=== PATIENT | male | born 1965 | race Caucasian/White ===

== ENCOUNTER 2024-01-27 22:21 | Inpatient (IN) | payer MEDICARE, MEDICAID, SELFPAY ==
[2024-01-27] VITALS (7 sets, daily range): BP systolic 99–123; BP diastolic 51–56; PULSE 94–102; RESP 14–22; TEMP 35.9–36.4; O2SAT 89–100; BMI 28.7
--- NOTE | 2024-01-27 22:29 | ED.VIS.DYS ---
HPI History of Present Illness Chief Complaint: Shortness of Breath Narrative Narrative: 58-year-old male with multiple medical problems, presents from halfway facility with increasing shortness of breath. His history and physical is limited secondary to the fact that he is on CPAP currently per EMS. He has recent history of stent placement. He is also in end-stage renal disease patient and gets dialysis. Currently has a decubitus ulcer, on antibiotics. Per EMS, he had increasing difficulty breathing today. Patient denies any cough, or chest pain. He does have history of CHF and COPD. 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 Bipolar affective disorder CAD (coronary artery disease) Cervical stenosis of spine CHF (congestive heart failure) Chronic kidney disease Colostomy in place Depression Diabetes Dialysis patient GERD (gastroesophageal reflux disease) Hyperlipemia Hypertension Myocardial infarction Neuropathy Osteoarthritis Home Medications albuterol sulfate 2.5 mg/0.5 mL solution for nebulization 2.5 mg inhalation Q6H 01/27/24 [History Last Taken Unknown] albuterol sulfate 90 mcg/actuation aerosol inhaler 2 inh inhalation Q6H PRN shortness of breath or wheezing 01/27/24 [History Last Taken Unknown] aspirin 81 mg tablet,delayed release (Adult Low Dose Aspirin) 81 mg PO DAILY 01/27/24 [History Last Taken Unknown] buspirone 5 mg tablet 5 mg PO DAILY 01/27/24 [History Last Taken Unknown] cariprazine 3 mg capsule (Vraylar) 3 mg PO DAILY 01/27/24 [History Last Taken Unknown] cholecalciferol (vitamin D3) 125 mcg (5,000 unit) capsule 5,000 unit PO DAILY 01/27/24 [History Last Taken Unknown] clopidogrel 75 mg tablet (Plavix) 75 mg PO DAILY 01/27/24 [History Last Taken Unknown] cyanocobalamin (vitamin B-12) 500 mcg tablet (Vitamin B-12) 500 mcg PO DAILY 01/27/24 [History Last Taken Unknown] epoetin dee 10,000 unit/mL injection solution (Procrit) 10,000 unit IV DAILY 01/27/24 [History Last Taken Unknown] ferrous sulfate 325 mg (65 mg iron) tablet (iron) 325 mg PO BID 01/27/24 [History Last Taken Unknown] gabapentin 600 mg tablet 600 mg PO BID 01/27/24 [History Last Taken Unknown] insulin glargine 100 unit/mL (3 mL) subcutaneous pen (Basaglar KwikPen U-100 Insulin) 20 unit subcut QPM 01/27/24 [History Last Taken Unknown] insulin lispro 100 unit/mL subcutaneous pen (Humalog KwikPen (U-100) Insulin) 15 unit subcut TIDCM 01/27/24 [History Last Taken Unknown] insulin lispro protamine-lispro 100 unit/mL (75-25) subcutaneous pen 12 unit subcut DAILY 01/27/24 [History Last Taken Unknown] isosorbide mononitrate 60 mg tablet,extended release 24 hr 60 mg PO DAILY 01/27/24 [History Last Taken Unknown] meropenem 500 mg intravenous solution 500 mg IV Q24H 01/27/24 [History Last Taken Unknown] metoprolol succinate 25 mg tablet,extended release 24 hr 25 mg PO DAILY 01/27/24 [History Last Taken Unknown] nitroglycerin 0.4 mg sublingual PRN 01/27/24 [History Last Taken Unknown] omeprazole 20 mg capsule,delayed release 20 mg PO DAILY 01/27/24 [History Last Taken Unknown] ranolazine 500 mg tablet,extended release,12 hr 1,000 mg PO Q12H 01/27/24 [History Last Taken Unknown] rosuvastatin 20 mg tablet (Crestor) 20 mg PO DAILY 01/27/24 [History Last Taken Unknown] sevelamer carbonate 800 mg tablet (Renvela) 1,600 mg PO DAILY 01/27/24 [History Last Taken Unknown] vancomycin 1,000 mg intravenous injection 1 g IV DAILY 01/27/24 [History Last Taken Unknown] vilazodone 40 mg tablet 40 mg PO DAILY 01/27/24 [History Last Taken Unknown] Allergy/AdvReac Type Severity Reaction Status Date / Time atorvastatin Allergy Unknown PT UNABLE Verified 01/27/24 23:29 TO RESPOND-NEEDS F/U [id number] Reductase Allergy Unknown PT UNABLE Verified 01/27/24 23:29 Inhibitor TO RESPOND-NEEDS F/U Surgical History Hx of appendectomy Hx of CABG Social History Smoking Status: Former smoker ROS ROS ED ROS Narrative Limited secondary to patient condition Constitutional: No fever, no chills. HEENT: No sore throat. No neck pain. No loss of vision. No rhinorrhea. Cardiovascular: No chest pain. No palpitations. No pedal edema. Respiratory: No cough, positive, increasing shortness of breath. Abdominal: No abdominal pain. No nausea. No vomiting. Genitourinary: No dysuria. No hematuria. Musculoskeletal: No myalgias. No arthralgias. Neurologic: No headaches. No dizziness. No lightheadedness. Skin: No rash. No change in color. Psychiatric: No depression. No anxiety. EXAM Physical Exam Narrative Exam Narrative: Afebrile. Vital signs noted. HEENT: Normocephalic. Atraumatic. PERRL, EOMI. Neck soft and supple. No point tenderness or step off. Cardiovascular: Regular rate and rhythm. No murmurs, rubs, or gallops appreciated. Respiratory: Positive tachypnea. Bilateral rales and rhonchi. Moderate respiratory distress. Gastrointestinal: Abdomen soft, nontender, with normoactive bowel sounds. No rebound or guarding. Neurological: Awake. Alert. Nonfocal, nonlateralizing. Skin: No rash. Normal color. No pallor. Musculoskeletal: No pedal edema. Left below the knee amputation, right [id number] amputation. Const Vital Signs: 01/27/24 22:22 01/27/24 22:32 01/27/24 22:38 Temperature 97.6 F L 97.6 F L Temperature Source Temporal Temporal Pulse Rate 100 102 H Respiratory Rate 22 H 21 H Respiratory Effort Respiratory Depth Respiratory Pattern Blood Pressure 123/54 H 123/54 H Blood Pressure Mean 77 77 Pulse Ox 89 92 95 Oxygen Delivery Method Bi-pap Bi-pap Bi-pap Fraction of Inspired Oxygen (FIO2) 60 60 01/27/24 22:40 01/27/24 22:30 01/27/24 22:55 Temperature 97 F L Temperature Source Temporal Pulse Rate 101 H 98 Respiratory Rate 22 H 18 Respiratory Effort Short of Breath Respiratory Depth Shallow Respiratory Pattern Tachypnea Normal Blood Pressure 99/56 L Blood Pressure Mean 70 Pulse Ox 93 96 Oxygen Delivery Method Bi-pap Bi-pap Fraction of Inspired Oxygen (FIO2) 60 60 60 01/27/24 23:28 01/28/24 00:00 01/28/24 00:05 Temperature 96.7 F L 98.2 F Temperature Source Temporal Temporal Pulse Rate 94 91 89 Respiratory Rate 18 18 17 Respiratory Effort Respiratory Depth Respiratory Pattern Normal Blood Pressure 110/51 L 99/53 L Blood Pressure Mean 70 68 Pulse Ox 100 97 97 Oxygen Delivery Method Bi-pap Bi-pap Fraction of Inspired Oxygen (FIO2) 35 30 MDM MDM MDM Narrative Medical decision making narrative: Sepsis workup was pursued. In the differential diagnosis is CHF versus COPD versus pneumonia versus a combination of the 3. I have low suspicion for pneumothorax as he has equal breath sounds bilaterally. Upon arrival, patient was placed on BiPAP, and his mask was changed to a better fitting mask. He had a resultant pulse ox at 93. ABG will be obtained along with chest x-ray. EKG was obtained and interpreted by myself independently as sinus tachycardia at 103 bpm without ectopy or acute ST changes. No STEMI. He does have T wave inversion laterally, however. The patient is not having chest pain. I reviewed his ABG initially and he has a pH of 7.29 with a pCO2 of 58 and a pO2 of 75. This will be repeated in 1 hour. He is showing improvement with a pulse ox of 100% on BiPAP now. I reviewed his laboratory work and he has an elevated white count of 19.6. In review of his infectious disease consultation, they state that it has been as high been steadily rising for his osteomyelitis of his sacrum. Hemoglobin 7.8 and anemic, I do not feel he requires emergent transfusion however. Platelet count normal at 322. INR normal at 1.3. Review of his electrolytes show potassium slightly elevated at 5.3 with creatinine of 7.34 consistent with his end-stage renal disease. Lactic acid is normal at 0.9. High-sensitivity troponin is elevated at 80 but I think this is secondary to his end-stage renal disease as once again the patient is pain-free. I do not feel that heparinization is indicated. Chest x-ray in 1 view interpreted by myself shows atelectasis bilaterally but no discrete consolidation. I reviewed the radiology report which confirms my independent interpretation. I reviewed his urinalysis and he is positive for nitrites, but only has 0-5 WBCs. I do not feel that this is an infected urine, but he is being started on antibiotics for his osteomyelitis. I do not feel that a BNP is indicated as he has end-stage renal disease with a creatinine of 7 today. His chest x-ray does not look like failure. With this point in time, we do feel that he requires admission to the ICU. Patient will be discussed with the hospitalist. He was started on vancomycin and meropenem which she is being given at the SNF/rehab facility. In discussion with the hospitalist, concern is for pulmonary embolism given his recent hospitalization. He would like a CTA performed which I do feel is reasonable. This was ordered and I reviewed the CT report which shows pleural effusions and pneumonia but no evidence of pulmonary embolism. He was already started on meropenem and vancomycin for his sacral osteomyelitis. Disposition is admitted to the ICU in guarded condition. Critical care time 31 minutes. History & Record Review Discussion w/independent historian: Patient Additional record(s) reviewed:: Prior outpatient record (Printout from previous admission at [facility]) Lab Data Attestation: I reviewed the patient's lab results. Labs: Laboratory Results - last 24 hr 01/27/24 01/27/24 22:29 22:55 WBC 19.6 H RBC 2.39 L Hgb 7.8 L Hct 26.1 L MCV 109.2 H MCH 32.6 H MCHC 29.9 L RDW Std Deviation 65.4 H RDW Coeff of Renyold 16.3 H Plt Count 322 MPV 9.4 Immature Gran % (Auto) 0.700 Neut % (Auto) 79.2 H Lymph % (Auto) 13.3 L Burnet % (Auto) 6.4 Eos % (Auto) 0.2 Baso % (Auto) 0.2 Absolute Neuts (auto) 15.6 H Absolute Lymphs (auto) 2.62 Nucleated RBC % 0 Anisocytosis RARE PT 16.5 H INR 1.3 APTT 41.0 H Sodium 139 Potassium 5.3 H Chloride 102 Carbon Dioxide 30.0 Anion Gap 7 BUN 51 H Creatinine 7.34 H Estim Creat Clear Calc 12.29 Est GFR (MDRD) Af Amer 10 L Est GFR (MDRD) Non-Af 8 L BUN/Creatinine Ratio 6.9 L Glucose 133 H Lactic Acid 0.9 Calcium 8.6 Total Bilirubin 0.40 AST 13 L ALT 13 L Alkaline Phosphatase 89 Troponin I High Sens 80 H B-Natriuretic Peptide 240.3 H Total Protein 8.8 H Albumin 1.9 L Globulin 6.9 H Albumin/Globulin Ratio 0.3 L Urine Color Yellow Urine Clarity Clear Urine pH 6.5 Ur Specific Alvarado 1.010 Urine Protein 100 H Urine Glucose (UA) 250 H Urine Ketones 5 H Urine Occult Blood 50 H Urine Nitrite Positive H Urine Bilirubin 1 H Urine Urobilinogen 1 H Ur Leukocyte Esterase 25 H Urine RBC 0-5 SEEN Urine WBC 0-5 SEEN Ur Squamous Epith Cells 0-5 SEEN Urine Bacteria RARE Urine Mucus 0 SEEN ABG Data ABG results: ABG 01/27/24 01/28/24 22:49 00:10 Specimen Type ART ART Sample Site R Radial R Radial pH 7.30 L 7.22 L Bicarbonate Actual 28.4 H 28.0 H Total CO2 30 30 Base Excess 2 0 O2 Saturation 93 L 94 L O2 % 60.0 30.0 ABG pCO2 58.3 H 68.1 H* ABG pO2 76 86 Mik Test Positive Positive Respiration Rate 14 14 O2 Delivery Device BiPAP BiPAP Vent Mode Not entered Not entered Tidal Volume 450.0 450.0 POC PEEP 12 12 Crit Call To/Read Back Yes Radiography Diagnostic Testing: Clinical Impression(s) from Imaging Studies Chest X-Ray 01/27/24 22:45 IMPRESSION: Poor inspiration with some bibasilar atelectasis. Electronically Signed: Harjit Kimball MD at 22:58 EDT , Chest CTA 01/28/24 00:12 IMPRESSION: 1. Moderate pleural effusions with bilateral lower lobe consolidations. Findings indicate pneumonia. 2. No evidence of pulmonary embolism. Electronically Signed: Luis Escudero MD at 0:57 EDT , Management Discussion w/another healthcare provider: Hospitalist (Dr. Lion) Critical Care Time Critical Care Time: Yes Critical care time (excluding procedures): 30-74 minutes (31), Including time spent:, Discussing w/Patient &/or Family/Auditing Control Clerk, Discussing w/Consultants, Arranging Admission or Transfer and Performing Direct Patient Care at Bedside Discharge Plan Dx/Rx/DC Orders Clinical Impression: Respiratory failure with hypoxia, Osteomyelitis of sacrum, ESRD on dialysis Disposition Disposition: Acute Care [facility]
[2024-01-27 22:43] LABS: Absolute Lymphocyte Count 2.62 X10^3/uL (0.83-4.51); Absolute Neutrophil Count 15.6 X10^3/uL (2.0-7.7); Basophil# 0.04 X10^3/uL; Basophil% 0.2 % (0-1); Eosinophil# 0.03 X10^3/uL; Eosinophils% 0.2 % (0-5); Hematocrit 26.1 % (40-54); Hemoglobin 7.8 g/dL (13.0-16.5); Lymphocyte # 2.62 X10^3/ul (0.83-4.51); Lymphocyte % 13.3 % (19-41); Mean Corp Hgb Conc 29.9 g/dL (32-36); Mean Corpuscular Hgb 32.6 pg (27.0-32.0); Mean Corpuscular Volume 109.2 fL (80-94); Mean Platelet Vol. 9.4 fl (6.2-12.0); Monocyte# 1.26 X10^3/uL; Monocyte% 6.4 % (0-10); NRBC Flagged by Analyzer 0 % (0-5); Neutrophil # 15.55 X10^3/uL (2.7-7.7); Neutrophil % 79.2 % (47-70); POSITIVE MORPHOLOGY YES; Platelet Count 322 K/mm3 (150-450); RBC Distribution Width CV 16.3 % (11.6-14.6); RBC Distribution Width SD 65.4 fl (35.1-43.9); Red Blood Count 2.39 M/mm3 (4.6-6.2); White Blood Count 19.6 K/mm3 (4.4-11.0)
--- NOTE | 2024-01-27 22:45 | RAD_ITS ---
STUDY: X-RAY CHEST REASON FOR EXAM: Male, 58 years old. Shortness of Breath TECHNIQUE: Single AP portable view of the chest. COMPARISON: None. FINDINGS: Tunneled left internal jugular dialysis catheter with tip of the catheter overlying the left brachiocephalic vein. Status post median sternotomy. Poor inspiration with some bibasilar atelectasis. There is no demonstrated pleural abnormality. There is moderate cardiac enlargement. Normal mediastinum and conor. Normal visualized pulmonary arteries. Normal visualized aortic arch and descending thoracic aorta. Normal visualized thoracic spine. Normal visualized ribs, clavicles, and shoulders. There is no demonstrated abnormality of the visualized soft tissue structures of the upper abdomen. RAD/Chest 1 View (Portable) IMPRESSION: Poor inspiration with some bibasilar atelectasis. Electronically Signed: Harjit Kimball MD at 22:58 EDT ,
[2024-01-27 22:46] LABS: Differential Indicated SCAN CRITERIA MET
[2024-01-27 22:53] LABS: Allen Test Positive; Base Excess 2 mmol/L (-2 to +2); Bicarbonate 28.4 mmol/L (22-26); Blood Gas Specimen Type ART; Mode Not entered; O2 Delivery Device BiPAP; PEEP 12; PO2 76 mmHG (75-100); RR 14; SITE R Radial; SO2 93 % (95-99); Total Carbon Dioxide 30 mmol/L; pCO2 58.3 mmHg (35-45)
[2024-01-27 22:56] LABS: International Normalized Ratio 1.3; Prothrombin Time (Protime)PT. 16.5 SECONDS (11.7-14.9)
[2024-01-27 22:59] LABS: Mucous, Urine 0 SEEN /hpf (<or=2+)
[2024-01-27 23:02] LABS: Color, Urine Yellow (Yellow); Glucose, Dipstick 250 mg/dl (Normal); Ketone-Dipstick 5 mg/dl (Negative); Leukocyte Esterase-Dipstick 25 /ul (Negative); Nitrite-Dipstick Positive (Negative); Occult Blood-Urine 50 /ul (Negative); Protein-Dipstick 100 mg/dl (Negative); Urine Clarity Clear (Clear); Urine Urobilinogen 1 mg/dl (Normal); Urine pH 6.5 (5.0 - 8.0)
[2024-01-27 23:05] LABS: ALB/GLOB Ratio 0.3 RATIO (0.9-2.4); AST(SGOT) 13 U/L (15-37); Alanine Aminotransfer ALT/SGPT 13 U/L (16-61); Albumin, Serum 1.9 g/dL (3.2-5.0); Alkaline Phosphatase 89 U/L (45-117); Anion Gap 7 (5-15); BUN 51 mg/dL (7-18); BUN/Creat Ratio 6.9 RATIO (10-20); Calcium,Total 8.6 mg/dL (8.5-10.1); Chloride 102 mmol/L (98-107); Creatinine, Serum 7.34 mg/dL (0.70-1.30); EST Glomerular Filtration Rate 8 mL/min (>60); Est Glom Filt Rate - Afr Amer 10 mL/min (>60); Estimated Creatinine Clearance 12.29 ml/min; Globulin 6.9 g/dL (2.2-4.2); Glucose 133 mg/dL (74-106); Lactic Acid 0.9 mmol/L (0.4-1.9); Potassium 5.3 mmol/L (3.5-5.1); Protein, Total 8.8 g/dL (6.4-8.2); Sodium Level 139 mmol/L (136-145); Troponin-I HS 80 pg/mL (3.0-78.0)
[2024-01-27 23:12] LABS: Red Blood Cells-Urine 0-5 SEEN /hpf (0-5); Urine Bilirubin Dipstick 1 mg/dL (Negative); White Blood Cells 0-5 SEEN /hpf (0-5)
[2024-01-27 23:13] LABS: Bacteria RARE /hpf (None Seen); Squamous Epithelial Cells - UA 0-5 SEEN /hpf (0-5)
[2024-01-27] MEDS: 0.9% Normal Saline (1000mL) 1,000 ML 999 ML IV (23:30)
[2024-01-27 23:38] LABS: Anisocytosis RARE
[2024-01-27] MEDS: Meropenem 500 MG in 0.9% Normal Saline (50mL MB+) 50 ML 100 MG IV (23:50)
[2024-01-28] VITALS (41 sets, daily range): BP systolic 97–137; BP diastolic 47–92; PULSE 77–102; RESP 14–36; TEMP 35.9–37.1; O2SAT 90–100; BMI 27.8
--- NOTE | 2024-01-28 00:05 | HP.PCM.HOS_ITS ---
HPI - General General Date of Admission: 01/28/24 Date of Service: 01/28/24 Chief Complaint: Shortness of breath and AMS. HPI Narrative RAMANDEEP KEEN, is a 58 M with a past medical history of essential hypertension, hyperlipidemia, overweight; with BMI of 28.8 present as admission, diabetes mellitus type 2; of unknown control, diabetic neuropathy, coronary artery disease; status post CABG and recent stent placement 1 week ago, history of CHF, history of severe peripheral vascular disease; status post right AKA and left BKA, end-stage renal disease on hemodialysis, chronic anemia; likely due to renal disease, recent admission likely to a Hospital in [place] for osteomyelitis of the sacrum with Stage IV decubitus ulcer on IV Merrem and IV Vancomycin followed by infectious disease DrIsrael Chavez who was then sent to [facility] for less than 1 day who was then sent via EMS to [facility] ER for shortness of breath and altered mental status. Mr. Keen cannot give a complete history at this time as he is in respiratory distress on BiPAP so information was gathered from chart, medical staff and computer. In the ER his CT scan of the chest was positive for multifocal pneumonia with bilateral effusions complicated by clinical evidence of acute hypoxic respiratory failure compounded by metabolic encephalopathy and he was then admitted to the ICU for ongoing care for a stay that is expected to be greater than 48 hours. [facility] Medical History AAA (abdominal aortic aneurysm) Above knee amputation of right lower extremity Below-knee amputation of left lower extremity Bipolar affective disorder CAD (coronary artery disease) Cervical stenosis of spine CHF (congestive heart failure) Chronic kidney disease Colostomy in place Depression Diabetes Dialysis patient GERD (gastroesophageal reflux disease) Hyperlipemia Hypertension Myocardial infarction Neuropathy Osteoarthritis Home Medications albuterol sulfate 2.5 mg/0.5 mL solution for nebulization 2.5 mg inhalation Q6H 01/27/24 [History Last Taken Unknown] albuterol sulfate 90 mcg/actuation aerosol inhaler 2 inh inhalation Q6H PRN shortness of breath or wheezing 01/27/24 [History Last Taken Unknown] aspirin 81 mg tablet,delayed release (Adult Low Dose Aspirin) 81 mg PO DAILY 01/27/24 [History Last Taken Unknown] buspirone 5 mg tablet 5 mg PO DAILY 01/27/24 [History Last Taken Unknown] cariprazine 3 mg capsule (Vraylar) 3 mg PO DAILY 01/27/24 [History Last Taken Unknown] cholecalciferol (vitamin D3) 125 mcg (5,000 unit) capsule 5,000 unit PO DAILY 01/27/24 [History Last Taken Unknown] clopidogrel 75 mg tablet (Plavix) 75 mg PO DAILY 01/27/24 [History Last Taken Unknown] cyanocobalamin (vitamin B-12) 500 mcg tablet (Vitamin B-12) 500 mcg PO DAILY 01/27/24 [History Last Taken Unknown] epoetin dee 10,000 unit/mL injection solution (Procrit) 10,000 unit IV DAILY 01/27/24 [History Last Taken Unknown] ferrous sulfate 325 mg (65 mg iron) tablet (iron) 325 mg PO BID 01/27/24 [Hi story Last Taken Unknown] gabapentin 600 mg tablet 600 mg PO BID 01/27/24 [History Last Taken Unknown] insulin glargine 100 unit/mL (3 mL) subcutaneous pen (Basaglar KwikPen U-100 Insulin) 20 unit subcut QPM 01/27/24 [History Last Taken Unknown] insulin lispro 100 unit/mL subcutaneous pen (Humalog KwikPen (U-100) Insulin) 15 unit subcut TIDCM 01/27/24 [History Last Taken Unknown] insulin lispro protamine-lispro 100 unit/mL (75-25) subcutaneous pen 12 unit subcut DAILY 01/27/24 [History Last Taken Unknown] isosorbide mononitrate 60 mg tablet,extended release 24 hr 60 mg PO DAILY 01/27/24 [History Last Taken Unknown] meropenem 500 mg intravenous solution 500 mg IV Q24H 01/27/24 [History Last T aken Unknown] metoprolol succinate 25 mg tablet,extended release 24 hr 25 mg PO DAILY 01/27/24 [History Last Taken Unknown] nitroglycerin 0.4 mg sublingual PRN 01/27/24 [History Last Taken Unknown] omeprazole 20 mg capsule,delayed release 20 mg PO DAILY 01/27/24 [History Last Taken Unknown] ranolazine 500 mg tablet,extended release,12 hr 1,000 mg PO Q12H 01/27/24 [History Last Taken Unknown] rosuvastatin 20 mg tablet (Crestor) 20 mg PO DAILY 01/27/24 [History Last Taken Unknown] sevelamer carbonate 800 mg tablet (Renvela) 1,600 mg PO DAILY 01/27/24 [History Last Taken Unknown] vancomycin 1,000 mg intravenous injection 1 g IV DAILY 01/27/24 [History Last Taken Unknown] vilazodone 40 mg tablet 40 mg PO DAILY 01/27/24 [History Last Taken Unknown] Allergy/AdvReac Type Severity Reaction Status Date / Time atorvastatin Allergy Unknown PT UNABLE Verified 01/27/24 23:29 TO RESPOND-NEEDS F/U Aiirqxy-YAA-BdB Reductase Allergy Unknown PT UNABLE Verified 01/27/24 23:29 Inhibitor TO RESPOND-NEEDS F/U Surgical History Hx of appendectomy Hx of CABG Social History Smoking Status: Former smoker ROS ROS Narrative Full review of systems cannot be completed secondary to patient wearing BiPAP and altered mental status. Review of Systems ROS Unobtainable: due to encephalopathy Vital Signs Vital Signs Vital Signs: 01/27/24 22:22 01/27/24 22:32 01/27/24 22:38 Temperature 97.6 F L 97.6 F L Temperature Source Temporal Temporal Pulse Rate 100 102 H Respiratory Rate 22 H 21 H Respiratory Effort Respiratory Depth Respiratory Pattern Blood Pressure 123/54 H 123/54 H Blood Pressure Mean 77 77 Pulse Ox 89 92 95 Oxygen Delivery Method Bi-pap Bi-pap Bi-pap Fraction of Inspired Oxygen (FIO2) 60 60 01/27/24 22:40 01/27/24 22:30 01/27/24 22:55 Temperature 97 F L Temperature Source Temporal Pulse Rate 101 H 98 Respiratory Rate 22 H 18 Respiratory Effort Short of Breath Respiratory Depth Shallow Respiratory Pattern Tachypnea Normal Blood Pressure 99/56 L Blood Pressure Mean 70 Pulse Ox 93 96 Oxygen Delivery Method Bi-pap Bi-pap Fraction of Inspired Oxygen (FIO2) 60 60 60 01/27/24 23:28 Temperature 96.7 F L Temperature Source Temporal Pulse Rate 94 Respiratory Rate 18 Respiratory Effort Respiratory Depth Respiratory Pattern Blood Pressure 110/51 L Blood Pressure Mean 70 Pulse Ox 100 Oxygen Delivery Method Bi-pap Fraction of Inspired Oxygen (FIO2) Weight Weight: 200 lb 6.403 oz Body Mass Index (BMI) 28.7 Physical Exam Const alert Constitutional Narrative: Patient with labored respirations on BiPAP. Orientation / Consciousness: confused and lethargic HEENT normocephalic, head/scalp atraumatic and hearing grossly normal bilaterally HEENT Narrative: Mucous membranes dry. Eyes PERRL and EOMs intact bilaterally Neck no lymphadenopathy and supple Resp Resp Narrative: Diminished breath sounds throughout. Cardio regular rate and regular rhythm GI normal to inspection, nondistended, normoactive bowel sounds, soft to palpation, non-tender and non-distended Extremity Extremity Narrative: Patient has evidence of Right AKA and Left BKA. Neuro CN's II-XII intact bilaterally and moves all extremities Sensorium / Orientation: awake, alert and oriented to person Speech: speech normal Psych Mood & Affect: anxious Results Medical Records Data Attestation: I reviewed the patient's medical records Lab / Micro Data Attestation: I reviewed the patient's lab results. 01/27/24 22:29 01/28/24 03:20 Labs: Laboratory Results - last 24 hr 01/27/24 22:29: WBC 19.6 H, RBC 2.39 L, Hgb 7.8 L, Hct 26.1 L, MCV 109.2 H, MCH 32.6 H, MCHC 29.9 L, RDW Std Deviation 65.4 H, RDW Coeff of Reynold 16.3 H, Plt Count 322, MPV 9.4, Immature Gran % (Auto) 0.700, Neut % (Auto) 79.2 H, Lymph % (Auto) 13.3 L, [place] % (Auto) 6.4, Eos % (Auto) 0.2, Baso % (Auto) 0.2, Absolute Neuts (auto) 15.6 H, Absolute Lymphs (auto) 2.62, Nucleated RBC % 0, Anisocytosis RARE, PT 16.5 H, INR 1.3, APTT 41.0 H, Sodium 139, Potassium 5.3 H, Chloride 102, Carbon Dioxide 30.0, Anion Gap 7, BUN 51 H, Creatinine 7.34 H, Estim Creat Clear Calc 12.29, Est GFR (MDRD) Af Amer 10 L, Est GFR (MDRD) Non-Af 8 L, BUN/Creatinine Ratio 6.9 L, Glucose 133 H, Lactic Acid 0.9, Calcium 8.6, Total Bilirubin 0.40, AST 13 L, ALT 13 L, Alkaline Phosphatase 89, Troponin I High Sens 80 H, Total Protein 8.8 H, Albumin 1.9 L, Globulin 6.9 H, Albumin/G lobulin Ratio 0.3 L 01/27/24 22:55: Urine Color Yellow, Urine Clarity Clear, Urine pH 6.5, Ur Specific Nursery 1.010, Urine Protein 100 H, Urine Glucose (UA) 250 H, Urine Ketones 5 H, Urine Occult Blood 50 H, Urine Nitrite Positive H, Urine Bilirubin 1 H, Urine Urobilinogen 1 H, Ur Leukocyte Esterase 25 H, Urine RBC 0-5 SEEN, Urine WBC 0-5 SEEN, Ur Squamous Epith Cells 0-5 SEEN, Urine Bacteria RARE, Urine Mucus 0 SEEN ABG Data ABG results: ABG 01/27/24 22:49 Specimen Type ART Sample Site R Radial pH 7.30 L Bicarbonate Actual 28.4 H Total CO2 30 Base Excess 2 O2 Saturation 93 L O2 % 60.0 ABG pCO2 58.3 H ABG pO2 76 Mik Test Positive Respiration Rate 14 O2 Delivery Device BiPAP Vent Mode Not entered Tidal Volume 450.0 POC PEEP 12 Imaging Radiology Impression Chest X-Ray 01/27/24 22:45 IMPRESSION: Poor inspiration with some bibasilar atelectasis. Electronically Signed: Harjit Kimball MD at 22:58 EDT , [facility] [address] [place] [address] CTA Chest W/WO Contrast MR#: [id number] Acct: [id number] Name: RAMANDEEP KEEN Rep #: [id number] : 1965 M 58 From: Luis Escudero MD PCP: Dr. Laci Power MD Status: REG ER Study: CTA Chest W/WO Contrast Date of Exam: 01/28/24 Exam# [id number] Ordering Dr: North Jamison MD EXAM: CT ANGIOGRAPHY CHEST WITHOUT AND WITH INTRAVENOUS CONTRAST CLINICAL INDICATION: hypoxia TECHNIQUE: Helically acquired angiography images were obtained of the chest without and with intravenous contrast. This CT exam was performed using one or more of the following dose reduction techniques: automated exposure control, adjustment of the mA and/or kV according to patient size, and/or use of iterative reconstruction technique. MIP reconstructed images were created and reviewed. CONTRAST: IV 100mL Isovue-370 RADIATION DOSE: CTDIvol = 13.59 mGy, DLP = 565.33 mGy-cm COMPARISON: No relevant prior studies available. FINDINGS: PULMONARY ARTERIES: Unremarkable. Normal in caliber. No evidence of pulmonary embolism. AORTA: Unremarkable. No aortic dissection or dilation. GREAT VESSELS OF AORTIC ARCH: Unremarkable. Normal in caliber. No evidence of dissection. LUNGS AND PLEURAL SPACES: Moderate pleural effusions with bilateral lower lobe consolidations. No mass. No pneumothorax. HEART: Coronary artery calcifications. Heart size is normal. No pericardial effusion. MEDIASTINUM: Surgical changes of the mediastinum. No mediastinal or hilar adenopathy. Esophagus is unremarkable. No hiatal hernia. THYROID: Unremarkable. No thyroid lesions. BONES/JOINTS: Degenerative changes of the spine. No suspicious lytic or blastic abnormality. CT/CTA Chest W/WO Contrast IMPRESSION: 1. Moderate pleural effusions with bilateral lower lobe consolidations. Findings indicate pneumonia. 2. No evidence of pulmonary embolism. Electronically Signed: Luis Escudero MD at 0:57 EDT , CC: Dr. North Jamison MD; Dr. Laci Power MD ~ Aircraft Engine Mechanic Supervisor: Signed Assessment & Plan Assessment/Plan (1) Multifocal pneumonia: (2) Osteomyelitis of sacrum: (3) Sacral decubitus ulcer, stage IV: (4) Hyperkalemia: (5) Metabolic encephalopathy: PLAN: Plan 1. Multifocal Pneumonia with Bilateral Effusions causing Acute hypoxic respiratory failure requiring BiPAP in patient with recent protracted hospitalization [facility] - Admit to ICU and continue BiPAP. Restart IV Vancomycin and IV Merrem used to treat #2 plus add renally-dosed IV Diflucan in case of fungal infection in this chronically ill patient on prolonged broad-spectrum antibiotics with severe pneumonia. Finally, we will consult ID physician to see this patient on-rounds in the AM for further recommendations with help appreciated in advance. Patient did not have signs of sepsis present on admission. 2. Chronic Sacral Osteomyelitis with chronic stage IV sacral decubitus ulcer Leukocytosis of 19.6 present on admission followed by Dr. Laci Chavez of ID in [place], [place] complicating #1 - Continue antibiotics with IV Vancomycin and IV Merrem and await culture and sensitivity data. We will consult Wound RN to see this patient on-rounds in the AM for further recommendations with help appreciated in advance. ER was asked to obtain full records from previous hospital since this patient has no records here and cannot give a full history at this time. 3. Hyperkalemia of 5.3 mmol/L present on admission compounding #1 & #2 - Give 10 units of R-insulin with one ampoule of IV D50 plus give oral Kayexalate and then recheck BMP to ensure improvement. 4. Acute Metabolic Encephalopathy attributable to #1 - #3 - Continue supportive care and monitor for improvement. 5. CAD; s/p CABG with resent stent placement on week ago - Resume BASA and Plavix plus statin. Serialize troponin. 6. History of severe peripheral vascular disease; status post right AKA and left BKA with chronic immobility and hyper-inflammatory state outlined above - Noted. Check d-dimer. Check LE doppers with CTA chest negative for PE. 7. ESRD on HD; with chronic anemia previously on Procrit and with hemoglobin of 7.8 g/dL present on admission - We will consult nephrology to see this patient on-rounds in the AM to help set up HD with help appreciated in advance. 8. Diabetes mellitus type 2; of unknown control with diabetic neuropathy - Keep NPO for now. FSBS q. 6 hours plus lowest intensity SSI. 9. History of CHF - Stable. 10. Essential hypertension - Continue Metoprolol plus give prn Hydralazine for systolic blood pressure > 160 mm Hg. 11. Hyperlipidemia - Resume statin. 12. Overweight; with BMI of 28.8 present as admission - Weight loss will be recommended. 13. DVT prophylaxis - Patient on renal-dose Lovenox. Total time: Approximately 75 minutes. Charges/Coding Visit Charges Inpatient E&M: 11580 Init Hosp L3
--- NOTE | 2024-01-28 00:12 | CT_ITS ---
EXAM: CT ANGIOGRAPHY CHEST WITHOUT AND WITH INTRAVENOUS CONTRAST CLINICAL INDICATION: hypoxia TECHNIQUE: Helically acquired angiography images were obtained of the chest without and with intravenous contrast. This CT exam was performed using one or more of the following dose reduction techniques: automated exposure control, adjustment of the mA and/or kV according to patient size, and/or use of iterative reconstruction technique. MIP reconstructed images were created and reviewed. CONTRAST: IV 100mL Isovue-370 RADIATION DOSE: CTDIvol = 13.59 mGy, DLP = 565.33 mGy-cm COMPARISON: No relevant prior studies available. FINDINGS: PULMONARY ARTERIES: Unremarkable. Normal in caliber. No evidence of pulmonary embolism. AORTA: Unremarkable. No aortic dissection or dilation. GREAT VESSELS OF AORTIC ARCH: Unremarkable. Normal in caliber. No evidence of dissection. LUNGS AND PLEURAL SPACES: Moderate pleural effusions with bilateral lower lobe consolidations. No mass. No pneumothorax. HEART: Coronary artery calcifications. Heart size is normal. No pericardial effusion. MEDIASTINUM: Surgical changes of the mediastinum. No mediastinal or hilar adenopathy. Esophagus is unremarkable. No hiatal hernia. THYROID: Unremarkable. No thyroid lesions. BONES/JOINTS: Degenerative changes of the spine. No suspicious lytic or blastic abnormality. CT/CTA Chest W/WO Contrast IMPRESSION: 1. Moderate pleural effusions with bilateral lower lobe consolidations. Findings indicate pneumonia. 2. No evidence of pulmonary embolism. Electronically Signed: Luis Escudero MD at 0:57 EDT ,
--- NOTE | 2024-01-28 00:13 | CPS ---
Critical ABG values Dr. Yaquelin granado.
[2024-01-28 00:14] LABS: Allen Test Positive; Base Excess 0 mmol/L (-2 to +2); Blood Gas Specimen Type ART; Mode Not entered; O2 Delivery Device BiPAP; PEEP 12; PO2 86 mmHG (75-100); RR 14; SITE R Radial; SO2 94 % (95-99); Total Carbon Dioxide 30 mmol/L; pCO2 68.1 mmHg (35-45); pH 7.22 (7.35-7.45)
[2024-01-28] MEDS: Vancomycin HCl 2,000 MG in 0.9% Normal Saline (500mL Bag) 500 ML 250 MG IV (00:44)
--- NOTE | 2024-01-28 01:06 | VDLE_ITS ---
Reason For Study: SOB RIGHT LEFT CFV is compressible, spontaneous, competent CFV is compressible, spontaneous, competent, and demonstrates pulsatile venous flow. and demonstrates pulsatile venous flow. FV is compressible, spontaneous, competent FV is compressible, spontaneous, competent and demonstrates pulsatile venous flow. and demonstrates pulsatile venous flow. GSV is normal. POP V is compressible, spontaneous, competent Pt has above knee amputation. and demonstrates pulsatile venous flow. Procedure GSV is normal. This is a venous duplex using B-mode, color Pt has below knee amputation. flow and spectral Doppler. Exam performed portable in ICU/CCU. The exam was diagnostic. A preliminary report was called and/or faxed to [employer]. VL/Venous Duplex US - Randall Extrem Interpretation Summary Deep veins of the lower extremities are bilaterally patent and compressible seg mentally. There is no evidence of deep vein thrombosis on either side. Valvular competence appears in tact within the proximal deep venous systems bilaterally. The great saphenous veins appear bila terally patent and compressible segmentally. A right above-knee amputation is noted. A left below- knee amputation is noted. Pulsatile flow is noted in the deep venous system bilaterally, which may be indicative of elevated central venous pressure (i.e. congestive heart failure, pulmonary hype rtention, etc.). Clinical correlation is advised. Ordering Physician: Adalid Isidro Performed By: Enio Solis, RVT
[2024-01-28 01:13] LABS: BNP,B-Type NATRIURETIC PEPTIDE 240.3 pg/mL (0-100)
[2024-01-28 01:59] LABS: D-Dimer Quantitative (DVT/PE) 6.27 FEU/ug/m (0.27-0.49)
[2024-01-28 02:23] LABS: Allen Test Positive; Base Excess -2 mmol/L (-2 to +2); Bicarbonate 24.8 mmol/L (22-26); Blood Gas Specimen Type ART; Mode AVAPS; O2 Delivery Device AVAPS; PEEP 12; PIP 26; PO2 63 mmHG (75-100); RR 14; SITE R Radial; SO2 88 % (95-99); Total Carbon Dioxide 26 mmol/L; pCO2 52.3 mmHg (35-45); pH 7.28 (7.35-7.45)
[2024-01-28 03:43] LABS: Absolute Lymphocyte Count 3.15 X10^3/uL (0.83-4.51); Absolute Neutrophil Count 16.3 X10^3/uL (2.0-7.7); Basophil# 0.04 X10^3/uL; Basophil% 0.2 % (0-1); Eosinophil# 0.05 X10^3/uL; Eosinophils% 0.2 % (0-5); Hematocrit 22.5 % (40-54); Hemoglobin 6.6 g/dL (13.0-16.5); Lymphocyte # 3.15 X10^3/ul (0.83-4.51); Lymphocyte % 14.9 % (19-41); Mean Corp Hgb Conc 29.3 g/dL (32-36); Mean Corpuscular Hgb 32.7 pg (27.0-32.0); Mean Corpuscular Volume 111.4 fL (80-94); Mean Platelet Vol. 9.4 fl (6.2-12.0); Monocyte# 1.39 X10^3/uL; Monocyte% 6.6 % (0-10); NRBC Flagged by Analyzer 0 % (0-5); Neutrophil # 16.33 X10^3/uL (2.7-7.7); Neutrophil % 77.3 % (47-70); POSITIVE MORPHOLOGY YES; Platelet Count 295 K/mm3 (150-450); RBC Distribution Width SD 66.3 fl (35.1-43.9); Red Blood Count 2.02 M/mm3 (4.6-6.2); White Blood Count 21.1 K/mm3 (4.4-11.0)
[2024-01-28 04:04] LABS: Magnesium 1.9 mg/dL (1.6-2.6); Phosphorus 6.6 mg/dL (2.5-4.9); Thyroid Stim Hormone (TSH) 2.79 uIU/mL (0.358-3.74)
[2024-01-28 04:27] LABS: ALB/GLOB Ratio 0.3 RATIO (0.9-2.4); AST(SGOT) 12 U/L (15-37); Alanine Aminotransfer ALT/SGPT 9 U/L (16-61); Albumin, Serum 1.6 g/dL (3.2-5.0); Alkaline Phosphatase 76 U/L (45-117); Anion Gap 7 (5-15); BUN 54 mg/dL (7-18); BUN/Creat Ratio 7.5 RATIO (10-20); Calcium,Total 8.3 mg/dL (8.5-10.1); Chloride 104 mmol/L (98-107); Creatinine, Serum 7.23 mg/dL (0.70-1.30); EST Glomerular Filtration Rate 8 mL/min (>60); Est Glom Filt Rate - Afr Amer 10 mL/min (>60); Globulin 6.1 g/dL (2.2-4.2); Glucose 149 mg/dL (74-106); Potassium 5.3 mmol/L (3.5-5.1); Protein, Total 7.7 g/dL (6.4-8.2); Sodium Level 139 mmol/L (136-145)
[2024-01-28] MEDS: VIAFLEX IV (04:45)
[2024-01-28] MEDS: FLUCONAZOLE IV (04:45)
[2024-01-28 04:53] LABS: Differential Indicated SCAN CRITERIA MET
--- NOTE | 2024-01-28 04:57 | PCM.RX.CS ---
Consult Antibiotic Management Pharmacy has been consulted to manage selected antibiotic: Vancomycin Type of Intervention Type of Consult: New start Suspected Infection Suspected Infection: Osteomyelitis and Pneumonia Labs Labs: Sodium 139 mmol/L (136-145) 01/28/24 03:20 Potassium 5.3 mmol/L (3.5-5.1) H 01/28/24 03:20 Chloride 104 mmol/L (98-107) 01/28/24 03:20 Carbon Dioxide 28.0 mmol/L (21.0-32.0) 01/28/24 03:20 Anion Gap 7 (5-15) 01/28/24 03:20 BUN 54 mg/dL (7-18) H 01/28/24 03:20 Creatinine 7.23 mg/dL (0.70-1.30) H 01/28/24 03:20 Est GFR (MDRD) Af Amer 10 mL/min (>60) L 01/28/24 03:20 Est GFR (MDRD) Non-Af 8 mL/min (>60) L 01/28/24 03:20 BUN/Creatinine Ratio 7.5 RATIO (10-20) L 01/28/24 03:20 Glucose 149 mg/dL (74-106) H 01/28/24 03:20 Microbiology Microbiology: Microbiology 01/27/24 22:29 Mucosa - Nasopharyngeal SARS-CoV-2, Influenza & RSV (PCR) - Final Dosing Weight Weight used for dosin.2 kg Estimated Creatinine Clearance Estimated Creatinine Clearance: 12 Goal Trough Goal Trough: 15-20 mcg/mL Pharmacy Plan for Drug Dosing Pharmacy Plan for Drug Dosing: Initial vancomycin IV dose was given in ED 01/28/24 @0044. Further dosing will be determined when pt's dialysis schedule is elucidated. Pharmacy Service will continue to monitor and adjust dosing as required.
[2024-01-28 05:15] LABS: Anisocytosis RARE
[2024-01-28 06:06] LABS: Bedside Glucose 160 mg/dL (74-106)
[2024-01-28] MEDS: 0.9% Saline Lock 10 ML Syringe IV (06:56)
[2024-01-28] MEDS: Dextrose 50%-Water 25 GM/50 ML DISP.SYRIN IV (06:56)
[2024-01-28] MEDS: Insulin Lispro 10 UNIT in Syringe 0 ML 6 UNIT IV (06:57)
[2024-01-28] MEDS: Sodium Polystyrene Sulfonate 15 GM/60 ML UDC 30 GM PO (06:59)
--- NOTE | 2024-01-28 07:03 | PN.HOSP_ITS ---
Reason for Visit Reason for Visit: Diagnoses Hyperkalemia (01/28/24) Metabolic encephalopathy (01/28/24) Pneumonia, unspecified organism (01/28/24) Pressure ulcer of sacral region, stage 4 (01/28/24) Osteomyelitis of vertebra, sacral and sacrococcygeal region (01/28/24) Subjective Subjective Feels ok. Objective Data Objective Data Vital Signs: Vital Signs Temp Pulse Resp BP Pulse Ox O2 Del Method O2 Flow Rate 36.2 C L 94 30 H 107/92 H 100 Nasal Cannula 4 01/28/24 04:46 01/28/24 07:00 01/28/24 07:00 01/28/24 07:00 01/28/24 07:00 01/28/24 07:00 01/28/24 07:00 FiO2 30 01/28/24 06:00 Oxygen Flow Rate (L/min) 4 Oxygen Delivery Method Nasal Cannula Weight: 88.2 kg Body Mass Index (BMI) 27.8 Intake & Output: Intake and Output for Last 24 Hours 01/26/24 01/27/24 01/28/24 23:59 23:59 23:59 Intake Total 1650 / 1650 Output Total Balance 1630 / 1630 Lab / Micro Data 01/28/24 03:20 01/28/24 03:20 Labs: Laboratory Results - last 24 hr 01/27/24 22:29: WBC 19.6 H, RBC 2.39 L, Hgb 7.8 L, Hct 26.1 L, MCV 109.2 H, MCH 32.6 H, MCHC 29.9 L, RDW Std Deviation 65.4 H, RDW Coeff of Reynold 16.3 H, Plt Count 322, MPV 9.4, Immature Gran % (Auto) 0.700, Neut % (Auto) 79.2 H, Lymph % (Auto) 13.3 L, [place] % (Auto) 6.4, Eos % (Auto) 0.2, Baso % (Auto) 0.2, Absolute Neuts (auto) 15.6 H, Absolute Lymphs (auto) 2.62, Nucleated RBC % 0, Anisocy tosis RARE, PT 16.5 H, INR 1.3, APTT 41.0 H, D-Dimer Quant (PE/DVT) 6.27 H*, Sodium 139, Potassium 5.3 H, Chloride 102, Carbon Dioxide 30.0, Anion Gap 7, BUN 51 H, Creatinine 7.34 H, Estim Creat Clear Calc 12.29, Est GFR (MDRD) Af Amer 10 L, Est GFR (MDRD) Non-Af 8 L, BUN/Creatinine Ratio 6.9 L, Glucose 133 H, Lactic Acid 0.9, Calcium 8.6, Total Bilirubin 0.40, AST 13 L, ALT 13 L, Alkaline Phosphatase 89, Troponin I High Sens 80 H, B-Natriuretic Peptide 240.3 H, Total Protein 8.8 H, Albumin 1.9 L, Globulin 6.9 H, Albumin/Globulin Ratio 0.3 L 01/27/24 22:55: Urine Color Yellow, Urine Clarity Clear, Urine pH 6.5, Ur Specific [place] 1.010, Urine Protein 100 H, Urine Glucose (UA) 250 H, Urine Ketones 5 H, Urine Occult Blood 50 H, Urine Nitrite Positive H, Urine Bilirubin 1 H, Urine Urobilinogen 1 H, Ur Leukocyte Esterase 25 H, Urine RBC 0-5 SEEN, Urine WBC 0-5 SEEN, Ur Squamous Epith Cells 0-5 SEEN, Urine Bacteria RARE, Urine Mucus 0 SEEN 01/28/24 03:20: WBC 21.1 H, RBC 2.02 L, Hgb 6.6 L, Hct 22.5 L, MCV 111.4 H, MCH 32.7 H, MCHC 29.3 L, RDW Std Deviation 66.3 H, RDW Coeff of Reynold 16.0 H, Plt Count 295, MPV 9.4, Immature Gran % (Auto) 0.800, Neut % (Auto) 77.3 H, Lymph % (Auto) 14.9 L, [place] % (Auto) 6.6, Eos % (Auto) 0.2, Baso % (Auto) 0.2, Absolute Neuts (auto) 16.3 H, Absolute Lymphs (auto) 3.15, Nucleated RBC % 0, Anisocytosis RARE, Sodium 139, Potassium 5.3 H, Chloride 104, Carbon Dioxide 28.0, Anion Gap 7, BUN 54 H, Creatinine 7.23 H, Estim Creat Clear Calc 12.30, Est GFR (MDRD) Af Amer 10 L, Est GFR (MDRD) Non-Af 8 L, BUN/Creatinine Ratio 7.5 L, Glucose 149 H, Calcium 8.3 L, Phosphorus 6.6 H, Magnesium 1.9, Total Bilirubin 0.40, AST 12 L, ALT 9 L, Alkaline Phosphatase 76, Total Protein 7.7, Albumin 1.6 L, Globulin 6.1 H, Albumin/Globulin Ratio 0.3 L, TSH 2.79 01/28/24 05:45: POC Glucose 160 H 01/28/24 06:37: Crossmatch See Detail Micro: Microbiology 01/28/24 02:55 Wound - Sacral Skin and Soft Tissue MRSA/MSSA (PCR - Final Meth. resistant Staph. aureus Staphylococcus aureus 01/27/24 22:29 Mucosa - Nasopharyngeal SARS-CoV-2, Influenza & RSV (PCR) - Final ABG Data ABG results: ABG 01/27/24 01/28/24 01/28/24 22:49 00:10 02:14 Specimen Type ART ART ART Sample Site R Radial R Radial R Radial pH 7.30 L 7.22 L 7.28 L Bicarbonate Actual 28.4 H 28.0 H 24.8 Total CO2 30 30 26 Base Excess 2 0 -2 O2 Saturation 93 L 94 L 88 L O2 % 60.0 30.0 35.0 ABG pCO2 58.3 H 68.1 H* 52.3 H ABG pO2 76 86 63 L Mik Test Positive Positive Positive Respiration Rate 14 14 14 O2 Delivery Device BiPAP BiPAP AVAPS Vent Mode Not entered Not entered AVAPS Tidal Volume 450.0 450.0 550.0 POC PEEP 12 12 12 Peak Inspir Pressure 26 Crit Call To/Read Back Yes Radiography Diagnostic Testing: Radiology Impression Chest X-Ray 01/27/24 22:45 IMPRESSION: Poor inspiration with some bibasilar atelectasis. Electronically Signed: Harjit Kimball MD at 22:58 EDT , Chest CTA 01/28/24 00:12 IMPRESSION: 1. Moderate pleural effusions with bilateral lower lobe consolidations. Findings indicate pneumonia. 2. No evidence of pulmonary embolism. Electronically Signed: Luis Escudero MD at 0:57 EDT , Physical Exam Const alert and no apparent distress Constitutional Narrative: FOND DU LAC Resp normal respiratory effort and no retractions Resp Narrative: coarse BS bilaterally. Cardio regular rate, regular rhythm, S1 normal heart sound and S2 normal heart sound GI normal to inspection, nondistended, normoactive bowel sounds and soft to palpation Extremity Extremity Narrative: bilateral stump w/o ulcerations. Neuro Sensorium / Orientation: awake and alert Assessment & Plan Assessment/Plan (1) Multifocal pneumonia: (2) Osteomyelitis of sacrum: (3) Sacral decubitus ulcer, stage IV: (4) Hyperkalemia: (5) Metabolic encephalopathy: PLAN: Plan Acute hypoxic and hypercapnic respiratory failure. * doubt pneumonia * suspect due to CHF exacerbation and pleural effusions. * CTA showed moderate pleural effusion w bilateral lobe consolidations. Using [facility], pt had CTA chest on 01/20 that showed mild to moderate bilateral effusions. * on empiric antibiotics with meropenem. * BiPAP Stage IV sacral decubitus ulcer with OM * Has been on vancomycin * Through [facility] there was no imaging of pelvic region. Will request records from [facility] (no progress notes in [facility]) * wound care. ID consult. Metabolic encephalopathy * secondary to above. * appears to be resolved. Leukocytosis * elevated, however it appears to be trending down from 25.8 on 01/25. * monitor Pleural effusion * as above, present on CT a [facility] in [place] on 01/20 (unclear if changed or not based on the reports) * I suspect transudative * attempt thoracentesis. Check serum and transudate protein, LDH. Check transudate Cx and cytology. Chronic conditions: * CAD; s/p CABG with resent stent placement on week ago - Resume BASA and Plavix plus statin. Troponin 80. * History of severe peripheral vascular disease; status post right AKA and left BKA with chronic immobility and hyper-inflammatory state outlined above * ESRD on HD; with chronic anemia previously on Procrit and with hemoglobin of 7.8 g/dL present on admission - Consult nephrology * Diabetes mellitus type 2; of unknown control with diabetic neuropathy - Keep NPO for now. FSBS q. 6 hours plus lowest intensity SSI. * Essential hypertension - Continue Metoprolol plus give prn Hydralazine for systolic blood pressure > 160 mm Hg. * Hyperlipidemia - Resume statin. DVT prophylaxis - Patient on renal-dose Lovenox. Greater than 55 minutes of which greater than 50% of time was reviewing the patient's case, data, reviewing through available data [facility]. Records requested from [facility]. Charges/Coding Visit Charges Inpatient E&M: 48871 Subs Hosp L3
[2024-01-28] MEDS: Albuterol 2.5 MG/3 ML VIAL.NEB. INHALATION ×3 (07:07→19:10)
[2024-01-28] MEDS: Enoxaparin 30 MG/0.3 ML Syringe SC (08:49)
[2024-01-28] MEDS: Gabapentin 600 MG Tablet PO (08:49)
[2024-01-28] MEDS: VILAZODONE HYDROCHLORIDE 10 MG TABLET 40 MG PO (08:49)
[2024-01-28] MEDS: SEVELAMER CARBONATE 800 MG TABLET 1600 MG PO (08:50)
[2024-01-28] MEDS: Ferrous Sulfate 325 MG Tablet PO ×2 (08:50→16:53)
[2024-01-28] MEDS: Clopidogrel Bisulfate 75 MG Tablet PO (08:51)
[2024-01-28] MEDS: busPIRone 5 MG Tablet PO (08:51)
[2024-01-28] MEDS: Aspirin E.C. 81 MG Tablet PO (08:51)
[2024-01-28] MEDS: Cholecalciferol (Vit D3) 125 MCG CAPSULE (5,000 UNITS) PO (08:51)
[2024-01-28] MEDS: Cyanocobalamin 500 MCG Tablet PO (08:52)
[2024-01-28] MEDS: Isosorbide Mononitrate 60 MG Tablet PO (08:52)
[2024-01-28] MEDS: Ranolazine 500 MG Tablet 1000 MG PO (08:53)
[2024-01-28] MEDS: Pantoprazole Sodium 20 MG Tablet PO (08:54)
[2024-01-28] MEDS: CARIPRAZINE HCL 1.5 MG CAPSULE 3 MG PO (08:55)
[2024-01-28] MEDS: Meropenem 1 GM in 0.9% Normal Saline (100mL MB+) 100 ML IV (09:46)
[2024-01-28 12:05] LABS: Bedside Glucose 175 mg/dL (74-106)
[2024-01-28 18:14] LABS: Bedside Glucose 157 mg/dL (74-106)
[2024-01-28] MEDS: Insulin Glargine-YFGN 100 UNIT/ML Pen 12 UNIT SC (20:25)
--- NOTE | 2024-01-28 20:37 | NURSING ---
This RN bedside to give pt a break off bipap and give night time meds. Pt slightly drowsy, RASS-1 but able to remain alert to talk to this RN and is following commands. This RN scanned and opened meds at this time for pt. Before meds given, this RN offered pt a drink. Pt took 2 small sips of water and began coughing strongly w/ coughing sounding moist and productive. At this time, this RN decided it was unsafe to give pt medications d/t inability to swallow water w/o coughing. This RN put in dysphagia screen which resulted in a fail based on patients performance. Meds undone in JAN and charted against. Meds wasted, Gabapentin 600mg wasted w/ A. Rebecca RN as witness in [employer]. Pt placed back on bipap, saturating in high 90's.
[2024-01-28 21:32] LABS: Bedside Glucose 169 mg/dL (74-106)
[2024-01-28 23:59] LABS: Bedside Glucose 174 mg/dL (74-106)
[2024-01-29] VITALS (44 sets, daily range): BP systolic 79–234; BP diastolic 45–107; PULSE 75–108; RESP 14–34; TEMP 36.3–37.2; O2SAT 90–100; BMI 28.3; BMI 27.7
--- NOTE | 2024-01-29 | FLU_PTH ---
PATIENT: RAMANDEEP KEEN LOC: [facility] U#:[id number] AGE/SX: 58/M ROOM: [facility] RE01/28/[address]: Dr. Davey Heredia MD : 1965 BED: 1 DIS: 02/06/2024 SPEC #: [id number] RECD: 01/29/24 13:38 STATUS: EDITH MADRIGAL #: [id number] MATTEO: 01/29/24 00:[address]: Reza Fisher DEPT: CYTOLOGY RECD BY: Rick Barton ENTERED: 01/29/24 13:42 SP TYPE: Fluid OTHR DR: DO Dr. Monae Burch MD Dr. Paul Nielsen, MD Dr. Robert Leininger, MD Tissues: THORACIC FLUID Procedures: Special Stain Group II Surgery Specimen Level IV Cytospin Fluid HEADER OPERATION: Ultrasound guided Left thoracentesis PRE-OP DIAGNOSIS: Left pleural effusion TISSUE SUBMITTED: Thoracentesis fluid for cytology DIAGNOSIS CYTOLOGY Thoracentesis fluid for cytology (cytospin and cell block); Negative for malignant cells. Marked acute inflammation. See comment. AM/mr 01/30/2024 COMMENT Clinical correlation is necessary. CYTOLOGY STUDY Slides are reviewed. CYTOLOGY GROSS Received is 90 ml of dark red-cloudy fluid labeled with the patient's name and and designated per the requisition as Left thoracentesis. Submitted for cytology preparation including cell block. mr 01/29/24 TC:2 CPT: 80910,02043
[2024-01-29] MEDS: Albuterol 2.5 MG/3 ML VIAL.NEB. INHALATION ×3 (02:35→14:42)
[2024-01-29 05:39] LABS: Absolute Lymphocyte Count 2.86 X10^3/uL (0.83-4.51); Absolute Neutrophil Count 12.3 X10^3/uL (2.0-7.7); Basophil# 0.03 X10^3/uL; Basophil% 0.2 % (0-1); Eosinophil# 0.06 X10^3/uL; Eosinophils% 0.4 % (0-5); Hematocrit 23.4 % (40-54); Hemoglobin 7.2 g/dL (13.0-16.5); Lymphocyte # 2.86 X10^3/ul (0.83-4.51); Lymphocyte % 17.2 % (19-41); Mean Corp Hgb Conc 30.8 g/dL (32-36); Mean Corpuscular Hgb 32.6 pg (27.0-32.0); Mean Corpuscular Volume 105.9 fL (80-94); Mean Platelet Vol. 9.7 fl (6.2-12.0); Monocyte% 7.2 % (0-10); NRBC Flagged by Analyzer 0 % (0-5); Neutrophil # 12.33 X10^3/uL (2.7-7.7); Neutrophil % 74.3 % (47-70); POSITIVE MORPHOLOGY YES; Platelet Count 290 K/mm3 (150-450); RBC Distribution Width CV 17.4 % (11.6-14.6); RBC Distribution Width SD 67.1 fl (35.1-43.9); Red Blood Count 2.21 M/mm3 (4.6-6.2); White Blood Count 16.6 K/mm3 (4.4-11.0)
[2024-01-29 05:51] LABS: Bedside Glucose 127 mg/dL (74-106)
[2024-01-29 06:21] LABS: Differential Indicated SCAN CRITERIA MET
[2024-01-29 06:41] LABS: ALB/GLOB Ratio 0.3 RATIO (0.9-2.4); AST(SGOT) 19 U/L (15-37); Alanine Aminotransfer ALT/SGPT 11 U/L (16-61); Albumin, Serum 1.7 g/dL (3.2-5.0); Alkaline Phosphatase 74 U/L (45-117); Anion Gap 10 (5-15); BUN 70 mg/dL (7-18); BUN/Creat Ratio 8.2 RATIO (10-20); Calcium,Total 8.5 mg/dL (8.5-10.1); Chloride 101 mmol/L (98-107); Creatinine, Serum 8.57 mg/dL (0.70-1.30); EST Glomerular Filtration Rate 7 mL/min (>60); Est Glom Filt Rate - Afr Amer 8 mL/min (>60); Estimated Creatinine Clearance 10.47 ml/min; Globulin 6.6 g/dL (2.2-4.2); Glucose 128 mg/dL (74-106); LDH 157 U/L (87-241); Potassium 5.4 mmol/L (3.5-5.1); Protein, Total 8.3 g/dL (6.4-8.2); Sodium Level 139 mmol/L (136-145)
--- NOTE | 2024-01-29 06:53 | PN.HOSP_ITS ---
Reason for Visit Reason for Visit: Diagnoses Hyperkalemia (01/28/24) Metabolic encephalopathy (01/28/24) Pneumonia, unspecified organism (01/28/24) Pressure ulcer of sacral region, stage 4 (01/28/24) Osteomyelitis of vertebra, sacral and sacrococcygeal region (01/28/24) Subjective Subjective Wants to eat and drink. Objective Data Objective Data Vital Signs: Vital Signs Temp Pulse Resp BP Pulse Ox O2 Del Method O2 Flow Rate 36.3 C L 90 25 H 101/59 L 97 Bi-pap 2 01/29/24 05:00 01/29/24 06:00 01/29/24 06:00 01/29/24 06:00 01/29/24 06:00 01/29/24 06:00 01/28/24 16:00 FiO2 30 01/29/24 06:00 Oxygen Flow Rate (L/min) 2 Oxygen Delivery Method Bi-pap Weight: 89.9 kg Body Mass Index (BMI) 28.3 Intake & Output: Intake and Output for Last 24 Hours 01/27/24 01/28/24 01/29/24 23:59 23:59 23:59 Intake Total 1771 / 1771 Output Total 40 / 40 0 / 0 Balance 1731 / 1731 0 / 0 Lab / Micro Data 01/29/24 05:17 01/29/24 05:17 Labs: Laboratory Results - last 24 hr 01/28/24 06:37: Blood Type O POSITIVE, Antibody Screen NEGATIVE, Crossmatch See Detail 01/28/24 11:43: POC Glucose 175 H 01/28/24 17:56: POC Glucose 157 H 01/28/24 20:28: POC Glucose 169 H 01/28/24 23:35: POC Glucose 174 H 01/29/24 05:14: POC Glucose 127 H 01/29/24 05:17: WBC 16.6 H, RBC 2.21 L, Hgb 7.2 L, Hct 23.4 L, MCV 105.9 H, MCH 32.6 H, MCHC 30.8 L D, RDW Std Deviation 67.1 H, RDW Coeff of Reynold 17.4 H, Plt Count 290, MPV 9.7, Immature Gran % (Auto) 0.700, Neut % (Auto) 74.3 H, Lymph % (Auto) 17.2 L, [place] % (Auto) 7.2, Eos % (Auto) 0.4, Baso % (Auto) 0.2, Absolute Neuts (auto) 12.3 H, Absolute Lymphs (auto) 2.86, Nucleated RBC % 0, Sodium 139, Potassium 5.4 H, Chloride 101, Carbon Dioxide 28.0, Anion Gap 10, BUN 70 H, Creatinine 8.57 H*, Estim Creat Clear Calc 10.47, Est GFR (MDRD) Af Amer 8 L, Est GFR (MDRD) Non-Af 7 L, BUN/Creatinine Ratio 8.2 L, Glucose 128 H, Calcium 8.5, Total Bilirubin 0.40, AST 19, ALT 11 L, Alkaline Phosphatase 74, Lactate Dehydrogenase 157, Total Protein 8.3 H, Albumin 1.7 L, Globulin 6.6 H, Albumin/Globulin Ratio 0.3 L Micro: Microbiology 01/28/24 02:55 Wound - Sacral Skin and Soft Tissue MRSA/MSSA (PCR - Final Meth. resistant Staph. aureus Staphylococcus aureus 01/27/24 22:29 Mucosa - Nasopharyngeal SARS-CoV-2, Influenza & RSV (PCR) - Final Physical Exam Const alert and no apparent distress HEENT head/scalp atraumatic and moist oral mucous membranes Resp normal respiratory effort, no retractions, no use of accessory muscles and clear to auscultation bilaterally Cardio regular rate, regular rhythm, S1 normal heart sound and S2 normal heart sound GI normal to inspection, nondistended, normoactive bowel sounds, soft to palpation, non-tender and non-distended Extremity Extremity Narrative: AKA on right BKA on left. Stumps intact. Neuro Sensorium / Orientation: awake and alert Psych affect normal Assessment & Plan Assessment/Plan (1) Multifocal pneumonia: (2) Osteomyelitis of sacrum: (3) Sacral decubitus ulcer, stage IV: (4) Hyperkalemia: (5) Metabolic encephalopathy: PLAN: Plan Acute hypoxic and hypercapnic respiratory failure. * doubt pneumonia * suspect due to CHF exacerbation and pleural effusions. * CTA showed moderate pleural effusion w bilateral lobe consolidations. Using [facility], pt had CTA chest on 01/20 that showed mild to moderate bilateral effusions. * on empiric antibiotics with meropenem and vancomycin * BiPAP Stage IV sacral decubitus ulcer with OM * Has been on vancomycin * Through [facility] there was no imaging of pelvic region. Will request records from [facility] ([facility]) * wound care. ID consult. Metabolic encephalopathy * secondary to above. * appears to be resolved. Leukocytosis * elevated, however trending down. [facility], his WBCs were 25.8 on 01/25 at [facility] in [place]. * monitor Pleural effusion * as above, present on CT a [facility] in [place] on 01/20 (unclear if c hanged or not based on the reports) * I suspect transudative * attempt thoracentesis. Check serum and transudate protein, LDH. Check transudate Cx and cytology. Anemia * 7.2. Hg on 8.6 on 01/25 at OSH * Given CAD, will transfuse 1 unit to keep Hg around 8. * check iron studies, B12 * TSH WNL Chronic conditions: * CAD; s/p CABG with resent stent placement on week ago - Resume BASA and Plavix plus statin. Troponin 80. * History of severe peripheral vascular disease; status post right AKA and left BKA with chronic immobility and hyper-inflammatory state outlined above * ESRD on HD; with chronic anemia previously on Procrit and with hemoglobin of 7.8 g/dL present on admission - Consult nephrology * Diabetes mellitus type 2; of unknown control with diabetic neuropathy - Keep NPO for now. FSBS q. 6 hours plus lowest intensity SSI. * Essential hypertension - Continue Metoprolol plus give prn Hydralazine for systolic blood pressure > 160 mm Hg. * Hyperlipidemia - Resume statin. * JAMIE: BiPAP QHS. DVT prophylaxis - Patient on renal-dose Lovenox. Charges/Coding Visit Charges Inpatient E&M: 56972 Subs Hosp L2
[2024-01-29 07:28] LABS: Ferritin 691 ng/mL (26-388); Iron 42 ug/dL (65-175); Iron Binding Capacity,Total 114 ug/dL (250-450); PERCENT IRON SATURATION 36.8 % (15.0-55.0)
[2024-01-29 08:44] LABS: Vitamin B12 1708 pg/mL (211-911)
[2024-01-29 09:27] LABS: Anisocytosis 2+; Differential Comment SCANNED; Macrocytosis 1+; Microcytosis 1+
--- NOTE | 2024-01-29 10:08 | CASEMGMT ---
Addendum entered by Brielle Crawley 01/29/24 10:15: Patient can return without precert. Brielle Crawley, Discharge Planning Asst. Original Note: Discharge Planning Updates sent to [facility] via [employer]. Asked if precert will be needed. Awaiting response. Brielle Crawley DC Planning Asst.
[2024-01-29] MEDS: Lidocaine 2% (20 ml mdv) 20 ML Vial INFILT (10:55)
--- NOTE | 2024-01-29 11:07 | RAD_ITS ---
STUDY: X-RAY CHEST REASON FOR EXAM: Male, 58 years old. Post thora TECHNIQUE: AP inspiration and expiration views. COMPARISON: Comparison is made with prior study January 27, 2024. FINDINGS: The patient is status post left thoracentesis. No evidence of pneumothorax on the immediate post left thoracentesis. RAD/Chest Insp/Exp 2 View IMPRESSION: No evidence of pneumothorax on the immediate post left thoracentesis examination. Electronically Signed: Maximus Esqueda MD at 11:22 EDT ,
--- NOTE | 2024-01-29 11:09 | PRO.PCM_ITS ---
Procedure Report Date of Procedure: 01/29/24 Assessment & Plan Assessment/Plan (1) Bilateral pleural effusion: PLAN: PROCEDURE: Ultrasound Guided Thoracentesis ORDERING PROVIDER: Dr. Fisher INDICATION: Male, 58 years old. Bilateral pleural effusions. PROVIDER: ROCKY Escobar PROCEDURE: The risks, benefits, and alternatives to the procedure were explained to the patient. The specific risks of bleeding, infection, and pneumothorax requiring chest tube insertion were discussed and accepted. Written informed consent was obtained. The patient was placed in the sitting, upright position. Ultrasonographic evaluation of the bilateral lower pleural spaces was carried out. An adequate pocket was identified in the left lower pleural space.there was also effusion evident in the right lower pleural space, however this appeared somewhat loculated. The overlying skin was prepped and draped in sterile fashion. 2% lidocaine was administered subcutaneously for local anesthesia. Under ultrasound guidance, a 5-Kyrgyz thoracentesis needle/catheter system was advanced into the left posterior lower pleural fluid collection. 360 ml of cloudy red colored fluid was drained. The catheter was removed, and a sterile dressing was applied. The patient tolerated the procedure well. A chest x-ray was ordered. IMPRESSION: Successful ultrasound-guided thoracentesis of left pleural effusion. Procedures Radiology Radiology US Procedures: 36960 Thoracentesis
--- NOTE | 2024-01-29 11:22 | PHA.PHARE_ITS ---
Consult Antibiotic Management Pharmacy has been consulted to manage selected antibiotic: Vancomycin Type of Intervention Type of Consult: Follow-up Labs Labs: Sodium 139 mmol/L (136-145) 01/29/24 05:17 Potassium 5.4 mmol/L (3.5-5.1) H 01/29/24 05:17 Chloride 101 mmol/L (98-107) 01/29/24 05:17 Carbon Dioxide 28.0 mmol/L (21.0-32.0) 01/29/24 05:17 Anion Gap 10 (5-15) 01/29/24 05:17 BUN 70 mg/dL (7-18) H 01/29/24 05:17 Creatinine 8.57 mg/dL (0.70-1.30) H* 01/29/24 05:17 Est GFR (MDRD) Af Amer 8 mL/min (>60) L 01/29/24 05:17 Est GFR (MDRD) Non-Af 7 mL/min (>60) L 01/29/24 05:17 BUN/Creatinine Ratio 8.2 RATIO (10-20) L 01/29/24 05:17 Glucose 128 mg/dL (74-106) H 01/29/24 05:17 Microbiology Microbiology: Microbiology 01/27/24 22:55 Urine Catheter - Catheter Urine Culture - Preliminary Culture exhibits no growth. 01/28/24 02:55 Wound - Sacral Skin and Soft Tissue MRSA/MSSA (PCR - Final Meth. resistant Staph. aureus Staphylococcus aureus 01/27/24 22:29 Mucosa - Nasopharyngeal SARS-CoV-2, Influenza & RSV (PCR) - Final Goal Trough Goal Trough: 15-20 mcg/mL Pharmacy Plan for Drug Dosing Pharmacy Plan for Drug Dosing: DAILY ASSESSMENT Current Vancomycin Dose: Dose per HD Number of Doses Received: Initial dose of 2000mg IV x1 01/27 @0044 Current Renal Function: Patient is HD dependent- unsure of schedule at this time Renal Function Trend: Pharmacy will call daily until HD schedule is established Lab/Micro: WCx growing MRSA Any Change in Vanc Plan: Pharmacy discussed with solar sales advisor- patient is to get HD today. Will schedule a 750mg IV x1 dose today(01/28), post HD treatment. At this time, HD schedule is still undetermined. Pharmacy will call daily to assess if pt getting HD until schedule is established. No further dosing/troughs scheduled at this time. Pending Level: Not scheduled at this time - Pharmacy to call daily. NOTE: PATIENT WILL BE DUE FOR A TROUGH PRIOR TO NEXT HD SESSION. Pharmacy Service will continue to monitor and adjust dosing as required.
--- NOTE | 2024-01-29 11:42 | CON.PCM.RE_ITS ---
Assessment & Plan Assessment/Plan (1) ESRD on dialysis: (2) Hyperkalemia: (3) Metabolic encephalopathy: (4) Multifocal pneumonia: (5) Osteomyelitis of sacrum: PLAN: Plan This is a 58-year-old male with past medical history significant for ESRD on hemodialysis (unknown outpatient hemodialysis center) who was brought to the emergency room from [facility] for evaluation of altered mental status and shortness of breath. Nephrology consulted as patient has history of ESRD and is on hemodialysis support. Patient currently has a tunneled hemodialysis catheter and a functioning left arm AV fistula. We will plan for dialysis today on 2K bath and attempt fluid removal as patient/blood pressure tolerates. Patient had CT of chest which showed moderate pleural effusions, he did have thoracentesis today with around 360 mL fluid drained. Will attempt to access AV fistula. Patient has history of anemia of chronic disease, patient will receive CLAY with dialysis today. Will continue to monitor hemoglobin trends. Potassium is 5.4 today, patient will dialyze on 2K bath. Recommend renal diet. Patient is on IV antibiotics, vanco and meropenem for recent history of sacral osteomyelitis. Blood pressures acceptable on Imdur. Further orders forthcoming as hospitalization evolves, thank you for allowing us to participate in the care of Mr. Lenz. HPI Consult Data Date of Consult: 01/29/24 HPI Narrative HPI Narrative: RAMANDEEP LENZ, is a 58 M who was taken to the emergency room from [facility] yesterday for evaluation of altered mental status and shortness of breath and admitted for pneumonia, acute hypoxic respiratory f ailure which he was initially requiring BiPAP, and admitted for further evaluation and treatment. Nephrology consulted as patient has a history of end- stage renal disease and is on hemodialysis support. Patient is alert to name however having difficult time recalling recent events. It is unknown at this time where patient had been dialyzing before transferring to [facility]. Patient currently has a tunneled hemodialysis catheter but also has a functioning left arm AV fistula. Patient has history of hypertension, hyperlipidemia, diabetes mellitus type 2, coronary artery disease status post CABG and stent placement, history of severe peripheral vascular disease, he is right AKA and left BKA, history of colostomy. Patient also has recent history of sacrum osteomyelitis recently treated with meropenem and vancomycin. [facility] Medical History AAA (abdominal aortic aneurysm) Above knee amputation of right lower extremity Below-knee amputation of left lower extremity Bipolar affective disorder CAD (coronary artery disease) Cervical stenosis of spine CHF (congestive heart failure) Chronic kidney disease Colostomy in place Depression Diabetes Dialysis patient GERD (gastroesophageal reflux disease) Hyperlipemia Hypertension Myocardial infarction Neuropathy Osteoarthritis Home Medications albuterol sulfate 2.5 mg/0.5 mL solution for nebulization 2.5 mg inhalation Q6H 01/27/24 [History Last Taken Unknown] albuterol sulfate 90 mcg/actuation aerosol inhaler 2 inh inhalation Q6H PRN shortness of breath or wheezing 01/27/24 [History Last Taken Unknown] aspirin 81 mg tablet,delayed release (Adult Low Dose Aspirin) 81 mg PO DAILY 01/27/24 [History Last Taken Unknown] buspirone 5 mg tablet 5 mg PO DAILY 01/27/24 [History Last Taken Unknown] cariprazine 3 mg capsule (Vraylar) 3 mg PO DAILY 01/27/24 [History Last Taken Unknown] cholecalciferol (vitamin D3) 125 mcg (5,000 unit) capsule 5,000 unit PO DAILY 01/27/24 [History Last Taken Unknown] clopidogrel 75 mg tablet (Plavix) 75 mg PO DAILY 01/27/24 [History Last Taken Unknown] cyanocobalamin (vitamin B-12) 500 mcg tablet (Vitamin B-12) 500 mcg PO DAILY 01/27/24 [History Last Taken Unknown] epoetin dee 10,000 unit/mL injection solution (Procrit) 10,000 unit IV DAILY 01/27/24 [History Last Taken Unknown] ferrous sulfate 325 mg (65 mg iron) tablet (iron) 325 mg PO BID 01/27/24 [History Last Taken Unknown] gabapentin 600 mg tablet 600 mg PO BID 01/27/24 [History Last Taken Unknown] insulin glargine 100 unit/mL (3 mL) subcutaneous pen (Basaglar KwikPen U-100 Insulin) 20 unit subcut QPM 01/27/24 [History Last Taken Unknown] insulin lispro 100 unit/mL subcutaneous pen (Humalog KwikPen (U-100) Insulin) 15 unit subcut TIDCM 01/27/24 [History Last Taken Unknown] insulin lispro protamine-lispro 100 unit/mL (75-25) subcutaneous pen 12 unit subcut DAILY 01/27/24 [History Last Taken Unknown] isosorbide mononitrate 60 mg tablet,extended release 24 hr 60 mg PO DAILY 01/27/24 [History Last Taken Unknown] meropenem 500 mg intravenous solution 500 mg IV Q24H 01/27/24 [History Last Taken Unknown] metoprolol succinate 25 mg tablet,extended release 24 hr 25 mg PO DAILY 01/27/24 [History Last Taken Unknown] nitroglycerin 0.4 mg sublingual PRN 01/27/24 [History Last Taken Unknown] omeprazole 20 mg capsule,delayed release 20 mg PO DAILY 01/27/24 [History Last Taken Unknown] ranolazine 500 mg tablet,extended release,12 hr 1,000 mg PO Q12H 01/27/24 [History Last Taken Unknown] rosuvastatin 20 mg tablet (Crestor) 20 mg PO DAILY 01/27/24 [History Last Taken Unknown] sevelamer carbonate 800 mg tablet (Renvela) 1,600 mg PO DAILY 01/27/24 [History Last Taken Unknown] vancomycin 1,000 mg intravenous injection 1 g IV DAILY 01/27/24 [History Last Taken Unknown] vilazodone 40 mg tablet 40 mg PO DAILY 01/27/24 [History Last Taken Unknown] Allergy/AdvReac Type Severity Reaction Status Date / Time atorvastatin Allergy Unknown PT UNABLE Verified 01/27/24 23:29 TO RESPOND-NEEDS F/U [id number] Reductase Allergy Unknown PT UNABLE Verified 01/27/24 23:29 Inhibitor TO RESPOND-NEEDS F/U Surgical History Hx of appendectomy Hx of CABG Social History Smoking Status: Former smoker ROS ROS Narrative As in HPI and past medical history Physical Exam Narrative Alert to name, no apparent distress S1, S2, RRR Lung sounds clear anteriorly. No wheezes, rhonchi or rales noted. Abdomen soft, nontender. Colostomy bag intact Left BKA, right AKA. No edema noted to bilateral thighs Tunneled HD catheter dressing clean, dry and intact Left arm AV fistula positive thrill and bruit Lab / Micro Data 01/29/24 05:17 01/29/24 05:17 Labs: Laboratory Results - last 24 hr 01/28/24 06:37: Crossmatch See Detail 01/28/24 11:43: POC Glucose 175 H 01/28/24 17:56: POC Glucose 157 H 01/28/24 20:28: POC Glucose 169 H 01/28/24 23:35: POC Glucose 174 H 01/29/24 05:14: POC Glucose 127 H 01/29/24 05:17: WBC 16.6 H, RBC 2.21 L, Hgb 7.2 L, Hct 23.4 L, MCV 105.9 H, MCH 32.6 H, MCHC 30.8 L D, RDW Std Deviation 67.1 H, RDW Coeff of Reynold 17.4 H, Plt Count 290, MPV 9.7, Immature Gran % (Auto) 0.700, Neut % (Auto) 74.3 H, Lymph % (Auto) 17.2 L, [place] % (Auto) 7.2, Eos % (Auto) 0.4, Baso % (Auto) 0.2, Absolute Neuts (auto) 12.3 H, Absolute Lymphs (auto) 2.86, Nucleated RBC % 0, Differential Comment SCANNED, Anisocytosis 2+, Microcytosis 1+, Macrocytosis 1+, Sodium 139, Potassium 5.4 H, Chloride 101, Carbon Dioxide 28.0, Anion Gap 10, BUN 70 H, Creatinine 8.57 H*, Estim Creat Clear Calc 10.47, Est GFR (MDRD) Af Amer 8 L, Est GFR (MDRD) Non-Af 7 L, BUN/Creatinine Ratio 8.2 L, Glucose 128 H, Calcium 8.5, Iron 42 L, TIBC 114 L, Iron Saturation 36.8, Ferritin 691 H, Total Bilirubin 0.40, AST 19, ALT 11 L, Alkaline Phosphatase 74, Lactate Dehydrogenase 157, Total Protein 8.3 H, Albumin 1.7 L, Globulin 6.6 H, Albumin/Globulin Ratio 0.3 L 01/29/24 07:55: Vitamin B12 1708 H Micro: Microbiology 01/27/24 22:55 Urine Catheter - Catheter Urine Culture - Preliminary Culture exhibits no growth. Imaging Radiology Impression Chest X-Ray 01/29/24 11:07 IMPRESSION: No evidence of pneumothorax on the immediate post left thoracentesis examination. Electronically Signed: Maximus Esqueda MD at 11:22 EDT ,
[2024-01-29] MEDS: FLUCONAZOLE IV (11:48)
[2024-01-29] MEDS: VIAFLEX IV (11:48)
[2024-01-29 12:18] LABS: Cytology, Body Fluid / CSF SEE PATHOLOGY REPORT
[2024-01-29 12:51] LABS: Body Fluid Mononuclear WBC # 4.298 10^3/uL; Body Fluid Polynuclear WBC # 19.616 10^3/uL; Red Cell Count/Body Fluid 0.008 10^6/ul
[2024-01-29 12:53] LABS: Protein, Body Fluid 4.3 g/dL (Not Establ.)
[2024-01-29 13:07] LABS: Body Fluid Total Cells Counted 23.926 10^3/ul; White Blood Count/Body Fluid 23.914 10^3/uL
[2024-01-29] MEDS: Epoetin Alfa epbx 10,000 UNITS/ML 20000 UNIT IV (13:22)
--- NOTE | 2024-01-29 13:23 | NUR.TO.PHY ---
L Arm fistula has no bruit & faint thrill. fistula appears to be fairly deep. this RN was able to cannulate distal portion of fistula w/o difficulty. However, attempted to cannulate 2nd needle x3- all 3 needles had sluggish pull, & clotting at the needle tips when removed. unable to perform dialysis today. discussed w/ primary [employer] & discussed w/ merchandise adjustment clerk, Dr. Navarrete. Dr. Navarrete states will make some calls to consider fistulagram or potential of temporary dialysis catheter.
--- NOTE | 2024-01-29 13:42 | CON.PCM.ID_ITS ---
Assessment & Plan Assessment/Plan (1) Bilateral pleural effusion: (2) Metabolic encephalopathy: (3) ESRD on dialysis: (4) Osteomyelitis of sacrum: PLAN: Reviewed ID note from last admit to [facility] by Dr. Laci Chavez, plan was 8 weeks iv vanc/keven, stop date 03/23/24. Thoracentesis done here, fluid studies pending. Will follow, thank you HPI Consult Data Date of Consult: 01/29/24 HPI Narrative Reason for Consultation: osteo HPI Narrative: RAMANDEEP KEEN, is a 58 M with ESRD, recent admit to [facility] with sacral osteo, seen by Dr. Laci Chavez with ID. Plan was for 8 weeks iv vanc/keven, discharged to [facility] a few days ago. Sent to ED 01/27 due to acute onset altered mental status, dyspnea. Admitted to icu on vanc/keven, feeling ok. Some cough and dyspnea. Thoracentesis done. No fever or chills. Full ROS performed and neg except as noted above. [facility] Medical History AAA (abdominal aortic aneurysm) Above knee amputation of right lower extremity Below-knee amputation of left lower extremity Bipolar affective disorder CAD (coronary artery disease) Cervical stenosis of spine CHF (congestive heart failure) Chronic kidney disease Colostomy in place Depression Diabetes Dialysis patient GERD (gastroesophageal reflux disease) Hyperlipemia Hypertension Myocardial infarction Neuropathy Osteoarthritis Home Medications albuterol sulfate 2.5 mg/0.5 mL solution for nebulization 2.5 mg inhalation Q6H 01/27/24 [History Last Taken Unknown] albuterol sulfate 90 mcg/actuation aerosol inhaler 2 inh inhalation Q6H PRN shortness of breath or wheezing 01/27/24 [History Last Taken Unknown] aspirin 81 mg tablet,delayed release (Adult Low Dose Aspirin) 81 mg PO DAILY 01/27/24 [History Last Taken Unknown] buspirone 5 mg tablet 5 mg PO DAILY 01/27/24 [History Last Taken Unknown] cariprazine 3 mg capsule (Vraylar) 3 mg PO DAILY 01/27/24 [History Last Taken Unknown] cholecalciferol (vitamin D3) 125 mcg (5,000 unit) capsule 5,000 unit PO DAILY 01/27/24 [History Last Taken Unknown] clopidogrel 75 mg tablet (Plavix) 75 mg PO DAILY 01/27/24 [History Last Taken Unknown] cyanocobalamin (vitamin B-12) 500 mcg tablet (Vitamin B-12) 500 mcg PO DAILY 01/27/24 [History Last Taken Unknown] epoetin dee 10,000 unit/mL injection solution (Procrit) 10,000 unit IV DAILY 01/27/24 [History Last Taken Unknown] ferrous sulfate 325 mg (65 mg iron) tablet (iron) 325 mg PO BID 01/27/24 [History Last Taken Unknown] gabapentin 600 mg tablet 600 mg PO BID 01/27/24 [History Last Taken Unknown] insulin glargine 100 unit/mL (3 mL) subcutaneous pen (Basaglar KwikPen U-100 Insulin) 20 unit subcut QPM 01/27/24 [History Last Taken Unknown] insulin lispro 100 unit/mL subcutaneous pen (Humalog KwikPen (U-100) Insulin) 15 unit subcut TIDCM 01/27/24 [History Last Taken Unknown] insulin lispro protamine-lispro 100 unit/mL (75-25) subcutaneous pen 12 unit subcut DAILY 01/27/24 [History Last Taken Unknown] isosorbide mononitrate 60 mg tablet,extended release 24 hr 60 mg PO DAILY 01/27/24 [History Last Taken Unknown] meropenem 500 mg intravenous solution 500 mg IV Q24H 01/27/24 [History Last Taken Unknown] metoprolol succinate 25 mg tablet,extended release 24 hr 25 mg PO DAILY 01/27/24 [History Last Taken Unknown] nitroglycerin 0.4 mg sublingual PRN 01/27/24 [History Last Taken Unknown] omeprazole 20 mg capsule,delayed release 20 mg PO DAILY 01/27/24 [History Last Taken Unknown] ranolazine 500 mg tablet,extended release,12 hr 1,000 mg PO Q12H 01/27/24 [History Last Taken Unknown] rosuvastatin 20 mg tablet (Crestor) 20 mg PO DAILY 01/27/24 [History Last Taken Unknown] sevelamer carbonate 800 mg tablet (Renvela) 1,600 mg PO DAILY 01/27/24 [History Last Taken Unknown] vancomycin 1,000 mg intravenous injection 1 g IV DAILY 01/27/24 [History Last Taken Unknown] vilazodone 40 mg tablet 40 mg PO DAILY 01/27/24 [History Last Taken Unknown] Allergy/AdvReac Type Severity Reaction Status Date / Time atorvastatin Allergy Unknown PT UNABLE Verified 01/27/24 23:29 TO RESPOND-NEEDS F/U [id number] Reductase Allergy Unknown PT UNABLE Verified 01/27/24 23:29 Inhibitor TO RESPOND-NEEDS F/U Surgical History Hx of appendectomy Hx of CABG Social History Smoking Status: Former smoker Physical Exam Const alert and no apparent distress Constitutional Narrative: oriented x1 General Appearance: cooperative HEENT normocephalic and head/scalp atraumatic Eyes PERRL and EOMs intact bilaterally Neck supple and No nodes Resp Auscultation: diminished lung sounds Cardio regular rate and regular rhythm GI soft to palpation, non-tender and non-distended Extremity General Extremity: edema Skin Skin Narrative: wounds bandaged Neuro CN's II-XII intact bilaterally Lab / Micro Data Attestation: I reviewed the patient's lab results. 01/29/24 05:17 01/29/24 05:17 Labs: Laboratory Results - last 24 hr 01/28/24 06:37: Crossmatch See Detail 01/28/24 17:56: POC Glucose 157 H 01/28/24 20:28: POC Glucose 169 H 01/28/24 23:35: POC Glucose 174 H 01/29/24 05:14: POC Glucose 127 H 01/29/24 05:17: WBC 16.6 H, RBC 2.21 L, Hgb 7.2 L, Hct 23.4 L, MCV 105.9 H, MCH 32.6 H, MCHC 30.8 L D, RDW Std Deviation 67.1 H, RDW Coeff of Reynold 17.4 H, Plt Count 290, MPV 9.7, Immature Gran % (Auto) 0.700, Neut % (Auto) 74.3 H, Lymph % (Auto) 17.2 L, [place] % (Auto) 7.2, Eos % (Auto) 0.4, Baso % (Auto) 0.2, Absolute Neuts (auto) 12.3 H, Absolute Lymphs (auto) 2.86, Nucleated RBC % 0, Differential Comment SCANNED, Anisocytosis 2+, Microcytosis 1+, Macrocytosis 1+, Sodium 139, Potassium 5.4 H, Chloride 101, Carbon Dioxide 28.0, Anion Gap 10, BUN 70 H, Creatinine 8.57 H*, Estim Creat Clear Calc 10.47, Est GFR (MDRD) Af Amer 8 L, Est GFR (MDRD) Non-Af 7 L, BUN/Creatinine Ratio 8.2 L, Glucose 128 H, Calcium 8.5, Iron 42 L, TIBC 114 L, Iron Saturation 36.8, Ferritin 691 H, Total Bilirubin 0.40, AST 19, ALT 11 L, Alkaline Phosphatase 74, Lactate Dehydrogenase 157, Total Protein 8.3 H, Albumin 1.7 L, Globulin 6.6 H, Albumin/Globulin Ratio 0.3 L 01/29/24 07:55: Vitamin B12 1708 H 01/29/24 : Fluid WBC 23.914, Fluid RBC 0.008, Fluid Tot Cell Count 23.926, Fld Polynuclear WBCs # 19.616, Fld Polynuclear WBCs % 82.0, Fluid Mononuclear WBCs 4.298, Fld Mononuclear WBCs % 18.0, Fluid Total Protein 4.3 Micro: Microbiology 01/27/24 22:55 Urine Catheter - Catheter Urine Culture - Preliminary Culture exhibits no growth. Imaging Radiology Impression Chest X-Ray 01/29/24 11:07 IMPRESSION: No evidence of pneumothorax on the immediate post left thoracentesis examination. Electronically Signed: Maximus Esqueda MD at 11:22 EDT ,
--- NOTE | 2024-01-29 13:56 | CASEMGMT ---
Pt CM (Amber) through [facility] calls this RN CM at this time. Amber updated with pt status and POC. Amber # is .
--- NOTE | 2024-01-29 14:02 | CASEMGMT ---
Social Work Pt admitted from [facility]. SW spoke with Jarrod at [facility] who states pt had been at their sister facility [facility]. Pt admitted to [facility] on Thursday 01/25 from a hospital in [place] as the [facility] was unable to accommodate the new [place] [facility]. [facility] plans to accept pt back to their facility when pt is medically ready. Pt is on dialysis and has been set up for dialysis to take place at [facility]'s in house center. SW to follow up with pt regarding return to facility when more medically appropriate. JEREMY Meyer
[2024-01-29] MEDS: Meropenem 1 GM in 0.9% Normal Saline (100mL MB+) 100 ML IV (14:04)
[2024-01-29 14:30] LABS: Bedside Glucose 112 mg/dL (74-106)
[2024-01-29 14:37] LABS: Appearance/Body Fluid CLEAR; Auto B Fluid Analyzer BKGD Ct COUNTS W/IN LIMITS (W/IN LIMITS); Color/Body Fluid RED; Neutrophil (Segs) 100 %; Source- Body Fluid THORACENTESIS
[2024-01-29] MEDS: Gabapentin 600 MG Tablet PO ×2 (14:58→22:32)
[2024-01-29] MEDS: SEVELAMER CARBONATE 800 MG TABLET 1600 MG PO (14:58)
[2024-01-29] MEDS: VILAZODONE HYDROCHLORIDE 10 MG TABLET 40 MG PO (14:58)
[2024-01-29] MEDS: Isosorbide Mononitrate 60 MG Tablet PO (14:59)
[2024-01-29] MEDS: Ferrous Sulfate 325 MG Tablet PO (14:59)
[2024-01-29] MEDS: Cholecalciferol (Vit D3) 125 MCG CAPSULE (5,000 UNITS) PO (14:59)
[2024-01-29] MEDS: Clopidogrel Bisulfate 75 MG Tablet PO (14:59)
[2024-01-29] MEDS: busPIRone 5 MG Tablet PO (14:59)
[2024-01-29] MEDS: CARIPRAZINE HCL 1.5 MG CAPSULE 3 MG PO (14:59)
[2024-01-29] MEDS: Pantoprazole Sodium 20 MG Tablet PO (15:00)
[2024-01-29] MEDS: Cyanocobalamin 500 MCG Tablet PO (15:00)
[2024-01-29] MEDS: Ranolazine 500 MG Tablet 1000 MG PO ×2 (15:00→22:33)
--- NOTE | 2024-01-29 15:43 | CON.PCM.SX_ITS ---
Assessment & Plan Assessment/Plan (1) ESRD on dialysis: PLAN: The patient's fistula is clotted. The primary service reached out to Dr. Sommer but he does not know when he can declot the fistula. I was contacted for temporary dialysis catheter given dialysis until he can repair the fistula. I discussed this with the patient and we discussed that with the patient's son. I discussed the risks of bleeding, infection, pneumothorax, line infection. Patient understands the risks and is willing to have a dialysis catheter placed. I placed a dialysis catheter at the bedside and the patient tolerated it well. I am waiting for chest x-ray. Rufino Chacon MD Pager: [facility] [address] [place] [address], [address] [place] [address] Office: HPI Consult Data Date of Consult: 01/29/24 HPI Narrative HPI Narrative: RAMANDEEP KEEN, is a 58 M who presents with kidney failure. The patient has dialysis chronically and does have a fistula but it appears clotted. Patient is a poor historian and does not remember that he had a dialysis catheter on that side before. He also has a temporary tunneled PICC line on the left. [facility] Medical History AAA (abdominal aortic aneurysm) Above knee amputation of right lower extremity Below-knee amputation of left lower extremity Bipolar affective disorder CAD (coronary artery disease) Cervical stenosis of spine CHF (congestive heart failure) Chronic kidney disease Colostomy in place Depression Diabetes Dialysis patient GERD (gastroesophageal reflux disease) Hyperlipemia Hypertension Myocardial infarction Neuropathy Osteoarthritis Home Medications albuterol sulfate 2.5 mg/0.5 mL solution for nebulization 2.5 mg inhalation Q6H 01/27/24 [History Last Taken Unknown] albuterol sulfate 90 mcg/actuation aerosol inhaler 2 inh inhalation Q6H PRN shortness of breath or wheezing 01/27/24 [History Last Taken Unknown] aspirin 81 mg tablet,delayed release (Adult Low Dose Aspirin) 81 mg PO DAILY 01/27/24 [History Last Taken Unknown] buspirone 5 mg tablet 5 mg PO DAILY 01/27/24 [History Last Taken Unknown] cariprazine 3 mg capsule (Vraylar) 3 mg PO DAILY 01/27/24 [History Last Taken Unknown] cholecalciferol (vitamin D3) 125 mcg (5,000 unit) capsule 5,000 unit PO DAILY 01/27/24 [History Last Taken Unknown] clopidogrel 75 mg tablet (Plavix) 75 mg PO DAILY 01/27/24 [History Last Taken Unknown] cyanocobalamin (vitamin B-12) 500 mcg tablet (Vitamin B-12) 500 mcg PO DAILY 01/27/24 [History Last Taken Unknown] epoetin dee 10,000 unit/mL injection solution (Procrit) 10,000 unit IV DAILY 01/27/24 [History Last Taken Unknown] ferrous sulfate 325 mg (65 mg iron) tablet (iron) 325 mg PO BID 01/27/24 [Hist ory Last Taken Unknown] gabapentin 600 mg tablet 600 mg PO BID 01/27/24 [History Last Taken Unknown] insulin glargine 100 unit/mL (3 mL) subcutaneous pen (Basaglar KwikPen U-100 Insulin) 20 unit subcut QPM 01/27/24 [History Last Taken Unknown] insulin lispro 100 unit/mL subcutaneous pen (Humalog KwikPen (U-100) Insulin) 15 unit subcut TIDCM 01/27/24 [History Last Taken Unknown] insulin lispro protamine-lispro 100 unit/mL (75-25) subcutaneous pen 12 unit subcut DAILY 01/27/24 [History Last Taken Unknown] isosorbide mononitrate 60 mg tablet,extended release 24 hr 60 mg PO DAILY 01/27/24 [History Last Taken Unknown] meropenem 500 mg intravenous solution 500 mg IV Q24H 01/27/24 [History Last [place] en Unknown] metoprolol succinate 25 mg tablet,extended release 24 hr 25 mg PO DAILY 01/27/24 [History Last Taken Unknown] nitroglycerin 0.4 mg sublingual PRN 01/27/24 [History Last Taken Unknown] omeprazole 20 mg capsule,delayed release 20 mg PO DAILY 01/27/24 [History Last Taken Unknown] ranolazine 500 mg tablet,extended release,12 hr 1,000 mg PO Q12H 01/27/24 [History Last Taken Unknown] rosuvastatin 20 mg tablet (Crestor) 20 mg PO DAILY 01/27/24 [History Last Taken Unknown] sevelamer carbonate 800 mg tablet (Renvela) 1,600 mg PO DAILY 01/27/24 [History Last Taken Unknown] vancomycin 1,000 mg intravenous injection 1 g IV DAILY 01/27/24 [History Last Taken Unknown] vilazodone 40 mg tablet 40 mg PO DAILY 01/27/24 [History Last Taken Unknown] Allergy/AdvReac Type Severity Reaction Status Date / Time atorvastatin Allergy Unknown PT UNABLE Verified 01/27/24 23:29 TO RESPOND-NEEDS F/U [id number]-[id number]-[id number] Reductase Allergy Unknown PT UNABLE Verified 01/27/24 23:29 Inhibitor TO RESPOND-NEEDS F/U Surgical History Hx of appendectomy Hx of CABG Social History Smoking Status: Former smoker ROS Review of Systems ROS Unobtainable: due to mental status Physical Exam Const alert and no apparent distress HEENT normocephalic Eyes PERRL Chest inspection of chest normal Resp normal respiratory effort Cardio Rate: tachycardic Rhythm: regular rhythm GI soft to palpation and non-tender Lab / Micro Data 01/29/24 05:17 01/29/24 05:17 Labs: Laboratory Results - last 24 hr 01/28/24 06:37: Crossmatch See Detail 01/28/24 17:56: POC Glucose 157 H 01/28/24 20:28: POC Glucose 169 H 01/28/24 23:35: POC Glucose 174 H 01/29/24 05:14: POC Glucose 127 H 01/29/24 05:17: WBC 16.6 H, RBC 2.21 L, Hgb 7.2 L, Hct 23.4 L, MCV 105.9 H, MCH 32.6 H, MCHC 30.8 L D, RDW Std Deviation 67.1 H, RDW Coeff of Reynold 17.4 H, Plt Count 290, MPV 9.7, Immature Gran % (Auto) 0.700, Neut % (Auto) 74.3 H, Lymph % (Auto) 17.2 L, [place] % (Auto) 7.2, Eos % (Auto) 0.4, Baso % (Auto) 0.2, Absolute Neuts (auto) 12.3 H, Absolute Lymphs (auto) 2.86, Nucleated RBC % 0, Differential Comment SCANNED, Anisocytosis 2+, Microcytosis 1+, Macrocytosis 1+, Sodium 139, Potassium 5.4 H, Chloride 101, Carbon Dioxide 28.0, Anion Gap 10, BUN 70 H, Creatinine 8.57 H*, Estim Creat Clear Calc 10.47, Est GFR (MDRD) Af Amer 8 L, Est GFR (MDRD) Non-Af 7 L, BUN/Creatinine Ratio 8.2 L, Glucose 128 H, Calcium 8.5, Iron 42 L, TIBC 114 L, Iron Saturation 36.8, Ferritin 691 H, Total Bilirubin 0.40, AST 19, ALT 11 L, Alkaline Phosphatase 74, Lactate Dehydrogenase 157, Total Protein 8.3 H, Albumin 1.7 L, Globulin 6.6 H, Albumin/Globulin Ratio 0.3 L 01/29/24 07:55: Vitamin B12 1708 H 01/29/24 13:59: POC Glucose 112 H 01/29/24 : Fluid Source THORACENTESIS, Fluid Color RED, Fluid Appearance CLEAR, Fluid WBC 23.914, Fluid RBC 0.008, Fluid Tot Cell Count 23.926, Fld Polynuclear WBCs # 19.616, Fld Polynuclear WBCs % 82.0, Fluid Mononuclear WBCs 4.298, Fld Mononuclear WBCs % 18.0, Fluid Neutrophils 100, Fl Pathologist Comment May follow, Fluid Total Protein 4.3, Fluid Comment 2 SEE COMMENT Micro: Microbiology 01/29/24 Unknown Fluid - Thoracentesis Fluid Gram Stain - Final 01/27/24 22:55 Urine Catheter - Catheter Urine Culture - Preliminary Culture exhibits no growth. Imaging Radiology Impression Chest X-Ray 01/29/24 11:07 IMPRESSION: No evidence of pneumothorax on the immediate post left thoracentesis examination. Electronically Signed: Maximus Esqueda MD at 11:22 EDT ,
--- NOTE | 2024-01-29 15:45 | RAD_ITS ---
STUDY: X-RAY CHEST REASON FOR EXAM: Male, 58 years old. Dialysis catheter placement TECHNIQUE: Single AP portable view of the chest. COMPARISON: Earlier today FINDINGS: A right IJ catheter is been placed since the previous study, tip is in the proximal SVC, no complications. Stable appearance of the left subclavian catheter. EKG leads overlie the chest Chronic interstitial changes in both lung michel without a superimposed process or significant change since the previous study. Sternal cerclage wires and vascular clips are present from a prior sternotomy and coronary artery bypass graft procedure (CABG). Normal mediastinum and conor. Normal visualized pulmonary arteries. Normal visualized aortic arch and descending thoracic aorta. There are diffuse degenerative changes of the visualized thoracic spine. There is degenerative osteoarthritis of the bilateral shoulders. There is no demonstrated abnormality of the visualized soft tissue structures of the upper abdomen. RAD/Chest 1 View (Portable) IMPRESSION: Support lines as described, no complications Lung michel show no interval change since the previous study Electronically Signed: Felice Cornell MD at 16:50 EDT ,
--- NOTE | 2024-01-29 15:45 | PCM.OPRPT ---
Report of Operation Date of Procedure: 01/29/24 Pre-Operative Diagnosis: Need for dialysis with end-stage renal disease Post-Operative Diagnosis: Same Surgery/Procedure Performed:: Ultrasound-guided right temporary dialysis catheter placement and right IJ Type of Anesthesia: Local Estimated Blood Loss (mL): 5 Description of Procedure: The right neck and chest were prepped and draped in usual sterile fashion. Ultrasound was used to localize the right IJ. The skin overlying it was injected with local anesthetic. Next the needle was placed into the IJ under direct guidance. It was difficult to see and he had a lot of calcification of hiS soft tissues. I did access the IJ and there was nice dark blood that was slowly aspirated. The syringe was removed out the needle and the guidewire was placed without resistance and the needle was removed. Serial dilators were placed over the guidewire and then removed. The catheter was flushed and clamped and then placed over the guidewire into the chest and then the guidewire was removed over it and the catheter was clamped. Next each catheter was aspirated and flushed and they both aspirated and flushed easily. The catheter was then sutured to the skin using 3-0 nylon suture that was included. Bandage was applied. Chest x-ray is pending. Grafts/Implants Used: Palindrome curved temporary dialysis catheter
[2024-01-29] MEDS: Desmopressin Acetate 40 MCG/10 ML Vial 27 MCG IV (18:21)
[2024-01-29] MEDS: 0.9% Saline Lock 10 ML Syringe IV ×2 (18:21→21:52)
[2024-01-29] MEDS: 0.9% Normal Saline 1,000 ML IV.SOLN. 1000 ML OPERA.SITE (20:43)
[2024-01-29] MEDS: PUREFLOW B SOLUTION 2K 5,000 ML BAG 5 BAG PF (21:26)
[2024-01-29] MEDS: Heparin 10,000 UNITS/10 ML Vial IV (21:53)
[2024-01-29] MEDS: Insulin Glargine-YFGN 100 UNIT/ML Pen 12 UNIT SC (22:31)
[2024-01-29] MEDS: Rosuvastatin 20 MG Tablet PO (22:33)
[2024-01-29] MEDS: Vancomycin HCl 750 MG in 0.9% Normal Saline (250mL Bag) 250 ML 250 MG IV (22:39)
[2024-01-29 23:43] LABS: Bedside Glucose 153 mg/dL (74-106)
[2024-01-30] VITALS (42 sets, daily range): BP systolic 82–153; BP diastolic 45–92; PULSE 76–88; RESP 12–29; TEMP 36.2–37; O2SAT 88–100; BMI 27.6; BMI 26.9
[2024-01-30] MEDS: CHLORHEXIDINE GLUC 2% CLOTH 1 EACH TOWELETTE TOPICAL
[2024-01-30] MEDS: Albuterol 2.5 MG/3 ML VIAL.NEB. INHALATION ×3 (01:47→18:36)
[2024-01-30 03:29] LABS: Absolute Lymphocyte Count 2.63 X10^3/uL (0.83-4.51); Absolute Neutrophil Count 25.5 X10^3/uL (2.0-7.7); Basophil# 0.09 X10^3/uL; Basophil% 0.3 % (0-1); Eosinophil# 0.01 X10^3/uL; Hematocrit 23.3 % (40-54); Hemoglobin 7.2 g/dL (13.0-16.5); Lymphocyte # 2.63 X10^3/ul (0.83-4.51); Lymphocyte % 8.6 % (19-41); Mean Corp Hgb Conc 30.9 g/dL (32-36); Mean Corpuscular Volume 103.6 fL (80-94); Mean Platelet Vol. 9.9 fl (6.2-12.0); Monocyte# 1.79 X10^3/uL; Monocyte% 5.9 % (0-10); NRBC Flagged by Analyzer 0 % (0-5); Neutrophil % 83.6 % (47-70); POSITIVE COUNT YES; POSITIVE DIFFERENTIAL YES; POSITIVE MORPHOLOGY YES; Platelet Count 276 K/mm3 (150-450); RBC Distribution Width CV 17.8 % (11.6-14.6); RBC Distribution Width SD 66.6 fl (35.1-43.9); Red Blood Count 2.25 M/mm3 (4.6-6.2); White Blood Count 30.5 K/mm3 (4.4-11.0)
[2024-01-30] MEDS: 0.9% Saline Lock 10 ML Syringe IV ×3 (03:30→15:21)
[2024-01-30 03:33] LABS: Differential Indicated SCAN CRITERIA MET
[2024-01-30 04:07] LABS: Anion Gap 8 (5-15); BUN 52 mg/dL (7-18); BUN/Creat Ratio 7.9 RATIO (10-20); Calcium,Total 8.1 mg/dL (8.5-10.1); Chloride 98 mmol/L (98-107); Creatinine, Serum 6.56 mg/dL (0.70-1.30); EST Glomerular Filtration Rate 9 mL/min (>60); Est Glom Filt Rate - Afr Amer 11 mL/min (>60); Estimated Creatinine Clearance 12.52 ml/min; Glucose 336 mg/dL (74-106); Potassium 4.5 mmol/L (3.5-5.1); Sodium Level 133 mmol/L (136-145)
[2024-01-30 04:21] LABS: Anisocytosis 2+
--- NOTE | 2024-01-30 06:58 | EX.PCM.CONCC ---
Assessment & Plan Assessment/Plan (1) Bilateral pleural effusion: PLAN: Plan RECOMMENDATIONS: 1. Continue ongoing volume optimization through hemodialysis per nephrology. 2. Antimicrobials per ID recommendations. 3. Supplemental oxygen to maintain saturations at or above 90%. 4. PAP therapy with naps and nightly. IMPRESSIONS: 1. Bilateral pleural effusions The patient had bilateral pleural effusions noted on chest imaging at presentation and is now status post thoracentesis. I do suspect that the effusions are likely related to his volume status in the setting of end-stage renal disease and congestive heart failure. Depending on which value that is utilized from a total protein perspective, the patient's effusion could be characterized as borderline exudative, with a pleural fluid protein level of 4.3 g/dL and serum value of 8.3 g/dL. The pleural fluid itself was neutrophil predominant. Gram stain showed 3+ white blood cells with rare gram-positive cocci. While a parapneumonic etiology is a possibility as well, the patient has been on broad-spectrum antimicrobials under the discretion of infectious diseases. I would recommend continuing the aforementioned management, without change, while awaiting finalized pleural fluid culture results. In addition, I would recommend ongoing attempts at volume optimization through hemodialysis per nephrology. Per traditional Light's criteria, if at least one of the following three is fulfilled, the fluid would be considered an exudate: 1. Pleural fluid protein/serum protein ratio greater than 0.5 2. Pleural fluid LDH/serum LDH ratio greater than 0.6 3. Pleural fluid LDH greater than two thirds the upper limits of the laboratories normal serum LDH This note was generated with eMind[employer] dictation software. It may contain incorrect words, spelling, and punctuation that were not noted in checking the note before signing. HPI Consult Data Date of Consult: 01/30/24 HPI Narrative Reason for Consultation: Pleural effusion HPI Narrative: The patient is a 58-year-old male, with a history as outlined below, who presented to the emergency department on January 27 with shortness of breath and altered mentation. The patient has a complex medical history that includes hypertension, hyperlipidemia, diabetes mellitus, diabetic neuropathy, coronary artery disease status post CABG/history of CHF/history of peripheral vascular disease status post right AKA and left BKA and end-stage renal disease on hemodialysis. More recently, the patient was hospitalized for osteomyelitis of the sacrum. On presentation to the emergency department, the patient was documented to be afebrile and hemodynamically stable. Initial laboratory evaluation revealed a white blood cell count of 20,000. Hemoglobin was noted to be 7.8 g/dL. Platelet count was stable. Chemistry profile was notable for potassium 5.3 and creatinine of 7.34. CTA chest showed no evidence for pulmonary embolism. Moderate pleural effusions along with bilateral lower lobe consolidations were noted. Lower extremity Doppler study was negative for DVT. To date, the patient has been evaluated by both infectious diseases and nephrology. The patient underwent dialysis yesterday with 2.8 L of fluid removed. Yesterday, the patient's fistula was noted to be nonfunctional. Therefore, a temporary hemodialysis catheter was placed. A thoracentesis was also completed with 360 mL of fluid removed from the left hemithorax. 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 Bipolar affective disorder CAD (coronary artery disease) Cervical stenosis of spine CHF (congestive heart failure) Chronic kidney disease Colostomy in place Depression Diabetes Dialysis patient GERD (gastroesophageal reflux disease) Hyperlipemia Hypertension Myocardial infarction Neuropathy Osteoarthritis Home Medications albuterol sulfate 2.5 mg/0.5 mL solution for nebulization 2.5 mg inhalation Q6H 01/27/24 [History Last Taken Unknown] albuterol sulfate 90 mcg/actuation aerosol inhaler 2 inh inhalation Q6H PRN shortness of breath or wheezing 01/27/24 [History Last Taken Unknown] aspirin 81 mg tablet,delayed release (Adult Low Dose Aspirin) 81 mg PO DAILY 01/27/24 [History Last Taken Unknown] buspirone 5 mg tablet 5 mg PO DAILY 01/27/24 [History Last Taken Unknown] cariprazine 3 mg capsule (Vraylar) 3 mg PO DAILY 01/27/24 [History Last Taken Unknown] cholecalciferol (vitamin D3) 125 mcg (5,000 unit) capsule 5,000 unit PO DAILY 01/27/24 [History Last Taken Unknown] clopidogrel 75 mg tablet (Plavix) 75 mg PO DAILY 01/27/24 [History Last Taken Unknown] cyanocobalamin (vitamin B-12) 500 mcg tablet (Vitamin B-12) 500 mcg PO DAILY 01/27/24 [History Last Taken Unknown] epoetin dee 10,000 unit/mL injection solution (Procrit) 10,000 unit IV DAILY 01/27/24 [History Last Taken Unknown] ferrous sulfate 325 mg (65 mg iron) tablet (iron) 325 mg PO BID 01/27/24 [History Last Taken Unknown] gabapentin 600 mg tablet 600 mg PO BID 01/27/24 [History Last Taken Unknown] insulin glargine 100 unit/mL (3 mL) subcutaneous pen (Basaglar KwikPen U-100 Insulin) 20 unit subcut QPM 01/27/24 [History Last Taken Unknown] insulin lispro 100 unit/mL subcutaneous pen (Humalog KwikPen (U-100) Insulin) 15 unit subcut TIDCM 01/27/24 [History Last Taken Unknown] insulin lispro protamine-lispro 100 unit/mL (75-25) subcutaneous pen 12 unit subcut DAILY 01/27/24 [History Last Taken Unknown] isosorbide mononitrate 60 mg tablet,extended release 24 hr 60 mg PO DAILY 01/27/24 [History Last Taken Unknown] meropenem 500 mg intravenous solution 500 mg IV Q24H 01/27/24 [History Last Taken Unknown] metoprolol succinate 25 mg tablet,extended release 24 hr 25 mg PO DAILY 01/27/24 [History Last Taken Unknown] nitroglycerin 0.4 mg sublingual PRN 01/27/24 [History Last Taken Unknown] omeprazole 20 mg capsule,delayed release 20 mg PO DAILY 01/27/24 [History Last Taken Unknown] ranolazine 500 mg tablet,extended release,12 hr 1,000 mg PO Q12H 01/27/24 [History Last Taken Unknown] rosuvastatin 20 mg tablet (Crestor) 20 mg PO DAILY 01/27/24 [History Last Taken Unknown] sevelamer carbonate 800 mg tablet (Renvela) 1,600 mg PO DAILY 01/27/24 [History Last Taken Unknown] vancomycin 1,000 mg intravenous injection 1 g IV DAILY 01/27/24 [History Last Taken Unknown] vilazodone 40 mg tablet 40 mg PO DAILY 01/27/24 [History Last Taken Unknown] Allergy/AdvReac Type Severity Reaction Status Date / Time atorvastatin Allergy Unknown PT UNABLE Verified 01/27/24 23:29 TO RESPOND-NEEDS F/U [id number] Reductase Allergy Unknown PT UNABLE Verified 01/27/24 23:29 Inhibitor TO RESPOND-NEEDS F/U Surgical History Hx of appendectomy Hx of CABG Social History Smoking Status: Former smoker ROS ROS Narrative 10 systems reviewed with pertinent positives as noted in the HPI above. Physical Exam Const Constitutional Narrative: Somnolent, but arousable and conversant. Falls easily back to sleep when left unstimulated. HEENT normocephalic and head/scalp atraumatic Eyes PERRL, EOMs intact bilaterally and conjunctivae normal Neck supple General: trachea midline Chest inspection of chest normal Resp normal respiratory effort Auscultation: Negative for rales, rhonchi or wheezes Cardio regular rate and regular rhythm GI soft to palpation and non-tender Extremity General Extremity: amputation; Negative for clubbing or edema Neuro CN's II-XII intact bilaterally and no focal motor deficits Psych Mood & Affect: flat affect Lab / Micro Data 01/30/24 03:18 01/30/24 03:18 Labs: Laboratory Results - last 24 hr 01/28/24 06:37: Crossmatch See Detail 01/29/24 05:17: Differential Comment SCANNED, Anisocytosis 2+, Microcytosis 1+, Macrocytosis 1+, Iron 42 L, TIBC 114 L, Iron Saturation 36.8, Ferritin 691 H 01/29/24 07:55: Vitamin B12 1708 H 01/29/24 13:59: POC Glucose 112 H 01/29/24 22:29: POC Glucose 153 H 01/29/24 : Fluid Source THORACENTESIS, Fluid Color RED, Fluid Appearance CLEAR, Fluid WBC 23.914, Fluid RBC 0.008, Fluid Tot Cell Count 23.926, Fld Polynuclear WBCs # 19.616, Fld Polynuclear WBCs % 82.0, Fluid Mononuclear WBCs 4.298, Fld Mononuclear WBCs % 18.0, Fluid Neutrophils 100, Fl Pathologist Comment May follow, Fluid Total Protein 4.3, Fluid Comment 2 SEE COMMENT 01/30/24 03:18: WBC 30.5 H*, RBC 2.25 L, Hgb 7.2 L, Hct 23.3 L, MCV 103.6 H, MCH 32.0, MCHC 30.9 L, RDW Std Deviation 66.6 H, RDW Coeff of Reynold 17.8 H, Plt Count 276, MPV 9.9, Immature Gran % (Auto) 1.600 H, Neut % (Auto) 83.6 H, Lymph % (Auto) 8.6 L, [place] % (Auto) 5.9, Eos % (Auto) 0.0, Baso % (Auto) 0.3, Absolute Neuts (auto) 25.5 H, Absolute Lymphs (auto) 2.63, Nucleated RBC % 0, Diff Path Review May foll, Anisocytosis 2+, Sodium 133 L, Potassium 4.5, Chloride 98, Carbon Dioxide 27.0, Anion Gap 8, BUN 52 H, Creatinine 6.56 H, Estim Creat Clear Calc 12.52, Est GFR (MDRD) Af Amer 11 L, Est GFR (MDRD) Non-Af 9 L, BUN/Creatinine Ratio 7.9 L, Glucose 336 H, Calcium 8.1 L Micro: Microbiology 01/29/24 Unknown Fluid - Thoracentesis Fluid Gram Stain - Final 01/27/24 22:55 Urine Catheter - Catheter Urine Culture - Preliminary Culture exhibits no growth. Imaging Radiology Impression Venous Doppler Study 01/28/24 01:06 Interpretation Summary Deep veins of the lower extremities are bilaterally patent and compressible segmentally. There is no evidence of deep vein thrombosis on either side. Valvular competence appears intact within the proximal deep venous systems bilaterally. The great saphenous veins appear bilaterally patent and compressible segmentally. A right above-knee amputation is noted. A left below-knee amputation is noted. Pulsatile flow is noted in the deep venous system bilaterally, which may be indicative of elevated central venous pressure (i.e. congestive heart failure, pulmonary hypertention, etc.). Clinical correlation is advised. Ordering Physician: Adalid Isidro Performed By: Enio Solis RVT Chest X-Ray 01/29/24 11:07 IMPRESSION: No evidence of pneumothorax on the immediate post left thoracentesis examination. Electronically Signed: Maximus Esqueda MD at 11:22 EDT , Chest X-Ray 01/29/24 15:45 IMPRESSION: Support lines as described, no complications Lung michel show no interval change since the previous study Electronically Signed: Felice Cornell MD at 16:50 EDT , Charges/Coding Visit Charges Inpatient E&M: 80390 Init Hosp L3
--- NOTE | 2024-01-30 07:09 | PCM.PN.HOSP ---
Reason for Visit Reason for Visit: Diagnoses Hyperkalemia (01/28/24) Metabolic encephalopathy (01/28/24) Pneumonia, unspecified organism (01/28/24) Pleural effusion, not elsewhere classified (01/28/24) Pressure ulcer of sacral region, stage 4 (01/28/24) Osteomyelitis of vertebra, sacral and sacrococcygeal region (01/28/24) End stage renal disease (01/28/24) Dependence on renal dialysis (01/28/24) Subjective Subjective Feels well. Objective Data Objective Data Vital Signs: Vital Signs Temp Pulse Resp BP Pulse Ox O2 Del Method O2 Flow Rate 36.2 C L 86 16 96/50 L 100 Nasal Cannula 2 01/30/24 03:00 01/30/24 07:00 01/30/24 07:00 01/30/24 07:00 01/30/24 07:00 01/30/24 07:00 01/30/24 07:00 FiO2 30 01/30/24 03:00 Oxygen Flow Rate (L/min) 2 Oxygen Delivery Method Nasal Cannula Weight: 87.5 kg Body Mass Index (BMI) 27.6 Intake & Output: Intake and Output for Last 24 Hours 01/28/24 01/29/24 01/30/24 23:59 23:59 23:59 Intake Total 1771 / 1771 171 / 171 265 / 265 Output Total 40 / 40 3240 / 3240 0 / 0 Balance 1731 / 1731 -3069 / -3069 265 / 265 Lab / Micro Data 01/30/24 03:18 01/30/24 03:18 Labs: Laboratory Results - last 24 hr 01/28/24 06:37: Crossmatch See Detail 01/29/24 05:17: Differential Comment SCANNED, Anisocytosis 2+, Microcytosis 1+, Macrocytosis 1+, Iron 42 L, TIBC 114 L, Iron Saturation 36.8, Ferritin 691 H 01/29/24 07:55: Vitamin B12 1708 H 01/29/24 13:59: POC Glucose 112 H 01/29/24 22:29: POC Glucose 153 H 01/29/24 : Fluid Source THORACENTESIS, Fluid Color RED, Fluid Appearance CLEAR, Fluid WBC 23.914, Fluid RBC 0.008, Fluid Tot Cell Count 23.926, Fld Polynuclear WBCs # 19.616, Fld Polynuclear WBCs % 82.0, Fluid Mononuclear WBCs 4.298, Fld Mononuclear WBCs % 18.0, Fluid Neutrophils 100, Fl Pathologist Comment May follow, Fluid Total Protein 4.3, Fluid Comment 2 SEE COMMENT 01/30/24 03:18: WBC 30.5 H*, RBC 2.25 L, Hgb 7.2 L, Hct 23.3 L, MCV 103.6 H, MCH 32.0, MCHC 30.9 L, RDW Std Deviation 66.6 H, RDW Coeff of Reynold 17.8 H, Plt Count 276, MPV 9.9, Immature Gran % (Auto) 1.600 H, Neut % (Auto) 83.6 H, Lymph % (Auto) 8.6 L, [place] % (Auto) 5.9, Eos % (Auto) 0.0, Baso % (Auto) 0.3, Absolute Neuts (auto) 25.5 H, Absolute Lymphs (auto) 2.63, Nucleated RBC % 0, Diff Path Review March, Anisocytosis 2+, Sodium 133 L, Potassium 4.5, Chloride 98, Carbon Dioxide 27.0, Anion Gap 8, BUN 52 H, Creatinine 6.56 H, Estim Creat Clear Calc 12.52, Est GFR (MDRD) Af Amer 11 L, Est GFR (MDRD) Non-Af 9 L, BUN/Creatinine Ratio 7.9 L, Glucose 336 H, Calcium 8.1 L Micro: Microbiology 01/29/24 Unknown Fluid - Thoracentesis Fluid Gram Stain - Final 01/27/24 22:55 Urine Catheter - Catheter Urine Culture - Preliminary Culture exhibits no growth. 01/28/24 02:55 Wound - Sacral Skin and Soft Tissue MRSA/MSSA (PCR - Final Meth. resistant Staph. aureus Staphylococcus aureus 01/27/24 22:29 Mucosa - Nasopharyngeal SARS-CoV-2, Influenza & RSV (PCR) - Final Radiography Diagnostic Testing: Radiology Impression Venous Doppler Study 01/28/24 01:06 Interpretation Summary Deep veins of the lower extremities are bilaterally patent and compressible segmentally. There is no evidence of deep vein thrombosis on either side. Valvular competence appears intact within the proximal deep venous systems bilaterally. The great saphenous veins appear bilaterally patent and compressible segmentally. A right above-knee amputation is noted. A left below-knee amputation is noted. Pulsatile flow is noted in the deep venous system bilaterally, which may be indicative of elevated central venous pressure (i.e. congestive heart failure, pulmonary hypertention, etc.). Clinical correlation is advised. Ordering Physician: Adalid Isidro Performed By: Enio Solis, RVT Chest X-Ray 01/29/24 11:07 IMPRESSION: No evidence of pneumothorax on the immediate post left thoracentesis examination. Electronically Signed: Maximus Esqueda MD at 11:22 EDT , Chest X-Ray 01/29/24 15:45 IMPRESSION: Support lines as described, no complications Lung michel show no interval change since the previous study Electronically Signed: Felice Cornell MD at 16:50 EDT , Physical Exam Const alert and no apparent distress HEENT head/scalp atraumatic and moist oral mucous membranes Resp normal respiratory effort and no retractions Cardio regular rate, regular rhythm, S1 normal heart sound and S2 normal heart sound GI normal to inspection, nondistended, normoactive bowel sounds and soft to palpation Extremity Extremity Narrative: stump clean intact. Assessment & Plan Assessment/Plan (1) Multifocal pneumonia: (2) Osteomyelitis of sacrum: (3) Sacral decubitus ulcer, stage IV: (4) Hyperkalemia: (5) Metabolic encephalopathy: PLAN: Plan Acute hypoxic and hypercapnic respiratory failure. doubt pneumonia suspect due to CHF exacerbation and pleural effusions. CTA showed moderate pleural effusion w bilateral lobe consolidations. Using [employer] 2000, pt had CTA chest on 01/20 that showed mild to moderate bilateral effusions. on empiric antibiotics with meropenem and vancomycin BiPAP Stage IV sacral decubitus ulcer with OM Has been on vancomycin Through [facility] there was no imaging of pelvic region. Will request records from [facility] (no progress notes in [facility]) wound care. ID consult. Culture +MRSA Metabolic encephalopathy secondary to above. appears to be resolved. Leukocytosis elevated, however trending down. Through [facility], his WBCs were 25.8 on 01/25 at [facility] in [place]. monitor Pleural effusion as above, present on CT a [facility] in [place] on 01/20 (unclear if changed or not based on the reports) Fluid studies show 23.9 WBCs. LDH fluid pending Pulm consult recommended continue current mgmt. Anemia 7.2. Hg on 8.6 on 01/25 at OSH Given CAD, will transfused 1 unit on 01/28. Will transfuse 1 unit 01/29 as Hg 7.2 despite 1 unit. check iron studies, B12 TSH WNL ESRD on HD fistula occluded. Vascular surgery consulted. Temporary dialysis catheter placed 01/28. Chronic conditions: CAD; s/p CABG with resent stent placement on week ago - Resume BASA and Plavix plus statin. Troponin 80. History of severe peripheral vascular disease; status post right AKA and left BKA with chronic immobility and hyper-inflammatory state outlined above Diabetes mellitus type 2; of unknown control with diabetic neuropathy - Keep NPO for now. FSBS q. 6 hours plus lowest intensity SSI. Essential hypertension - Continue Metoprolol plus give prn Hydralazine for systolic blood pressure > 160 mm Hg. Hyperlipidemia - Resume statin. JAMIE: BiPAP QHS. DVT prophylaxis - Patient on renal-dose Lovenox. Charges/Coding Visit Charges Inpatient E&M: 16934 Subs Hosp L2
[2024-01-30 07:50] LABS: Hemoglobin A1c 6.1 % (3.8-5.6)
[2024-01-30] MEDS: SEVELAMER CARBONATE 800 MG TABLET 1600 MG PO (08:16)
[2024-01-30] MEDS: Ferrous Sulfate 325 MG Tablet PO ×2 (08:16→17:08)
[2024-01-30] MEDS: Gabapentin 600 MG Tablet PO ×2 (08:17→20:58)
[2024-01-30] MEDS: Pantoprazole Sodium 20 MG Tablet PO (08:17)
[2024-01-30] MEDS: Clopidogrel Bisulfate 75 MG Tablet PO (08:17)
[2024-01-30] MEDS: VILAZODONE HYDROCHLORIDE 10 MG TABLET 40 MG PO (08:17)
[2024-01-30] MEDS: busPIRone 5 MG Tablet PO (08:18)
[2024-01-30] MEDS: Cholecalciferol (Vit D3) 125 MCG CAPSULE (5,000 UNITS) PO (08:18)
[2024-01-30] MEDS: CARIPRAZINE HCL 1.5 MG CAPSULE 3 MG PO (08:18)
[2024-01-30] MEDS: Cyanocobalamin 500 MCG Tablet PO (08:18)
[2024-01-30] MEDS: 0.9% Normal Saline (250mL Bag) 250 ML 15 ML IV (08:23)
[2024-01-30] MEDS: Insulin Lispro 100 UNIT/ML INSULN.PEN SC ×4 (08:26→20:59)
[2024-01-30 08:50] LABS: Bedside Glucose 269 mg/dL (74-106)
[2024-01-30 08:50] LABS: Bedside Glucose 249 mg/dL (74-106)
--- NOTE | 2024-01-30 09:35 | PCM.PN.REN ---
Subjective Subjective No new complaints. Breathing looks comfortable. Objective Data Objective Data Vital Signs: Vital Signs Temp Pulse Resp BP Pulse Ox O2 Del Method O2 Flow Rate 97.4 F L 85 19 H 93/48 L 92 Room Air 2 01/30/24 08:00 01/30/24 08:00 01/30/24 08:00 01/30/24 08:00 01/30/24 08:00 01/30/24 08:00 01/30/24 07:00 FiO2 30 01/30/24 03:00 Oxygen Flow Rate (L/min) 2 Oxygen Delivery Method Room Air Weight: 87.5 kg Body Mass Index (BMI) 27.6 Intake & Output: Intake and Output for Last 24 Hours 01/28/24 01/29/24 01/30/24 23:59 23:59 23:59 Intake Total 1771 / 1771 171 / 171 265 / 265 Output Total 40 / 40 3240 / 3240 0 / 0 Balance 1731 / 1731 -3069 / -3069 265 / 265 Lab / Micro Data 01/30/24 03:18 01/30/24 03:18 Labs: Laboratory Results - last 24 hr 01/28/24 06:37: Crossmatch See Detail 01/29/24 13:59: POC Glucose 112 H 01/29/24 22:29: POC Glucose 153 H 01/29/24 : Fluid Source THORACENTESIS, Fluid Color RED, Fluid Appearance CLEAR, Fluid WBC 23.914, Fluid RBC 0.008, Fluid Tot Cell Count 23.926, Fld Polynuclear WBCs # 19.616, Fld Polynuclear WBCs % 82.0, Fluid Mononuclear WBCs 4.298, Fld Mononuclear WBCs % 18.0, Fluid Neutrophils 100, Fl Pathologist Comment May follow, Fluid Total Protein 4.3, Fluid Comment 2 SEE COMMENT 01/30/24 03:18: WBC 30.5 H*, RBC 2.25 L, Hgb 7.2 L, Hct 23.3 L, MCV 103.6 H, MCH 32.0, MCHC 30.9 L, RDW Std Deviation 66.6 H, RDW Coeff of Reynold 17.8 H, Plt Count 276, MPV 9.9, Immature Gran % (Auto) 1.600 H, Neut % (Auto) 83.6 H, Lymph % (Auto) 8.6 L, Jack % (Auto) 5.9, Eos % (Auto) 0.0, Baso % (Auto) 0.3, Absolute Neuts (auto) 25.5 H, Absolute Lymphs (auto) 2.63, Nucleated RBC % 0, Diff Path Review May foll, Anisocytosis 2+, Sodium 133 L, Potassium 4.5, Chloride 98, Carbon Dioxide 27.0, Anion Gap 8, BUN 52 H, Creatinine 6.56 H, Estim Creat Clear Calc 12.52, Est GFR (MDRD) Af Amer 11 L, Est GFR (MDRD) Non-Af 9 L, BUN/Creatinine Ratio 7.9 L, Glucose 336 H, Hemoglobin A1c 6.1 H, Calcium 8.1 L 01/30/24 06:32: POC Glucose 269 H 01/30/24 08:12: POC Glucose 249 H Micro: Microbiology 01/27/24 22:55 Urine Catheter - Catheter Urine Culture - Final Culture exhibits no growth. 01/29/24 Unknown Fluid - Thoracentesis Fluid Gram Stain - Final 01/28/24 02:55 Wound - Sacral Skin and Soft Tissue MRSA/MSSA (PCR - Final Meth. resistant Staph. aureus Staphylococcus aureus 01/27/24 22:29 Mucosa - Nasopharyngeal SARS-CoV-2, Influenza & RSV (PCR) - Final Radiography Diagnostic Testing: Radiology Impression Venous Doppler Study 01/28/24 01:06 Interpretation Summary Deep veins of the lower extremities are bilaterally patent and compressible segmentally. There is no evidence of deep vein thrombosis on either side. Valvular competence appears intact within the proximal deep venous systems bilaterally. The great saphenous veins appear bilaterally patent and compressible segmentally. A right above-knee amputation is noted. A left below-knee amputation is noted. Pulsatile flow is noted in the deep venous system bilaterally, which may be indicative of elevated central venous pressure (i.e. congestive heart failure, pulmonary hypertention, etc.). Clinical correlation is advised. Ordering Physician: Adalid Isidro Performed By: Enio Solis RVShane Chest X-Ray 01/29/24 11:07 IMPRESSION: No evidence of pneumothorax on the immediate post left thoracentesis examination. Electronically Signed: Maximus Esqueda MD at 11:22 EDT , Chest X-Ray 01/29/24 15:45 IMPRESSION: Support lines as described, no complications Lung michel show no interval change since the previous study Electronically Signed: Felice Cornell MD at 16:50 EDT , Physical Exam Narrative Alert to name, no apparent distress S1, S2, RRR Lung sounds clear anteriorly. No wheezes, rhonchi or rales noted. Abdomen soft, nontender. Colostomy bag intact Left BKA, right AKA. No edema noted to bilateral thighs Assessment & Plan Assessment/Plan (1) ESRD on dialysis: PLAN: On hemodialysis. He is originally from [place] area was recently discharged to a prison in this area. We will continue hemodialysis on Monday, Monday, Monday reviewed old records from previous hospitalization. Dialysis yesterday, we will plan for ultrafiltration today. Access. He has a left arm brachiocephalic AV fistula. According to the discharge paperwork from hospital, he had a tunneled dialysis catheter which was removed first week of January when his fistula was deemed to be functional. He has been getting dialysis through the fistula. On examination today, there is some pulsatility. Had multiple clots when we tried to access yesterday. I will place a consult for vascular surgery to see if we can get it declotted. For now he has a right IJ temporary dialysis catheter placed by Dr Chacon which we will use for dialysis. If fistula cannot be salvaged, he will need this converted to tunneled dialysis cath. He has a left IJ tunneled PICC. As per ID notes from previous hospital visits, they have recommended vancomycin and meropenem for sacral osteomyelitis for total of 6 to 8 weeks. He is currently on same antibiotics. Anemia. Iron saturations are adequate. Getting erythropoietin with dialysis. Discussed with ICU attending (2) Hyperkalemia: (3) Metabolic encephalopathy: (4) Multifocal pneumonia: (5) Osteomyelitis of sacrum: PLAN: Plan This is a 58-year-old male with past medical history significant for ESRD on hemodialysis (unknown outpatient hemodialysis center) who was brought to the emergency room from prison for evaluation of altered mental status and shortness of breath. Nephrology consulted as patient has history of ESRD and is on hemodialysis support. Patient currently has a tunneled hemodialysis catheter and a functioning left arm AV fistula. We will plan for dialysis today on 2K bath and attempt fluid removal as patient/blood pressure tolerates. Patient had CT of chest which showed moderate pleural effusions, he did have thoracentesis today with around 360 mL fluid drained. Will attempt to access AV fistula. Patient has history of anemia of chronic disease, patient will receive CLAY with dialysis today. Will continue to monitor hemoglobin trends. Potassium is 5.4 today, patient will dialyze on 2K bath. Recommend renal diet. Patient is on IV antibiotics, vanco and meropenem for recent history of sacral osteomyelitis. Blood pressures acceptable on Imdur. Further orders forthcoming as hospitalization evolves, thank you for allowing us to participate in the care of Mr. Lenz.
[2024-01-30] MEDS: Meropenem 1 GM in 0.9% Normal Saline (100mL MB+) 100 ML IV (09:39)
[2024-01-30] MEDS: Ranolazine 500 MG Tablet 1000 MG PO ×2 (09:39→20:58)
--- NOTE | 2024-01-30 10:18 | PN.ID_ITS ---
Physical Exam Narrative In icu, no fever Const Orientation / Consciousness: lethargic Resp normal air movement and clear to auscultation bilaterally Cardio regular rate and regular rhythm GI soft to palpation, non-tender and non-distended Skin Skin Narrative: no new rash ID ID: Route of nutrition/ use of supplements: [] Nutritional Intake: [] IV Site: [] Franco Catheter: [] Assessment & Plan Assessment/Plan (1) Bilateral pleural effusion: (2) Metabolic encephalopathy: (3) ESRD on dialysis: (4) Osteomyelitis of sacrum: PLAN: Reviewed ID note from last admit to [facility] by Dr. Laci Chavez, plan was 8 weeks iv vanc/keven, stop date 03/23/24. Thoracentesis done here, high wbc seen in fluid, cx pending. Wound cx here with MRSA. Will follow
--- NOTE | 2024-01-30 11:09 | HP.SPFEES ---
FEES Patient Information Date of Evaluation: 01/30/24 Time of Evaluation: 10:30 DIAGNOSIS:: Multifocal PNA J18.9 Referring Physician: Reza Fisher Staff Providing this Care/Treatment:: DAGOBERTO Direct Billable Minutes: 56 Subjective: Subjective:: The patient was pleasant and cooperative for evaluation. Verbal consent obtained from the patient for participation in FEES assessment. Of note, verbal consent was also taken from his stepson on 01/29/24. Current Diet: Drinks/Liquids:: Thin Foods:: Easy to chew Medication Administration:: orally Respiratory Status: Observation:: Diminished, clear on room air per most recent RN Shift Clinical Findings. Dentation/Oral Hygiene: Observations:: [place], moist oral mucosa. Edentulous. Vocal Quality: Observations:: Hoarse Cognition: Observations:: Impaired (Required min repetition to follow commands. Intermittent confusion during hospitalization.) and Did not impact exam Dysphagia: TX/DX History:: Yes Fiberoptic Endoscope: Size: 3.4 mm Nare:: Right (septum appeared to deviate on L side) Position During FEES: Position During FEES:: Slightly reclined (Patient was painful from sacral wound and was reclined ~60 degrees for evaluation as he was unable to tolerate sitting upright 90 degrees. ) Anatomy: + Velopharyngeal Port Observations Movement: Yes +Nasopharynx Observations Tissue Description: [place] and Moist +Oropharynx Observations: Tissue Description: [place] and Moist +Hypopharynx Observation: Tissue Description: [place] and Moist Comments:: Cobblestoning on posterior pharyngeal wall. Secretions: Description:: Clear and White Location:: Nasopharynx and Oropharynx Comment:: Mild white mucous in nasopharynx. Trace white mucous in oropharynx. Phonation: Arytenoid Adduction & Abduction: Difficult to view phonation beyond the epiglottis; however, arytenoids appear to approximate symmetrically. CLIENT SERVICES ASSOCIATE suspects mildly decreased adduction due to patient's hoarse vocal quality. During inhalation, vocal folds appear WNL. Penetration-Aspiration Scale Penetration-Aspiration Scale Penetration-Aspiration Scale Score Thin Liquid via single sip: straw: Liquid/Food tested:: Blue powerade for all liquid trials. Result: 1= does not enter airway (Unfortunately due to CLIENT SERVICES ASSOCIATE error, the first two trials were not recorded; however, international accounting manager, Bell and Claudia (providing trials) observed no laryngeal penetration or aspiration.) Thin Liquid via single sip: straw Trial 2: Result: 1= does not enter airway Thin Liquid via small single sip: cup: Result: 1= does not enter airway (No apparent oropharyngeal residue.) Yogurt via teaspoon: Result: 1= does not enter airway (premature spillage to the R aryepiglottic fold and minimal spillage to posterior surface of the epiglottis prior to swallow onset. 5% residue in the vallecula bilaterally.) 1/4 Cookie: Result: 1= does not enter airway (Prolonged, but complete mastication. Premature spillage to the R pyriforms prior to swallow onset. 15% residue in R vallecula, 5% residue in L vallecula, <5% residue in R pyriforms.) Thin Liquid via single sip: straw Trial 3: Result: 1= does not enter airway (Liquid wash effectively cleared cookie residue. <5% residue in L vallecula. Minimal mucous in oropharynx after the swallow.) Thin Liquid via sequential sips:straw: Result: 1= does not enter airway (No apparent oropharyngeal residue. Mild mucous in oropharynx after the swallow.) Swallowing: :: Other comments: Brown out observed across trials indicating weakened pharyngeal contraction and motility. Swallowing Trials: Swallowing Trials Results Below: Recommendations: Recommended Diet Grade & Liquid Drinks/Liquids:: Thin Foods:: Easy to chew Supervision/Cues: 1 on 1 (Feeding assistance required d/t impulsivity and bilateral UE weakness) Recommend Repeat Fiberoptic Endoscopic Evaluation of Swallowing: No Need for Skilled Speech Therapy Services:: Yes Prognosis: Prognosis: Good Frequency: Additional (Frequency): 3-5X/week during acute stay Education: Education Completed: 1. Described result of evaluation., 2. Pt understands evaluation & agrees with goals and treatment plan. and 4. Family/caregivers understand evaluation & agree w/ goals & tx plan.
--- NOTE | 2024-01-30 11:40 | WOUNDNOTE ---
Colostomy appliance intact. no sign of leak noted. applied dated for 01/29/[address] in [address]. stoma appears pink and moist.
--- NOTE | 2024-01-30 11:58 | CASEMGMT ---
Social Work SW met with pt to discuss discharge plan and if pt would like to return to [facility]. Pt unable to stay awake during attempts at conversation. SW will follow up with pt at a later time. JEREMY Meyer
[2024-01-30 12:02] LABS: Bedside Glucose 217 mg/dL (74-106)
--- NOTE | 2024-01-30 12:05 | WOUNDNOTE ---
wound photo: sacrum
--- NOTE | 2024-01-30 12:05 | WOUNDNOTE ---
wound photo: right ischium/perineum
--- NOTE | 2024-01-30 12:06 | WOUNDNOTE ---
wound photo: left stump
--- NOTE | 2024-01-30 12:56 | EX.PCM.CON.S ---
Assessment & Plan Assessment/Plan (1) ESRD on dialysis: PLAN: Plan Will plan for fistulagram in the cleaner laboratory equipment tomorrow, time pending cleaner laboratory equipment availability. NPO after midnight. HPI Consult Data Date of Consult: 01/30/24 HPI Narrative HPI Narrative: RAMANDEEP KEEN, is a 58 M who has ESRD with a LUE AVF which he reports had been functioning over the last few weeks. Yesterday, they tried to use the fistula for dialysis. They were able to get access but there was sluggish pull and the needles were clotting so dialysis was not able to be completed. Dr. Chacon placed a R IJ temporary catheter yesterday. He is not the best historian at this time. He states he does not know when this fistula was created. He does not think he has had any interventions on it since it was created. He does not recall any issues at dialysis prior to his presentation to the hospital. He denies any pain/numbness/coolness into the L hand. He presented to [facility] ER on 01/28/24 with respiratory distress secondary to CHF exacerbation and pleural effusions. He also was recently admitted to [facility] for Stage IV sacral ulcer with osteomyelitis for which he has been on IV abx. He has CAD with CABG and is s/p recent PCI one week ago. He is s/p R AKA and L BKA, he reports he had prior lower extremity revascularization attempts prior to these amputations. He is a type 2 diabetic. He has a colostomy. [facility] Medical History AAA (abdominal aortic aneurysm) Above knee amputation of right lower extremity Below-knee amputation of left lower extremity Bipolar affective disorder CAD (coronary artery disease) Cervical stenosis of spine CHF (congestive heart failure) Chronic kidney disease Colostomy in place Depression Diabetes Dialysis patient GERD (gastroesophageal reflux disease) Hyperlipemia Hypertension Myocardial infarction Neuropathy Osteoarthritis Home Medications albuterol sulfate 2.5 mg/0.5 mL solution for nebulization 2.5 mg inhalation Q6H 01/27/24 [History Last Taken Unknown] albuterol sulfate 90 mcg/actuation aerosol inhaler 2 inh inhalation Q6H PRN shortness of breath or wheezing 01/27/24 [History Last Taken Unknown] aspirin 81 mg tablet,delayed release (Adult Low Dose Aspirin) 81 mg PO DAILY 01/27/24 [History Last Taken Unknown] buspirone 5 mg tablet 5 mg PO DAILY 01/27/24 [History Last Taken Unknown] cariprazine 3 mg capsule (Vraylar) 3 mg PO DAILY 01/27/24 [History Last Taken Unknown] cholecalciferol (vitamin D3) 125 mcg (5,000 unit) capsule 5,000 unit PO DAILY 01/27/24 [History Last Taken Unknown] clopidogrel 75 mg tablet (Plavix) 75 mg PO DAILY 01/27/24 [History Last Taken Unknown] cyanocobalamin (vitamin B-12) 500 mcg tablet (Vitamin B-12) 500 mcg PO DAILY 01/27/24 [History Last Taken Unknown] epoetin dee 10,000 unit/mL injection solution (Procrit) 10,000 unit IV DAILY 01/27/24 [History Last Taken Unknown] ferrous sulfate 325 mg (65 mg iron) tablet (iron) 325 mg PO BID 01/27/24 [History Last Taken Unknown] gabapentin 600 mg tablet 600 mg PO BID 01/27/24 [History Last Taken Unknown] insulin glargine 100 unit/mL (3 mL) subcutaneous pen (Basaglar KwikPen U-100 Insulin) 20 unit subcut QPM 01/27/24 [History Last Taken Unknown] insulin lispro 100 unit/mL subcutaneous pen (Humalog KwikPen (U-100) Insulin) 15 unit subcut TIDCM 01/27/24 [History Last Taken Unknown] insulin lispro protamine-lispro 100 unit/mL (75-25) subcutaneous pen 12 unit subcut DAILY 01/27/24 [History Last Taken Unknown] isosorbide mononitrate 60 mg tablet,extended release 24 hr 60 mg PO DAILY 01/27/24 [History Last Taken Unknown] meropenem 500 mg intravenous solution 500 mg IV Q24H 01/27/24 [History Last Taken Unknown] metoprolol succinate 25 mg tablet,extended release 24 hr 25 mg PO DAILY 01/27/24 [History Last Taken Unknown] nitroglycerin 0.4 mg sublingual PRN 01/27/24 [History Last Taken Unknown] omeprazole 20 mg capsule,delayed release 20 mg PO DAILY 01/27/24 [History Last Taken Unknown] ranolazine 500 mg tablet,extended release,12 hr 1,000 mg PO Q12H 01/27/24 [History Last Taken Unknown] rosuvastatin 20 mg tablet (Crestor) 20 mg PO DAILY 01/27/24 [History Last Taken Unknown] sevelamer carbonate 800 mg tablet (Renvela) 1,600 mg PO DAILY 01/27/24 [History Last Taken Unknown] vancomycin 1,000 mg intravenous injection 1 g IV DAILY 01/27/24 [History Last Taken Unknown] vilazodone 40 mg tablet 40 mg PO DAILY 01/27/24 [History Last Taken Unknown] Allergy/AdvReac Type Severity Reaction Status Date / Time atorvastatin Allergy Unknown PT UNABLE Verified 01/27/24 23:29 TO RESPOND-NEEDS F/U [id number] Reductase Allergy Unknown PT UNABLE Verified 01/27/24 23:29 Inhibitor TO RESPOND-NEEDS F/U Surgical History Hx of appendectomy Hx of CABG Social History Smoking Status: Former smoker Physical Exam Const alert and no apparent distress General Appearance: cooperative HEENT normocephalic, head/scalp atraumatic, hearing grossly normal bilaterally, external ears normal and external nose normal Eyes EOMs intact bilaterally General Eye: normal appearance of both eyes Neck Neck Narrative: R IJ temporary dialysis catheter General: normal visual inspection Resp normal respiratory effort, no retractions and no use of accessory muscles Effort and Inspection: able to speak in complete sentences, respiratory distress and audible wheezes Cardio regular rate and regular rhythm Extremity Extremity Narrative: LUE AVF with palpable thrill and positive bruit. Palpable L radial pulse. L hand is slightly cool compared to R. R AKA L BKA Neuro CN's II-XII intact bilaterally, moves all extremities and no focal motor deficits Sensorium / Orientation: awake, alert, oriented to person and oriented to place Speech: speech normal Psych Appearance: grossly normal Attitude: calm Activity / Motor Behavior: appropriate eye contact Speech: normal speech Mood & Affect: euthymic mood Lab / Micro Data 01/30/24 03:18 01/30/24 03:18 Labs: Laboratory Results - last 24 hr 01/28/24 06:37: Crossmatch See Detail 01/28/24 06:37: Crossmatch See Detail 01/29/24 13:59: POC Glucose 112 H 01/29/24 22:29: POC Glucose 153 H 01/29/24 : Fluid Source THORACENTESIS, Fluid Color RED, Fluid Appearance CLEAR, Fluid WBC 23.914, Fluid RBC 0.008, Fluid Tot Cell Count 23.926, Fld Polynuclear WBCs # 19.616, Fld Polynuclear WBCs % 82.0, Fluid Mononuclear WBCs 4.298, Fld Mononuclear WBCs % 18.0, Fluid Neutrophils 100, Fl Pathologist Comment May follow, Fluid Comment 2 SEE COMMENT 01/30/24 03:18: WBC 30.5 H*, RBC 2.25 L, Hgb 7.2 L, Hct 23.3 L, MCV 103.6 H, MCH 32.0, MCHC 30.9 L, RDW Std Deviation 66.6 H, RDW Coeff of Reynold 17.8 H, Plt Count 276, MPV 9.9, Immature Gran % (Auto) 1.600 H, Neut % (Auto) 83.6 H, Lymph % (Auto) 8.6 L, [place] % (Auto) 5.9, Eos % (Auto) 0.0, Baso % (Auto) 0.3, Absolute Neuts (auto) 25.5 H, Absolute Lymphs (auto) 2.63, Nucleated RBC % 0, Diff Path Review March, Anisocytosis 2+, Sodium 133 L, Potassium 4.5, Chloride 98, Carbon Dioxide 27.0, Anion Gap 8, BUN 52 H, Creatinine 6.56 H, Estim Creat Clear Calc 12.52, Est GFR (MDRD) Af Amer 11 L, Est GFR (MDRD) Non-Af 9 L, BUN/Creatinine Ratio 7.9 L, Glucose 336 H, Hemoglobin A1c 6.1 H, Calcium 8.1 L 01/30/24 06:32: POC Glucose 269 H 01/30/24 08:12: POC Glucose 249 H 01/30/24 11:42: POC Glucose 217 H Micro: Microbiology 01/29/24 Unknown Fluid - Thoracentesis Fluid Gram Stain - Final 01/29/24 Unknown Fluid - Thoracentesis Fluid Body Fluid Culture - Preliminary No growth-Final to follow 01/27/24 22:29 Blood Culture (Wb) - Right Forearm Blood Culture - Preliminary No growth in 48 hours. 01/27/24 22:29 Blood Culture (Wb) - Anticubital Right Blood Culture - Preliminary No growth in 48 hours. 01/27/24 22:55 Urine Catheter - Catheter Urine Culture - Final Culture exhibits no growth. Imaging Radiology Impression Venous Doppler Study 01/28/24 01:06 Interpretation Summary Deep veins of the lower extremities are bilaterally patent and compressible segmentally. There is no evidence of deep vein thrombosis on either side. Valvular competence appears intact within the proximal deep venous systems bilaterally. The great saphenous veins appear bilaterally patent and compressible segmentally. A right above-knee amputation is noted. A left below-knee amputation is noted. Pulsatile flow is noted in the deep venous system bilaterally, which may be indicative of elevated central venous pressure (i.e. congestive heart failure, pulmonary hypertention, etc.). Clinical correlation is advised. Ordering Physician: Adalid Isidro Performed By: Enio Solis, RVT Chest X-Ray 01/29/24 15:45 IMPRESSION: Support lines as described, no complications Lung michel show no interval change since the previous study Electronically Signed: Felice Cornell MD at 16:50 EDT ,
[2024-01-30] MEDS: 0.9% Normal Saline 1,000 ML IV.SOLN. 1000 ML OPERA.SITE (13:52)
[2024-01-30 14:20] LABS: Pathologist Comment/Body Fluid Reviewed
[2024-01-30] MEDS: Heparin 10,000 UNITS/10 ML Vial IV (15:22)
[2024-01-30 17:02] LABS: Bedside Glucose 204 mg/dL (74-106)
[2024-01-30] MEDS: Rosuvastatin 20 MG Tablet PO (20:58)
[2024-01-30] MEDS: Insulin Glargine-YFGN 100 UNIT/ML Pen 12 UNIT SC (20:59)
[2024-01-30 21:20] LABS: Bedside Glucose 191 mg/dL (74-106)
[2024-01-31] VITALS (40 sets, daily range): BP systolic 92–184; BP diastolic 45–73; PULSE 68–102; RESP 14–28; TEMP 36.2–37.2; O2SAT 91–100; BMI 27.8; BMI 27.1
[2024-01-31] MEDS: CHLORHEXIDINE GLUC 2% CLOTH 1 EACH TOWELETTE TOPICAL (04:43)
[2024-01-31 06:06] LABS: Absolute Lymphocyte Count 2.47 X10^3/uL (0.83-4.51); Absolute Neutrophil Count 13.3 X10^3/uL (2.0-7.7); Basophil# 0.06 X10^3/uL; Basophil% 0.3 % (0-1); Eosinophil# 0.12 X10^3/uL; Eosinophils% 0.7 % (0-5); Hematocrit 23.4 % (40-54); Hemoglobin 7.4 g/dL (13.0-16.5); Lymphocyte # 2.47 X10^3/ul (0.83-4.51); Lymphocyte % 14.1 % (19-41); Mean Corp Hgb Conc 31.6 g/dL (32-36); Mean Corpuscular Hgb 31.4 pg (27.0-32.0); Mean Corpuscular Volume 99.2 fL (80-94); Mean Platelet Vol. 9.9 fl (6.2-12.0); Monocyte# 1.37 X10^3/uL; Monocyte% 7.8 % (0-10); NRBC Flagged by Analyzer 0.1 % (0-5); Neutrophil # 13.25 X10^3/uL (2.7-7.7); Neutrophil % 75.3 % (47-70); POSITIVE MORPHOLOGY YES; Platelet Count 263 K/mm3 (150-450); RBC Distribution Width CV 19.4 % (11.6-14.6); RBC Distribution Width SD 69.6 fl (35.1-43.9); Red Blood Count 2.36 M/mm3 (4.6-6.2); White Blood Count 17.6 K/mm3 (4.4-11.0)
[2024-01-31 06:12] LABS: Differential Indicated SCAN CRITERIA MET
[2024-01-31 06:23] LABS: Anion Gap 10 (5-15); BUN 70 mg/dL (7-18); BUN/Creat Ratio 8.9 RATIO (10-20); Calcium,Total 7.8 mg/dL (8.5-10.1); Chloride 98 mmol/L (98-107); Creatinine, Serum 7.84 mg/dL (0.70-1.30); EST Glomerular Filtration Rate 8 mL/min (>60); Est Glom Filt Rate - Afr Amer 9 mL/min (>60); Estimated Creatinine Clearance 11.34 ml/min; Glucose 166 mg/dL (74-106); Potassium 4.7 mmol/L (3.5-5.1); Sodium Level 133 mmol/L (136-145)
[2024-01-31 06:40] LABS: Vancomycin, Random Level 42.2 ug/mL (0.0-15.0)
[2024-01-31 06:59] LABS: Anisocytosis 2+; Howell-Jolly Body 1+; Ovalocyte 1+
--- NOTE | 2024-01-31 07:04 | PCM.PN.HOSP ---
Reason for Visit Reason for Visit: Diagnoses Hyperkalemia (01/28/24) Metabolic encephalopathy (01/28/24) Pneumonia, unspecified organism (01/28/24) Pleural effusion, not elsewhere classified (01/28/24) Pressure ulcer of sacral region, stage 4 (01/28/24) Osteomyelitis of vertebra, sacral and sacrococcygeal region (01/28/24) End stage renal disease (01/28/24) Dependence on renal dialysis (01/28/24) Subjective Subjective No new complaints. Objective Data Objective Data Vital Signs: Vital Signs Temp Pulse Resp BP Pulse Ox O2 Del Method O2 Flow Rate 36.2 C L 80 22 H 92/50 L 95 Room Air 1 01/31/24 04:00 01/31/24 06:00 01/31/24 06:00 01/31/24 06:00 01/31/24 06:00 01/31/24 06:00 01/30/24 22:00 FiO2 24 01/31/24 04:00 Oxygen Flow Rate (L/min) 1 Oxygen Delivery Method Room Air Weight: 88.1 kg Body Mass Index (BMI) 27.8 Intake & Output: Intake and Output for Last 24 Hours 01/29/24 01/30/24 01/31/24 23:59 23:59 23:59 Intake Total 171 / 171 956.75 / 956.75 Output Total 3240 / 3240 2305 / 2305 Balance -3069 / -3069 -1348.25 / -1348.25 -20 / -20 Lab / Micro Data 01/31/24 05:58 01/31/24 05:58 Labs: Laboratory Results - last 24 hr 01/28/24 06:37: Crossmatch See Detail 01/28/24 06:37: Crossmatch See Detail 01/29/24 : Fl Pathologist Comment Reviewed, Miscellaneous Cytology SEE PATHOLOGY REPORT 01/30/24 03:18: Hemoglobin A1c 6.1 H 01/30/24 06:32: POC Glucose 269 H 01/30/24 08:12: POC Glucose 249 H 01/30/24 11:42: POC Glucose 217 H 01/30/24 16:44: POC Glucose 204 H 01/30/24 20:57: POC Glucose 191 H 01/31/24 05:58: WBC 17.6 H, RBC 2.36 L, Hgb 7.4 L, Hct 23.4 L, MCV 99.2 H, MCH 31.4, MCHC 31.6 L, RDW Std Deviation 69.6 H, RDW Coeff of Reynold 19.4 H, Plt Count 263, MPV 9.9, Immature Gran % (Auto) 1.800 H, Neut % (Auto) 75.3 H, Lymph % (Auto) 14.1 L, [place] % (Auto) 7.8, Eos % (Auto) 0.7, Baso % (Auto) 0.3, Absolute Neuts (auto) 13.3 H, Absolute Lymphs (auto) 2.47, Nucleated RBC % 0.1, Anisocytosis 2+, Ovalocytes 1+, Jon-[place] Bodies 1+, Sodium 133 L, Potassium 4.7, Chloride 98, Carbon Dioxide 25.0, Anion Gap 10, BUN 70 H, Creatinine 7.84 H*, Estim Creat Clear Calc 11.34, Est GFR (MDRD) Af Amer 9 L, Est GFR (MDRD) Non-Af 8 L, BUN/Creatinine Ratio 8.9 L, Glucose 166 H, Calcium 7.8 L, Random Vancomycin 42.2 H Micro: Microbiology 01/29/24 Unknown Fluid - Thoracentesis Fluid Gram Stain - Final 01/29/24 Unknown Fluid - Thoracentesis Fluid Body Fluid Culture - Preliminary No growth-Final to follow 01/27/24 22:29 Blood Culture (Wb) - Right Forearm Blood Culture - Preliminary No growth in 48 hours. 01/27/24 22:29 Blood Culture (Wb) - Anticubital Right Blood Culture - Preliminary No growth in 48 hours. 01/27/24 22:55 Urine Catheter - Catheter Urine Culture - Final Culture exhibits no growth. 01/28/24 02:55 Wound - Sacral Skin and Soft Tissue MRSA/MSSA (PCR - Final Meth. resistant Staph. aureus Staphylococcus aureus 01/27/24 22:29 Mucosa - Nasopharyngeal SARS-CoV-2, Influenza & RSV (PCR) - Final Physical Exam Const alert and no apparent distress Constitutional Narrative: listless HEENT head/scalp atraumatic Cardio regular rate, regular rhythm and S1 normal heart sound Extremity normal to inspection Extremity Narrative: stumps intact Assessment & Plan Assessment/Plan (1) Multifocal pneumonia: (2) Osteomyelitis of sacrum: (3) Sacral decubitus ulcer, stage IV: (4) Hyperkalemia: (5) Metabolic encephalopathy: PLAN: Plan Acute hypoxic and hypercapnic respiratory failure. doubt pneumonia suspect due to CHF exacerbation and pleural effusions. CTA showed moderate pleural effusion w bilateral lobe consolidations. Using [facility], pt had CTA chest on 01/20 that showed mild to moderate bilateral effusions. on empiric antibiotics with meropenem and vancomycin BiPAP Stage IV sacral decubitus ulcer with OM Has been on vancomycin Through [facility] there was no imaging of pelvic region. Will request records from [facility] (no progress notes in [facility]) wound care. ID consult. Culture +MRSA Metabolic encephalopathy secondary to above. appears to be resolved. Leukocytosis elevated, however trending down. Through [facility], his WBCs were 25.8 on 01/25 at [facility] in [place]. monitor Pleural effusion as above, present on CT a [facility] in [place] on 01/20 (unclear if changed or not based on the reports) Fluid studies show 23.9 WBCs. LDH fluid pending Pulm consult recommended continue current mgmt. Follow up cultures. Cannot rule out parapneumonic effusion, but may very well be due to volume. Anemia Transfused 3 units. iron low. on ferrous sulfate TSH WNL on epoetin check hemoccult ESRD on HD fistula occluded. Vascular surgery consulted. Plan for fistulagram 01/30. Temporary dialysis catheter placed 01/28. Chronic conditions: CAD; s/p CABG with resent stent placement on week ago - Resume BASA and Plavix plus statin. Troponin 80. History of severe peripheral vascular disease; status post right AKA and left BKA with chronic immobility and hyper-inflammatory state outlined above Diabetes mellitus type 2; of unknown control with diabetic neuropathy - Keep NPO for now. FSBS q. 6 hours plus lowest intensity SSI. Essential hypertension - Continue Metoprolol plus give prn Hydralazine for systolic blood pressure > 160 mm Hg. Hyperlipidemia - Resume statin. JAMIE: BiPAP QHS. DVT prophylaxis - Patient on renal-dose Lovenox. Charges/Coding Visit Charges Inpatient E&M: 89728 Subs Hosp L2
--- NOTE | 2024-01-31 07:27 | PCM.PN.INT ---
Assessment & Plan Assessment/Plan (1) Bilateral pleural effusion: PLAN: Plan RECOMMENDATIONS: 1. Continue ongoing volume optimization through hemodialysis per nephrology. 2. Antimicrobials per ID recommendations. 3. Supplemental oxygen, if needed, to maintain saturations at or above 90%. 4. PAP therapy with naps and nightly. 5. Will sign off at this time from a pulmonary/critical care perspective. IMPRESSIONS: 1. Bilateral pleural effusions The patient had bilateral pleural effusions noted on chest imaging at presentation and is now status post thoracentesis. I do suspect that the effusions are likely related to his volume status in the setting of end-stage renal disease and congestive heart failure. Depending on which value that is utilized from a total protein perspective, the patient's effusion could be characterized as borderline exudative, with a pleural fluid protein level of 4.3 g/dL and serum value of 8.3 g/dL. The pleural fluid itself was neutrophil predominant. Gram stain showed 3+ white blood cells with rare gram-positive cocci. However, pleural fluid has not demonstrated any growth to date. While a parapneumonic etiology is a possibility as well, the patient has been on broad-spectrum antimicrobials under the discretion of infectious diseases. I would recommend ongoing attempts at volume optimization through hemodialysis per nephrology. Per traditional Light's criteria, if at least one of the following three is fulfilled, the fluid would be considered an exudate: 1. Pleural fluid protein/serum protein ratio greater than 0.5 2. Pleural fluid LDH/serum LDH ratio greater than 0.6 3. Pleural fluid LDH greater than two thirds the upper limits of the laboratories normal serum LDH This note was generated with Realm dictation software. It may contain incorrect words, spelling, and punctuation that were not noted in checking the note before signing. Subjective Subjective The patient was seen and examined at the bedside this morning. Events from the last 24 hours have been reviewed. The patient is currently afebrile, hemodynamically stable and maintaining appropriate oxygen saturations on room air. The patient was apparently tolerant of BiPAP overnight. The patient was tolerant of dialysis yesterday with 2.3 L of fluid removed. White count has improved this morning to 17,000. Hemoglobin is stable at 7.4 g/dL. Objective Data Objective Data The patient's most recent lab work, culture data and imaging studies have all been personally reviewed. Pleural fluid has not demonstrated any growth to date. Vital Signs: Vital Signs Temp Pulse Resp BP Pulse Ox O2 Del Method O2 Flow Rate 97.2 F L 82 21 H 99/51 L 93 Room Air 1 01/31/24 04:00 01/31/24 07:00 01/31/24 07:00 01/31/24 07:00 01/31/24 07:00 01/31/24 07:00 01/30/24 22:00 FiO2 24 01/31/24 04:00 Oxygen Flow Rate (L/min) 1 Oxygen Delivery Method Room Air Weight: 194 lb 3.636 oz Body Mass Index (BMI) 27.8 Intake & Output: Intake and Output for Last 24 Hours 01/29/24 01/30/24 01/31/24 23:59 23:59 23:59 Intake Total 171 / 171 956.75 / 956.75 Output Total 3240 / 3240 2305 / 2305 Balance -3069 / -3069 -1348.25 / -1348.25 - -20 Lab / Micro Data Attestation: I reviewed the patient's lab results. 01/31/24 05:58 01/31/24 05:58 Labs: Laboratory Results - last 24 hr 01/28/24 06:37: Crossmatch See Detail 01/28/24 06:37: Crossmatch See Detail 01/29/24 : Fl Pathologist Comment Reviewed, Miscellaneous Cytology SEE PATHOLOGY REPORT 01/30/24 03:18: Hemoglobin A1c 6.1 H 01/30/24 06:32: POC Glucose 269 H 01/30/24 08:12: POC Glucose 249 H 01/30/24 11:42: POC Glucose 217 H 01/30/24 16:44: POC Glucose 204 H 01/30/24 20:57: POC Glucose 191 H 01/31/24 05:58: WBC 17.6 H, RBC 2.36 L, Hgb 7.4 L, Hct 23.4 L, MCV 99.2 H, MCH 31.4, MCHC 31.6 L, RDW Std Deviation 69.6 H, RDW Coeff of Reynold 19.4 H, Plt Count 263, MPV 9.9, Immature Gran % (Auto) 1.800 H, Neut % (Auto) 75.3 H, Lymph % (Auto) 14.1 L, [place] % (Auto) 7.8, Eos % (Auto) 0.7, Baso % (Auto) 0.3, Absolute Neuts (auto) 13.3 H, Absolute Lymphs (auto) 2.47, Nucleated RBC % 0.1, Anisocytosis 2+, Ovalocytes 1+, Jon-[place] Bodies 1+, Sodium 133 L, Potassium 4.7, Chloride 98, Carbon Dioxide 25.0, Anion Gap 10, BUN 70 H, Creatinine 7.84 H*, Estim Creat Clear Calc 11.34, Est GFR (MDRD) Af Amer 9 L, Est GFR (MDRD) Non-Af 8 L, BUN/Creatinine Ratio 8.9 L, Glucose 166 H, Calcium 7.8 L, Random Vancomycin 42.2 H Micro: Microbiology 01/29/24 Unknown Fluid - Thoracentesis Fluid Gram Stain - Final 01/29/24 Unknown Fluid - Thoracentesis Fluid Body Fluid Culture - Preliminary No growth-Final to follow 01/29/24 Unknown Fluid - Thoracentesis Fluid Anaerobic Culture - Preliminary No growth in 48 hours. 01/27/24 22:29 Blood Culture (Wb) - Right Forearm Blood Culture - Preliminary No growth in 48 hours. 01/27/24 22:29 Blood Culture (Wb) - Anticubital Right Blood Culture - Preliminary No growth in 48 hours. 01/27/24 22:55 Urine Catheter - Catheter Urine Culture - Final Culture exhibits no growth. 01/28/24 02:55 Wound - Sacral Skin and Soft Tissue MRSA/MSSA (PCR - Final Meth. resistant Staph. aureus Staphylococcus aureus 01/27/24 22:29 Mucosa - Nasopharyngeal SARS-CoV-2, Influenza & RSV (PCR) - Final Physical Exam Const alert and no apparent distress General Appearance: cooperative HEENT normocephalic and head/scalp atraumatic Eyes PERRL, EOMs intact bilaterally and conjunctivae normal Neck supple General: trachea midline Chest inspection of chest normal Resp normal respiratory effort Auscultation: Negative for rales, rhonchi or wheezes Cardio regular rate and regular rhythm GI soft to palpation and non-tender Extremity General Extremity: amputation; Negative for clubbing or edema Neuro CN's II-XII intact bilaterally and no focal motor deficits Psych Mood & Affect: flat affect Charges/Coding Visit Charges Inpatient E&M: 20595 Subs Hosp L2
[2024-01-31] MEDS: Albuterol 2.5 MG/3 ML VIAL.NEB. INHALATION ×2 (07:32→18:54)
--- NOTE | 2024-01-31 07:50 | CPS ---
RT found pt with NC off and not turned on. Pt is 95%. This RT left NC off
[2024-01-31] MEDS: 0.9% Normal Saline 1,000 ML IV.SOLN. 1000 ML OPERA.SITE (08:20)
[2024-01-31] MEDS: PureFlow B 2K Dialysis Soln 1 BAG 6 BAG PF (08:20)
[2024-01-31] MEDS: 0.9% Saline Lock 10 ML Syringe IV ×2 (08:21→11:16)
[2024-01-31 09:05] LABS: Bedside Glucose 127 mg/dL (74-106)
--- NOTE | 2024-01-31 09:42 | PCM.RX.CS ---
Consult Antibiotic Management Pharmacy has been consulted to manage selected antibiotic: Vancomycin Type of Intervention Type of Consult: Follow-up Suspected Infection Suspected Infection: Osteomyelitis and Pneumonia Prior Doses of Antibiotics Prior Doses of Antibiotics Received/Current Regimen: Last dose received 750mg iv x 1 on 01.29.24. Labs Labs: Sodium 133 mmol/L (136-145) L 01/31/24 05:58 Potassium 4.7 mmol/L (3.5-5.1) 01/31/24 05:58 Chloride 98 mmol/L (98-107) 01/31/24 05:58 Carbon Dioxide 25.0 mmol/L (21.0-32.0) 01/31/24 05:58 Anion Gap 10 (5-15) 01/31/24 05:58 BUN 70 mg/dL (7-18) H 01/31/24 05:58 Creatinine 7.84 mg/dL (0.70-1.30) H* 01/31/24 05:58 Est GFR (MDRD) Af Amer 9 mL/min (>60) L 01/31/24 05:58 Est GFR (MDRD) Non-Af 8 mL/min (>60) L 01/31/24 05:58 BUN/Creatinine Ratio 8.9 RATIO (10-20) L 01/31/24 05:58 Glucose 166 mg/dL (74-106) H 01/31/24 05:58 Random Vancomycin 42.2 ug/mL (0.0-15.0) H 01/31/24 05:58 Microbiology Microbiology: Microbiology 01/29/24 Unknown Fluid - Thoracentesis Fluid Gram Stain - Final 01/29/24 Unknown Fluid - Thoracentesis Fluid Body Fluid Culture - Preliminary No growth-Final to follow 01/29/24 Unknown Fluid - Thoracentesis Fluid Anaerobic Culture - Preliminary No growth in 48 hours. 01/27/24 22:29 Blood Culture (Wb) - Right Forearm Blood Culture - Preliminary No growth in 48 hours. 01/27/24 22:29 Blood Culture (Wb) - Anticubital Right Blood Culture - Preliminary No growth in 48 hours. 01/27/24 22:55 Urine Catheter - Catheter Urine Culture - Final Culture exhibits no growth. 01/28/24 02:55 Wound - Sacral Skin and Soft Tissue MRSA/MSSA (PCR - Final Meth. resistant Staph. aureus Staphylococcus aureus 01/27/24 22:29 Mucosa - Nasopharyngeal SARS-CoV-2, Influenza & RSV (PCR) - Final Dosing Weight Weight used for dosin.2 kg Estimated Creatinine Clearance Estimated Creatinine Clearance: HD Goal Trough Goal Trough: 15-20 mcg/mL Pharmacy Plan for Drug Dosing Pharmacy Plan for Drug Dosing: Random level today 42.2. No dosing to be given. Repeat random level ordered for 02.02.24. Pharmacy Service will continue to monitor and adjust dosing as required. Follow-Up Labs Follow-Up Labs: Trough: Other (random level 02.02.24 0600)
--- NOTE | 2024-01-31 10:15 | PCM.PN.REN ---
Subjective Subjective Patient is resting in bed. Seen on hemodialysis. No overnight events. Objective Data Objective Data Vital Signs: Vital Signs Temp Pulse Resp BP Pulse Ox O2 Del Method O2 Flow Rate 97.2 F L 70 15 102/47 L 100 Room Air 1 01/31/24 04:00 01/31/24 10:00 01/31/24 10:00 01/31/24 10:00 01/31/24 10:00 01/31/24 10:00 01/30/24 22:00 FiO2 24 01/31/24 04:00 Oxygen Flow Rate (L/min) 1 Oxygen Delivery Method Room Air Weight: 88.1 kg Body Mass Index (BMI) 27.8 Intake & Output: Intake and Output for Last 24 Hours 01/29/24 01/30/24 01/31/24 23:59 23:59 23:59 Intake Total 171 / 171 956.75 / 956.75 Output Total 3240 / 3240 2305 / 2305 Balance -3069 / -3069 -1348.25 / -1348.25 - -20 Lab / Micro Data 01/31/24 05:58 01/31/24 05:58 Labs: Laboratory Results - last 24 hr 01/28/24 06:37: Crossmatch See Detail 01/29/24 : Fl Pathologist Comment Reviewed, Miscellaneous Cytology SEE PATHOLOGY REPORT 01/30/24 11:42: POC Glucose 217 H 01/30/24 16:44: POC Glucose 204 H 01/30/24 20:57: POC Glucose 191 H 01/31/24 05:58: WBC 17.6 H, RBC 2.36 L, Hgb 7.4 L, Hct 23.4 L, MCV 99.2 H, MCH 31.4, MCHC 31.6 L, RDW Std Deviation 69.6 H, RDW Coeff of Reynold 19.4 H, Plt Count 263, MPV 9.9, Immature Gran % (Auto) 1.800 H, Neut % (Auto) 75.3 H, Lymph % (Auto) 14.1 L, [place] % (Auto) 7.8, Eos % (Auto) 0.7, Baso % (Auto) 0.3, Absolute Neuts (auto) 13.3 H, Absolute Lymphs (auto) 2.47, Nucleated RBC % 0.1, Anisocytosis 2+, Ovalocytes 1+, Jon-[place] Bodies 1+, Sodium 133 L, Potassium 4.7, Chloride 98, Carbon Dioxide 25.0, Anion Gap 10, BUN 70 H, Creatinine 7.84 H*, Estim Creat Clear Calc 11.34, Est GFR (MDRD) Af Amer 9 L, Est GFR (MDRD) Non-Af 8 L, BUN/Creatinine Ratio 8.9 L, Glucose 166 H, Calcium 7.8 L, Random Vancomycin 42.2 H 01/31/24 08:45: POC Glucose 127 H Micro: Microbiology 01/29/24 Unknown Fluid - Thoracentesis Fluid Gram Stain - Final 01/29/24 Unknown Fluid - Thoracentesis Fluid Body Fluid Culture - Preliminary No growth-Final to follow 01/29/24 Unknown Fluid - Thoracentesis Fluid Anaerobic Culture - Preliminary No growth in 48 hours. 01/27/24 22:29 Blood Culture (Wb) - Right Forearm Blood Culture - Preliminary No growth in 48 hours. 01/27/24 22:29 Blood Culture (Wb) - Anticubital Right Blood Culture - Preliminary No growth in 48 hours. 01/27/24 22:55 Urine Catheter - Catheter Urine Culture - Final Culture exhibits no growth. 01/28/24 02:55 Wound - Sacral Skin and Soft Tissue MRSA/MSSA (PCR - Final Meth. resistant Staph. aureus Staphylococcus aureus 01/27/24 22:29 Mucosa - Nasopharyngeal SARS-CoV-2, Influenza & RSV (PCR) - Final Physical Exam Narrative Alert to name, no apparent distress S1, S2, RRR Lung sounds clear anteriorly. No wheezes, rhonchi or rales noted. Abdomen soft, nontender. Colostomy bag intact Left BKA, right AKA. No edema noted to bilateral thighs Nontunneled temporary HD catheter right IJ accessed for hemodialysis Left arm AV fistula with no thrill or bruit Assessment & Plan Assessment/Plan (1) ESRD on dialysis: PLAN: On hemodialysis. He is originally from [facility] in [place], was recently [facility] to a [facility] in this area. We will continue hemodialysis on Monday, Monday, Monday. Patient underwent hemodialysis Monday, he also underwent sequential treatment yesterday and tolerated 2.3 L fluid removal. To undergo hemodialysis today and attempting around 1.5L UF. Access. He has a left arm brachiocephalic AV fistula. According to the discharge paperwork from hospital, he had a tunneled dialysis catheter which was removed first week of January when his fistula was deemed to be functional. He had been getting dialysis through the fistula. There were multiple clots when we tried to access AVF Monday, therefore non-tunneled temporary HD catheter was placed. Vascular surgery planning fistulagram today. If fistula cannot be salvaged, he will need tunneled dialysis cath before discharge from hospital. He has a left IJ tunneled PICC. As per ID notes from previous hospital visits, they have recommended vancomycin and meropenem for sacral osteomyelitis for total of 6 to 8 weeks. He is currently on same antibiotics. Anemia. Iron saturations are adequate. Getting erythropoietin with dialysis today. (2) Hyperkalemia: (3) Metabolic encephalopathy: (4) Multifocal pneumonia: (5) Osteomyelitis of sacrum: PLAN: Plan This is a 58-year-old male with past medical history significant for ESRD on hemodialysis (unknown outpatient hemodialysis center) who was [facility] from [facility] for evaluation of altered mental status and shortness of breath. Nephrology consulted as patient has history of ESRD and is on hemodialysis support. Patient currently has a tunneled hemodialysis catheter and a functioning left arm AV fistula. We will plan for dialysis today on 2K bath and attempt fluid removal as patient/blood pressure tolerates. Patient had CT of chest which showed moderate pleural effusions, he did have thoracentesis today with around 360 mL fluid drained. Will attempt to access AV fistula. Patient has history of anemia of chronic disease, patient will receive CLAY with dialysis today. Will continue to monitor hemoglobin trends. Potassium is 5.4 today, patient will dialyze on 2K bath. Recommend renal diet. Patient is on IV antibiotics, vanco and meropenem for recent history of sacral osteomyelitis. Blood pressures acceptable on Imdur. Further orders forthcoming as hospitalization evolves, thank you for allowing us to participate in the care of Mr. Lenz.
[2024-01-31] MEDS: Epoetin Alfa epbx 10,000 UNITS/ML 20000 UNIT IV (11:14)
[2024-01-31] MEDS: Heparin 10,000 UNITS/10 ML Vial IV (11:16)
[2024-01-31] MEDS: Meropenem 1 GM in 0.9% Normal Saline (100mL MB+) 100 ML IV (12:01)
--- NOTE | 2024-01-31 12:21 | CASEMGMT ---
Discharge Planning Updates sent to [facility] via [facility]. Brielle Crawley, Discharge Planning Asst.
--- NOTE | 2024-01-31 13:41 | PCM.OPRPT ---
Report of Operation Date of Procedure: 01/31/24 Pre-Operative Diagnosis: fistula malfunction Post-Operative Diagnosis: same; no stenosis or thrombus Surgery/Procedure Performed:: fistulagram Surgeon: Reza Sommer Type of Anesthesia: Local and Sedation,Conscious Estimated Blood Loss (mL): 1 Description of Procedure: HPI: Patient is a 58-year-old male with end-stage renal disease currently on dialysis who has a previously created left upper arm AV fistula via wave link technique. They had difficulty accessing and there was suspicion that there was thrombus within the fistula as there was clot returned in the dialysis conduit. He is taken now for fistulogram to assess for thrombus and possible stenosis. Description of procedure: Upon obtaining form consent and verification correct patient procedure and site patient was taken to the Sample Taker Operator where he was positioned prepped and draped in you sterile fashion. Time was performed and sedation ministered with Versed and fentanyl. Skin overlying the fistula was anesthetized 1% lidocaine and the vessel accessed under ultrasound guidance with a micropuncture needle and wire. This then exchanged for micropuncture sheath through which hand-injection fistulogram was performed which revealed brisk contrast transit to the venous outflow tract and patent central venous system with no significant stenosis. There also was no thrombus visualized within the fistula. The mid fistula was then compressed and hand-injection fistulogram was performed to reflux into the arterial limb which revealed satisfactory caliber arterial tract with no apparent stenosis. Nylon suture then placed in the micropuncture sheath withdrawn followed by manual pressure after which time patient was taken to the intensive care unit for ongoing care.
--- NOTE | 2024-01-31 14:07 | AVDS_ITS ---
Reason For Study: ESRD LEFT Brachial artery, mid, 188.2/102.7 cm/sec. Brachial artery, mid, 887 ml/min. Medial Brachial vein, 39.6/22.9 cm/sec. Medial Brachial vein, 159.4 ml/min. Lateral Brachial vein, 29.3/17.5 cm/sec. Lateral Brachial vein, 25 ml/min. Cephalic vein, mid bicep, 45.3/31.8cm/sec. Cephalic vein, mid bicep, 470.7 cm/sec. Cephalic vein, distal bicep, 42.5/26.8 cm/sec. Cephalic vein, distal bicep, 461.1 ml/min. Basilic vein, mid, 5.9cm/sec. Basilic vein, mid, 24.5 ml/min. Basilic vein, distal, 4.9/1.8 cm/sec. Basilic vein, distal, 28.6 ml/min. Printing Engineer vein, 260.7/124.9 cm/sec. Printing Engineer vein, 936.7 ml/min. VL/AV Fistula/Dialysis Graft Scan Interpretation Summary Patent left upper arm cephalic fistula with adequate flow volumes. Ordering Physician: Reza Sommer Referring Physician: Laci Power Performed By: Gifty Lee RVT
[2024-01-31 14:37] LABS: Bedside Glucose 113 mg/dL (74-106)
[2024-01-31] MEDS: Ranolazine 500 MG Tablet 1000 MG PO ×2 (14:55→21:02)
[2024-01-31] MEDS: Ferrous Sulfate 325 MG Tablet PO (14:55)
[2024-01-31] MEDS: busPIRone 5 MG Tablet PO (14:56)
[2024-01-31] MEDS: CARIPRAZINE HCL 1.5 MG CAPSULE 3 MG PO (14:56)
[2024-01-31] MEDS: Cholecalciferol (Vit D3) 125 MCG CAPSULE (5,000 UNITS) PO (14:56)
[2024-01-31] MEDS: Clopidogrel Bisulfate 75 MG Tablet PO (14:56)
[2024-01-31] MEDS: Cyanocobalamin 500 MCG Tablet PO (14:56)
[2024-01-31] MEDS: Pantoprazole Sodium 20 MG Tablet PO (14:56)
[2024-01-31] MEDS: Isosorbide Mononitrate 60 MG Tablet PO (14:56)
[2024-01-31] MEDS: Gabapentin 600 MG Tablet PO ×2 (14:56→21:03)
[2024-01-31] MEDS: SEVELAMER CARBONATE 800 MG TABLET 1600 MG PO (14:57)
[2024-01-31] MEDS: VILAZODONE HYDROCHLORIDE 10 MG TABLET 40 MG PO (14:57)
--- NOTE | 2024-01-31 16:45 | CASEMGMT ---
Social Work SW met with pt who is awake, alert and oriented. Pt confirms that he has been living at [facility] for the last 8 months. Pt was moved to [facility] on Monday for in house dialysis. Pt states he plans to return to [facility] upon discharge. Pt gave permission to notify pt's son at time of discharge. Plan: Return to [facility], when medically ready JEREMY Meyer
[2024-01-31] MEDS: Insulin Lispro 100 UNIT/ML INSULN.PEN SC ×2 (17:55→21:03)
[2024-01-31 18:15] LABS: Bedside Glucose 182 mg/dL (74-106)
[2024-01-31] MEDS: Rosuvastatin 20 MG Tablet PO (21:03)
[2024-01-31] MEDS: Insulin Glargine-YFGN 100 UNIT/ML Pen 12 UNIT SC (21:03)
[2024-01-31] MEDS: Menthol/Lanolin/Calamine/Znox 113 GM Tube 1 APPLIC TOPICAL (21:04)
[2024-01-31 21:28] LABS: Bedside Glucose 214 mg/dL (74-106)
[2024-02-01] VITALS (26 sets, daily range): BP systolic 84–153; BP diastolic 42–109; PULSE 89–105; RESP 12–30; TEMP 36.3–37.2; O2SAT 90–99
[2024-02-01] MEDS: Albuterol 2.5 MG/3 ML VIAL.NEB. INHALATION ×4 (01:57→19:25)
[2024-02-01 04:18] LABS: Absolute Lymphocyte Count 2.72 X10^3/uL (0.83-4.51); Absolute Neutrophil Count 9.4 X10^3/uL (2.0-7.7); Basophil# 0.06 X10^3/uL; Basophil% 0.4 % (0-1); Eosinophil# 0.08 X10^3/uL; Eosinophils% 0.6 % (0-5); Hematocrit 23.5 % (40-54); Hemoglobin 7.3 g/dL (13.0-16.5); Lymphocyte # 2.72 X10^3/ul (0.83-4.51); Lymphocyte % 19.9 % (19-41); Mean Corp Hgb Conc 31.1 g/dL (32-36); Mean Corpuscular Hgb 31.1 pg (27.0-32.0); Mean Platelet Vol. 10.1 fl (6.2-12.0); Monocyte# 1.08 X10^3/uL; Monocyte% 7.9 % (0-10); NRBC Flagged by Analyzer 0.6 % (0-5); Neutrophil # 9.39 X10^3/uL (2.7-7.7); Neutrophil % 68.9 % (47-70); POSITIVE MORPHOLOGY YES; Platelet Count 262 K/mm3 (150-450); Red Blood Count 2.35 M/mm3 (4.6-6.2); White Blood Count 13.7 K/mm3 (4.4-11.0)
[2024-02-01 04:24] LABS: Differential Indicated SCAN CRITERIA MET
[2024-02-01 04:32] LABS: Anion Gap 7 (5-15); BUN 63 mg/dL (7-18); BUN/Creat Ratio 10.4 RATIO (10-20); Calcium,Total 7.6 mg/dL (8.5-10.1); Chloride 100 mmol/L (98-107); Creatinine, Serum 6.07 mg/dL (0.70-1.30); EST Glomerular Filtration Rate 10 mL/min (>60); Est Glom Filt Rate - Afr Amer 12 mL/min (>60); Estimated Creatinine Clearance 13.53 ml/min; Glucose 219 mg/dL (74-106); Sodium Level 132 mmol/L (136-145)
[2024-02-01 05:26] LABS: Anisocytosis RARE
[2024-02-01 05:27] LABS: Polychromasia RARE
--- NOTE | 2024-02-01 07:23 | PCM.PN.HOSP ---
Reason for Visit Reason for Visit: Diagnoses Hyperkalemia (01/28/24) Metabolic encephalopathy (01/28/24) Pneumonia, unspecified organism (01/28/24) Pleural effusion, not elsewhere classified (01/28/24) Pressure ulcer of sacral region, stage 4 (01/28/24) Osteomyelitis of vertebra, sacral and sacrococcygeal region (01/28/24) End stage renal disease (01/28/24) Dependence on renal dialysis (01/28/24) Subjective Subjective Denies complaints. Objective Data Objective Data Vital Signs: Vital Signs Temp Pulse Resp BP Pulse Ox O2 Del Method O2 Flow Rate 37.2 C 89 21 H 106/45 L 98 CPAP 1 02/01/24 04:00 02/01/24 07:00 02/01/24 07:00 02/01/24 07:00 02/01/24 07:00 02/01/24 07:00 01/30/24 22:00 FiO2 24 02/01/24 07:00 Oxygen Flow Rate (L/min) 1 Oxygen Delivery Method CPAP Weight: 86.1 kg Body Mass Index (BMI) 27.1 Intake & Output: Intake and Output for Last 24 Hours 01/30/24 01/31/24 02/01/24 23:59 23:59 23:59 Intake Total 956.75 / 956.75 120 / 520 400 / 400 Output Total 2305 / 2305 2035 / 2035 Balance -1348.25 / -1348.25 -1915 / -1515 390 / 390 Lab / Micro Data 02/01/24 03:59 02/01/24 03:59 Labs: Laboratory Results - last 24 hr 01/31/24 08:45: POC Glucose 127 H 01/31/24 12:00: POC Glucose 113 H 01/31/24 17:54: POC Glucose 182 H 01/31/24 21:00: POC Glucose 214 H 02/01/24 03:59: WBC 13.7 H, RBC 2.35 L, Hgb 7.3 L, Hct 23.5 L, MCV 100.0 H, MCH 31.1, MCHC 31.1 L, RDW Std Deviation 68.0 H, RDW Coeff of Reynold 19.0 H, Plt Count 262, MPV 10.1, Immature Gran % (Auto) 2.300 H, Neut % (Auto) 68.9, Lymph % (Auto) 19.9, Wilkinson % (Auto) 7.9, Eos % (Auto) 0.6, Baso % (Auto) 0.4, Absolute Neuts (auto) 9.4 H, Absolute Lymphs (auto) 2.72, Nucleated RBC % 0.6, Polychromasia RARE, Hypochromasia BOOKBINDING MACHINE OPERATOR, Anisocytosis RARE, Sodium 132 L, Potassium 4.0, Chloride 100, Carbon Dioxide 25.0, Anion Gap 7, BUN 63 H, Creatinine 6.07 H, Estim Creat Clear Calc 13.53, Est GFR (MDRD) Af Amer 12 L, Est GFR (MDRD) Non-Af 10 L, BUN/Creatinine Ratio 10.4, Glucose 219 H, Calcium 7.6 L Micro: Microbiology 01/31/24 11:30 Stool Stool Occult Blood (NANCY) - Final 01/29/24 Unknown Fluid - Thoracentesis Fluid Gram Stain - Final 01/29/24 Unknown Fluid - Thoracentesis Fluid Body Fluid Culture - Preliminary No growth-Final to follow 01/29/24 Unknown Fluid - Thoracentesis Fluid Anaerobic Culture - Preliminary No growth in 48 hours. 01/27/24 22:29 Blood Culture (Wb) - Right Forearm Blood Culture - Preliminary No growth in 48 hours. 01/27/24 22:29 Blood Culture (Wb) - Anticubital Right Blood Culture - Preliminary No growth in 48 hours. 01/27/24 22:55 Urine Catheter - Catheter Urine Culture - Final Culture exhibits no growth. 01/28/24 02:55 Wound - Sacral Skin and Soft Tissue MRSA/MSSA (PCR - Final Meth. resistant Staph. aureus Staphylococcus aureus 01/27/24 22:29 Mucosa - Nasopharyngeal SARS-CoV-2, Influenza & RSV (PCR) - Final Physical Exam Const alert Constitutional Narrative: flat affect. minimal eye contact. Resp normal respiratory effort, no retractions, no use of accessory muscles and clear to auscultation bilaterally Cardio regular rate, regular rhythm, S1 normal heart sound and S2 normal heart sound GI normal to inspection, nondistended, normoactive bowel sounds, soft to palpation, non-tender and non-distended GI Narrative: colostomy LLQ. Extremity Extremity Narrative: AKA on right BKA on left. Stumps w/o lesions. Neuro Sensorium / Orientation: awake and alert Assessment & Plan Assessment/Plan (1) Multifocal pneumonia: (2) Osteomyelitis of sacrum: (3) Sacral decubitus ulcer, stage IV: (4) Hyperkalemia: (5) Metabolic encephalopathy: PLAN: Plan Acute hypoxic and hypercapnic respiratory failure. resolved. Since able to be weaned down to room air. suspect due to CHF exacerbation and pleural effusions. CTA showed moderate pleural effusion w bilateral lobe consolidations. Using [facility], pt had CTA chest on 01/20 that showed mild to moderate bilateral effusions. on empiric antibiotics with meropenem and vancomycin Stage IV sacral decubitus ulcer with OM Has [facility] there was no imaging of pelvic region. Will request records from [facility] (no progress notes in [facility]) wound care. ID consult. Culture +MRSA From outside facility patient was to be on Vanco meropenem with stop date of March 23. Metabolic encephalopathy secondary to underlying illness appears to be resolved, I suspect pt at baseline, which is very flat and withdrawn. Leukocytosis elevated, however trending down. Through [facility], his WBCs were 25.8 on 01/25 at [facility] in [place]. monitor Pleural effusion as above, present on CT a [facility] in [place] on 01/20 (unclear if changed or not based on the reports) Fluid studies show 23.9 WBCs. LDH fluid not performed despite being ordered with the original testing. Pulm consult recommended continue current mgmt. Follow up cultures. Technically exudative, but barely. Cannot rule out parapneumonic effusion, but may very well be due to volume. No need for CTS evaluation. Anemia Transfused 4 units. Goal hemoglobin of 8 given CAD. iron low. on ferrous sulfate. Hemoccult negative. TSH WNL on epoetin Once medically stabilized can see GI for endoscopic evaluation. At this time, would defer to an outpatient basis given poor performance status. ESRD on HD There was concern that the fistula was occluded and patient underwent a fistulogram that showed that it was patent. Subsequently it was found out that the patient actually had a a graft called [employer]. The international representative of that company came in 01/31 and marked on the left upper extremity at the access points for that graft. Temporary dialysis catheter placed 01/28 as it was thought the patient had an occluded graft. If we are able to successfully use the graft, the temporary dialysis catheter can be removed. Chronic conditions: CAD; s/p CABG with resent stent placement on week ago - Resume BASA and Plavix plus statin. Troponin 80. History of severe peripheral vascular disease; status post right AKA and left BKA with chronic immobility and hyper-inflammatory state outlined above Diabetes mellitus type 2; of unknown control with diabetic neuropathy - Keep NPO for now. FSBS q. 6 hours plus lowest intensity SSI. Essential hypertension - Continue Metoprolol plus give prn Hydralazine for systolic blood pressure > 160 mm Hg. Hyperlipidemia - Resume statin. JAMIE: BiPAP QHS. DVT prophylaxis - Patient on renal-dose Lovenox. Disposition: TBD. If Hg remains stable and no additional issues, pt should be ready for discharge in 1-2 days. Charges/Coding Visit Charges Inpatient E&M: 98414 Subs Hosp L2
[2024-02-01] MEDS: Insulin Lispro 100 UNIT/ML INSULN.PEN SC ×4 (08:31→20:37)
[2024-02-01] MEDS: 0.9% Saline Lock 10 ML Syringe IV (08:31)
[2024-02-01] MEDS: busPIRone 5 MG Tablet PO (09:18)
[2024-02-01] MEDS: VILAZODONE HYDROCHLORIDE 10 MG TABLET 40 MG PO (09:18)
[2024-02-01] MEDS: Isosorbide Mononitrate 60 MG Tablet PO (09:19)
[2024-02-01] MEDS: CARIPRAZINE HCL 1.5 MG CAPSULE 3 MG PO (09:19)
[2024-02-01] MEDS: Clopidogrel Bisulfate 75 MG Tablet PO (09:19)
[2024-02-01] MEDS: Cyanocobalamin 500 MCG Tablet PO (09:19)
[2024-02-01] MEDS: Ferrous Sulfate 325 MG Tablet PO ×2 (09:19→16:52)
[2024-02-01] MEDS: Pantoprazole Sodium 20 MG Tablet PO (09:19)
[2024-02-01] MEDS: SEVELAMER CARBONATE 800 MG TABLET 1600 MG PO (09:19)
[2024-02-01] MEDS: Gabapentin 600 MG Tablet PO ×2 (09:19→20:35)
[2024-02-01] MEDS: Cholecalciferol (Vit D3) 125 MCG CAPSULE (5,000 UNITS) PO (09:19)
[2024-02-01] MEDS: Ranolazine 500 MG Tablet 1000 MG PO ×2 (09:20→20:35)
[2024-02-01] MEDS: CHLORHEXIDINE GLUC 2% CLOTH 1 EACH TOWELETTE TOPICAL (09:20)
[2024-02-01 09:21] LABS: Pathologist Review Reviewed
[2024-02-01] MEDS: Meropenem 1 GM in 0.9% Normal Saline (100mL MB+) 100 ML IV (09:26)
[2024-02-01] MEDS: Menthol/Lanolin/Calamine/Znox 113 GM Tube 1 APPLIC TOPICAL ×2 (09:28→20:38)
--- NOTE | 2024-02-01 10:43 | PN.RENAL_ITS ---
Subjective Subjective Resting in bed. No overnight events. Objective Data Objective Data Vital Signs: Vital Signs Temp Pulse Resp BP Pulse Ox O2 Del Method O2 Flow Rate 98.9 F 89 24 H 113/43 L 90 Room Air 1 02/01/24 10:33 02/01/24 10:33 02/01/24 10:33 02/01/24 10:33 02/01/24 10:33 02/01/24 10:01/30/24 22:00 FiO2 24 02/01/24 08:00 Oxygen Flow Rate (L/min) 1 Oxygen Delivery Method Room Air Weight: 86.1 kg Body Mass Index (BMI) 27.1 Intake & Output: Intake and Output for Last 24 Hours 01/30/24 01/31/24 02/01/24 23:59 23:59 23:59 Intake Total 956.75 / 956.75 120 / 520 520 / 520 Output Total 2305 / 2305 2035 / 2035 10 / 10 Balance -1348.25 / -1348.25 -1915 / -1515 510 / 510 Lab / Micro Data 02/01/24 03:59 02/01/24 03:59 Labs: Laboratory Results - last 24 hr 01/30/24 03:18: Diff Path Review Reviewed 01/31/24 12:00: POC Glucose 113 H 01/31/24 17:54: POC Glucose 182 H 01/31/24 21:00: POC Glucose 214 H 02/01/24 03:59: WBC 13.7 H, RBC 2.35 L, Hgb 7.3 L, Hct 23.5 L, MCV 100.0 H, MCH 31.1, MCHC 31.1 L, RDW Std Deviation 68.0 H, RDW Coeff of Reynold 19.0 H, Plt Count 262, MPV 10.1, Immature Gran % (Auto) 2.300 H, Neut % (Auto) 68.9, Lymph % (Auto) 19.9, Blair % (Auto) 7.9, Eos % (Auto) 0.6, Baso % (Auto) 0.4, Absolute Neuts (auto) 9.4 H, Absolute Lymphs (auto) 2.72, Nucleated RBC % 0.6, Polychromasia RARE, Hypochromasia COMMISSIONING ENGINEER, Anisocytosis RARE, Sodium 132 L, Potassium 4.0, Chloride 100, Carbon Dioxide 25.0, Anion Gap 7, BUN 63 H, Creatinine 6.07 H , Estim Creat Clear Calc 13.53, Est GFR (MDRD) Af Amer 12 L, Est GFR (MDRD) Non- Af 10 L, BUN/Creatinine Ratio 10.4, Glucose 219 H, Calcium 7.6 L 02/01/24 08:20: Blood Type O POSITIVE, Antibody Screen NEGATIVE, Crossmatch See Detail Micro: Microbiology 01/29/24 Unknown Fluid - Thoracentesis Fluid Gram Stain - Final 01/29/24 Unknown Fluid - Thoracentesis Fluid Body Fluid Culture - Final Culture exhibits no growth. 01/29/24 Unknown Fluid - Thoracentesis Fluid Anaerobic Culture - Preliminary No growth in 48 hours. 01/31/24 11:30 Stool Stool Occult Blood (NANCY) - Final 01/27/24 22:29 Blood Culture (Wb) - Right Forearm Blood Culture - Preliminary No growth in 48 hours. 01/27/24 22:29 Blood Culture (Wb) - Anticubital Right Blood Culture - Preliminary No growth in 48 hours. 01/27/24 22:55 Urine Catheter - Catheter Urine Culture - Final Culture exhibits no growth. 01/28/24 02:55 Wound - Sacral Skin and Soft Tissue MRSA/MSSA (PCR - Final Meth. resistant Staph. aureus Staphylococcus aureus 01/27/24 22:29 Mucosa - Nasopharyngeal SARS-CoV-2, Influenza & RSV (PCR) - Final Physical Exam Narrative Alert to name, no apparent distress S1, S2, RRR Lung sounds clear anteriorly. No wheezes, rhonchi or rales noted. Abdomen soft, nontender. Colostomy bag intact Left BKA, right AKA. No edema noted to bilateral thighs Non-tunneled temporary HD catheter right IJ Left arm AV fistula Assessment & Plan Assessment/Plan (1) ESRD on dialysis: PLAN: On hemodialysis. He is originally from [facility] in [place], was recently discharged to a intermediate in this area. We will continue hemodialysis on Monday, Monday, Monday. Patient underwent hemodialysis Monday, he also underwent sequential treatment yesterday and tolerated 2.3 L fluid removal. To undergo hemodialysis today and attempting around 1.5L UF. Access. He has a left arm brachiocephalic AV fistula. According to the discharge paperwork from hospital, he had a tunneled dialysis catheter which was removed first week of January when his fistula was deemed to be functional. He had been getting dialysis through the fistula. There were multiple clots when we tried to access AVF Monday, therefore non-tunneled temporary HD catheter was placed. Vascular surgery performed fistulogram yesterday which did not show any stenosis or thrombus. If fistula cannot be salvaged, he will need tunneled dialysis cath before discharge from hospital. We will attempt cannulating fistula tomorrow with dialysis, areas for cannulation marked on patient's arm He has a left IJ tunneled PICC. As per ID notes from previous hospital visits, they have recommended vancomycin and meropenem for sacral osteomyelitis for total of 6 to 8 weeks. He is currently on same antibiotics. Anemia. Hemoglobin 7.3. Iron saturations are adequate. Received erythropoietin with last 2 dialysis sessions. Getting PRBC today, slow infusion. Will give Lasix post blood. (2) Hyperkalemia: (3) Metabolic encephalopathy: (4) Multifocal pneumonia: (5) Osteomyelitis of sacrum: PLAN: Plan This is a 58-year-old male with past medical history significant for ESRD on hemodialysis (unknown outpatient hemodialysis center) who was brought to the emergency room from intermediate for evaluation of altered mental status and shortness of breath. Nephrology consulted as patient has history of ESRD and is on hemodialysis support. Patient currently has a tunneled hemodialysis catheter and a functioning left arm AV fistula. We will plan for dialysis today on 2K bath and attempt fluid removal as patient/blood pressure tolerates. Patient had CT of chest which showed moderate pleural effusions, he did have thoracentesis today with around 360 mL fluid drained. Will attempt to access AV fistula. Patient has history of anemia of chronic disease, patient will receive CLAY with dialysis today. Will continue to monitor hemoglobin trends. Potassium is 5.4 today, patient will dialyze on 2K bath. Recommend renal diet. Patient is on IV antibiotics, vanco and meropenem for recent history of sacral osteomyelitis. Blood pressures acceptable on Imdur. Further orders forthcoming as hospitalization evolves, thank you for allowing us to participate in the care of Mr. Lenz.
[2024-02-01 12:01] LABS: Bedside Glucose 167 mg/dL (74-106)
[2024-02-01 13:52] LABS: Bedside Glucose 303 mg/dL (74-106)
--- NOTE | 2024-02-01 14:03 | PCM.PN.ID ---
Physical Exam Narrative Feeling ok, no fever, no diarrhea Const alert and no apparent distress Resp normal air movement and clear to auscultation bilaterally Cardio regular rate and regular rhythm GI soft to palpation, non-tender and non-distended Skin Skin Narrative: no new rash ID ID: Route of nutrition/ use of supplements: [] Nutritional Intake: [] IV Site: [] Franco Catheter: [] Assessment & Plan Assessment/Plan (1) Bilateral pleural effusion: (2) Metabolic encephalopathy: (3) ESRD on dialysis: (4) Osteomyelitis of sacrum: PLAN: Reviewed ID note from last admit to [facility] by Dr. Laci Chavez, plan was 8 weeks iv vanc/keven, stop date 03/23/24. Thoracentesis done here, high wbc seen in fluid, cx ngtd. Wound cx here with MRSA. Spoke with [facility], sacral cx there with MRSA and providencia. He lost his picc. Plan for discharge would be iv vanc and cefepime dosed with dialysis along with po flagyl. No need for new picc. Will follow, d/w Dr. Fisher
[2024-02-01] MEDS: Furosemide 40 MG/4 ML Vial IV (14:34)
--- NOTE | 2024-02-01 16:48 | SP.FEES_ITS ---
FEES Patient Information Date of Evaluation: 01/30/24 Time of Evaluation: 10:30 DIAGNOSIS:: Multifocal PNA J18.9 Referring Physician: Reza Fisher Staff Providing this Care/Treatment:: DAGOBERTO Direct Billable Minutes: 0 Subjective: Subjective:: The patient was pleasant and cooperative for FEES. Verbal consent obtained from the patient for participation in FEES assessment. Of note, verbal consent was also taken from his stepson on 01/29/24. PMH: PMH: HTN, HLD, diabetes mellitus type 2 , diabetic neuropathy, coronary artery disease; status post CABG and recent stent placement 1 week ago, CHF, history of severe peripheral vascular disease; status post right AKA and left BKA, end-stage renal disease on hemodialysis, chronic anemia. The patient presen randy to [facility] ED 01/28/24 with shortness of breath and altered mental status. Pt was in respiratory distress and required BiPAP in the ED. CT scan of the chest was positive for multifocal pneumonia with bilateral effusions complicated by clinical evidence of acute hypoxic respiratory failure compounded by metabolic encephalopathy. He was admitted to ICU for subsequent management. Pt was referred for ST for coughing with oral intake. He was recommended for Easy to Chew textures / Thin liquids during BSE completed on 01/31/24 and recommended for FEES to further assess concern for aspiration. Current Diet: Drinks/Liquids:: Thin Foods:: Easy to chew Medication Administration:: orally Respiratory Status: Observation:: Diminished, clear on room air per most recent RN Shift Clinical Findings. Dentation/Oral Hygiene: Observations:: Hatley, moist oral mucosa. Edentulous. Vocal Quality: Observations:: Hoarse Cognition: Observations:: Impaired and Did not impact exam Dysphagia: TX/DX History:: Yes Fiberoptic Endoscope: Size: 3.4 mm Nare:: Right Comments: Septum appeared to deviate on L side Position During FEES: Position During FEES:: Slightly reclined Location: In Bed Anatomy: + Velopharyngeal Port Observations Movement: Yes +Nasopharynx Observations Tissue Description: Hatley and Moist +Oropharynx Observations: Tissue Description: Hatley and Moist +Hypopharynx Observation: Tissue Description: Hatley and Moist Comments:: Cobblestoning on posterior pharyngeal wall. Secretions: Description:: Clear and White Location:: Nasopharynx and Oropharynx Comment:: Mild white mucous in nasopharynx. Trace white mucous in oropharynx. Phonation: Arytenoid Adduction & Abduction: Difficult to view phonation beyond the epiglottis; however, arytenoids appear to approximate symmetrically. AUTO TRANSMISSION TECHNICIAN suspects mildly decreased adduction due to patient's hoarse vocal quality. During inhalation, vocal folds appear WNL. Comment:: Difficult to view phonation beyond the epiglottis; however, arytenoids appear to approximate symmetrically. AUTO TRANSMISSION TECHNICIAN suspects mildly decreased adduction due to patient's hoarse vocal quality. During inhalation, vocal folds appear WNL. Penetration-Aspiration Scale Penetration-Aspiration Scale Swallowing: :: Penetration-Aspiration Scale PENETRATION / ASPIRATION SCALE (HILLMAN): 1 = does not enter airway 2 = enters airway/above vocal folds/ejected 3 = enters airway/above vocal folds/not ejected 4 = enters airway/contacts vocal folds/ejected 5 = enters airway/contacts vocal folds/not ejected 6 = enters airway/below vocal folds/ejected 7 = enters airway/below vocal folds/not ejected despite effort 8 = enters airway/below vocal folds/no effort Penetration-Aspiration Scale Score Thin Liquid via single sip: straw: Liquid/Food tested:: Blue powerade for all liquid trials. Result: 1= does not enter airway (Unfortunately due to AUTO TRANSMISSION TECHNICIAN error, the first two trials were not recorded; however, television schedule coordinator, Bell and Claudia (providing trials) observed no laryngeal penetration or aspiration.) Thin Liquid via single sip: straw Trial 2: Result: 1= does not enter airway Thin Liquid via small single sip: cup: Result: 1= does not enter airway (No apparent oropharyngeal residue.) Yogurt via teaspoon: Result: 1= does not enter airway (premature spillage to the R aryepiglottic fold and minimal spillage to posterior surface of the epiglottis prior to swallow onset. 5% residue in the vallecula bilaterally.) 1/4 Cookie: Result: 1= does not enter airway (Prolonged, but complete mastication. Premature spillage to the R pyriforms prior to swallow onset. 15% residue in R vallecula, 5% residue in L vallecula, <5% residue in R pyriforms.) Thin Liquid via single sip: straw Trial 3: Result: 1= does not enter airway (Liquid wash effectively cleared cookie residue. <5% residue in L vallecula. Minimal mucous in oropharynx after the swallow.) Thin Liquid via sequential sips:straw: Result: 1= does not enter airway (No apparent oropharyngeal residue. Mild mucous in oropharynx after the swallow.) :: Other comments: Brown out observed across trials indicating weakened pharyngeal contraction and motility. Swallowing Trials: Swallowing Trials Results Below: Recommendations: Recommended Diet Grade & Liquid Drinks/Liquids:: Thin Foods:: Easy to chew Supervision/Cues: 1 on 1 (Feeding assistance required d/t impulsivity and bilateral UE weakness) Recommended Compensatory Strategies: Direct Supervision: Feeding assistance required d/t impulsivity and bilateral UE weakness Recommend Repeat Fiberoptic Endoscopic Evaluation of Swallowing: No Prognosis: Prognosis: Good Frequency: Additional (Frequency): 3-5X/week during acute stay. Recommend ongoing assessment of diet tolerance, as well as implementation of oropharyngeal exercises to promote improved pharyngeal contraction and tongue base retraction (Effortful swallow, Mary, CTAR). Education: Education Completed: 1. Described result of evaluation., 2. Pt understands evaluation & agrees with goals and treatment plan. and 4. Family/caregivers understand evaluation & agree w/ goals & tx plan.
--- NOTE | 2024-02-01 17:09 | PN.SURG_ITS ---
Subjective Subjective Patient was seen resting in bed today. He had no complaints. The course of his Wavel[place]q fistula had been marked. Objective Data Objective Data Vital Signs: Vital Signs Temp Pulse Resp BP Pulse Ox O2 Del Method O2 Flow Rate 98.9 F 93 21 H 121/57 H 96 Room Air 3 02/01/24 15:00 02/01/24 15:00 02/01/24 15:00 02/01/24 15:00 02/01/24 15:00 02/01/24 15:00 02/01/24 13:23 FiO2 24 02/01/24 08:00 Oxygen Flow Rate (L/min) 3 Oxygen Delivery Method Room Air Weight: 189 lb 13.088 oz Body Mass Index (BMI) 27.1 Intake & Output: Intake and Output for Last 24 Hours 01/30/24 01/31/24 02/01/24 23:59 23:59 23:59 Intake Total 956.75 / 956.75 120 / 520 534.5 / 534.5 Output Total 2305 / 2305 2035 / 2035 10 / 10 Balance -1348.25 / -1348.25 -1915 / -1515 524.5 / 524.5 Lab / Micro Data 02/01/24 03:59 02/01/24 03:59 Labs: Laboratory Results - last 24 hr 01/30/24 03:18: Diff Path Review Reviewed 01/31/24 17:54: POC Glucose 182 H 01/31/24 21:00: POC Glucose 214 H 02/01/24 03:59: WBC 13.7 H, RBC 2.35 L, Hgb 7.3 L, Hct 23.5 L, MCV 100.0 H, MCH 31.1, MCHC 31.1 L, RDW Std Deviation 68.0 H, RDW Coeff of Reynold 19.0 H, Plt Count 262, MPV 10.1, Immature Gran % (Auto) 2.300 H, Neut % (Auto) 68.9, Lymph % (Auto) 19.9, [place] % (Auto) 7.9, Eos % (Auto) 0.6, Baso % (Auto) 0.4, Absolute Neuts (auto) 9.4 H, Absolute Lymphs (auto) 2.72, Nucleated RBC % 0.6, Polychromasia RARE, Hypochromasia SAFETY AND SECURITY MANAGER, Anisocytosis RARE, Sodium 132 L, Potassium 4.0, Chloride 100, Carbon Dioxide 25.0, Anion Gap 7, BUN 63 H, Creatinine 6.07 H , Estim Creat Clear Calc 13.53, Est GFR (MDRD) Af Amer 12 L, Est GFR (MDRD) Non- Af 10 L, BUN/Creatinine Ratio 10.4, Glucose 219 H, Calcium 7.6 L 02/01/24 08:15: POC Glucose 167 H 02/01/24 08:20: Blood Type O POSITIVE, Antibody Screen NEGATIVE, Crossmatch See Detail 02/01/24 11:49: POC Glucose 303 H Micro: Microbiology 01/29/24 Unknown Fluid - Thoracentesis Fluid Gram Stain - Final 01/29/24 Unknown Fluid - Thoracentesis Fluid Body Fluid Culture - Final Culture exhibits no growth. 01/29/24 Unknown Fluid - Thoracentesis Fluid Anaerobic Culture - Preliminary No growth in 48 hours. 01/31/24 11:30 Stool Stool Occult Blood (NANCY) - Final 01/27/24 22:29 Blood Culture (Wb) - Right Forearm Blood Culture - Preliminary No growth in 48 hours. 01/27/24 22:29 Blood Culture (Wb) - Anticubital Right Blood Culture - Preliminary No growth in 48 hours. 01/27/24 22:55 Urine Catheter - Catheter Urine Culture - Final Culture exhibits no growth. 01/28/24 02:55 Wound - Sacral Skin and Soft Tissue MRSA/MSSA (PCR - Final Meth. resistant Staph. aureus Staphylococcus aureus 01/27/24 22:29 Mucosa - Nasopharyngeal SARS-CoV-2, Influenza & RSV (PCR) - Final Radiography Diagnostic Testing: Radiology Impression A/V Fistula Ultrasound 01/31/24 14:07 Interpretation Summary Patent left upper arm cephalic fistula with adequate flow volumes. Ordering Physician: Reza Sommer Referring Physician: Laci Power Performed By: Gifty Lee RVT Physical Exam Const alert and no apparent distress General Appearance: cooperative HEENT normocephalic, head/scalp atraumatic, hearing grossly normal bilaterally, external ears normal and external nose normal Eyes EOMs intact bilaterally General Eye: normal appearance of both eyes Neck Neck Narrative: R IJ temporary dialysis catheter General: normal visual inspection Resp normal respiratory effort, no retractions and no use of accessory muscles Effort and Inspection: able to speak in complete sentences, respiratory distress and audible wheezes Cardio regular rate and regular rhythm Extremity Extremity Narrative: LUE AVF with palpable thrill and positive bruit, the course of the fistula has been marked. Palpable L radial pulse. L hand is slightly cool compared to R. Single suture intact at the access site over the fistula, no focal swelling/erythema/drainage. R AKA L BKA Neuro CN's II-XII intact bilaterally, moves all extremities and no focal motor deficits Sensorium / Orientation: awake, alert, oriented to person and oriented to place Speech: speech normal Psych Appearance: grossly normal Attitude: calm Activity / Motor Behavior: appropriate eye contact Speech: normal speech Mood & Affect: euthymic mood Assessment & Plan Assessment/Plan (1) ESRD on dialysis: PLAN: Plan No issues at the access site, suture is intact. This can be removed in 1-2 weeks as an outpatient, either at the dialysis center or in our office. Fistulogram revealed functioning fistula. Rep from [facility] did come out today and karsten the course of the fistula. Hopefully will be able to access for HD tomorrow.
[2024-02-01 17:49] LABS: Bedside Glucose 281 mg/dL (74-106)
[2024-02-01] MEDS: Rosuvastatin 20 MG Tablet PO (20:35)
[2024-02-01] MEDS: Insulin Glargine-YFGN 100 UNIT/ML Pen 12 UNIT SC (20:36)
[2024-02-01 22:45] LABS: Bedside Glucose 219 mg/dL (74-106)
--- NOTE | 2024-02-01 22:50 | CPS ---
Changed from AVAPS to BiPAP mode for pt comfort.
[2024-02-02] VITALS (15 sets, daily range): BP systolic 81–270; BP diastolic 58–71; PULSE 78–103; RESP 12–27; TEMP 36.4–37.2; O2SAT 87–100; BMI 27.1; BMI 26.4
[2024-02-02] MEDS: Albuterol 2.5 MG/3 ML VIAL.NEB. INHALATION ×3 (00:35→19:51)
[2024-02-02] MEDS: Insulin Lispro 100 UNIT/ML INSULN.PEN SC ×4 (06:14→22:44)
[2024-02-02 07:04] LABS: Bedside Glucose 181 mg/dL (74-106)
[2024-02-02] MEDS: 0.9% Normal Saline 1,000 ML IV.SOLN. 1000 ML OPERA.SITE (07:25)
[2024-02-02] MEDS: PureFlow B 2K Dialysis Soln 1 BAG 6 BAG PF (07:25)
[2024-02-02 07:28] LABS: Absolute Lymphocyte Count 2.97 X10^3/uL (0.83-4.51); Absolute Neutrophil Count 10.1 X10^3/uL (2.0-7.7); Basophil# 0.07 X10^3/uL; Basophil% 0.5 % (0-1); Eosinophil# 0.11 X10^3/uL; Eosinophils% 0.7 % (0-5); Hematocrit 25.9 % (40-54); Hemoglobin 8.1 g/dL (13.0-16.5); Lymphocyte # 2.97 X10^3/ul (0.83-4.51); Mean Corp Hgb Conc 31.3 g/dL (32-36); Mean Corpuscular Hgb 31.3 pg (27.0-32.0); Monocyte% 8.1 % (0-10); NRBC Flagged by Analyzer 0.4 % (0-5); Neutrophil # 10.13 X10^3/uL (2.7-7.7); Neutrophil % 68.1 % (47-70); Platelet Count 285 K/mm3 (150-450); RBC Distribution Width CV 18.6 % (11.6-14.6); RBC Distribution Width SD 64.9 fl (35.1-43.9); Red Blood Count 2.59 M/mm3 (4.6-6.2); White Blood Count 14.9 K/mm3 (4.4-11.0)
[2024-02-02 07:52] LABS: ALB/GLOB Ratio 0.3 RATIO (0.9-2.4); AST(SGOT) 44 U/L (15-37); Alanine Aminotransfer ALT/SGPT 17 U/L (16-61); Albumin, Serum 1.6 g/dL (3.2-5.0); Alkaline Phosphatase 123 U/L (45-117); Anion Gap 9 (5-15); BUN 87 mg/dL (7-18); BUN/Creat Ratio 12.4 RATIO (10-20); Calcium,Total 8.1 mg/dL (8.5-10.1); Chloride 103 mmol/L (98-107); Creatinine, Serum 7.01 mg/dL (0.70-1.30); EST Glomerular Filtration Rate 9 mL/min (>60); Est Glom Filt Rate - Afr Amer 10 mL/min (>60); Estimated Creatinine Clearance 11.72 ml/min; Globulin 5.9 g/dL (2.2-4.2); Glucose 164 mg/dL (74-106); Potassium 4.3 mmol/L (3.5-5.1); Protein, Total 7.5 g/dL (6.4-8.2); Sodium Level 135 mmol/L (136-145)
[2024-02-02] MEDS: Ferrous Sulfate 325 MG Tablet PO (08:18)
[2024-02-02] MEDS: busPIRone 5 MG Tablet PO (08:18)
[2024-02-02] MEDS: Cyanocobalamin 500 MCG Tablet PO (08:18)
[2024-02-02] MEDS: Clopidogrel Bisulfate 75 MG Tablet PO (08:18)
[2024-02-02] MEDS: Cholecalciferol (Vit D3) 125 MCG CAPSULE (5,000 UNITS) PO (08:18)
[2024-02-02] MEDS: Pantoprazole Sodium 20 MG Tablet PO (08:18)
[2024-02-02] MEDS: VILAZODONE HYDROCHLORIDE 10 MG TABLET 40 MG PO (08:19)
[2024-02-02] MEDS: CARIPRAZINE HCL 3 MG CAPSULE PO (08:22)
[2024-02-02] MEDS: Epoetin Alfa epbx 10,000 UNITS/ML 20000 UNIT IV (08:30)
[2024-02-02 08:49] LABS: Vancomycin, Random Level 25.8 ug/mL (0.0-15.0)
--- NOTE | 2024-02-02 09:08 | PCM.RX.CS ---
Consult Antibiotic Management Pharmacy has been consulted to manage selected antibiotic: Vancomycin Type of Intervention Type of Consult: Follow-up Suspected Infection Suspected Infection: Osteomyelitis Labs Labs: Sodium 135 mmol/L (136-145) L 02/02/24 07:15 Potassium 4.3 mmol/L (3.5-5.1) 02/02/24 07:15 Chloride 103 mmol/L (98-107) 02/02/24 07:15 Carbon Dioxide 23.0 mmol/L (21.0-32.0) 02/02/24 07:15 Anion Gap 9 (5-15) 02/02/24 07:15 BUN 87 mg/dL (7-18) H 02/02/24 07:15 Creatinine 7.01 mg/dL (0.70-1.30) H 02/02/24 07:15 Est GFR (MDRD) Af Amer 10 mL/min (>60) L 02/02/24 07:15 Est GFR (MDRD) Non-Af 9 mL/min (>60) L 02/02/24 07:15 BUN/Creatinine Ratio 12.4 RATIO (10-20) 02/02/24 07:15 Glucose 164 mg/dL (74-106) H 02/02/24 07:15 Random Vancomycin 25.8 ug/mL (0.0-15.0) H 02/02/24 08:27 Microbiology Microbiology: Microbiology 01/27/24 22:29 Blood Culture (Wb) - Anticubital Right Blood Culture - Final No growth in 5 days. 01/27/24 22:29 Blood Culture (Wb) - Right Forearm Blood Culture - Final No growth in 5 days. 01/29/24 Unknown Fluid - Thoracentesis Fluid Gram Stain - Final 01/29/24 Unknown Fluid - Thoracentesis Fluid Body Fluid Culture - Final Culture exhibits no growth. 01/29/24 Unknown Fluid - Thoracentesis Fluid Anaerobic Culture - Preliminary No growth in 48 hours. 01/31/24 11:30 Stool Stool Occult Blood (NANCY) - Final 01/27/24 22:55 Urine Catheter - Catheter Urine Culture - Final Culture exhibits no growth. 01/28/24 02:55 Wound - Sacral Skin and Soft Tissue MRSA/MSSA (PCR - Final Meth. resistant Staph. aureus Staphylococcus aureus 01/27/24 22:29 Mucosa - Nasopharyngeal SARS-CoV-2, Influenza & RSV (PCR) - Final Pharmacy Plan for Drug Dosing Pharmacy Plan for Drug Dosing: VANCOMYCIN LEVEL RECEIVED Current Vancomycin Dose: HOLD Number of Doses Received: 2 Vancomycin Level: 25.8 MG/DL Hours Since Last Dose: 82 Renal Function: HD Renal Function Trend: HD Vancomycin Plan/Comments: 82 hour random level is supratherapeutic at 25.8 mg/dL. Level was scheduled for 0600 but was not drawn until 0827 shortly after HD had started. Will continue to hold doses at this time. Spoke to dialysis nurse, plan is to continue MWF HD. Next level will be prior to next HD session. Pending Level: 02/05/24 @ 0600 - [facility] Pharmacy Service will continue to monitor and adjust dosing as required.
--- NOTE | 2024-02-02 10:57 | PN.HOSP_ITS ---
Subjective Subjective Feels better, no issues overnight. There was some difficulty managing his dialysis through his Wave[employer] in his left upper extremity Objective Data Objective Data Vital Signs: Vital Signs Temp Pulse Resp BP Pulse Ox O2 Del Method O2 Flow Rate 97.5 F L 79 14 118/58 L 100 Room Air 2 02/02/24 02:48 02/02/24 09:57 02/02/24 09:57 02/02/24 09:57 02/02/24 09:57 02/02/24 09:58 02/02/24 09:57 FiO2 30 02/02/24 07:00 Oxygen Flow Rate (L/min) 2 Oxygen Delivery Method Room Air Weight: 189 lb 13.088 oz Body Mass Index (BMI) 27.1 Intake & Output: Intake and Output for Last 24 Hours 02/01/24 02/02/24 02/03/24 03:59 03:59 03:59 Intake Total 520 / 520 194.5 / 194.5 Output Total 2035 / 2035 85 / 85 Balance -1515 / -1515 109.5 / 109.5 Lab / Micro Data 02/02/24 07:15 02/02/24 07:15 Labs: Laboratory Results - last 24 hr 02/01/24 08:15: POC Glucose 167 H 02/01/24 08:20: Crossmatch See Detail 02/01/24 11:49: POC Glucose 303 H 02/01/24 16:50: POC Glucose 281 H 02/01/24 20:33: POC Glucose 219 H 02/02/24 06:10: POC Glucose 181 H 02/02/24 07:15: WBC 14.9 H, RBC 2.59 L, Hgb 8.1 L, Hct 25.9 L, MCV 100.0 H, MCH 31.3, MCHC 31.3 L, RDW Std Deviation 64.9 H, RDW Coeff of Reynold 18.6 H, Plt Count 285, MPV 10.0, Immature Gran % (Auto) 2.600 H, Neut % (Auto) 68.1, Lymph % (Auto) 20.0, [place] % (Auto) 8.1, Eos % (Auto) 0.7, Baso % (Auto) 0.5, Absolute Neuts (auto) 10.1 H, Absolute Lymphs (auto) 2.97, Nucleated RBC % 0.4, Sodium 135 L, Potassium 4.3, Chloride 103, Carbon Dioxide 23.0, Anion Gap 9, BUN 87 H, Creatinine 7.01 H, Estim Creat Clear Calc 11.72, Est GFR (MDRD) Af Amer 10 L, Est GFR (MDRD) Non-Af 9 L, BUN/Creatinine Ratio 12.4, Glucose 164 H, Calcium 8.1 L, Total Bilirubin 0.50, AST 44 H, ALT 17, Alkaline Phosphatase 123 H, Total Protein 7.5, Albumin 1.6 L, Globulin 5.9 H, Albumin/Globulin Ratio 0.3 L 02/02/24 08:27: Random Vancomycin 25.8 H Micro: Microbiology 01/27/24 22:29 Blood Culture (Wb) - Anticubital Right Blood Culture - Final No growth in 5 days. 01/27/24 22:29 Blood Culture (Wb) - Right Forearm Blood Culture - Final No growth in 5 days. 01/29/24 Unknown Fluid - Thoracentesis Fluid Gram Stain - Final 01/29/24 Unknown Fluid - Thoracentesis Fluid Body Fluid Culture - Final Culture exhibits no growth. 01/29/24 Unknown Fluid - Thoracentesis Fluid Anaerobic Culture - Preliminary No growth in 48 hours. 01/31/24 11:30 Stool Stool Occult Blood (NANCY) - Final 01/27/24 22:55 Urine Catheter - Catheter Urine Culture - Final Culture exhibits no growth. 01/28/24 02:55 Wound - Sacral Skin and Soft Tissue MRSA/MSSA (PCR - Final Meth. resistant Staph. aureus Staphylococcus aureus 01/27/24 22:29 Mucosa - Nasopharyngeal SARS-CoV-2, Influenza & RSV (PCR) - Final Radiography Diagnostic Testing: Radiology Impression A/V Fistula Ultrasound 01/31/24 14:07 Interpretation Summary Patent left upper arm cephalic fistula with adequate flow volumes. Ordering Physician: Reza Sommer Referring Physician: Laci Power Performed By: Gifty Lee RVT Physical Exam Narrative General: Alert, cooperative, No apparent distress HEENT: Atraumatic, PERRLA, EOMI, Normocephalic Oral: Moist Mucosa Neck: Supple, No JVD Lungs: Diminished, Normal air movement, No rhonchi, No wheeze, No rales Cardiovascular: Regular rate, Regular Rhythm, Normal S1, Normal S2, No murmurs, temporary dialysis catheter in right neck Abdomen: Soft, Non Tender, Non-Distended, No Hepato-splenomegaly, ostomy Extremities: No edema, Capillary Refill Less than 3 Seconds, AKA on his right lower extremity and a BKA on his left lower extremity Skin: No rashes, No breakdown Musculoskeletal: No Tenderness to Palpation of Joints or Extremities Neurological: No focal neurological deficits, Motor Exam 5/5 strength throughout, Sensory exam intact to light touch and pain Psych/Mental Status: Flat Assessment & Plan Assessment/Plan (1) Multifocal pneumonia: (2) Osteomyelitis of sacrum: (3) Sacral decubitus ulcer, stage IV: (4) Hyperkalemia: (5) Metabolic encephalopathy: PLAN: Plan Acute hypoxic and hypercapnic respiratory failure. * resolved. Since able to be weaned down to room air. * suspect due to CHF exacerbation and pleural effusions. * CTA showed moderate pleural effusion w bilateral lobe consolidations. [facility] pt had CTA chest on 01/20 that showed mild to moderate bilateral effusions. * on empiric antibiotics with meropenem and vancomycin Stage IV sacral decubitus ulcer with OM * Has been on vancomycin * Through [facility] there was no imaging of pelvic region. Will request records from [facility] * wound care. ID consult. * Culture +MRSA * From outside facility patient was to be on Vanco meropenem with stop date of March 23. Metabolic encephalopathy * secondary to underlying illness * appears to be resolved, I suspect pt at baseline, which is very flat and withdrawn. Leukocytosis * elevated, however trending down. Through [facility], his WBCs were 25.8 on 01/25 at [facility] in [place]. * monitor Pleural effusion * as above, present on CT a [facility] in [place] on 01/20 (unclear if changed or not based on the reports) * Fluid studies show 23.9 WBCs. LDH fluid not performed despite being ordered with the original testing. * Pulm consult recommended continue current mgmt. Follow up cultures. Technically exudative, but barely. Cannot rule out parapneumonic effusion, but may very well be due to volume. No need for CTS evaluation. Anemia * Transfused 4 units. Goal hemoglobin of 8 given CAD. * iron low. on ferrous sulfate. Hemoccult negative. * TSH WNL * on epoetin * Once medically stabilized can see GI for endoscopic evaluation. At this time, would defer to an outpatient basis given poor performance status. 02/02/2024: Hemoglobin stable at 8.1 ESRD on HD * There was concern that the fistula was occluded and patient underwent a fistulogram that showed that it was patent. Subsequently it was found out that the patient actually had a a graft called [employer]. The community representative of that company came in 01/31 and marked on the left upper extremity at the access points for that graft. * Temporary dialysis catheter placed 01/28 as it was thought the patient had an occluded graft. If we are able to successfully use the graft, the temporary dialysis catheter can be removed. 02/02/2024: It has been determined by nephrology that they need a tunneled dialysis catheter unfortunately has been on Plavix so this will have to be held in the tunneled dialysis catheter to be done next week Chronic conditions: * CAD; s/p CABG with resent stent placement on week ago - Resume BASA and Plavix plus statin. Troponin 80. * History of severe peripheral vascular disease; status post right AKA and left BKA with chronic immobility and hyper-inflammatory state outlined above * Diabetes mellitus type 2; of unknown control with diabetic neuropathy - Keep NPO for now. FSBS q. 6 hours plus lowest intensity SSI. * Essential hypertension - Continue Metoprolol plus give prn Hydralazine for systolic blood pressure > 160 mm Hg. * Hyperlipidemia - Resume statin. * JAMIE: BiPAP QHS. DVT: Renally dosed Lovenox Charges/Coding Visit Charges Inpatient E&M: 42793 Subs Hosp L2
--- NOTE | 2024-02-02 11:05 | PN.RENAL_ITS ---
Subjective Subjective Seen at end of dialysis treatment. Patient tolerated dialysis well. Objective Data Objective Data Vital Signs: Vital Signs Temp Pulse Resp BP Pulse Ox O2 Del Method O2 Flow Rate 97.5 F L 79 14 118/58 L 100 Room Air 2 02/02/24 02:48 02/02/24 09:57 02/02/24 09:57 02/02/24 09:57 02/02/24 09:57 02/02/24 09:58 02/02/24 09:57 FiO2 30 02/02/24 07:00 Oxygen Flow Rate (L/min) 2 Oxygen Delivery Method Room Air Weight: 86.1 kg Body Mass Index (BMI) 27.1 Intake & Output: Intake and Output for Last 24 Hours 01/31/24 02/01/24 02/02/24 23:59 23:59 23:59 Intake Total 120 / 520 594.5 / 594.5 Output Total 2034 / 2034 85 / 85 Balance -1915 / -1515 509.5 / 509.5 Lab / Micro Data 02/02/24 07:15 02/02/24 07:15 Labs: Laboratory Results - last 24 hr 02/01/24 08:15: POC Glucose 167 H 02/01/24 08:20: Crossmatch See Detail 02/01/24 11:49: POC Glucose 303 H 02/01/24 16:50: POC Glucose 281 H 02/01/24 20:33: POC Glucose 219 H 02/02/24 06:10: POC Glucose 181 H 02/02/24 07:15: WBC 14.9 H, RBC 2.59 L, Hgb 8.1 L, Hct 25.9 L, MCV 100.0 H, MCH 31.3, MCHC 31.3 L, RDW Std Deviation 64.9 H, RDW Coeff of Reynold 18.6 H, Plt Count 285, MPV 10.0, Immature Gran % (Auto) 2.600 H, Neut % (Auto) 68.1, Lymph % (Auto) 20.0, [place] % (Auto) 8.1, Eos % (Auto) 0.7, Baso % (Auto) 0.5, Absolute Neuts (auto) 10.1 H, Absolute Lymphs (auto) 2.97, Nucleated RBC % 0.4, Sodium 135 L, Potassium 4.3, Chloride 103, Carbon Dioxide 23.0, Anion Gap 9, BUN 87 H, Creatinine 7.01 H, Estim Creat Clear Calc 11.72, Est GFR (MDRD) Af Amer 10 L, Est GFR (MDRD) Non-Af 9 L, BUN/Creatinine Ratio 12.4, Glucose 164 H, Calcium 8.1 L, Total Bilirubin 0.50, AST 44 H, ALT 17, Alkaline Phosphatase 123 H, Total Protein 7.5, Albumin 1.6 L, Globulin 5.9 H, Albumin/Globulin Ratio 0.3 L 02/02/24 08:27: Random Vancomycin 25.8 H Micro: Microbiology 01/27/24 22:29 Blood Culture (Wb) - Anticubital Right Blood Culture - Final No growth in 5 days. 01/27/24 22:29 Blood Culture (Wb) - Right Forearm Blood Culture - Final No growth in 5 days. 01/29/24 Unknown Fluid - Thoracentesis Fluid Gram Stain - Final 01/29/24 Unknown Fluid - Thoracentesis Fluid Body Fluid Culture - Final Culture exhibits no growth. 01/29/24 Unknown Fluid - Thoracentesis Fluid Anaerobic Culture - Preliminary No growth in 48 hours. 01/31/24 11:30 Stool Stool Occult Blood (NANCY) - Final 01/27/24 22:55 Urine Catheter - Catheter Urine Culture - Final Culture exhibits no growth. 01/28/24 02:55 Wound - Sacral Skin and Soft Tissue MRSA/MSSA (PCR - Final Meth. resistant Staph. aureus Staphylococcus aureus 01/27/24 22:29 Mucosa - Nasopharyngeal SARS-CoV-2, Influenza & RSV (PCR) - Final Radiography Diagnostic Testing: Radiology Impression A/V Fistula Ultrasound 01/31/24 14:07 Interpretation Summary Patent left upper arm cephalic fistula with adequate flow volumes. Ordering Physician: Reza Sommer Referring Physician: Laci Power Performed By: Gifty Lee RVT Physical Exam Narrative Alert to name, no apparent distress S1, S2, RRR Lung sounds clear anteriorly. No wheezes, rhonchi or rales noted. Abdomen soft, nontender. Colostomy bag intact Left BKA, right AKA. No edema noted to bilateral thighs Non-tunneled temporary HD catheter right IJ Left arm AV fistula +thrill/bruit Assessment & Plan Assessment/Plan (1) ESRD on dialysis: (2) Hyperkalemia: (3) Metabolic encephalopathy: (4) Multifocal pneumonia: (5) Osteomyelitis of sacrum: PLAN: Plan ESRD on hemodialysis. He is [facility] in [place], [place] [facility] [place]. We will continue hemodialysis on Monday, Monday, Monday. Patient did have sequential treatment Monday with ~2.5L UF. Overall breathing improved with HD and ultrafiltration. Weight down ~7kg from admission. Access. He has a left arm brachiocephalic AV fistula. According to the discharge paperwork from hospital, he had a tunneled dialysis catheter which was removed first week of January when his fistula was deemed to be functional. He had been getting dialysis through the fistula. There were multiple clots when we tried to access AVF Monday, therefore non-tunneled temporary HD catheter was placed. Vascular surgery performed fistulogram 01/30 which did not show any stenosis or thrombus. This morning attempted cannulation of AV fistula where markings were placed yesterday by [facility]; had difficult time with cannulation but finally able to have 2 needles placed. Patient had been dialyzing about an hour, moved his arm with dislodgment of the arterial needle. Patient able to finish dialysis with 1 needle in fistula and one line to temporary HD catheter. Discussed with surgery team given fragility of AV access, difficulty with cannulating recommend for tunneled catheter placement. He has a left IJ tunneled PICC. As per ID notes from previous hospital visits, they have recommended vancomycin and meropenem for sacral osteomyelitis for total of 6 to 8 weeks. ID following here, he is currently on same antibiotics, stop date 03/23. Anemia. Hemoglobin 8.1. Iron saturations are adequate. Received erythropoietin with each hemodialysis tx this week. Had 1unit PRBC yesterday
[2024-02-02] MEDS: Gabapentin 600 MG Tablet PO ×2 (11:14→22:40)
[2024-02-02] MEDS: Meropenem 1 GM in 0.9% Normal Saline (100mL MB+) 100 ML IV (11:14)
--- NOTE | 2024-02-02 11:31 | WOUNDNOTE ---
Pt currently getting dialysis. will changed dressing to sacrum after treatment is finished.
[2024-02-02 11:45] LABS: Bedside Glucose 164 mg/dL (74-106)
[2024-02-02] MEDS: Cefepime HCl 1 GM in 0.9% Normal Saline (50mL MB+) 50 ML IV (14:18)
--- NOTE | 2024-02-02 14:53 | PCM.PN.ID ---
Physical Exam Narrative Feeling ok, no fever Const alert and no apparent distress General Appearance: cooperative Resp normal air movement and clear to auscultation bilaterally Cardio regular rate and regular rhythm GI soft to palpation, non-tender and non-distended Skin Skin Narrative: no new rash ID ID: Route of nutrition/ use of supplements: [] Nutritional Intake: [] IV Site: [] Franco Catheter: [] Assessment & Plan Assessment/Plan (1) Bilateral pleural effusion: (2) Metabolic encephalopathy: (3) ESRD on dialysis: (4) Osteomyelitis of sacrum: PLAN: Reviewed ID note from last admit to [facility] by Dr. Laci Chavez, plan was 8 weeks iv vanc/keven, stop date 03/23/24. Thoracentesis done here, high wbc seen in fluid, cx ngtd. Wound cx here with MRSA. Spoke with [facility], sacral cx there with MRSA and providencia. He lost his picc. Wrote for iv vanc and cefepime dosed with dialysis along with po flagyl. No need for new picc. Will follow, d/w bilingual case manager
--- NOTE | 2024-02-02 15:22 | CASEMGMT ---
SW notified [facility] patient may return over the weekend. Ilda TELLEZ
[2024-02-02] MEDS: metroNIDAZOLE 500 MG Tablet PO ×2 (16:09→22:40)
[2024-02-02 16:29] LABS: Bedside Glucose 284 mg/dL (74-106)
[2024-02-02] MEDS: Ranolazine 500 MG Tablet 1000 MG PO (22:40)
[2024-02-02] MEDS: Rosuvastatin 20 MG Tablet PO (22:40)
[2024-02-02] MEDS: Insulin Glargine-YFGN 100 UNIT/ML Pen 12 UNIT SC (22:44)
[2024-02-02] MEDS: Menthol/Lanolin/Calamine/Znox 113 GM Tube 1 APPLIC TOPICAL (22:45)
[2024-02-02 23:10] LABS: Bedside Glucose 210 mg/dL (74-106)
[2024-02-03] VITALS (9 sets, daily range): BP systolic 94–140; BP diastolic 57–65; PULSE 89–104; RESP 12–28; TEMP 36.4–36.8; O2SAT 96–100; BMI 32.6
[2024-02-03] MEDS: metroNIDAZOLE 500 MG Tablet PO ×3 (05:10→22:23)
[2024-02-03 05:24] LABS: Absolute Lymphocyte Count 2.62 X10^3/uL (0.83-4.51); Absolute Neutrophil Count 9.9 X10^3/uL (2.0-7.7); Basophil# 0.06 X10^3/uL; Basophil% 0.4 % (0-1); Eosinophil# 0.12 X10^3/uL; Eosinophils% 0.8 % (0-5); Hematocrit 29.4 % (40-54); Hemoglobin 9.3 g/dL (13.0-16.5); Lymphocyte # 2.62 X10^3/ul (0.83-4.51); Lymphocyte % 18.2 % (19-41); Mean Corp Hgb Conc 31.6 g/dL (32-36); Mean Corpuscular Hgb 32.1 pg (27.0-32.0); Mean Corpuscular Volume 101.4 fL (80-94); Monocyte# 1.25 X10^3/uL; Monocyte% 8.7 % (0-10); NRBC Flagged by Analyzer 0.6 % (0-5); Neutrophil # 9.86 X10^3/uL (2.7-7.7); Neutrophil % 68.7 % (47-70); Platelet Count 313 K/mm3 (150-450); RBC Distribution Width CV 17.9 % (11.6-14.6); RBC Distribution Width SD 64.5 fl (35.1-43.9); White Blood Count 14.4 K/mm3 (4.4-11.0)
[2024-02-03 05:44] LABS: Anion Gap 8 (5-15); BUN 83 mg/dL (7-18); Calcium,Total 8.4 mg/dL (8.5-10.1); Chloride 102 mmol/L (98-107); Creatinine, Serum 6.39 mg/dL (0.70-1.30); EST Glomerular Filtration Rate 10 mL/min (>60); Est Glom Filt Rate - Afr Amer 12 mL/min (>60); Estimated Creatinine Clearance 12.85 ml/min; Glucose 187 mg/dL (74-106); Potassium 4.4 mmol/L (3.5-5.1); Sodium Level 135 mmol/L (136-145)
[2024-02-03] MEDS: Insulin Lispro 100 UNIT/ML INSULN.PEN SC ×4 (06:32→22:23)
[2024-02-03 06:51] LABS: Bedside Glucose 162 mg/dL (74-106)
[2024-02-03] MEDS: Albuterol 2.5 MG/3 ML VIAL.NEB. INHALATION ×3 (07:47→20:04)
[2024-02-03] MEDS: Cyanocobalamin 500 MCG Tablet PO (10:12)
[2024-02-03] MEDS: Cholecalciferol (Vit D3) 125 MCG CAPSULE (5,000 UNITS) PO (10:12)
[2024-02-03] MEDS: VILAZODONE HYDROCHLORIDE 10 MG TABLET 40 MG PO (10:12)
[2024-02-03] MEDS: Menthol/Lanolin/Calamine/Znox 113 GM Tube 1 APPLIC TOPICAL ×2 (10:13→22:25)
[2024-02-03] MEDS: CARIPRAZINE HCL 3 MG CAPSULE PO (10:13)
[2024-02-03] MEDS: Pantoprazole Sodium 20 MG Tablet PO (10:13)
[2024-02-03] MEDS: Gabapentin 600 MG Tablet PO ×2 (10:13→22:23)
[2024-02-03] MEDS: Ferrous Sulfate 325 MG Tablet PO ×2 (10:14→16:29)
[2024-02-03] MEDS: SEVELAMER CARBONATE 800 MG TABLET 1600 MG PO (10:14)
[2024-02-03] MEDS: busPIRone 5 MG Tablet PO (10:14)
[2024-02-03 13:02] LABS: Bedside Glucose 217 mg/dL (74-106)
--- NOTE | 2024-02-03 13:02 | PN.HOSP_ITS ---
Subjective Subjective Doing well, no issues overnight Objective Data Objective Data Vital Signs: Vital Signs Temp Pulse Resp BP Pulse Ox O2 Del Method O2 Flow Rate 98.3 F 96 16 94/57 L 98 Nasal Cannula 2 02/03/24 10:08 02/03/24 10:08 02/03/24 10:08 02/03/24 10:08 02/03/24 10:08 02/03/24 10:08 02/03/24 10:08 FiO2 30 02/03/24 07:47 Oxygen Flow Rate (L/min) 2 Oxygen Delivery Method Nasal Cannula Weight: 227 lb 15.327 oz Body Mass Index (BMI) 32.6 Intake & Output: Intake and Output for Last 24 Hours 02/02/24 02/03/24 02/04/24 03:59 03:59 03:59 Intake Total 194.5 / 194.5 650 / 650 120 / 120 Output Total 85 / 85 2375 / 2375 Balance 109.5 / 109.5 -1725 / -1725 120 / 120 Lab / Micro Data 02/03/24 04:43 02/03/24 04:43 Labs: Laboratory Results - last 24 hr 02/02/24 16:08: POC Glucose 284 H 02/02/24 22:44: POC Glucose 210 H 02/03/24 04:43: WBC 14.4 H, RBC 2.90 L, Hgb 9.3 L, Hct 29.4 L, MCV 101.4 H, MCH 32.1 H, MCHC 31.6 L, RDW Std Deviation 64.5 H, RDW Coeff of Reynold 17.9 H, Plt Count 313, MPV 10.0, Immature Gran % (Auto) 3.200 H, Neut % (Auto) 68.7, Lymph % (Auto) 18.2 L, [place] % (Auto) 8.7, Eos % (Auto) 0.8, Baso % (Auto) 0.4, Absolute Neuts (auto) 9.9 H, Absolute Lymphs (auto) 2.62, Nucleated RBC % 0.6, Sodium 135 L, Potassium 4.4, Chloride 102, Carbon Dioxide 25.0, Anion Gap 8, BUN 83 H, Creatinine 6.39 H, Estim Creat Clear Calc 12.85, Est GFR (MDRD) Af Amer 12 L, Est GFR (MDRD) Non-Af 10 L, BUN/Creatinine Ratio 13.0, Glucose 187 H, Calcium 8.4 L 02/03/24 06:31: POC Glucose 162 H Micro: Microbiology 01/27/24 22:29 Blood Culture (Wb) - Anticubital Right Blood Culture - Final No growth in 5 days. 01/27/24 22:29 Blood Culture (Wb) - Right Forearm Blood Culture - Final No growth in 5 days. 01/29/24 Unknown Fluid - Thoracentesis Fluid Gram Stain - Final 01/29/24 Unknown Fluid - Thoracentesis Fluid Body Fluid Culture - Final Culture exhibits no growth. 01/29/24 Unknown Fluid - Thoracentesis Fluid Anaerobic Culture - Preliminary No growth in 48 hours. 01/31/24 11:30 Stool Stool Occult Blood (NANCY) - Final 01/27/24 22:55 Urine Catheter - Catheter Urine Culture - Final Culture exhibits no growth. 01/28/24 02:55 Wound - Sacral Skin and Soft Tissue MRSA/MSSA (PCR - Final Meth. resistant Staph. aureus Staphylococcus aureus 01/27/24 22:29 Mucosa - Nasopharyngeal SARS-CoV-2, Influenza & RSV (PCR) - Final Physical Exam Narrative General: Alert, cooperative, No apparent distress HEENT: Atraumatic, PERRLA, EOMI, Normocephalic Oral: Moist Mucosa Neck: Supple, No JVD Lungs: Diminished, Normal air movement, No rhonchi, No wheeze, No rales Cardiovascular: Regular rate, Regular Rhythm, Normal S1, Normal S2, No murmurs, temporary dialysis catheter in right neck Abdomen: Soft, Non Tender, Non-Distended, No Hepato-splenomegaly, ostomy Extremities: No edema, Capillary Refill Less than 3 Seconds, AKA on his right lower extremity and a BKA on his left lower extremity Skin: No rashes, No breakdown Musculoskeletal: No Tenderness to Palpation of Joints or Extremities Neurological: No focal neurological deficits, Motor Exam 5/5 strength through out, Sensory exam intact to light touch and pain Psych/Mental Status: Flat Assessment & Plan Assessment/Plan (1) Multifocal pneumonia: (2) Osteomyelitis of sacrum: (3) Sacral decubitus ulcer, stage IV: (4) Hyperkalemia: (5) Metabolic encephalopathy: PLAN: Plan Acute hypoxic and hypercapnic respiratory failure. * resolved. Since able to be weaned down to room air. * suspect due to CHF exacerbation and pleural effusions. * CTA showed moderate pleural effusion w bilateral lobe consolidations. Using [facility], pt had CTA chest on 01/20 that showed mild to moderate bilateral effusions. * on empiric antibiotics with meropenem and vancomycin 02/03/2024: Continue with Flagyl, cefepime, vancomycin no longer on meropenem Stage IV sacral decubitus ulcer with OM * Has been on vancomycin * Through [facility] there was no imaging of pelvic region. Will request records from [facility] (no progress notes in [facility]) * wound care. ID consult. * Culture +MRSA * From outside facility patient was to be on Vanco meropenem with stop date of March 23. 02/03/2024: On vancomycin, cefepime, Flagyl plan for the same stop date as March 23 Metabolic encephalopathy * secondary to underlying illness * appears to be resolved, I suspect pt at baseline, which is very flat and withdrawn. Leukocytosis * elevated, however trending down. Through [facility], his WBCs were 25.8 on 01/25 at [facility] in [place]. * monitor Pleural effusion * as above, present on CT a [facility] in [place] on 01/20 (unclear if changed or not based on the reports) * Fluid studies show 23.9 WBCs. LDH fluid not performed despite being ordered with the original testing. * Pulm consult recommended continue current mgmt. Follow up cultures. Technically exudative, but barely. Cannot rule out parapneumonic effusion, but may very well be due to volume. No need for CTS evaluation. Anemia * Transfused 4 units. Goal hemoglobin of 8 given CAD. * iron low. on ferrous sulfate. Hemoccult negative. * TSH WNL * on epoetin * Once medically stabilized can see GI for endoscopic evaluation. At this time, would defer to an outpatient basis given poor performance status. 02/02/2024: Hemoglobin stable at 8.1 ESRD on HD * There was concern that the fistula was occluded and patient underwent a fistulogram that showed that it was patent. Subsequently it was found out that the patient actually had a a graft called [employer]. The metals sales representative of that company came in 01/31 and marked on the left upper extremity at the access points for that graft. * Temporary dialysis catheter placed 01/28 as it was thought the patient had an occluded graft. If we are able to successfully use the graft, the temporary dialysis catheter can be removed. 02/02/2024: It has been determined by nephrology that they need a tunneled dialysis catheter unfortunately has been on Plavix so this will have to be held in the tunneled dialysis catheter to be done next week Chronic conditions: * CAD; s/p CABG with resent stent placement on week ago - Resume BASA and Plavix plus statin. Troponin 80. * History of severe peripheral vascular disease; status post right AKA and left BKA with chronic immobility and hyper-inflammatory state outlined above * Diabetes mellitus type 2; of unknown control with diabetic neuropathy - Keep NPO for now. FSBS q. 6 hours plus lowest intensity SSI. * Essential hypertension - Continue Metoprolol plus give prn Hydralazine for systolic blood pressure > 160 mm Hg. * Hyperlipidemia - Resume statin. * JAMIE: BiPAP QHS. DVT: Renally dosed Lovenox Charges/Coding Visit Charges Inpatient E&M: 08998 Subs Hosp L2
[2024-02-03] MEDS: Cefepime HCl 1 GM in 0.9% Normal Saline (50mL MB+) 50 ML IV (16:29)
[2024-02-03 16:55] LABS: Bedside Glucose 176 mg/dL (74-106)
[2024-02-03 20:41] LABS: Bedside Glucose 185 mg/dL (74-106)
[2024-02-03] MEDS: Ranolazine 500 MG Tablet 1000 MG PO (22:23)
[2024-02-03] MEDS: Insulin Glargine-YFGN 100 UNIT/ML Pen 12 UNIT SC (22:23)
[2024-02-03] MEDS: Rosuvastatin 20 MG Tablet PO (22:23)
[2024-02-04 06:00] VITALS: BMI 32.4
[2024-02-04 06:10] LABS: Bedside Glucose 145 mg/dL (74-106)
[2024-02-04] MEDS: metroNIDAZOLE 500 MG Tablet PO ×3 (06:55→21:22)
[2024-02-04 06:58] LABS: Absolute Lymphocyte Count 3.14 X10^3/uL (0.83-4.51); Absolute Neutrophil Count 10.5 X10^3/uL (2.0-7.7); Basophil# 0.09 X10^3/uL; Basophil% 0.6 % (0-1); Eosinophil# 0.15 X10^3/uL; Hematocrit 28.9 % (40-54); Hemoglobin 8.7 g/dL (13.0-16.5); Lymphocyte # 3.14 X10^3/ul (0.83-4.51); Lymphocyte % 19.9 % (19-41); Mean Corp Hgb Conc 30.1 g/dL (32-36); Mean Corpuscular Hgb 31.2 pg (27.0-32.0); Mean Corpuscular Volume 103.6 fL (80-94); Mean Platelet Vol. 10.1 fl (6.2-12.0); Monocyte# 1.43 X10^3/uL; Monocyte% 9.1 % (0-10); NRBC Flagged by Analyzer 0.4 % (0-5); Neutrophil # 10.51 X10^3/uL (2.7-7.7); Neutrophil % 66.7 % (47-70); Platelet Count 314 K/mm3 (150-450); RBC Distribution Width CV 18.1 % (11.6-14.6); RBC Distribution Width SD 64.6 fl (35.1-43.9); Red Blood Count 2.79 M/mm3 (4.6-6.2); White Blood Count 15.8 K/mm3 (4.4-11.0)
[2024-02-04 07:38] LABS: Anion Gap 8 (5-15); BUN 99 mg/dL (7-18); BUN/Creat Ratio 12.6 RATIO (10-20); Calcium,Total 8.5 mg/dL (8.5-10.1); Chloride 105 mmol/L (98-107); Creatinine, Serum 7.83 mg/dL (0.70-1.30); EST Glomerular Filtration Rate 8 mL/min (>60); Est Glom Filt Rate - Afr Amer 9 mL/min (>60); Glucose 149 mg/dL (74-106); Potassium 4.4 mmol/L (3.5-5.1); Sodium Level 134 mmol/L (136-145)
[2024-02-04 10:20] VITALS: BP 113/64; PULSE 94; RESP 16; TEMP 36.4; O2SAT 92
[2024-02-04] MEDS: Cyanocobalamin 500 MCG Tablet PO (10:22)
[2024-02-04] MEDS: Ferrous Sulfate 325 MG Tablet PO ×2 (10:22→16:01)
[2024-02-04] MEDS: VILAZODONE HYDROCHLORIDE 10 MG TABLET 40 MG PO (10:22)
[2024-02-04] MEDS: Cholecalciferol (Vit D3) 125 MCG CAPSULE (5,000 UNITS) PO (10:22)
[2024-02-04] MEDS: Gabapentin 600 MG Tablet PO ×2 (10:23→21:21)
[2024-02-04] MEDS: Pantoprazole Sodium 20 MG Tablet PO (10:23)
[2024-02-04] MEDS: Menthol/Lanolin/Calamine/Znox 113 GM Tube 1 APPLIC TOPICAL ×2 (10:24→21:22)
[2024-02-04] MEDS: CARIPRAZINE HCL 3 MG CAPSULE PO (10:24)
[2024-02-04] MEDS: SEVELAMER CARBONATE 800 MG TABLET 1600 MG PO (10:28)
[2024-02-04] MEDS: busPIRone 5 MG Tablet PO (10:28)
[2024-02-04] MEDS: Insulin Lispro 100 UNIT/ML INSULN.PEN SC ×3 (12:37→21:20)
[2024-02-04 13:31] VITALS: PULSE 88; RESP 20
[2024-02-04] MEDS: Albuterol 2.5 MG/3 ML VIAL.NEB. INHALATION ×2 (13:31→20:44)
--- NOTE | 2024-02-04 14:10 | PN.RENAL_ITS ---
Subjective Subjective No new complaints Objective Data Objective Data Vital Signs: Vital Signs Temp Pulse Resp BP Pulse Ox O2 Del Method O2 Flow Rate 97.5 F L 88 20 H 113/64 92 Room Air 2 02/04/24 10:20 02/04/24 13:31 02/04/24 13:31 02/04/24 10:20 02/04/24 10:20 02/04/24 10:20 02/04/24 08:26 FiO2 30 02/03/24 07:47 Oxygen Flow Rate (L/min) 2 Oxygen Delivery Method Room Air Weight: 102.8 kg Body Mass Index (BMI) 32.4 Intake & Output: Intake and Output for Last 24 Hours 02/02/24 02/03/24 02/04/24 23:59 23:59 23:59 Intake Total 650 / 650 170 / 170 240 / 240 Output Total 2375 / 2375 50 / 150 150 / 150 Balance -1725 / -1725 120 / 20 90 / 90 Lab / Micro Data 02/04/24 06:38 02/04/24 06:38 Labs: Laboratory Results - last 24 hr 02/03/24 16:27: POC Glucose 176 H 02/03/24 20:21: POC Glucose 185 H 02/04/24 05:51: POC Glucose 145 H 02/04/24 06:38: WBC 15.8 H, RBC 2.79 L, Hgb 8.7 L, Hct 28.9 L, MCV 103.6 H, MCH 31.2, MCHC 30.1 L, RDW Std Deviation 64.6 H, RDW Coeff of Reynold 18.1 H, Plt Count 314, MPV 10.1, Immature Gran % (Auto) 2.700 H, Neut % (Auto) 66.7, Lymph % (Auto) 19.9, [place] % (Auto) 9.1, Eos % (Auto) 1.0, Baso % (Auto) 0.6, Absolute Neuts (auto) 10.5 H, Absolute Lymphs (auto) 3.14, Nucleated RBC % 0.4, Sodium 134 L, Potassium 4.4, Chloride 105, Carbon Dioxide 21.0, Anion Gap 8, BUN 99 H, Creatinine 7.83 H*, Estim Creat Clear Calc 12.20, Est GFR (MDRD) Af Amer 9 L, Est GFR (MDRD) Non-Af 8 L, BUN/Creatinine Ratio 12.6, Glucose 149 H, Calcium 8.5 Micro: Microbiology 01/27/24 22:29 Blood Culture (Wb) - Anticubital Right Blood Culture - Final No growth in 5 days. 01/27/24 22:29 Blood Culture (Wb) - Right Forearm Blood Culture - Final No growth in 5 days. 01/29/24 Unknown Fluid - Thoracentesis Fluid Gram Stain - Final 01/29/24 Unknown Fluid - Thoracentesis Fluid Body Fluid Culture - Final Culture exhibits no growth. 01/29/24 Unknown Fluid - Thoracentesis Fluid Anaerobic Culture - Preliminary No growth in 48 hours. 01/31/24 11:30 Stool Stool Occult Blood (NANCY) - Final 01/27/24 22:55 Urine Catheter - Catheter Urine Culture - Final Culture exhibits no growth. 01/28/24 02:55 Wound - Sacral Skin and Soft Tissue MRSA/MSSA (PCR - Final Meth. resistant Staph. aureus Staphylococcus aureus 01/27/24 22:29 Mucosa - Nasopharyngeal SARS-CoV-2, Influenza & RSV (PCR) - Final Physical Exam Narrative Alert to name, no apparent distress S1, S2, RRR Lung sounds clear anteriorly. No wheezes, rhonchi or rales noted. Abdomen soft, nontender. Colostomy bag intact Left BKA, right AKA. No edema noted to bilateral thighs Non-tunneled temporary HD catheter right IJ Left arm AV fistula +thrill/bruit Assessment & Plan Assessment/Plan (1) ESRD on dialysis: (2) Hyperkalemia: (3) Metabolic encephalopathy: (4) Multifocal pneumonia: (5) Osteomyelitis of sacrum: PLAN: Plan ESRD on hemodialysis. He is originally from [facility] in [place], was recently discharged to a prison in this area. We will continue hemodialysis on Monday, Monday, Monday. Overall breathing improved with HD and ultraf iltration. Weight down ~7kg from admission. Access. He has a left arm brachiocephalic AV fistula. According to the discharge paperwork from hospital, he had a tunneled dialysis catheter which was removed first week of January when his fistula was deemed to be functional. He had been getting dialysis through the fistula. There were multiple clots when we tried to access AVF Monday, therefore non-tunneled temporary HD catheter was placed. Vascular surgery performed fistulogram 01/30 which did not show any stenosis or thrombus. This morning attempted cannulation of AV fistula where markings were placed yesterday by Keenan jones; had difficult time with cannulation but finally able to have 2 needles placed. Patient had been dialyzing about an hour, moved his arm with dislodgment of the arterial needle. Patient able to finish dialysis with 1 needle in fistula and one line to temporary HD catheter. Discussed with surgery team given fragility of AV access, difficulty with cannulating recommend for tunneled catheter placement. Likely tomorrow He has a left IJ tunneled PICC. As per ID notes from previous hospital visits, they have recommended vancomycin and meropenem for sacral osteomyelitis for total of 6 to 8 weeks. ID following here, he is currently on same antibiotics, stop date 03/23. Anemia. Hemoglobin 8.1. Iron saturations are adequate. Received erythropoietin with each hemodialysis tx this week.
--- NOTE | 2024-02-04 14:20 | PCM.PN.HOSP ---
Subjective Subjective Doing well, no issues overnight Objective Data Objective Data Vital Signs: Vital Signs Temp Pulse Resp BP Pulse Ox O2 Del Method O2 Flow Rate 97.5 F L 88 20 H 113/64 92 Room Air 2 02/04/24 10:20 02/04/24 13:31 02/04/24 13:31 02/04/24 10:20 02/04/24 10:20 02/04/24 10:20 02/04/24 08:26 FiO2 30 02/03/24 07:47 Oxygen Flow Rate (L/min) 2 Oxygen Delivery Method Room Air Weight: 226 lb 10.163 oz Body Mass Index (BMI) 32.4 Intake & Output: Intake and Output for Last 24 Hours 02/03/24 02/04/24 02/05/24 03:59 03:59 03:59 Intake Total 650 / 650 170 / 170 240 / 240 Output Total 2375 / 2375 150 / 150 50 / 50 Balance -1725 / -1725 190 / 190 Lab / Micro Data 02/04/24 06:38 02/04/24 06:38 Labs: Laboratory Results - last 24 hr 02/03/24 16:27: POC Glucose 176 H 02/03/24 20:21: POC Glucose 185 H 02/04/24 05:51: POC Glucose 145 H 02/04/24 06:38: WBC 15.8 H, RBC 2.79 L, Hgb 8.7 L, Hct 28.9 L, MCV 103.6 H, MCH 31.2, MCHC 30.1 L, RDW Std Deviation 64.6 H, RDW Coeff of Reynold 18.1 H, Plt Count 314, MPV 10.1, Immature Gran % (Auto) 2.700 H, Neut % (Auto) 66.7, Lymph % (Auto) 19.9, [place] % (Auto) 9.1, Eos % (Auto) 1.0, Baso % (Auto) 0.6, Absolute Neuts (auto) 10.5 H, Absolute Lymphs (auto) 3.14, Nucleated RBC % 0.4, Sodium 134 L, Potassium 4.4, Chloride 105, Carbon Dioxide 21.0, Anion Gap 8, BUN 99 H, Creatinine 7.83 H*, Estim Creat Clear Calc 12.20, Est GFR (MDRD) Af Amer 9 L, Est GFR (MDRD) Non-Af 8 L, BUN/Creatinine Ratio 12.6, Glucose 149 H, Calcium 8.5 Micro: Microbiology 01/27/24 22:29 Blood Culture (Wb) - Anticubital Right Blood Culture - Final No growth in 5 days. 01/27/24 22:29 Blood Culture (Wb) - Right Forearm Blood Culture - Final No growth in 5 days. 01/29/24 Unknown Fluid - Thoracentesis Fluid Gram Stain - Final 01/29/24 Unknown Fluid - Thoracentesis Fluid Body Fluid Culture - Final Culture exhibits no growth. 01/29/24 Unknown Fluid - Thoracentesis Fluid Anaerobic Culture - Preliminary No growth in 48 hours. 01/31/24 11:30 Stool Stool Occult Blood (NANCY) - Final 01/27/24 22:55 Urine Catheter - Catheter Urine Culture - Final Culture exhibits no growth. 01/28/24 02:55 Wound - Sacral Skin and Soft Tissue MRSA/MSSA (PCR - Final Meth. resistant Staph. aureus Staphylococcus aureus 01/27/24 22:29 Mucosa - Nasopharyngeal SARS-CoV-2, Influenza & RSV (PCR) - Final Physical Exam Narrative General: Alert, cooperative, No apparent distress HEENT: Atraumatic, PERRLA, EOMI, Normocephalic Oral: Moist Mucosa Neck: Supple, No JVD Lungs: Diminished, Normal air movement, No rhonchi, No wheeze, No rales Cardiovascular: Regular rate, Regular Rhythm, Normal S1, Normal S2, No murmurs, temporary dialysis catheter in right neck Abdomen: Soft, Non Tender, Non-Distended, No Hepato-splenomegaly, ostomy Extremities: No edema, Capillary Refill Less than 3 Seconds, AKA on his right lower extremity and a BKA on his left lower extremity Skin: No rashes, No breakdown Musculoskeletal: No Tenderness to Palpation of Joints or Extremities Neurological: No focal neurological deficits, Motor Exam 5/5 strength throughout, Sensory exam intact to light touch and pain Psych/Mental Status: Flat Assessment & Plan Assessment/Plan (1) Multifocal pneumonia: (2) Osteomyelitis of sacrum: (3) Sacral decubitus ulcer, stage IV: (4) Hyperkalemia: (5) Metabolic encephalopathy: PLAN: Plan Acute hypoxic and hypercapnic respiratory failure. resolved. Since able to be weaned down to room air. suspect due to CHF exacerbation and pleural effusions. CTA showed moderate pleural effusion w bilateral lobe consolidations. Using [facility] [place], pt had CTA chest on 01/20 that showed mild to moderate bilateral effusions. on empiric antibiotics with meropenem and vancomycin 02/03/2024: Continue with Flagyl, cefepime, vancomycin no longer on meropenem Stage IV sacral decubitus ulcer with OM Has been on vancomycin Through [facility] [place] there was no imaging of pelvic region. Will request records from [facility] (no progress notes in [facility] [place]) wound care. ID consult. Culture +MRSA From outside facility patient was to be on Vanco meropenem with stop date of March 23. 02/03/2024: On vancomycin, cefepime, Flagyl plan for the same stop date as March 23 Metabolic encephalopathy secondary to underlying illness appears to be resolved, I suspect pt at baseline, which is very flat and withdrawn. Leukocytosis elevated, however trending down. Through [facility] [place], his WBCs were 25.8 on 01/25 at [facility] in [place]. monitor Pleural effusion as above, present on CT a [facility] in [place] on 01/20 (unclear if changed or not based on the reports) Fluid studies show 23.9 WBCs. LDH fluid not performed despite being ordered with the original testing. Pulm consult recommended continue current mgmt. Follow up cultures. Technically exudative, but barely. Cannot rule out parapneumonic effusion, but may very well be due to volume. No need for CTS evaluation. Anemia Transfused 4 units. Goal hemoglobin of 8 given CAD. iron low. on ferrous sulfate. Hemoccult negative. TSH WNL on epoetin Once medically stabilized can see GI for endoscopic evaluation. At this time, would defer to an outpatient basis given poor performance status. 02/02/2024: Hemoglobin stable at 8.1 02/04/2024: Anemia stable ESRD on HD There was concern that the fistula was occluded and patient underwent a fistulogram that showed that it was patent. Subsequently it was found out that the patient actually had a a graft called [employer]. The small business sales representative of that company came in 01/31 and marked on the left upper extremity at the access points for that graft. Temporary dialysis catheter placed 01/28 as it was thought the patient had an occluded graft. If we are able to successfully use the graft, the temporary dialysis catheter can be removed. 02/02/2024: It has been determined by nephrology that they need a tunneled dialysis catheter unfortunately has been on Plavix so this will have to be held in the tunneled dialysis catheter to be done next week 02/04/2024: Plan for tunneled dialysis catheter this week and then can plan for disposition Chronic conditions: CAD; s/p CABG with resent stent placement on week ago - Resume BASA and Plavix plus statin. Troponin 80. History of severe peripheral vascular disease; status post right AKA and left BKA with chronic immobility and hyper-inflammatory state outlined above Diabetes mellitus type 2; of unknown control with diabetic neuropathy - Keep NPO for now. FSBS q. 6 hours plus lowest intensity SSI. Essential hypertension - Continue Metoprolol plus give prn Hydralazine for systolic blood pressure > 160 mm Hg. Hyperlipidemia - Resume statin. JAMIE: BiPAP QHS. DVT: Renally dosed Lovenox Charges/Coding Visit Charges Inpatient E&M: 18222 Subs Hosp L2
[2024-02-04] MEDS: Cefepime HCl 1 GM in 0.9% Normal Saline (50mL MB+) 50 ML IV (15:58)
[2024-02-04 16:10] VITALS: BP 133/62; PULSE 97; RESP 16; TEMP 35.9; O2SAT 93
[2024-02-04 16:52] LABS: Bedside Glucose 228 mg/dL (74-106)
[2024-02-04 16:52] LABS: Bedside Glucose 295 mg/dL (74-106)
[2024-02-04 20:44] VITALS: PULSE 102; RESP 20
[2024-02-04 21:06] VITALS: BP 118/99; PULSE 104; RESP 16; TEMP 36.9; O2SAT 97
[2024-02-04] MEDS: Insulin Glargine-YFGN 100 UNIT/ML Pen 12 UNIT SC (21:20)
[2024-02-04] MEDS: Ranolazine 500 MG Tablet 1000 MG PO (21:21)
[2024-02-04] MEDS: Rosuvastatin 20 MG Tablet PO (21:22)
[2024-02-04 21:46] LABS: Bedside Glucose 260 mg/dL (74-106)
[2024-02-05] VITALS (15 sets, daily range): BP systolic 48–245; BP diastolic 50–69; PULSE 84–97; RESP 14–18; TEMP 36.4–36.8; O2SAT 91–100; BMI 33.6; BMI 32.8
--- NOTE | 2024-02-05 03:43 | NURSING ---
Pt refused BIPAP last night with respiratory therapy.
--- NOTE | 2024-02-05 04:46 | CPS ---
Pt refused bipap
--- NOTE | 2024-02-05 05:55 | EKG12_ITS ---
Test Reason : AM EKG Blood Pressure : / mmHG Vent. Rate : 097 BPM Atrial Rate : 097 BPM P-R Int : 168 ms QRS Dur : 130 ms QT Int : 362 ms P-R-T Axes : 050 016 146 degrees QTc Int : 459 ms Normal sinus rhythm Non-specific intra-ventricular conduction block Minimal voltage criteria for LVH, may be normal variant ( [place] product ) T wave abnormality, consider lateral ischemia Abnormal ECG When compared with ECG of 27-JAN-2024 22:39, ST elevation now present in Anterior leads Confirmed by TRUDI YIN, BLANCA ([id number]), science editor LIAM MORGAN ([id number]) on 02/07/2024 1:26:32 PM Referred By: Confirmed By:BLANCA BRUSH MD
[2024-02-05 06:20] LABS: Absolute Lymphocyte Count 2.99 X10^3/uL (0.83-4.51); Absolute Neutrophil Count 10.1 X10^3/uL (2.0-7.7); Basophil# 0.05 X10^3/uL; Basophil% 0.3 % (0-1); Eosinophil# 0.19 X10^3/uL; Eosinophils% 1.2 % (0-5); Hematocrit 27.7 % (40-54); Hemoglobin 8.7 g/dL (13.0-16.5); Lymphocyte # 2.99 X10^3/ul (0.83-4.51); Lymphocyte % 19.4 % (19-41); Mean Corp Hgb Conc 31.4 g/dL (32-36); Mean Corpuscular Hgb 32.2 pg (27.0-32.0); Mean Corpuscular Volume 102.6 fL (80-94); Mean Platelet Vol. 9.9 fl (6.2-12.0); Monocyte# 1.59 X10^3/uL; Monocyte% 10.3 % (0-10); NRBC Flagged by Analyzer 0.3 % (0-5); Neutrophil # 10.09 X10^3/uL (2.7-7.7); Neutrophil % 65.6 % (47-70); POSITIVE DIFFERENTIAL YES; Platelet Count 316 K/mm3 (150-450); RBC Distribution Width CV 18.6 % (11.6-14.6); RBC Distribution Width SD 63.9 fl (35.1-43.9); White Blood Count 15.4 K/mm3 (4.4-11.0)
[2024-02-05 06:29] LABS: International Normalized Ratio 1.7; Prothrombin Time (Protime)PT. 20.1 SECONDS (11.7-14.9)
[2024-02-05 06:31] LABS: Partial Thromboplast Time 47.9 Seconds (24.1-36.2)
[2024-02-05 06:39] LABS: Bedside Glucose 184 mg/dL (74-106)
[2024-02-05 06:41] LABS: Differential Indicated SCAN CRITERIA MET
[2024-02-05 06:56] LABS: Anion Gap 8 (5-15); BUN 125 mg/dL (7-18); BUN/Creat Ratio 14.1 RATIO (10-20); Calcium,Total 8.2 mg/dL (8.5-10.1); Chloride 105 mmol/L (98-107); Creatinine, Serum 8.87 mg/dL (0.70-1.30); EST Glomerular Filtration Rate 7 mL/min (>60); Est Glom Filt Rate - Afr Amer 8 mL/min (>60); Estimated Creatinine Clearance 10.97 ml/min; Glucose 177 mg/dL (74-106); Potassium 4.7 mmol/L (3.5-5.1); Sodium Level 135 mmol/L (136-145)
[2024-02-05 07:03] LABS: Vancomycin, Random Level 25.6 ug/mL (0.0-15.0)
[2024-02-05 07:11] LABS: Differential Comment SCANNED
[2024-02-05] MEDS: Albuterol 2.5 MG/3 ML VIAL.NEB. INHALATION ×3 (07:21→19:35)
[2024-02-05] MEDS: PureFlow B 2K Dialysis Soln 1 BAG 6 BAG PF (07:33)
[2024-02-05] MEDS: 0.9% Normal Saline 1,000 ML IV.SOLN. 1000 ML OPERA.SITE (07:33)
[2024-02-05] MEDS: 0.9% Saline Lock 10 ML Syringe IV ×2 (07:34→15:47)
--- NOTE | 2024-02-05 08:33 | PCM.PN.SRG ---
Subjective Subjective Patient is currently getting dialysis through his right IJ temporary line. Objective Data Objective Data Vital Signs: Vital Signs Temp Pulse Resp BP Pulse Ox O2 Del Method O2 Flow Rate 97.6 F L 89 14 111/58 L 98 Nasal Cannula 2 02/05/24 05:52 02/05/24 08:27 02/05/24 08:27 02/05/24 08:27 02/05/24 08:27 02/05/24 08:27 02/05/24 08:27 FiO2 30 02/03/24 07:47 Oxygen Flow Rate (L/min) 2 Oxygen Delivery Method Nasal Cannula Weight: 235 lb 3.732 oz Body Mass Index (BMI) 33.6 Intake & Output: Intake and Output for Last 24 Hours 02/03/24 02/04/24 02/05/24 23:59 23:59 23:59 Intake Total 170 / 170 1290 / 1290 75 / 75 Output Total 50 / 150 150 / 150 0 / 0 Balance 120 / 20 1140 / 1140 75 / 75 Lab / Micro Data 02/05/24 06:07 02/05/24 06:07 Labs: Laboratory Results - last 24 hr 02/04/24 12:36: POC Glucose 228 H 02/04/24 16:03: POC Glucose 295 H 02/04/24 21:14: POC Glucose 260 H 02/05/24 05:49: POC Glucose 184 H 02/05/24 06:00: Random Vancomycin 25.6 H 02/05/24 06:07: WBC 15.4 H, RBC 2.70 L, Hgb 8.7 L, Hct 27.7 L, MCV 102.6 H, MCH 32.2 H, MCHC 31.4 L, RDW Std Deviation 63.9 H, RDW Coeff of Reynold 18.6 H, Plt Count 316, MPV 9.9, Immature Gran % (Auto) 3.200 H, Neut % (Auto) 65.6, Lymph % (Auto) 19.4, [place] % (Auto) 10.3 H, Eos % (Auto) 1.2, Baso % (Auto) 0.3, Absolute Neuts (auto) 10.1 H, Absolute Lymphs (auto) 2.99, Nucleated RBC % 0.3, Differential Comment SCANNED, Diff Path Review March, PT 20.1 H, INR 1.7, APTT 47.9 H, Sodium 135 L, Potassium 4.7, Chloride 105, Carbon Dioxide 22.0, Anion Gap 8, BUN 125 H*, Creatinine 8.87 H*, Estim Creat Clear Calc 10.97, Est GFR (MDRD) Af Amer 8 L, Est GFR (MDRD) Non-Af 7 L, BUN/Creatinine Ratio 14.1, Glucose 177 H, Calcium 8.2 L Micro: Microbiology 01/29/24 Unknown Fluid - Thoracentesis Fluid Gram Stain - Final 01/29/24 Unknown Fluid - Thoracentesis Fluid Body Fluid Culture - Final Culture exhibits no growth. 01/29/24 Unknown Fluid - Thoracentesis Fluid Anaerobic Culture - Final No anaerobic bacteria isolated. 01/27/24 22:29 Blood Culture (Wb) - Anticubital Right Blood Culture - Final No growth in 5 days. 01/27/24 22:29 Blood Culture (Wb) - Right Forearm Blood Culture - Final No growth in 5 days. 01/31/24 11:30 Stool Stool Occult Blood (NANCY) - Final 01/27/24 22:55 Urine Catheter - Catheter Urine Culture - Final Culture exhibits no growth. 01/28/24 02:55 Wound - Sacral Skin and Soft Tissue MRSA/MSSA (PCR - Final Meth. resistant Staph. aureus Staphylococcus aureus 01/27/24 22:29 Mucosa - Nasopharyngeal SARS-CoV-2, Influenza & RSV (PCR) - Final Physical Exam Narrative Right IJ temporary dialysis line in place currently getting dialysis Const oriented x3 and no apparent distress Resp normal respiratory effort Cardio regular rate Extremity Extremity Narrative: Left upper extremity wave Linq fistula difficult to feel thrill on exam Assessment & Plan Assessment/Plan (1) ESRD on dialysis: PLAN: Due to issues accessing the patient's left upper arm wave linq fistula?requesting tunneled dialysis catheter. Patient currently has a temporary dialysis catheter in the right IJ. That will be pulled today we will plan for placement of tunneled dialysis catheter at 730 tomorrow morning. Patient's Plavix has been held since Monday. Discussed the procedure of placement of tunneled dialysis catheter and risk with the patient and he had no further question this time. Mai Mendez M.D. Pager: [phone] [facility] [address] [place] [address], [facility], [address] [place] [address] Office: [phone] Charges/Coding Visit Charges Inpatient E&M: 85454 Subs Hosp L2
--- NOTE | 2024-02-05 08:57 | NUR.TO.PHY ---
This RN received order from Dr. Mendez to remove temp dialysis cath today in prep for tdc placement on 02/06/24
--- NOTE | 2024-02-05 10:37 | PN.HOSP_ITS ---
Subjective Subjective Doing well, no issues overnight. Objective Data Objective Data Vital Signs: Vital Signs Temp Pulse Resp BP Pulse Ox O2 Del Method O2 Flow Rate 97.6 F L 91 14 99/51 L 99 Nasal Cannula 2 02/05/24 05:52 02/05/24 09:49 02/05/24 09:49 02/05/24 09:49 02/05/24 09:49 02/05/24 09:49 02/05/24 09:49 FiO2 30 02/03/24 07:47 Oxygen Flow Rate (L/min) 2 Oxygen Delivery Method Nasal Cannula Weight: 235 lb 3.732 oz Body Mass Index (BMI) 33.6 Intake & Output: Intake and Output for Last 24 Hours 02/04/24 02/05/24 02/06/24 03:59 03:59 03:59 Intake Total 170 / 170 1365 / 1365 0 / 0 Output Total 150 / 150 50 / 50 Balance 1315 / 1315 0 / 0 Lab / Micro Data 02/05/24 06:07 02/05/24 06:07 Labs: Laboratory Results - last 24 hr 02/04/24 12:36: POC Glucose 228 H 02/04/24 16:03: POC Glucose 295 H 02/04/24 21:14: POC Glucose 260 H 02/05/24 05:49: POC Glucose 184 H 02/05/24 06:00: Random Vancomycin 25.6 H 02/05/24 06:07: WBC 15.4 H, RBC 2.70 L, Hgb 8.7 L, Hct 27.7 L, MCV 102.6 H, MCH 32.2 H, MCHC 31.4 L, RDW Std Deviation 63.9 H, RDW Coeff of Reynold 18.6 H, Plt Count 316, MPV 9.9, Immature Gran % (Auto) 3.200 H, Neut % (Auto) 65.6, Lymph % (Auto) 19.4, Coleman % (Auto) 10.3 H, Eos % (Auto) 1.2, Baso % (Auto) 0.3, Absolute Neuts (auto) 10.1 H, Absolute Lymphs (auto) 2.99, Nucleated RBC % 0.3, Diffe rential Comment SCANNED, Diff Path Review March, PT 20.1 H, INR 1.7, APTT 47.9 H, Sodium 135 L, Potassium 4.7, Chloride 105, Carbon Dioxide 22.0, Anion Gap 8, BUN 125 H*, Creatinine 8.87 H*, Estim Creat Clear Calc 10.97, Est GFR (MDRD) Af Amer 8 L, Est GFR (MDRD) Non-Af 7 L, BUN/Creatinine Ratio 14.1, Glucose 177 H, Hemoglobin A1c 6.0 H, Calcium 8.2 L Micro: Microbiology 01/29/24 Unknown Fluid - Thoracentesis Fluid Gram Stain - Final 01/29/24 Unknown Fluid - Thoracentesis Fluid Body Fluid Culture - Final Culture exhibits no growth. 01/29/24 Unknown Fluid - Thoracentesis Fluid Anaerobic Culture - Final No anaerobic bacteria isolated. 01/27/24 22:29 Blood Culture (Wb) - Anticubital Right Blood Culture - Final No growth in 5 days. 01/27/24 22:29 Blood Culture (Wb) - Right Forearm Blood Culture - Final No growth in 5 days. 01/31/24 11:30 Stool Stool Occult Blood (NANCY) - Final 01/27/24 22:55 Urine Catheter - Catheter Urine Culture - Final Culture exhibits no growth. 01/28/24 02:55 Wound - Sacral Skin and Soft Tissue MRSA/MSSA (PCR - Final Meth. resistant Staph. aureus Staphylococcus aureus 01/27/24 22:29 Mucosa - Nasopharyngeal SARS-CoV-2, Influenza & RSV (PCR) - Final Physical Exam Narrative General: Alert, cooperative, No apparent distress HEENT: Atraumatic, PERRLA, EOMI, Normocephalic Oral: Moist Mucosa Neck: Supple, No JVD Lungs: Diminished, Normal air movement, No rhonchi, No wheeze, No rales Cardiovascular: Regular rate, Regular Rhythm, Normal S1, Normal S2, No murmurs, temporary dialysis catheter in right neck Abdomen: Soft, Non Tender, Non-Distended, No Hepato-splenomegaly, ostomy Extremities: No edema, Capillary Refill Less than 3 Seconds, AKA on his right lower extremity and a BKA on his left lower extremity Skin: No rashes, No breakdown Musculoskeletal: No Tenderness to Palpation of Joints or Extremities Neurological: No focal neurological deficits, Motor Exam 5/5 strength throughout, Sensory exam intact to light touch and pain Psych/Mental Status: Flat Assessment & Plan Assessment/Plan (1) Multifocal pneumonia: (2) Osteomyelitis of sacrum: (3) Sacral decubitus ulcer, stage IV: (4) Hyperkalemia: (5) Metabolic encephalopathy: PLAN: Plan Acute hypoxic and hypercapnic respiratory failure. * resolved. Since able to be weaned down to room air. * suspect due to CHF exacerbation and pleural effusions. * CTA showed moderate pleural effusion w bilateral lobe consolidations. Using [facility], pt had CTA chest on 01/20 that showed mild to moderate bilateral effusions. * on empiric antibiotics with meropenem and vancomycin 02/03/2024: Continue with Flagyl, cefepime, vancomycin no longer on meropenem Stage IV sacral decubitus ulcer with OM * Has been on vancomycin * Through [facility] there was no imaging of pelvic region. Will request records from [facility] (no progress notes in [facility]) * wound care. ID consult. * Culture +MRSA * From outside facility patient was to be on Vanco meropenem with stop date of March 23. 02/03/2024: On vancomycin, cefepime, Flagyl plan for the same stop date as March 23 Metabolic encephalopathy * secondary to underlying illness * appears to be resolved, I suspect pt at baseline, which is very flat and withdrawn. Leukocytosis * elevated, however trending down. Through [facility], his WBCs were 25.8 on 01/25 at [facility] in [place]. * monitor Pleural effusion * as above, present on CT a [facility] in [place] on 01/20 (unclear if changed or not based on the reports) * Fluid studies show 23.9 WBCs. LDH fluid not performed despite being ordered with the original testing. * Pulm consult recommended continue current mgmt. Follow up cultures. Technically exudative, but barely. Cannot rule out parapneumonic effusion, but may very well be due to volume. No need for CTS evaluation. Anemia * Transfused 4 units. Goal hemoglobin of 8 given CAD. * iron low. on ferrous sulfate. Hemoccult negative. * TSH WNL * on epoetin * Once medically stabilized can see GI for endoscopic evaluation. At this time, would defer to an outpatient basis given poor performance status. 02/02/2024: Hemoglobin stable at 8.1 02/04/2024: Anemia stable ESRD on HD * There was concern that the fistula was occluded and patient underwent a fistulogram that showed that it was patent. Subsequently it was found out that the patient actually had a a graft called [employer]. The outside dealer sales representative of that company came in 01/31 and marked on the left upper extremity at the access points for that graft. * Temporary dialysis catheter placed 01/28 as it was thought the patient had an occluded graft. If we are able to successfully use the graft, the temporary dialysis catheter can be removed. 02/02/2024: It has been determined by nephrology that they need a tunneled dialysis catheter unfortunately has been on Plavix so this will have to be held in the tunneled dialysis catheter to be done next week 02/04/2024: Plan for tunneled dialysis catheter this week and then can plan for disposition 02/05/2024: Plan for tunneled dialysis catheter tomorrow Chronic conditions: * CAD; s/p CABG with resent stent placement on week ago - Resume BASA and Plavix plus statin. Troponin 80. * History of severe peripheral vascular disease; status post right AKA and left BKA with chronic immobility and hyper-inflammatory state outlined above * Diabetes mellitus type 2; of unknown control with diabetic neuropathy - Keep NPO for now. FSBS q. 6 hours plus lowest intensity SSI. * Essential hypertension - Continue Metoprolol plus give prn Hydralazine for systolic blood pressure > 160 mm Hg. * Hyperlipidemia - Resume statin. * JAMIE: BiPAP QHS. DVT: Renally dosed Lovenox Charges/Coding Visit Charges Inpatient E&M: 29963 Subs Hosp L2
[2024-02-05] MEDS: CARIPRAZINE HCL 3 MG CAPSULE PO (11:10)
[2024-02-05] MEDS: Cyanocobalamin 500 MCG Tablet PO (11:11)
[2024-02-05] MEDS: Cholecalciferol (Vit D3) 125 MCG CAPSULE (5,000 UNITS) PO (11:11)
[2024-02-05] MEDS: Ranolazine 500 MG Tablet 1000 MG PO ×2 (11:11→22:23)
[2024-02-05] MEDS: Isosorbide Mononitrate 60 MG Tablet PO (11:11)
[2024-02-05] MEDS: Gabapentin 600 MG Tablet PO ×2 (11:11→22:22)
[2024-02-05] MEDS: Pantoprazole Sodium 20 MG Tablet PO (11:11)
[2024-02-05] MEDS: Insulin Lispro 100 UNIT/ML INSULN.PEN SC ×3 (11:12→22:22)
[2024-02-05] MEDS: Menthol/Lanolin/Calamine/Znox 113 GM Tube 1 APPLIC TOPICAL ×2 (11:12→22:21)
[2024-02-05] MEDS: busPIRone 5 MG Tablet PO (11:12)
[2024-02-05 11:25] LABS: Bedside Glucose 180 mg/dL (74-106)
--- NOTE | 2024-02-05 11:38 | PN.RENAL_ITS ---
Subjective Subjective No new complaints Objective Data Objective Data Vital Signs: Vital Signs Temp Pulse Resp BP Pulse Ox O2 Del Method O2 Flow Rate 97.6 F L 91 14 108/51 L 98 Nasal Cannula 2 02/05/24 05:52 02/05/24 09:49 02/05/24 10:52 02/05/24 10:52 02/05/24 10:52 02/05/24 10:52 02/05/24 10:52 FiO2 30 02/03/24 07:47 Oxygen Flow Rate (L/min) 2 Oxygen Delivery Method Nasal Cannula Weight: 104.2 kg Body Mass Index (BMI) 32.8 Intake & Output: Intake and Output for Last 24 Hours 02/03/24 02/04/24 02/05/24 23:59 23:59 23:59 Intake Total 170 / 170 1290 / 1290 75 / 75 Output Total 50 / 150 150 / 150 2500 / 2500 Balance 120 / 20 1140 / 1140 -2425 / -2425 Lab / Micro Data 02/05/24 06:07 02/05/24 06:07 Labs: Laboratory Results - last 24 hr 02/04/24 12:36: POC Glucose 228 H 02/04/24 16:03: POC Glucose 295 H 02/04/24 21:14: POC Glucose 260 H 02/05/24 05:49: POC Glucose 184 H 02/05/24 06:00: Random Vancomycin 25.6 H 02/05/24 06:07: WBC 15.4 H, RBC 2.70 L, Hgb 8.7 L, Hct 27.7 L, MCV 102.6 H, MCH 32.2 H, MCHC 31.4 L, RDW Std Deviation 63.9 H, RDW Coeff of Reynold 18.6 H, Plt Count 316, MPV 9.9, Immature Gran % (Auto) 3.200 H, Neut % (Auto) 65.6, Lymph % (Auto) 19.4, Davie % (Auto) 10.3 H, Eos % (Auto) 1.2, Baso % (Auto) 0.3, Absolute Neuts (auto) 10.1 H, Absolute Lymphs (auto) 2.99, Nucleated RBC % 0.3, Differential Comment SCANNED, Diff Path Review March, PT 20.1 H, INR 1.7, APTT 47.9 H, Sodium 135 L, Potassium 4.7, Chloride 105, Carbon Dioxide 22.0, Anion Gap 8, BUN 125 H*, Creatinine 8.87 H*, Estim Creat Clear Calc 10.97, Est GFR (MDRD) Af Amer 8 L, Est GFR (MDRD) Non-Af 7 L, BUN/Creatinine Ratio 14.1, Glucose 177 H, Hemoglobin A1c 6.0 H, Calcium 8.2 L 02/05/24 11:04: POC Glucose 180 H Micro: Microbiology 01/29/24 Unknown Fluid - Thoracentesis Fluid Gram Stain - Final 01/29/24 Unknown Fluid - Thoracentesis Fluid Body Fluid Culture - Final Culture exhibits no growth. 01/29/24 Unknown Fluid - Thoracentesis Fluid Anaerobic Culture - Final No anaerobic bacteria isolated. 01/27/24 22:29 Blood Culture (Wb) - Anticubital Right Blood Culture - Final No growth in 5 days. 01/27/24 22:29 Blood Culture (Wb) - Right Forearm Blood Culture - Final No growth in 5 days. 01/31/24 11:30 Stool Stool Occult Blood (NANCY) - Final 01/27/24 22:55 Urine Catheter - Catheter Urine Culture - Final Culture exhibits no growth. 01/28/24 02:55 Wound - Sacral Skin and Soft Tissue MRSA/MSSA (PCR - Final Meth. resistant Staph. aureus Staphylococcus aureus 01/27/24 22:29 Mucosa - Nasopharyngeal SARS-CoV-2, Influenza & RSV (PCR) - Final Physical Exam Narrative Alert to name, no apparent distress S1, S2, RRR Lung sounds clear anteriorly. No wheezes, rhonchi or rales noted. Abdomen soft, nontender. Colostomy bag intact Left BKA, right AKA. No edema noted to bilateral thighs Non-tunneled temporary HD catheter right IJ Left arm AV fistula +thrill/bruit Assessment & Plan Assessment/Plan (1) ESRD on dialysis: (2) Hyperkalemia: (3) Metabolic encephalopathy: (4) Multifocal pneumonia: (5) Osteomyelitis of sacrum: PLAN: Plan ESRD on hemodialysis. He is originally from [facility] in [place], was recently discharged to a long-term in this area. We will continue hemodialysis on Monday, Monday, Monday. Overall breathing improved with HD and ultrafiltration. Access. He has a left arm brachiocephalic AV fistula. According to the discharge paperwork from hospital, he had a tunneled dialysis catheter which was removed first week of January when his fistula was deemed to be functional. He had been getting dialysis through the fistula. There were multiple clots when we tried to access AVF Monday, therefore non-tunneled temporary HD catheter was placed. Vascular surgery performed fistulogram 01/30 which did not show any stenosis or thrombus. This morning attempted cannulation of AV fistula where markings were placed yesterday by Keenan jones; had difficult time with cannulation but finally able to have 2 needles placed. Patient had been dialyzing about an hour, moved his arm with dislodgment of the arterial needle. Patient able to finish dialysis with 1 needle in fistula and one line to temporary HD catheter. Discussed with surgery team given fragility of AV access, difficulty with cannulating recommend for tunneled catheter placement. Discussed with hospitalist. Tunneled dialysis catheter placement tomorrow. Okay to discharge to long-term after that. He has a left IJ tunneled PICC. As per ID notes from previous hospital visits, they have recommended vancomycin and meropenem for sacral osteomyelitis for total of 6 to 8 weeks. ID following here, he is currently on same antibiotics, stop date 03/23. Anemia. Hemoglobin 8.1. Iron saturations are adequate. Received erythropoietin with each hemodialysis tx Possible discharge to long-term tomorrow after tunneled dialysis catheter placement
--- NOTE | 2024-02-05 12:09 | PCM.RX.CS ---
Consult Antibiotic Management Pharmacy has been consulted to manage selected antibiotic: Vancomycin Type of Intervention Type of Consult: Follow-up Suspected Infection Suspected Infection: Osteomyelitis and Pneumonia Labs Labs: Sodium 135 mmol/L (136-145) L 02/05/24 06:07 Potassium 4.7 mmol/L (3.5-5.1) 02/05/24 06:07 Chloride 105 mmol/L (98-107) 02/05/24 06:07 Carbon Dioxide 22.0 mmol/L (21.0-32.0) 02/05/24 06:07 Anion Gap 8 (5-15) 02/05/24 06:07 BUN 125 mg/dL (7-18) H* 02/05/24 06:07 Creatinine 8.87 mg/dL (0.70-1.30) H* 02/05/24 06:07 Est GFR (MDRD) Af Amer 8 mL/min (>60) L 02/05/24 06:07 Est GFR (MDRD) Non-Af 7 mL/min (>60) L 02/05/24 06:07 BUN/Creatinine Ratio 14.1 RATIO (10-20) 02/05/24 06:07 Glucose 177 mg/dL (74-106) H 02/05/24 06:07 Random Vancomycin 25.6 ug/mL (0.0-15.0) H 02/05/24 06:00 Microbiology Microbiology: Microbiology 01/29/24 Unknown Fluid - Thoracentesis Fluid Gram Stain - Final 01/29/24 Unknown Fluid - Thoracentesis Fluid Body Fluid Culture - Final Culture exhibits no growth. 01/29/24 Unknown Fluid - Thoracentesis Fluid Anaerobic Culture - Final No anaerobic bacteria isolated. 01/27/24 22:29 Blood Culture (Wb) - Anticubital Right Blood Culture - Final No growth in 5 days. 01/27/24 22:29 Blood Culture (Wb) - Right Forearm Blood Culture - Final No growth in 5 days. 01/31/24 11:30 Stool Stool Occult Blood (NANCY) - Final 01/27/24 22:55 Urine Catheter - Catheter Urine Culture - Final Culture exhibits no growth. 01/28/24 02:55 Wound - Sacral Skin and Soft Tissue MRSA/MSSA (PCR - Final Meth. resistant Staph. aureus Staphylococcus aureus 01/27/24 22:29 Mucosa - Nasopharyngeal SARS-CoV-2, Influenza & RSV (PCR) - Final Goal Trough Goal Trough: 15-20 mcg/mL Pharmacy Plan for Drug Dosing Pharmacy Plan for Drug Dosing: Patient's pre dialysis random level resulted at 25.6. Recommend holding todays post dialysis dose due to level > 20. Will check another random level prior to next dialysis session. Pharmacy Service will continue to monitor and adjust dosing as required. Follow-Up Labs Follow-Up Labs: Trough: Vancomycin (02/07/24 at 0600 (random level))
[2024-02-05 13:28] LABS: Bedside Glucose 163 mg/dL (74-106)
[2024-02-05] MEDS: metroNIDAZOLE 500 MG Tablet PO ×2 (14:07→22:23)
--- NOTE | 2024-02-05 15:28 | WOUNDNOTE ---
wound photo: sacrum/left ischium
--- NOTE | 2024-02-05 15:29 | WOUNDNOTE ---
wound photo: right ischium/scrotum
[2024-02-05] MEDS: Cefepime HCl 1 GM in 0.9% Normal Saline (50mL MB+) 50 ML IV (15:47)
[2024-02-05 16:11] LABS: Bedside Glucose 214 mg/dL (74-106)
[2024-02-05] MEDS: Ferrous Sulfate 325 MG Tablet PO (16:24)
[2024-02-05] MEDS: Insulin Glargine-YFGN 100 UNIT/ML Pen 12 UNIT SC (22:22)
[2024-02-05] MEDS: Rosuvastatin 20 MG Tablet PO (22:23)
[2024-02-05 22:48] LABS: Bedside Glucose 213 mg/dL (74-106)
--- NOTE | 2024-02-05 23:10 | CPS ---
Pt refused BiPAP tonight
[2024-02-06] VITALS (12 sets, daily range): BP systolic 96–149; BP diastolic 44–99; PULSE 88–100; RESP 16–18; TEMP 36.1–37.1; O2SAT 94–99; BMI 32.9
[2024-02-06] MEDS: Albuterol 2.5 MG/3 ML VIAL.NEB. INHALATION (00:58)
[2024-02-06 06:33] LABS: Anion Gap 8 (5-15); BUN 101 mg/dL (7-18); BUN/Creat Ratio 13.8 RATIO (10-20); Calcium,Total 8.5 mg/dL (8.5-10.1); Chloride 104 mmol/L (98-107); Creatinine, Serum 7.32 mg/dL (0.70-1.30); EST Glomerular Filtration Rate 8 mL/min (>60); Est Glom Filt Rate - Afr Amer 10 mL/min (>60); Estimated Creatinine Clearance 13.14 ml/min; Glucose 187 mg/dL (74-106); Potassium 4.5 mmol/L (3.5-5.1); Sodium Level 135 mmol/L (136-145)
[2024-02-06 06:34] LABS: Bedside Glucose 169 mg/dL (74-106)
[2024-02-06] MEDS: 0.9% Normal Saline (500mL Bag) 500 ML 15 ML IV (06:39)
[2024-02-06] MEDS: Cefazolin 2 GM in 0.9% Normal Saline (100mL Bag) 100 ML IV (07:25)
[2024-02-06] MEDS: Bupiv/Epi 0.25% 30 ML Vial (07:37)
[2024-02-06] MEDS: Lidocaine 1% (20 ml mdv) 20 ML Vial (07:37)
[2024-02-06] MEDS: Heparin 10,000 UNITS/10 ML Vial 10000 UNITS (07:40)
--- NOTE | 2024-02-06 07:59 | OP.PCM_ITS ---
Report of Operation Date of Procedure: 02/06/24 Pre-Operative Diagnosis: End-stage renal disease Post-Operative Diagnosis: Same Surgery/Procedure Performed:: Placement of tunneled right IJ dialysis catheter Use of ultrasound view Use of fluoroscopy Surgeon: Mai Mendez Type of Anesthesia: Local MAC Anesthesiologist: Reza Flores Special Medications: Ancef 2 g IV x 1 Specimen's removed: none Estimated Blood Loss (mL): 15 cc Description of Procedure: After informed consent was given, the patient was brought to the operating room and placed in the supine position. Appropriate time out protocol was followed. He was then given IV conscious sedation for anesthesia. The patient's right upper chest and neck were then prepped with a surgical skin preparation and sterile surgical drapes were placed. After proper landmarks were ascertained, the skin at the upper right chest area was then infiltrated with 1:1 mixture of 1% lidocaine with epinephrine and 0.5% maricaine. A needle trocar was then inserted into the right internal jugular vein with ultrasound guidance-multiple vessels were viewed with u/s and the right IJ was chosen-- and there was good aspiration of venous blood. A wire was then threaded into the needle trocar and this was visualized under fluoroscopy to en sure that the wire was in the superior vena cava. Once this was done, then the needle trocar was removed. A small incision was made with an 11 blade knife at the wire entrance site. The dilator x2 with the introducer sheath attached was then placed over the wire into the right internal jugular vein via the Seldinger technique and this was visualized under fluoroscopy. Next the introducer and sheath were in proper position as visualized by fluoroscopy. The location of the cuffed was estimated on the skin, an incision was made with a 15 blade scalpel. The 14.5 Fr x 19 cm Palindrome dual lumen (Lot [id number] reference [id number]) was tunneled from the chest incision to the right neck incision. The sheath was removed. The catheter was placed through the introducer and was positioned with its tip at the junction of the superior vena cava and the right atrium as visualized under fluoroscopy. The cuff of the catheter was in the subcutaneous tissue. The catheter flushed and yuliana well with saline. Catheter was also flushed with 1.6 cc of 1-10,000 of heparin. Hemostasis was assured. Silver dressing was placed at the catheter exit site. Catheter was sutured with 3-0 nylon sutures. The neck incision was sutured with interrupted 3-0 Vicryl interrupted sutures x2 and Steri-Strips were placed. A large OpSite was placed over the catheter site and a small OpSite over the neck incision. The patient tolerated the procedure well. Grafts/Implants Used: 14.5 Fr x 19 cm Palindrome dual lumen (Lot [id number] reference [id number] Complications none
--- NOTE | 2024-02-06 08:11 | RAD_ITS ---
STUDY: X-RAY CHEST REASON FOR EXAM: Male, 58 years old. DIALYSIS CATHETER -- PORTABLE PACU TECHNIQUE: Single AP portable view of the chest. COMPARISON: Comparison is made with prior study January 29, 2024. FINDINGS: A right-sided double-lumen catheter has been placed with tip at the junction of the superior vena cava and right atrium. EKG electrodes are seen. Mild degree of bibasilar atelectasis. There is no demonstrated pleural abnormality. Sternal cerclage wires and vascular clips are present from a prior sternotomy and coronary artery bypass graft procedure (CABG). Cardiomegaly. Normal mediastinum and conor. Normal visualized pulmonary arteries. Normal visualized aortic arch and descending thoracic aorta. There are diffuse degenerative changes of the visualized thoracic spine. Normal visualized ribs, clavicles, and shoulders. There is no demonstrated abnormality of the visualized soft tissue structures of the upper abdomen. RAD/Chest 1 View (Portable) IMPRESSION: The tip of the right-sided double catheter is at the junction of the superior vena cava and right atrium. Mild bibasilar atelectasis. Electronically Signed: Maximus Esqueda MD at 8:39 EDT ,
[2024-02-06 08:53] LABS: Pathologist Review Reviewed
[2024-02-06] MEDS: Isosorbide Mononitrate 60 MG Tablet PO (09:22)
[2024-02-06] MEDS: Ranolazine 500 MG Tablet 1000 MG PO (09:22)
[2024-02-06] MEDS: VILAZODONE HYDROCHLORIDE 10 MG TABLET 40 MG PO (09:23)
[2024-02-06] MEDS: SEVELAMER CARBONATE 800 MG TABLET 1600 MG PO (09:23)
[2024-02-06] MEDS: metroNIDAZOLE 500 MG Tablet PO (09:23)
[2024-02-06] MEDS: Ferrous Sulfate 325 MG Tablet PO (09:23)
[2024-02-06] MEDS: Metoprolol(XL)Succ 25 MG Tablet PO (09:24)
[2024-02-06] MEDS: busPIRone 5 MG Tablet PO (09:24)
[2024-02-06] MEDS: Pantoprazole Sodium 20 MG Tablet PO (09:24)
[2024-02-06] MEDS: Cyanocobalamin 500 MCG Tablet PO (09:24)
[2024-02-06] MEDS: CARIPRAZINE HCL 3 MG CAPSULE PO (09:25)
[2024-02-06] MEDS: Cholecalciferol (Vit D3) 125 MCG CAPSULE (5,000 UNITS) PO (09:25)
[2024-02-06] MEDS: Gabapentin 600 MG Tablet PO (09:26)
[2024-02-06] MEDS: Menthol/Lanolin/Calamine/Znox 113 GM Tube 1 APPLIC TOPICAL (09:42)
--- NOTE | 2024-02-06 11:01 | WOUNDNOTE ---
removed the ostomy appliance. there was a small amount of formed soft brown stool noted in the appliance. stoma remains pink and moist. stoma is well budded. peristomal skin is intact. cleansed skin with soap and water. pat dry. applied a new 2 piece flat Holmen appliance with a small amount of stoma paste. pt tolerated well. pt may possibly be discharged back to the [place] today. pt had tunneled dialysis catheter placed today.
--- NOTE | 2024-02-06 11:15 | TREXTCAR_ITS ---
Diet Diet Order/Speech Therapy: 02/06/24 08:59 Diet: Renal - ConsCHO - Kenny Cont Is pt able to select menu?: No How many daily calories?: 1999 calorie Routine Orders/Code Status Routine Lab Work: CBC and BMP Code Status: Full Code Wound(s) SACRUM: Wound Type: Pressure Injury Dressing Change: AntiMicrobial (Aquacel AG, etc) SCROTUM: Wound Type: moisture related open areas Right Neck: Wound Type: Puncture right ischium: Wound Type: pressure/moisture Dressing Change: AntiMicrobial (Aquacel AG, etc) left stump: Wound Type: Pressure Injury Dressing Change: foam dressing remains in place Left cheek: Wound Type: Abrasion left ischium: Wound Type: Pressure Injury Dressing Change: well padded dry dressing right chest: Wound Type: Surgical Incision Therapies Physical Therapy: Eval and Treat Occupational Therapy: Eval and Treat Problem/Diagnosis (1) ESRD on dialysis: Status: Acute Code(s): N18.6 - End stage renal disease; Z99.2 - Dependence on renal dialysis Plan Acute hypoxic and hypercapnic respiratory failure. * resolved. Since able to be weaned down to room air. * suspect due to CHF exacerbation and pleural effusions. * CTA showed moderate pleural effusion w bilateral lobe consolidations. Using [employer], pt had CTA chest on 01/20 that showed mild to moderate bilateral effusions. * on empiric antibiotics with meropenem and vancomycin 02/03/2024: Continue with Flagyl, cefepime, vancomycin no longer on meropenem Stage IV sacral decubitus ulcer with OM * Has been on vancomycin * [facility] was no imaging of pelvic region. Will request records from [facility] (no progress notes in [facility]) * wound care. ID consult. * Culture +MRSA * From outside facility patient was to be on Vanco meropenem with stop date of March 23. 02/03/2024: On vancomycin, cefepime, Flagyl plan for the same stop date as March 23 Metabolic encephalopathy * secondary to underlying illness * appears to be resolved, I suspect pt at baseline, which is very flat and withdrawn. Leukocytosis * elevated, however trending down. Through [facility], his WBCs were 25.8 on 01/25 at [facility] in [place]. * monitor Pleural effusion * as above, present on CT a [facility] in [place] on 01/20 (unclear if changed or not based on the reports) * Fluid studies show 23.9 WBCs. LDH fluid not performed despite being ordered with the original testing. * Pulm consult recommended continue current mgmt. Follow up cultures. Technically exudative, but barely. Cannot rule out parapneumonic effusion, but may very well be due to volume. No need for CTS evaluation. Anemia * Transfused 4 units. Goal hemoglobin of 8 given CAD. * iron low. on ferrous sulfate. Hemoccult negative. * TSH WNL * on epoetin * Once medically stabilized can see GI for endoscopic evaluation. At this time, would defer to an outpatient basis given poor performance status. 02/02/2024: Hemoglobin stable at 8.1 02/04/2024: Anemia stable ESRD on HD * There was concern that the fistula was occluded and patient underwent a fistulogram that showed that it was patent. Subsequently it was found out that the patient actually had a a graft called Gors[employer]. The outreach representative of that company came in 01/31 and marked on the left upper extremity at the access points for that graft. * Temporary dialysis catheter placed 01/28 as it was thought the patient had an occluded graft. If we are able to successfully use the graft, the temporary dialysis catheter can be removed. 02/02/2024: It has been determined by nephrology that they need a tunneled dialysis catheter unfortunately has been on Plavix so this will have to be held in the tunneled dialysis catheter to be done next week 02/04/2024: Plan for tunneled dialysis catheter this week and then can plan for disposition 02/05/2024: Plan for tunneled dialysis catheter tomorrow Chronic conditions: * CAD; s/p CABG with resent stent placement on week ago - Resume BASA and Plavix plus statin. Troponin 80. * History of severe peripheral vascular disease; status post right AKA and left BKA with chronic immobility and hyper-inflammatory state outlined above * Diabetes mellitus type 2; of unknown control with diabetic neuropathy - Keep NPO for now. FSBS q. 6 hours plus lowest intensity SSI. * Essential hypertension - Continue Metoprolol plus give prn Hydralazine for systolic blood pressure > 160 mm Hg. * Hyperlipidemia - Resume statin. * JAMIE: BiPAP QHS. DVT: Renally dosed Lovenox Allergies/Procedures Done in Hospital Allergies atorvastatin Allergy (Unknown, Verified 03/16/24 23:29) PT UNABLE TO RESPOND-NEEDS F/U [id number] Reductase Inhibitor Allergy (Unknown, Verified 01/27/24 23:29) PT UNABLE TO RESPOND-NEEDS F/U Procedures: Dialysis Type of Care/Length of Stay Estimated LOS: Convalescent Care Less Than 30 days Type of Care Needed: Skilled Rehab Potential: Fair Prognosis: Fair Additional Orders/Day of Discharge Day of Discharge: 02/06/24 Dietary and Speech Recommendations Dietitian Recommendations/Changes: continue CHO controlled, renal, 2000 calorie controlled diet w/ Christiano BID d/t wound Discharge Plan Admission Admit Date/Time: 01/28/24 00:57 Attending Provider: Davey Heredia Primary Care Provider: Laci Power Consulting Providers: Adalid Isidro; Rufino Chacon; Tawanda Rich; Monae Navarrete; Reza Sommer; Reza Fisher Discharge Orders/Prescriptions Prescriptions: New metronidazole 500 mg tablet 500 mg PO TID Qty: 150 0RF cefepime 100 gram recon soln 1 g IV .see below 50 Days Rx Instructions: dx: sacral osteo. Stop date 03/23/24. IV cefepime dosed with dialysis sessions, 1gm on Mon, 2gm on , 1gm on , 2gm on Mon. weekly bmp, cbc, esr, and vanc trough, fax to [phone]. vancomycin in 0.9 % sodium chl 1 gram/200 mL piggyback 1 g IV .see below 50 Days Rx Instructions: dx: sacral osteo. Stop date 03/23/24. IV vancomycin 500mg dosed with dialysis sessions, [id number]. weekly bmp, cbc, esr, and vanc trough, fax to [phone]. Continued albuterol sulfate 90 mcg/actuation HFA aerosol inhaler 2 inh inhalation Q6H PRN (Reason: shortness of breath or wheezing) albuterol sulfate 2.5 mg/0.5 mL solution for nebulization 2.5 mg inhalation Q6H aspirin [Adult Low Dose Aspirin] 81 mg tablet,delayed release (DR/EC) 81 mg PO DAILY insulin glargine [Basaglar KwikPen U-100 Insulin] 100 unit/mL (3 mL) insulin pen 20 unit subcut QPM buspirone 5 mg tablet 5 mg PO DAILY rosuvastatin [Crestor] 20 mg tablet 20 mg PO DAILY gabapentin 600 mg tablet 600 mg PO BID insulin lispro [Humalog KwikPen Insulin] 100 unit/mL insulin pen 15 unit subcut TIDCM insulin lispro protamin-lispro 100 unit/mL (75-25) insulin pen 12 unit subcut DAILY Rx Instructions: IN AFTERNOON ferrous sulfate [iron] 325 mg (65 mg iron) tablet 325 mg PO BID isosorbide mononitrate 60 mg tablet extended release 24 hr 60 mg PO DAILY metoprolol succinate 25 mg tablet extended release 24 hr 25 mg PO DAILY nitroglycerin [Nitrolingual] 0.4 mg sublingual PRN omeprazole 20 mg capsule,delayed release(DR/EC) 20 mg PO DAILY clopidogrel [Plavix] 75 mg tablet 75 mg PO DAILY Procrit 10,000 unit/mL solution 10,000 unit IV DAILY ranolazine 500 mg tablet extended release 12 hr 1,000 mg PO Q12H sevelamer carbonate [Renvela] 800 mg tablet 1,600 mg PO DAILY Rx Instructions: must administer with a meal/food vilazodone 40 mg tablet 40 mg PO DAILY Rx Instructions: must administer with a meal/food cyanocobalamin (vitamin B-12) [Vitamin B-12] 500 mcg tablet 500 mcg PO DAILY cholecalciferol (vitamin D3) 125 mcg (5,000 unit) capsule 5,000 unit PO DAILY Vraylar 3 mg capsule 3 mg PO DAILY Discontinued meropenem 500 mg recon soln 500 mg IV Q24H vancomycin 1,000 mg recon soln 1 g IV DAILY Referrals / Follow Up: Laci Power MD [Primary Care Provider] - Disposition Disposition (needs filled in before D/C Order can be placed): [facility]
[2024-02-06] MEDS: Insulin Lispro 100 UNIT/ML INSULN.PEN SC (11:23)
--- NOTE | 2024-02-06 11:25 | PHA.DC.MR.R ---
Pharmacy [facility] Med Reconciliation Pharmacy Service has performed discharge medication reconciliation for this patient. The patient's discharge medication list was reviewed for discrepancies and discrepancies were resolved. Medications at Discharge Home Medications albuterol sulfate 2.5 mg/0.5 mL solution for nebulization 2.5 mg inhalation Q6H 01/27/24 albuterol sulfate 90 mcg/actuation aerosol inhaler 2 inh inhalation Q6H PRN shortness of breath or wheezing 01/27/24 aspirin 81 mg tablet,delayed release (Adult Low Dose Aspirin) 81 mg PO DAILY 01/27/24 buspirone 5 mg tablet 5 mg PO DAILY 01/27/24 cariprazine 3 mg capsule (Vraylar) 3 mg PO DAILY 01/27/24 cholecalciferol (vitamin D3) 125 mcg (5,000 unit) capsule 5,000 unit PO DAILY 01/27/24 clopidogrel 75 mg tablet (Plavix) 75 mg PO DAILY 01/27/24 cyanocobalamin (vitamin B-12) 500 mcg tablet (Vitamin B-12) 500 mcg PO DAILY 01/27/24 epoetin dee 10,000 unit/mL injection solution (Procrit) 10,000 unit IV DAILY 01/27/24 ferrous sulfate 325 mg (65 mg iron) tablet (iron) 325 mg PO BID 01/27/24 gabapentin 600 mg tablet 600 mg PO BID 01/27/24 insulin glargine 100 unit/mL (3 mL) subcutaneous pen (Basaglar KwikPen U-100 Insulin) 20 unit subcut QPM 01/27/24 insulin lispro 100 unit/mL subcutaneous pen (Humalog KwikPen (U-100) Insulin) 15 unit subcut TIDCM 01/27/24 insulin lispro protamine-lispro 100 unit/mL (75-25) subcutaneous pen 12 unit subcut DAILY 01/27/24 isosorbide mononitrate 60 mg tablet,extended release 24 hr 60 mg PO DAILY 01/27/24 metoprolol succinate 25 mg tablet,extended release 24 hr 25 mg PO DAILY 01/27/24 nitroglycerin 0.4 mg sublingual PRN 01/27/24 omeprazole 20 mg capsule,delayed release 20 mg PO DAILY 01/27/24 ranolazine 500 mg tablet,extended release,12 hr 1,000 mg PO Q12H 03/16/24 rosuvastatin 20 mg tablet (Crestor) 20 mg PO DAILY 01/27/24 sevelamer carbonate 800 mg tablet (Renvela) 1,600 mg PO DAILY 01/27/24 vilazodone 40 mg tablet 40 mg PO DAILY 01/27/24 cefepime 100 gram intravenous solution 1 g IV .see below 50 days 02/02/24 metronidazole 500 mg tablet 500 mg PO TID #150 tabs 02/02/24 vancomycin 1 gram/200 mL in 0.9 % sod. chloride intravenous piggyback 1 g (200 mL) IV .see below 50 days 02/02/24
[2024-02-06 11:54] LABS: Bedside Glucose 220 mg/dL (74-106)
--- NOTE | 2024-02-06 11:58 | CASEMGMT ---
Discharge Planning Discharge orders, signed med list, and transport time sent to [facility] via [facility]. Physicians will transport patient by cot at 1p. Nursing, SW, patient, and his stepson updated. Brielle Crawley, Discharge Planning Asst.
--- NOTE | 2024-02-06 12:23 | NURSING ---
attempted to call report to [facility] and was on hold for 15 min. no one picked up the phone for report.
--- NOTE | 2024-02-06 16:02 | PCM.DC.SUM ---
Providers Date of Admission: 01/28/24 Primary Care Physician: Dr. Laci Power MD Consultations 01/28/24 01:17 Consult: Infectious Disease Routine Consulting Provider: Tawanda Rich Reason for Consult: Bilateral PNA. EMERGENT Consult: No MD Notified: Yes Date Notified: 01/29/24 Time Notified: 07:44 Method of Notification: Answering Service 01/28/24 01:33 Consult: Nephrology Routine Consulting Provider: Monae Navarrete Reason for Consult: ESRD on HD EMERGENT Consult: No MD Notified: Yes Date Notified: 01/28/24 Time Notified: 01:34 Method of Notification: Answering Service 01/28/24 02:50 Consult: Onc/Wound/sack lifter Routine Comment: Reason for Consult:: Sacral decubitus ulcer with osteomyelitis 01/29/24 13:43 Consult: General Surgery Routine Consulting Provider: Rufino Chacon Reason for Consult: dialysis catheter placement EMERGENT Consult: No MD Notified: Yes Date Notified: 01/29/24 Time Notified: 13:43 Method of Notification: Verbal 01/29/24 15:37 Consult: Visual Supervisor / Pulmonary Medicine Routine Consulting Provider: Intensivists/Pulmonary Med Reason for Consult: pleural effusion EMERGENT Consult: No MD Notified: Yes Date Notified: 01/29/24 Time Notified: 15:37 Method of Notification: Verbal 01/30/24 09:17 Consult: Vascular Surgery Routine Consulting Provider: Reza Sommer Reason for Consult: clotted AVF EMERGENT Consult: No MD Notified: Yes Date Notified: 01/30/24 Time Notified: 09:18 Method of Notification: MD notified Reason For Visit: ACUTE HYPOXIC RESPIRATORY FAILURE ON BIPAP DUE TO Diagnosis Discharge Diagnosis (1) ESRD on dialysis: Status: Acute Code(s): N18.6 - End stage renal disease; Z99.2 - Dependence on renal dialysis Medications at Discharge Home Medications albuterol sulfate 2.5 mg/0.5 mL solution for nebulization 2.5 mg inhalation Q6H 01/27/24 albuterol sulfate 90 mcg/actuation aerosol inhaler 2 inh inhalation Q6H PRN shortness of breath or wheezing 01/27/24 aspirin 81 mg tablet,delayed release (Adult Low Dose Aspirin) 81 mg PO DAILY 01/27/24 buspirone 5 mg tablet 5 mg PO DAILY 01/27/24 cariprazine 3 mg capsule (Vraylar) 3 mg PO DAILY 01/27/24 cholecalciferol (vitamin D3) 125 mcg (5,000 unit) capsule 5,000 unit PO DAILY 01/27/24 clopidogrel 75 mg tablet (Plavix) 75 mg PO DAILY 01/27/24 cyanocobalamin (vitamin B-12) 500 mcg tablet (Vitamin B-12) 500 mcg PO DAILY 01/27/24 epoetin dee 10,000 unit/mL injection solution (Procrit) 10,000 unit IV DAILY 01/27/24 ferrous sulfate 325 mg (65 mg iron) tablet (iron) 325 mg PO BID 01/27/24 gabapentin 600 mg tablet 600 mg PO BID 01/27/24 insulin glargine 100 unit/mL (3 mL) subcutaneous pen (Basaglar KwikPen U-100 Insulin) 20 unit subcut QPM 01/27/24 insulin lispro 100 unit/mL subcutaneous pen (Humalog KwikPen (U-100) Insulin) 15 unit subcut TIDCM 01/27/24 insulin lispro protamine-lispro 100 unit/mL (75-25) subcutaneous pen 12 unit subcut DAILY 01/27/24 isosorbide mononitrate 60 mg tablet,extended release 24 hr 60 mg PO DAILY 01/27/24 metoprolol succinate 25 mg tablet,extended release 24 hr 25 mg PO DAILY 01/27/24 nitroglycerin 0.4 mg sublingual PRN 01/27/24 omeprazole 20 mg capsule,delayed release 20 mg PO DAILY 01/27/24 ranolazine 500 mg tablet,extended release,12 hr 1,000 mg PO Q12H 01/27/24 rosuvastatin 20 mg tablet (Crestor) 20 mg PO DAILY 01/27/24 sevelamer carbonate 800 mg tablet (Renvela) 1,600 mg PO DAILY 01/27/24 vilazodone 40 mg tablet 40 mg PO DAILY 01/27/24 cefepime 100 gram intravenous solution 1 g IV .see below 50 days 02/02/24 metronidazole 500 mg tablet 500 mg PO TID #150 tabs 02/02/24 vancomycin 1 gram/200 mL in 0.9 % sod. chloride intravenous piggyback 1 g (200 mL) IV .see below 50 days 02/02/24 Hospital Course Operations None and - ( fistulagram) Procedures Dialysis, Thoracentesis and - (Placement of tunneled right IJ dialysis catheter ) Summary of Care Provided Minutes Spent on Discharge: 38 Hospital Course: Per HPI: RAMANDEEP KEEN, is a 58 M with a past medical history of essential hypertension, hyperlipidemia, overweight; with BMI of 28.8 present as admission, diabetes mellitus type 2; of unknown control, diabetic neuropathy, coronary artery disease; status post CABG and recent stent placement 1 week ago, history of CHF, history of severe peripheral vascular disease; status post right AKA and left BKA, end-stage renal disease on hemodialysis, chronic anemia; likely due to renal disease, recent admission likely to a Hospital in [place] for osteomyelitis of the sacrum with Stage IV decubitus ulcer on IV Merrem and IV Vancomycin followed by infectious disease Dr. Laci Chavez who was then sent to [facility] for less than 1 day who was then sent via EMS to [facility] ER for shortness of breath and altered mental status. Mr. Keen cannot give a complete history at this time as he is in respiratory distress on BiPAP so information was gathered from chart, medical staff and computer. In the ER his CT scan of the chest was positive for multifocal pneumonia with bilateral effusions complicated by clinical evidence of acute hypoxic respiratory failure compounded by metabolic encephalopathy and he was then admitted to the ICU for ongoing care for a stay that is expected to be greater than 48 hours. Hospital Course: Acute hypoxic and hypercapnic respiratory failure. resolved. Since able to be weaned down to room air. suspect due to CHF exacerbation and pleural effusions. CTA showed moderate pleural effusion w bilateral lobe consolidations. Using [facility], pt had CTA chest on 01/20 that showed mild to moderate bilateral effusions. on empiric antibiotics with meropenem and vancomycin 02/03/2024: Continue with Flagyl, cefepime, vancomycin no longer on meropenem 02/06/2024: He obtained a tunneled dialysis catheter today as the wavelength was not functioning appropriately infectious disease wrote prescriptions for his cefepime as well as vancomycin and Flagyl and as he appears to be back to baseline I discussed the case with nephrology who felt that he would be okay for discharge today. He did receive dialysis yesterday and will receive dialysis again on 02/08/2024. I did discuss with the patient the plan for discharge and he felt that he was okay to go to the retirement today. Stage IV sacral decubitus ulcer with OM Has been on vancomycin Through [facility] there was no imaging of pelvic region. Will request records from [facility] (no progress notes in [facility]) wound care. ID consult. Culture +MRSA From outside facility patient was to be on Vanco meropenem with stop date of March 23. 02/03/2024: On vancomycin, cefepime, Flagyl plan for the same stop date as March 23 Metabolic encephalopathy secondary to underlying illness appears to be resolved, I suspect pt at baseline, which is very flat and withdrawn. Leukocytosis elevated, however trending down. Through [facility], his WBCs were 25.8 on 01/25 at [facility] in [place]. monitor Pleural effusion as above, present on CT a [facility] in [place] on 01/20 (unclear if changed or not based on the reports) Fluid studies show 23.9 WBCs. LDH fluid not performed despite being ordered with the original testing. Pulm consult recommended continue current mgmt. Follow up cultures. Technically exudative, but barely. Cannot rule out parapneumonic effusion, but may very well be due to volume. No need for CTS evaluation. Anemia Transfused 4 units. Goal hemoglobin of 8 given CAD. iron low. on ferrous sulfate. Hemoccult negative. TSH WNL on epoetin Once medically stabilized can see GI for endoscopic evaluation. At this time, would defer to an outpatient basis given poor performance status. 02/02/2024: Hemoglobin stable at 8.1 02/04/2024: Anemia stable ESRD on HD There was concern that the fistula was occluded and patient underwent a fistulogram that showed that it was patent. Subsequently it was found out that the patient actually had a a graft called [employer]. The software support representative of that company came in 01/31 and marked on the left upper extremity at the access points for that graft. Temporary dialysis catheter placed 01/28 as it was thought the patient had an occluded graft. If we are able to successfully use the graft, the temporary dialysis catheter can be removed.02/02/2024: It has been determined by nephrology that they need a tunneled dialysis catheter unfortunately has been on Plavix so this will have to be held in the tunneled dialysis catheter to be done next week 02/04/2024: Plan for tunneled dialysis catheter this week and then can plan for disposition 02/05/2024: Plan for tunneled dialysis catheter tomorrow 02/06/2024: Tunneled dialysis catheter was placed this morning successfully Chronic conditions: CAD; s/p CABG with resent stent placement on week ago - Resume BASA and Plavix plus statin. Troponin 80. History of severe peripheral vascular disease; status post right AKA and left BKA with chronic immobility and hyper-inflammatory state outlined above Diabetes mellitus type 2; of unknown control with diabetic neuropathy - Keep NPO for now. FSBS q. 6 hours plus lowest intensity SSI. Essential hypertension - Continue Metoprolol plus give prn Hydralazine for systolic blood pressure > 160 mm Hg. Hyperlipidemia - Resume statin. JAMIE: BiPAP QHS. 02/06/2024: His home medications were continued where appropriate Physical Exam Narrative General: Alert, cooperative, No apparent distress HEENT: Atraumatic, PERRLA, EOMI, Normocephalic Oral: Moist Mucosa Neck: Supple, No JVD, right IJ tunneled catheter Lungs: Diminished, Normal air movement, No rhonchi, No wheeze, No rales Cardiovascular: Regular rate, Regular Rhythm, Normal S1, Normal S2, No murmurs, temporary dialysis catheter in right neck Abdomen: Soft, Non Tender, Non-Distended, No Hepato-splenomegaly, ostomy Extremities: No edema, Capillary Refill Less than 3 Seconds, AKA on his right lower extremity and a BKA on his left lower extremity Skin: No rashes, No breakdown Musculoskeletal: No Tenderness to Palpation of Joints or Extremities Neurological: No focal neurological deficits, Motor Exam 5/5 strength throughout, Sensory exam intact to light touch and pain Psych/Mental Status: Flat Weight / BMI Weight Weight: 229 lb 11.54 oz Body Mass Index (BMI) 32.9 ABG / Lab / Microbiology Data 02/05/24 06:07 02/06/24 05:35 Laboratory: Laboratory Results - last 24 hr 02/05/24 06:07: Diff Path Review Reviewed 02/05/24 15:53: POC Glucose 214 H 02/05/24 22:19: POC Glucose 213 H 02/06/24 05:35: Sodium 135 L, Potassium 4.5, Chloride 104, Carbon Dioxide 23.0, Anion Gap 8, BUN 101 H*, Creatinine 7.32 H, Estim Creat Clear Calc 13.14, Est GFR (MDRD) Af Amer 10 L, Est GFR (MDRD) Non-Af 8 L, BUN/Creatinine Ratio 13.8, Glucose 187 H, Calcium 8.5 02/06/24 05:46: POC Glucose 169 H 02/06/24 11:22: POC Glucose 220 H Microbiology: Microbiology 01/29/24 Unknown Fluid - Thoracentesis Fluid Gram Stain - Final 01/29/24 Unknown Fluid - Thoracentesis Fluid Body Fluid Culture - Final Culture exhibits no growth. 01/29/24 Unknown Fluid - Thoracentesis Fluid Anaerobic Culture - Final No anaerobic bacteria isolated. 01/27/24 22:29 Blood Culture (Wb) - Anticubital Right Blood Culture - Final No growth in 5 days. 01/27/24 22:29 Blood Culture (Wb) - Right Forearm Blood Culture - Final No growth in 5 days. 01/31/24 11:30 Stool Stool Occult Blood (NANCY) - Final 01/27/24 22:55 Urine Catheter - Catheter Urine Culture - Final Culture exhibits no growth. 01/28/24 02:55 Wound - Sacral Skin and Soft Tissue MRSA/MSSA (PCR - Final Meth. resistant Staph. aureus Staphylococcus aureus 01/27/24 22:29 Mucosa - Nasopharyngeal SARS-CoV-2, Influenza & RSV (PCR) - Final Radiography Diagnostic Testing: Radiology Impression Chest X-Ray 02/06/24 08:11 IMPRESSION: The tip of the right-sided double catheter is at the junction of the superior vena cava and right atrium. Mild bibasilar atelectasis. Electronically Signed: Maximus Esqueda MD at 8:39 EDT , Meaningful Use Info Meaningful Use Diagnoses (Choose all that apply): None applicable Discharge Plan Admission Admit Date/Time: 01/28/24 00:57 Attending Provider: Davey Heredia Primary Care Provider: Laci Power Consulting Providers: Adalid Isidro; Rufino Chacon; Tawanda Rich; Monae Navarrete; Reza Sommer; Reza Fisher Discharge Orders/Prescriptions Prescriptions: New metronidazole 500 mg tablet 500 mg PO TID Qty: 150 0RF cefepime 100 gram recon soln 1 g IV .see below 50 Days Rx Instructions: dx: sacral osteo. Stop date 03/23/24. IV cefepime dosed with dialysis sessions, 1gm on Mon, 2gm on , 1gm on , 2gm on Mon. weekly bmp, cbc, esr, and vanc trough, fax to [phone]. vancomycin in 0.9 % sodium chl 1 gram/200 mL piggyback 1 g IV .see below 50 Days Rx Instructions: dx: sacral osteo. Stop date 03/23/24. IV vancomycin 500mg dosed with dialysis sessions, [id number]. weekly bmp, cbc, esr, and vanc trough, fax to [phone]. Continued albuterol sulfate 90 mcg/actuation HFA aerosol inhaler 2 inh inhalation Q6H PRN (Reason: shortness of breath or wheezing) albuterol sulfate 2.5 mg/0.5 mL solution for nebulization 2.5 mg inhalation Q6H aspirin [Adult Low Dose Aspirin] 81 mg tablet,delayed release (DR/EC) 81 mg PO DAILY insulin glargine [Basaglar KwikPen U-100 Insulin] 100 unit/mL (3 mL) insulin pen 20 unit subcut QPM buspirone 5 mg tablet 5 mg PO DAILY rosuvastatin [Crestor] 20 mg tablet 20 mg PO DAILY gabapentin 600 mg tablet 600 mg PO BID insulin lispro [Humalog KwikPen Insulin] 100 unit/mL insulin pen 15 unit subcut TIDCM insulin lispro protamin-lispro 100 unit/mL (75-25) insulin pen 12 unit subcut DAILY Rx Instructions: IN AFTERNOON ferrous sulfate [iron] 325 mg (65 mg iron) tablet 325 mg PO BID isosorbide mononitrate 60 mg tablet extended release 24 hr 60 mg PO DAILY metoprolol succinate 25 mg tablet extended release 24 hr 25 mg PO DAILY nitroglycerin [Nitrolingual] 0.4 mg sublingual PRN omeprazole 20 mg capsule,delayed release(DR/EC) 20 mg PO DAILY clopidogrel [Plavix] 75 mg tablet 75 mg PO DAILY Procrit 10,000 unit/mL solution 10,000 unit IV DAILY ranolazine 500 mg tablet extended release 12 hr 1,000 mg PO Q12H sevelamer carbonate [Renvela] 800 mg tablet 1,600 mg PO DAILY Rx Instructions: must administer with a meal/food vilazodone 40 mg tablet 40 mg PO DAILY Rx Instructions: must administer with a meal/food cyanocobalamin (vitamin B-12) [Vitamin B-12] 500 mcg tablet 500 mcg PO DAILY cholecalciferol (vitamin D3) 125 mcg (5,000 unit) capsule 5,000 unit PO DAILY Vraylar 3 mg capsule 3 mg PO DAILY Discontinued meropenem 500 mg recon soln 500 mg IV Q24H vancomycin 1,000 mg recon soln 1 g IV DAILY Referrals / Follow Up: Laci Power MD [Primary Care Provider] - Disposition Disposition (needs filled in before D/C Order can be placed): Shelter Facility Charges/Coding Visit Charges Inpatient E&M: 69361 Disch Hosp >30min
--- NOTE | 2024-02-06 18:14 | PN.RENAL_ITS ---
Subjective Subjective No new events Objective Data Objective Data Vital Signs: Vital Signs Temp Pulse Resp BP Pulse Ox O2 Del Method O2 Flow Rate 98.6 F 91 16 99/48 L 96 Nasal Cannula 2 02/06/24 11:34 02/06/24 11:34 02/06/24 11:34 02/06/24 11:34 02/06/24 11:34 02/06/24 11:34 02/06/24 11:34 FiO2 30 02/03/24 07:47 Oxygen Flow Rate (L/min) 2 Oxygen Delivery Method Nasal Cannula Weight: 104.2 kg Body Mass Index (BMI) 32.9 Intake & Output: Intake and Output for Last 24 Hours 02/04/24 02/05/24 02/06/24 23:59 23:59 23:59 Intake Total 1290 / 1290 125 / 125 451.75 / 451.75 Output Total 150 / 150 2550 / 2570 70 / 70 Balance 1140 / 1140 -2425 / -2445 381.75 / 381.75 Lab / Micro Data 02/05/24 06:07 02/06/24 05:35 Labs: Laboratory Results - last 24 hr 02/05/24 06:07: Diff Path Review Reviewed 02/05/24 22:19: POC Glucose 213 H 02/06/24 05:35: Sodium 135 L, Potassium 4.5, Chloride 104, Carbon Dioxide 23.0, Anion Gap 8, BUN 101 H*, Creatinine 7.32 H, Estim Creat Clear Calc 13.14, Est GFR (MDRD) Af Amer 10 L, Est GFR (MDRD) Non-Af 8 L, BUN/Creatinine Ratio 13.8, Glucose 187 H, Calcium 8.5 02/06/24 05:46: POC Glucose 169 H 02/06/24 11:22: POC Glucose 220 H Micro: Microbiology 01/29/24 Unknown Fluid - Thoracentesis Fluid Gram Stain - Final 01/29/24 Unknown Fluid - Thoracentesis Fluid Body Fluid Culture - Final Culture exhibits no growth. 01/29/24 Unknown Fluid - Thoracentesis Fluid Anaerobic Culture - Final No anaerobic bacteria isolated. 01/27/24 22:29 Blood Culture (Wb) - Anticubital Right Blood Culture - Final No growth in 5 days. 01/27/24 22:29 Blood Culture (Wb) - Right Forearm Blood Culture - Final No growth in 5 days. 01/31/24 11:30 Stool Stool Occult Blood (NANCY) - Final 01/27/24 22:55 Urine Catheter - Catheter Urine Culture - Final Culture exhibits no growth. 01/28/24 02:55 Wound - Sacral Skin and Soft Tissue MRSA/MSSA (PCR - Final Meth. resistant Staph. aureus Staphylococcus aureus 01/27/24 22:29 Mucosa - Nasopharyngeal SARS-CoV-2, Influenza & RSV (PCR) - Final Radiography Diagnostic Testing: Radiology Impression Chest X-Ray 02/06/24 08:11 IMPRESSION: The tip of the right-sided double catheter is at the junction of the superior vena cava and right atrium. Mild bibasilar atelectasis. Electronically Signed: Maximus Esqueda MD at 8:39 EDT , Physical Exam Narrative Alert to name, no apparent distress S1, S2, RRR Lung sounds clear anteriorly. No wheezes, rhonchi or rales noted. Abdomen soft, nontender. Colostomy bag intact Left BKA, right AKA. No edema noted to bilateral thighs Non-tunneled temporary HD catheter right IJ Left arm AV fistula +thrill/bruit Assessment & Plan Assessment/Plan (1) ESRD on dialysis: (2) Hyperkalemia: (3) Metabolic encephalopathy: (4) Multifocal pneumonia: (5) Osteomyelitis of sacrum: PLAN: Plan ESRD on hemodialysis. He is originally from [facility] in [place], was recently discharged to a care home in this area. We will continue hemodialysis on Monday, Monday, Monday. Access. He has a left arm brachiocephalic AV fistula. According to the discharge paperwork from hospital, he had a tunneled dialysis catheter which was removed first week of January when his fistula was deemed to be functional. He had been getting dialysis through the fistula. There were multiple clots when we tried to access AVF Monday, therefore non-tunneled temporary HD catheter was placed. Vascular surgery performed fistulogram 01/30 which did not show any stenosis or thrombus. This morning attempted cannulation of AV fistula where markings were placed yesterday by [employer] rep; had difficult time with cannulation but finally able to have 2 needles placed. Patient had been dialyzing about an hour, moved his arm with dislodgment of the arterial needle. Patient able to finish dialysis with 1 needle in fistula and one line to temporary HD catheter. Discussed with surgery team given fragility of AV access, difficulty with cannulating recommend for tunneled catheter placement. Discussed with hospitalist. Tunneled dialysis catheter placement today. Okay to discharge to care home. Had poor blood flows with a temporary dialysis catheter. BUN should improve with improved blood flows with tunneled dialysis catheter. Anemia. Hemoglobin 8.1. Iron saturations are adequate. Received erythropoietin with each hemodialysis tx Possible discharge to care home
== END 2024-02-06 13:23 | disposition skilled nursing facility (03) | DRG 291 ==
LOC: ED 01-28 00:17 → ICU 01-28 01:09 → PCU 02-01 22:15
PROVIDERS: Anesthesiology; Internal Medicine Infectious Disease; Surgery; Admitting Provider Internal Medicine; Emergency Provider Emergency Medicine; PCP Family Medicine; Visit Provider Family Medicine
DX: I13.2 Hypertensive heart and chronic kidney disease with heart failure and with stage 5 chronic kidney disease, or end stage renal disease (principal); G93.41 Metabolic encephalopathy; J96.01 Acute respiratory failure with hypoxia; L89.154 Pressure ulcer of sacral region, stage 4; N18.6 End stage renal disease; J96.02 Acute respiratory failure with hypercapnia; J90 Pleural effusion, not elsewhere classified; M46.28 Osteomyelitis of vertebra, sacral and sacrococcygeal region; D63.8 Anemia in other chronic diseases classified elsewhere; E11.22 Type 2 diabetes mellitus with diabetic chronic kidney disease; F31.9 Bipolar disorder, unspecified; I50.9 Heart failure, unspecified; E11.40 Type 2 diabetes mellitus with diabetic neuropathy, unspecified; Z79.4 Long term (current) use of insulin; E11.51 Type 2 diabetes mellitus with diabetic peripheral angiopathy without gangrene; Z93.3 Colostomy status; Z99.2 Dependence on renal dialysis; E78.5 Hyperlipidemia, unspecified; I25.10 Atherosclerotic heart disease of native coronary artery without angina pectoris; E87.5 Hyperkalemia; G47.33 Obstructive sleep apnea (adult) (pediatric); Z87.891 Personal history of nicotine dependence; Z79.02 Long term (current) use of antithrombotics/antiplatelets; E66.3 Overweight; B95.62 Methicillin resistant Staphylococcus aureus infection as the cause of diseases classified elsewhere; Z68.27 Body mass index [BMI] 27.0-27.9, adult; Z95.1 Presence of aortocoronary bypass graft
CPT/HCPCS: 32555; 36415; 36600; 36901; 51702; 71045; 71046; 71275; 76000; 76937; 80048; 80053; 80202; 81001; 82274; 82607; 82728; 82803; 82962; 83036; 83540; 83550; 83605; 83615; 83735; 83880; 84100; 84156; 84157; 84443; 84484; 85025; 85379; 85610; 85730; 86644; 86850; 86900; 86901; 86920; 86922; 87040; 87070; 87075; 87086; 87205; 87631; 87640; 88108; 88305; 88313; 89050; 90937; 92526; 92610; 92612; 93005; 93970; 93990; 94002; 94003; 94640; 94762; 97802; 97803; 99152; 99153; 99285; C1894; J2185; J7030; J7040; J7050; P9016; P9040; Q9967; A4216; C1750; C1752; G0257; J1940; J2405; J2597; Q5106

== ENCOUNTER → 2024-02-07 | Outpatient (REF) | payer MEDICARE, MEDICAID, SELFPAY ==
[2024-02-07 06:43] LABS: Hematocrit 27.3 % (40-54); Hemoglobin 8.3 g/dL (13.0-16.5); Mean Corp Hgb Conc 30.4 g/dL (32-36); Mean Corpuscular Hgb 32.2 pg (27.0-32.0); Mean Corpuscular Volume 105.8 fL (80-94); Mean Platelet Vol. 9.8 fl (6.2-12.0); POSITIVE MORPHOLOGY YES; Platelet Count 290 K/mm3 (150-450); RBC Distribution Width CV 18.8 % (11.6-14.6); RBC Distribution Width SD 68.4 fl (35.1-43.9); Red Blood Count 2.58 M/mm3 (4.6-6.2); White Blood Count 12.1 K/mm3 (4.4-11.0)
[2024-02-07 07:02] LABS: Scan Indicated on CBC? Y/N YES- FLAGS NOTED
[2024-02-07 07:19] LABS: ALB/GLOB Ratio 0.2 RATIO (0.9-2.4); AST(SGOT) 14 U/L (15-37); Alanine Aminotransfer ALT/SGPT 7 U/L (16-61); Albumin, Serum 1.6 g/dL (3.2-5.0); Alkaline Phosphatase 87 U/L (45-117); Anion Gap 9 (5-15); BUN 110 mg/dL (7-18); Chloride 106 mmol/L (98-107); Creatinine, Serum 8.43 mg/dL (0.70-1.30); EST Glomerular Filtration Rate 7 mL/min (>60); Est Glom Filt Rate - Afr Amer 8 mL/min (>60); Globulin 6.5 g/dL (2.2-4.2); Glucose 86 mg/dL (74-106); Potassium 4.9 mmol/L (3.5-5.1); Protein, Total 8.1 g/dL (6.4-8.2); Sodium Level 137 mmol/L (136-145)
== END ==
LOC: OLS.SW 04:00
PROVIDERS: PCP Family Medicine; Referring Provider Family Medicine; Visit Provider Family Medicine
DX: J96.11 Chronic respiratory failure with hypoxia (principal); N18.6 End stage renal disease
CPT/HCPCS: 36415; 80053; 85027

== ENCOUNTER 2024-02-08 02:15 | Inpatient (IN) | payer MEDICARE, MEDICAID, SELFPAY ==
[2024-02-08] VITALS (31 sets, daily range): BP systolic 83–200; BP diastolic 36–63; PULSE 87–101; RESP 18–28; TEMP 36.3–37.1; O2SAT 91–98; BMI 29.0; BMI 28.0
--- NOTE | 2024-02-08 02:21 | EKG12_ITS ---
Test Reason : DYSRHYTHMIA Blood Pressure : / mmHG Vent. Rate : 098 BPM Atrial Rate : 098 BPM P-R Int : 136 ms QRS Dur : 138 ms QT Int : 366 ms P-R-T Axes : 014 -08 130 degrees QTc Int : 467 ms Normal sinus rhythm Non-specific intra-ventricular conduction block T wave abnormality, consider lateral ischemia Abnormal ECG Confirmed by TRUDI YIN, BLANCA ([id number]), commissioning editor LAURA PERES ([id number]) on 02/08/2024 9:20:55 AM Referred By: Confirmed By:BLANCA BRUSH MD
--- NOTE | 2024-02-08 02:21 | RAD_ITS ---
INDICATION: Respiratory Failure EXAMINATION/TECHNIQUE: X-RAY - XR Chest 1 View AP portable. 2:37 AM COMPARISON: 02/06/2024 FINDINGS: LINES/DEVICES: Central venous catheter unchanged position. LUNGS: Increased opacity throughout the left hemithorax with near-complete opacification, increased compared to prior. Hazy opacity in the right mid lung base and small right pleural effusion not significantly changed. No pneumothorax. MEDIASTINUM: Unremarkable. CARDIAC SILHOUETTE: Not enlarged. Sternal wires. BONES AND SOFT TISSUES: No acute abnormalities. RAD/Chest 1 View (Portable) IMPRESSION: Significantly increased opacity on the left likely combination of pleural effusion, atelectasis and or consolidation. Little change in the right pleural effusion and basilar airspace disease. Electronically Signed: Bambi Andrade MD at 3:20 EDT ,
--- NOTE | 2024-02-08 02:23 | ED.VIS.DYS ---
HPI History of Present Illness Chief Complaint: Shortness of Breath Narrative Narrative: History and physical is limited secondary to patient condition, currently on a nonrebreather mask. This is a 58-year-old male who presents from the long-term facility with hypoxia and respiratory distress. They also state that he is a little more lethargic. He has past medical history of sacral decubitus ulcer, end-stage renal disease on dialysis, osteomyelitis of the sacrum, and bilateral pleural effusions. Of note, he was seen in the emergency department by myself approximately 10 days ago and admitted as he was in respiratory failure at that time as well. He was on BiPAP but more alert. He recently had an approximately 10-day stay in hospital and was released on the . Within the last 48 hours, this being the morning of the . 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 Bipolar affective disorder CAD (coronary artery disease) Cervical stenosis of spine CHF (congestive heart failure) Chronic kidney disease Colostomy in place Depression Diabetes Dialysis patient GERD (gastroesophageal reflux disease) Hyperlipemia Hypertension Myocardial infarction Neuropathy Osteoarthritis Home Medications albuterol sulfate 2.5 mg/0.5 mL solution for nebulization 2.5 mg inhalation Q6H 01/27/24 [History Last Taken Unknown] albuterol sulfate 90 mcg/actuation aerosol inhaler 2 inh inhalation Q6H PRN shortness of breath or wheezing 01/27/24 [History Last Taken Unknown] aspirin 81 mg tablet,delayed release (Adult Low Dose Aspirin) 81 mg PO DAILY 01/27/24 [History Last Taken Unknown] buspirone 5 mg tablet 5 mg PO DAILY 01/27/24 [History Last Taken Unknown] cariprazine 3 mg capsule (Vraylar) 3 mg PO DAILY 01/27/24 [History Last Taken Unknown] cholecalciferol (vitamin D3) 125 mcg (5,000 unit) capsule 5,000 unit PO DAILY 01/27/24 [History Last Taken Unknown] clopidogrel 75 mg tablet (Plavix) 75 mg PO DAILY 01/27/24 [History Last Taken Unknown] cyanocobalamin (vitamin B-12) 500 mcg tablet (Vitamin B-12) 500 mcg PO DAILY 01/27/24 [History Last Taken Unknown] epoetin dee 10,000 unit/mL injection solution (Procrit) 10,000 unit IV DAILY 01/27/24 [History Last Taken Unknown] ferrous sulfate 325 mg (65 mg iron) tablet (iron) 325 mg PO BID 01/27/24 [History Last Taken Unknown] gabapentin 600 mg tablet 600 mg PO BID 01/27/24 [History Last Taken Unknown] insulin glargine 100 unit/mL (3 mL) subcutaneous pen (Basaglar KwikPen U-100 Insulin) 20 unit subcut QPM 01/27/24 [History Last Taken Unknown] insulin lispro 100 unit/mL subcutaneous pen (Humalog KwikPen (U-100) Insulin) 10 unit subcut .COMPLEX 01/27/24 [History Last Taken Unknown] insulin lispro protamine-lispro 100 unit/mL (75-25) subcutaneous pen 12 unit subcut .daily hs 01/27/24 [History Last Taken Unknown] isosorbide mononitrate 60 mg tablet,extended release 24 hr 60 mg PO DAILY 01/27/24 [History Last Taken Unknown] metoprolol succinate 25 mg tablet,extended release 24 hr 25 mg PO DAILY 01/27/24 [History Last Taken Unknown] nitroglycerin 0.4 mg sublingual PRN 01/27/24 [History Last Taken Unknown] omeprazole 20 mg capsule,delayed release 20 mg PO DAILY 01/27/24 [History Last Taken Unknown] ranolazine 500 mg tablet,extended release,12 hr 1,000 mg PO Q12H 01/27/24 [History Last Taken Unknown] rosuvastatin 20 mg tablet (Crestor) 20 mg PO DAILY 01/27/24 [History Last Taken Unknown] sevelamer carbonate 800 mg tablet (Renvela) 1,600 mg PO DAILY 01/27/24 [History Last Taken Unknown] vilazodone 40 mg tablet 40 mg PO DAILY 01/27/24 [History Last Taken Unknown] cefepime 100 gram intravenous solution 1 g IV .see below 50 days 02/02/24 [Rx Last Taken Unknown] metronidazole 500 mg tablet 500 mg PO TID #150 tabs 02/02/24 [Rx Last Taken Unknown] vancomycin 1 gram/200 mL in 0.9 % sod. chloride intravenous piggyback 1 g (200 mL) IV .see below 50 days 02/02/24 [Rx Last Taken Unknown] acetaminophen 325 mg capsule 650 mg PO Q4H pain or fever 02/08/24 [History Last Taken Unknown] acetaminophen 650 mg rectal suppository 650 mg WA Q4H fever 02/08/24 [History Last Taken Unknown] bisacodyl 10 mg rectal suppository 10 mg [place] DAILY PRN constipation 02/08/24 [History Last Taken Unknown] cariprazine 3 mg capsule (Vraylar) 3 mg PO DAILY 02/08/24 [History Last Taken Unknown] magnesium hydroxide 400 mg/5 mL oral suspension (Milk of Magnesia) 30 ml PO DAILY PRN constipation 02/08/24 [History Last Taken Unknown] Allergy/AdvReac Type Severity Reaction Status Date / Time atorvastatin Allergy Unknown PT UNABLE Verified 02/08/24 02:21 TO RESPOND-NEEDS F/U [id number] Reductase Allergy Unknown PT UNABLE Verified 02/08/24 02:21 Inhibitor TO RESPOND-NEEDS F/U Surgical History Hx of appendectomy Hx of CABG Social History Smoking Status: Former smoker ROS ROS ED Review of Systems ROS Unobtainable: due to encephalopathy EXAM Physical Exam Narrative Exam Narrative: Afebrile. Vital signs noted. HEENT: Normocephalic. Atraumatic. PERRL, EOMI. Neck soft and supple. No point tenderness or step off. Cardiovascular: Regular rate and rhythm with intermittent tachycardia. No murmurs, rubs, or gallops appreciated. Respiratory: Positive tachypnea. Decreased breath sounds bilateral bases. Gastrointestinal: Abdomen soft, nontender, with normoactive bowel sounds. No rebound or guarding. Neurological: Awake. Alert. Nonfocal, nonlateralizing. Skin: No rash. Normal color. No pallor. Musculoskeletal: No pedal edema. Bilateral lower extremity amputations. Psychiatric: Flat affect. Withdrawn. Const Vital Signs: 02/08/24 02:16 02/08/24 02:22 02/08/24 02:23 Temperature 98.5 F Temperature Source Temporal Pulse Rate 100 Respiratory Rate 28 H Respiratory Effort Short of Breath Respiratory Depth Respiratory Pattern Tachypnea Blood Pressure Blood Pressure Mean Pulse Ox 91 94 Oxygen Delivery Method Non-Rebreather Non-Rebreather Oxygen Flow Rate (L/min) 12 02/08/24 02:25 02/08/24 02:15 02/08/24 02:21 Temperature 98.5 F Temperature Source Temporal Pulse Rate 101 H 101 H Respiratory Rate 20 H 24 H Respiratory Effort Short of Breath Respiratory Depth Shallow Respiratory Pattern Tachypnea Blood Pressure 120/62 120/62 Blood Pressure Mean 81 81 Pulse Ox 95 94 Oxygen Delivery Method Non-Rebreather Non-Rebreather Non-Rebreather Oxygen Flow Rate (L/min) 12 12 12 02/08/24 04:02 02/08/24 04:04 Temperature 98.0 F 98.6 F Temperature Source Temporal Pulse Rate 97 97 Respiratory Rate 22 H 23 H Respiratory Effort Respiratory Depth Respiratory Pattern Blood Pressure 136/63 H 136/63 H Blood Pressure Mean 87 87 Pulse Ox 94 94 Oxygen Delivery Method Nasal Cannula Oxygen Flow Rate (L/min) 12 MDM MDM MDM Narrative Medical decision making narrative: I reviewed the patient's prior ED visit and inpatient hospital visit. His antibiotics were changed. His respiratory failure with hypoxia and hypercapnia had resolved on BiPAP. Currently he is on a nonrebreather. He had already received albuterol aerosols from the long-term facility. My concern is for hypercapnia again given his mild lethargy and being withdrawn. He is afebrile here. I have low concern for sepsis. He may have a metabolic encephalopathy as he has had this in the past as well. It is unknown when he had his last dialysis. ABG was obtained to see if he is hypercapnic or hypoxic. On his nonrebreather mask, he has a pH of 7.273, but pCO2 is normal at 44.3 and pO2 of 86. He may have more of a metabolic encephalopathy. Chest x-ray 1 view was obtained and interpreted by myself and he has worsening left pleural effusion. I reviewed the radiology report which confirms my independent interpretation and comments on worsening pleural effusion, atelectasis, or consolidation, or combination of all 3. I reviewed his BMP which shows potassium elevated at 5.5, but on his EKG interpreted by myself, demonstrates normal sinus rhythm at 98 bpm without ectopy or acute ST changes. No peaked T waves. I do not feel calcium chloride is indicated. Glucose is elevated at 158 with a normal anion gap of 10 so I have no concern for diabetic ketoacidosis. His BUN is elevated at 118 with a creatinine of 9.44 consistent with his end-stage renal disease. High-sensitivity troponin is 32. There was a delay in his CBC, but it does show leukocytosis of 16.2 with hemoglobin stable at 8.9, improved over previous in comparison. Platelet count normal at 301. At this point in time, given his larger pleural effusion and his acute on chronic respiratory failure, I do feel that he requires admission. He has been weaned down to nasal cannula oxygen. Patient was discussed with Dr. Isidro for admission. Patient is in stable condition. History & Record Review Additional record(s) reviewed:: Prior inpatient record, Prior ED visit and Prior labs Lab Data Attestation: I reviewed the patient's lab results. Labs: Laboratory Results - last 24 hr 02/08/24 02:25 WBC 16.2 H RBC 2.82 L Hgb 8.9 L Hct 29.7 L MCV 105.3 H MCH 31.6 MCHC 30.0 L RDW Std Deviation 69.2 H RDW Coeff of Reynold 19.1 H Plt Count 301 MPV 9.8 Immature Gran % (Auto) 1.800 H Neut % (Auto) 78.7 H Lymph % (Auto) 12.2 L [place] % (Auto) 6.5 Eos % (Auto) 0.4 Baso % (Auto) 0.4 Absolute Neuts (auto) 12.7 H Absolute Lymphs (auto) 1.97 Nucleated RBC % 0 Sodium 137 Potassium 5.5 H Chloride 106 Carbon Dioxide 21.0 Anion Gap 10 BUN 118 H* Creatinine 9.44 H* Estim Creat Clear Calc 9.60 Est GFR (MDRD) Af Amer 7 L Est GFR (MDRD) Non-Af 6 L BUN/Creatinine Ratio 12.5 Glucose 158 H Calcium 8.5 Troponin I High Sens 32 ABG Data ABG results: ABG 02/08/24 02:38 Specimen Type ART Sample Site R Radial pH 7.27 L Bicarbonate Actual 20.5 L Total CO2 22 Base Excess -6 L O2 Saturation 95 O2 % 12.0 ABG pCO2 44.3 ABG pO2 86 Mik Test Positive O2 Delivery Device NRB Vent Mode Not entered Radiography Diagnostic Testing: Clinical Impression(s) from Imaging Studies Chest X-Ray 02/08/24 02:21 IMPRESSION: Significantly increased opacity on the left likely combination of pleural effusion, atelectasis and or consolidation. Little change in the right pleural effusion and basilar airspace disease. Electronically Signed: Bambi Andrade MD at 3:20 EDT , Discharge Plan Dx/Rx/DC Orders Clinical Impression: Large pleural effusion, Acute on chronic respiratory failure, ESRD on dialysis Disposition Disposition: Acute [facility]
[2024-02-08 02:34] LABS: Absolute Lymphocyte Count 1.97 X10^3/uL (0.83-4.51); Absolute Neutrophil Count 12.7 X10^3/uL (2.0-7.7); Basophil# 0.07 X10^3/uL; Basophil% 0.4 % (0-1); Eosinophil# 0.06 X10^3/uL; Eosinophils% 0.4 % (0-5); Hematocrit 29.7 % (40-54); Hemoglobin 8.9 g/dL (13.0-16.5); Lymphocyte # 1.97 X10^3/ul (0.83-4.51); Lymphocyte % 12.2 % (19-41); Mean Corpuscular Hgb 31.6 pg (27.0-32.0); Mean Corpuscular Volume 105.3 fL (80-94); Mean Platelet Vol. 9.8 fl (6.2-12.0); Monocyte# 1.05 X10^3/uL; Monocyte% 6.5 % (0-10); NRBC Flagged by Analyzer 0 % (0-5); Neutrophil # 12.73 X10^3/uL (2.7-7.7); Neutrophil % 78.7 % (47-70); POSITIVE MORPHOLOGY YES; Platelet Count 301 K/mm3 (150-450); RBC Distribution Width CV 19.1 % (11.6-14.6); RBC Distribution Width SD 69.2 fl (35.1-43.9); Red Blood Count 2.82 M/mm3 (4.6-6.2); White Blood Count 16.2 K/mm3 (4.4-11.0)
[2024-02-08 02:43] LABS: Allen Test Positive; Base Excess -6 mmol/L (-2 to +2); Bicarbonate 20.5 mmol/L (22-26); Blood Gas Specimen Type ART; Mode Not entered; O2 Delivery Device NRB; PO2 86 mmHG (75-100); SITE R Radial; SO2 95 % (95-99); Total Carbon Dioxide 22 mmol/L; pCO2 44.3 mmHg (35-45); pH 7.27 (7.35-7.45)
[2024-02-08 02:56] LABS: Anion Gap 10 (5-15); BUN 118 mg/dL (7-18); BUN/Creat Ratio 12.5 RATIO (10-20); Calcium,Total 8.5 mg/dL (8.5-10.1); Chloride 106 mmol/L (98-107); Creatinine, Serum 9.44 mg/dL (0.70-1.30); EST Glomerular Filtration Rate 6 mL/min (>60); Est Glom Filt Rate - Afr Amer 7 mL/min (>60); Glucose 158 mg/dL (74-106); Potassium 5.5 mmol/L (3.5-5.1); Sodium Level 137 mmol/L (136-145); Troponin-I HS 32 pg/mL (3.0-78.0)
[2024-02-08 03:59] LABS: Differential Indicated SCAN CRITERIA MET
--- NOTE | 2024-02-08 04:06 | PCM.HP.STD ---
[facility] - General General Date of Admission: 02/08/24 Date of Service: 02/08/24 Chief Complaint: SOB and AMS. HPI Narrative RAMANDEEP KEEN, is a 58 M with a past medical history of essential hypertension, hyperlipidemia; with intolerance to statins, overweight; with BMI of 29 present on admission, diabetes mellitus type 2; of unknown control, diabetic neuropathy, coronary artery disease; status post CABG and recent stent placement ~2 weeks ago, history of CHF, history of severe peripheral vascular disease; status post right AKA and left BKA, end-stage renal disease on hemodialysis (M-W-F), chronic anemia; likely due to renal disease, recent admission likely to a Hospital in [place] for osteomyelitis of the sacrum with Stage IV decubitus ulcer on IV Merrem and IV Vancomycin followed by infectious disease DrIsrael Chavez, recent admission here from January 28, 2024 to February 06, 2024 SOB with AMS due to Multifocal Pneumonia with bilateral effusions complicated by Acute Hypoxic Respiratory Failure and Metabolic Encephalopathy who re-presents to [facility] ER with the staff at his ECF noting he was complaining of SOB and AMS. Mr. Keen is not a fully-reliable historian so information was gathered from chart medical staff and computer. According to the records staff at his ECF noted patient to be hypoxic with respiratory distress and they also indicated that he was a little more lethargic than normal. His antibiotics were de-escalated from IV Merrem and IV vancomycin to IV cefepime, PO Flagyl and IV vancomycin prior to his previous discharge. This patient has a history of refusing HD and we cannot confirm that he underwent HD yesterday. In the ER he was noted to have an enlarging Left Pleural Effusion consistent with suspected with AE CHF plus continued Right-sided infiltrate unchanged from previous consistent with Nosocomial Pneumonia compounded by laboratory evidence of Hyperkalemia of 5.5 mmol/L present on admission with clinical evidence of Acute Respiratory Insufficiency and Metabolic Encephalopathy likely due to missed HD and he was then admitted to the PCU for ongoing care for a stay that is expected to be greater than 48 hours. [facility] Medical History AAA (abdominal aortic aneurysm) Above knee amputation of right lower extremity Below-knee amputation of left lower extremity Bipolar affective disorder CAD (coronary artery disease) Cervical stenosis of spine CHF (congestive heart failure) Chronic kidney disease Colostomy in place Depression Diabetes Dialysis patient GERD (gastroesophageal reflux disease) Hyperlipemia Hypertension Myocardial infarction Neuropathy Osteoarthritis Home Medications albuterol sulfate 2.5 mg/0.5 mL solution for nebulization 2.5 mg inhalation Q6H 01/27/24 [History Last Taken Unknown] albuterol sulfate 90 mcg/actuation aerosol inhaler 2 inh inhalation Q6H PRN shortness of breath or wheezing 01/27/24 [History Last Taken Unknown] aspirin 81 mg tablet,delayed release (Adult Low Dose Aspirin) 81 mg PO DAILY 01/27/24 [History Last Taken Unknown] buspirone 5 mg tablet 5 mg PO DAILY 01/27/24 [History Last Taken Unknown] cariprazine 3 mg capsule (Vraylar) 3 mg PO DAILY 01/27/24 [History Last Taken Unknown] cholecalciferol (vitamin D3) 125 mcg (5,000 unit) capsule 5,000 unit PO DAILY 01/27/24 [History Last Taken Unknown] clopidogrel 75 mg tablet (Plavix) 75 mg PO DAILY 01/27/24 [History Last Taken Unknown] cyanocobalamin (vitamin B-12) 500 mcg tablet (Vitamin B-12) 500 mcg PO DAILY 01/27/24 [History Last Taken Unknown] epoetin dee 10,000 unit/mL injection solution (Procrit) 10,000 unit IV DAILY 01/27/24 [History Last Taken Unknown] ferrous sulfate 325 mg (65 mg iron) tablet (iron) 325 mg PO BID 01/27/24 [History Last Taken Unknown] gabapentin 600 mg tablet 600 mg PO BID 01/27/24 [History Last Taken Unknown] insulin glargine 100 unit/mL (3 mL) subcutaneous pen (Basaglar KwikPen U-100 Insulin) 20 unit subcut QPM 01/27/24 [History Last Taken Unknown] insulin lispro 100 unit/mL subcutaneous pen (Humalog KwikPen (U-100) Insulin) 10 unit subcut .COMPLEX 01/27/24 [History Last Taken Unknown] insulin lispro protamine-lispro 100 unit/mL (75-25) subcutaneous pen 12 unit subcut .daily hs 01/27/24 [History Last Taken Unknown] isosorbide mononitrate 60 mg tablet,extended release 24 hr 60 mg PO DAILY 01/27/24 [History Last Taken Unknown] metoprolol succinate 25 mg tablet,extended release 24 hr 25 mg PO DAILY 01/27/24 [History Last Taken Unknown] nitroglycerin 0.4 mg sublingual PRN 01/27/24 [History Last Taken Unknown] omeprazole 20 mg capsule,delayed release 20 mg PO DAILY 01/27/24 [History Last Taken Unknown] ranolazine 500 mg tablet,extended release,12 hr 1,000 mg PO Q12H 01/27/24 [History Last Taken Unknown] rosuvastatin 20 mg tablet (Crestor) 20 mg PO DAILY 01/27/24 [History Last Taken Unknown] sevelamer carbonate 800 mg tablet (Renvela) 1,600 mg PO DAILY 01/27/24 [History Last Taken Unknown] vilazodone 40 mg tablet 40 mg PO DAILY 01/27/24 [History Last Taken Unknown] cefepime 100 gram intravenous solution 1 g IV .see below 50 days 02/02/24 [Rx Last Taken Unknown] metronidazole 500 mg tablet 500 mg PO TID #150 tabs 02/02/24 [Rx Last Taken Unknown] vancomycin 1 gram/200 mL in 0.9 % sod. chloride intravenous piggyback 1 g (200 mL) IV .see below 50 days 02/02/24 [Rx Last Taken Unknown] acetaminophen 325 mg capsule 650 mg PO Q4H pain or fever 02/08/24 [History Last Taken Unknown] acetaminophen 650 mg rectal suppository 650 mg [place] Q4H fever 02/08/24 [History Last Taken Unknown] bisacodyl 10 mg rectal suppository 10 mg [place] DAILY PRN constipation 02/08/24 [History Last Taken Unknown] cariprazine 3 mg capsule (Vraylar) 3 mg PO DAILY 02/08/24 [History Last Taken Unknown] magnesium hydroxide 400 mg/5 mL oral suspension (Milk of Magnesia) 30 ml PO DAILY PRN constipation 02/08/24 [History Last Taken Unknown] Allergy/AdvReac Type Severity Reaction Status Date / Time atorvastatin Allergy Unknown PT UNABLE Verified 02/08/24 02:21 TO RESPOND-NEEDS F/U [id number] Reductase Allergy Unknown PT UNABLE Verified 02/08/24 02:21 Inhibitor TO RESPOND-NEEDS F/U Surgical History Hx of appendectomy Hx of CABG Social History Smoking Status: Former smoker ROS ROS Narrative Patient is acutely ill with hypoxia and metabolic encephalopathy in the setting of severe chronic illness with multiple comorbidities and he therefore cannot complete a review of systems at this time. Review of Systems ROS Unobtainable: due to encephalopathy Vital Signs Vital Signs Vital Signs: 02/08/24 02:16 02/08/24 02:22 02/08/24 02:23 Temperature 98.5 F Temperature Source Temporal Pulse Rate 100 Respiratory Rate 28 H Respiratory Effort Short of Breath Respiratory Depth Respiratory Pattern Tachypnea Blood Pressure Blood Pressure Mean Pulse Ox 91 94 Oxygen Delivery Method Non-Rebreather Non-Rebreather Oxygen Flow Rate (L/min) 12 12 02/08/24 02:25 02/08/24 02:15 02/08/24 02:21 Temperature 98.5 F Temperature Source Temporal Pulse Rate 101 H 101 H Respiratory Rate 20 H 24 H Respiratory Effort Short of Breath Respiratory Depth Shallow Respiratory Pattern Tachypnea Blood Pressure 120/62 120/62 Blood Pressure Mean 81 81 Pulse Ox 95 94 Oxygen Delivery Method Non-Rebreather Non-Rebreather Non-Rebreather Oxygen Flow Rate (L/min) 12 12 12 02/08/24 04:02 02/08/24 04:04 Temperature 98.0 F 98.6 F Temperature Source Temporal Pulse Rate 97 97 Respiratory Rate 22 H 23 H Respiratory Effort Respiratory Depth Respiratory Pattern Blood Pressure 136/63 H 136/63 H Blood Pressure Mean 87 87 Pulse Ox 94 94 Oxygen Delivery Method Nasal Cannula Oxygen Flow Rate (L/min) 12 Weight Weight: 202 lb 6.15 oz Body Mass Index (BMI) 29.0 Physical Exam Const alert Constitutional Narrative: Patient noted to have mildly labored respirations currently on nasal cannula. General Appearance: cooperative Orientation / Consciousness: confused and lethargic HEENT normocephalic, head/scalp atraumatic and hearing grossly normal bilaterally HEENT Narrative: Mucous membranes dry. Eyes PERRL and EOMs intact bilaterally Neck no lymphadenopathy and supple Resp Resp Narrative: Patient has diminished breath sounds throughout with evidence of mildly labored respirations. Cardio regular rate and regular rhythm GI normal to inspection, nondistended, normoactive bowel sounds, soft to palpation, non-tender and non-distended Extremity Extremity Narrative: Patient has history of right AKA and left BKA without evidence of acute infection. Skin Skin Narrative: Stage IV Sacral decubitus noted. Patient also has an oval ~0.5 cm scab over his Left cheek. Neuro CN's II-XII intact bilaterally, moves all extremities and no focal motor deficits Sensorium / Orientation: awake, alert and oriented to person Speech: speech normal Psych Psych Narrative: Patient is lethargic and confused but arousable. Results Medical Records Data Attestation: I reviewed the patient's medical records Lab / Micro Data Attestation: I reviewed the patient's lab results. 02/08/24 02:25 02/08/24 02:25 Labs: Laboratory Results - last 24 hr 02/08/24 02:25: WBC 16.2 H, RBC 2.82 L, Hgb 8.9 L, Hct 29.7 L, MCV 105.3 H, MCH 31.6, MCHC 30.0 L, RDW Std Deviation 69.2 H, RDW Coeff of Reynold 19.1 H, Plt Count 301, MPV 9.8, Immature Gran % (Auto) 1.800 H, Neut % (Auto) 78.7 H, Lymph % (Auto) 12.2 L, [place] % (Auto) 6.5, Eos % (Auto) 0.4, Baso % (Auto) 0.4, Absolute Neuts (auto) 12.7 H, Absolute Lymphs (auto) 1.97, Nucleated RBC % 0, Sodium 137, Potassium 5.5 H, Chloride 106, Carbon Dioxide 21.0, Anion Gap 10, BUN 118 H*, Creatinine 9.44 H*, Estim Creat Clear Calc 9.60, Est GFR (MDRD) Af Amer 7 L, Est GFR (MDRD) Non-Af 6 L, BUN/Creatinine Ratio 12.5, Glucose 158 H, Calcium 8.5, Troponin I High Sens 32 Micro: Microbiology 02/08/24 02:25 Mucosa - Nose SARS-CoV-2, Influenza & RSV (PCR) - Final ABG Data ABG results: ABG 02/08/24 02:38 Specimen Type ART Sample Site R Radial pH 7.27 L Bicarbonate Actual 20.5 L Total CO2 22 Base Excess -6 L O2 Saturation 95 O2 % 12.0 ABG pCO2 44.3 ABG pO2 86 Mik Test Positive O2 Delivery Device NRB Vent Mode Not entered Imaging Radiology Impression Chest X-Ray 02/08/24 02:21 IMPRESSION: Significantly increased opacity on the left likely combination of pleural effusion, atelectasis and or consolidation. Little change in the right pleural effusion and basilar airspace disease. Electronically Signed: Bambi Andrade MD at 3:20 EDT , Assessment & Plan Assessment/Plan (1) ESRD on dialysis: (2) Hyperkalemia: (3) Multifocal pneumonia: (4) Large pleural effusion: (5) Metabolic encephalopathy: (6) Sacral decubitus ulcer, stage IV: PLAN: Plan 1. Enlarging Left Pleural Effusion consistent with suspected with AE CHF in the setting of known end-stage renal disease; on hemodialysis (--) - Admit to PCU. I will give a dose of Lasix but patient is unlikely to have significant urinary output given his end-stage renal disease. Therefore, we will consult nephrology to see this patient on rounds in the a.m. for consideration regarding urgent dialysis with patient suspected to have missed his previous HD session with help appreciated in advance. 2. Continued Right-sided infiltrate unchanged from previous consistent with ongoing and unimproved nosocomial Pneumonia with leukocytosis of 16.2 present on admission complicating #1 - Restart treatment with IV Merrem and IV vancomycin and discontinue IV cefepime and PO Flagyl with patient apparently failing to improve on these agents. Await culture and sensitivity data. Give Tylenol as needed pain or fever. Finally, we will consult ID to see this patient once again on-rounds in the AM for further recommendations with help appreciated in advance. 3. Acute Respiratory Insufficiency arising from #1 & #2 - Wean supplemental oxygen as tolerated. 4. Hyperkalemia of 5.5 mmol/L present on admission compounding #1 - #3 - Give oral Kayexalate, Lasix 80 mg IV once plus 10 units of her insulin and 1 ampoule of IV D50 and then recheck BMP in the a.m. to monitor trend for improvement. 5. Recent admission here from January 28, 2024 to February 06, 2024 SOB with AMS due to Multifocal Pneumonia with bilateral effusions complicated by Acute Hypoxic Respiratory Failure and Metabolic Encephalopathy in the setting of a larger pattern of serial readmission with this patient strongly recommended for possible palliative care consultation - Palliative care consultation will be initiated this admission as this patient has relatively poor potential for meaningful recovery and ability to survive outside of hospital setting due to his multiple comorbidities. 6. Additional recent admission to a hospital in [place] for osteomyelitis of the sacrum with Stage IV decubitus ulcer with patient already on IV Merrem and IV Vancomycin followed by infectious disease Dr. Laci Chavez - Noted. 7. History of severe peripheral vascular disease; status post right AKA and left BKA with patient chronically residing in [place] adding to the pathology of #1 - #6 - Noted. 8. Essential hypertension - Continue home regimen plus give IV hydralazine as needed for systolic blood pressure greater than 160 mm Hg. 9. Hyperlipidemia; with intolerance to statins - Noted. 10. Overweight; with BMI of 29 present on admission - Weight loss will be recommended when patient's sensorium clears but is highly unlikely given his multiple comorbidities and previous amputations. 11. Diabetes mellitus type 2; of unknown control with diabetic neuropathy - ADA diet. Fingerstick before every meal and at bedtime plus sliding scale insulin of the lowest intensity. 12. Coronary artery disease; status post CABG and recent stent placement ~2 weeks ago - Stable. Resume current home regimen. 13. Chronic anemia; likely due to renal disease - Stable. 14. DVT prophylaxis - Heparin 5,000 units SQ 3 times daily. Total time: Approximately 95 minutes. Charges/Coding Visit Charges Inpatient E&M: 52465 Init Hosp L3
[2024-02-08 07:21] LABS: Bedside Glucose 140 mg/dL (74-106)
[2024-02-08] MEDS: PureFlow B 2K Dialysis Soln 1 BAG 6 BAG PF (07:55)
[2024-02-08] MEDS: 0.9% Normal Saline 1,000 ML IV.SOLN. 1000 ML OPERA.SITE (07:55)
[2024-02-08 08:02] LABS: Absolute Lymphocyte Count 2.19 X10^3/uL (0.83-4.51); Absolute Neutrophil Count 14.4 X10^3/uL (2.0-7.7); Basophil# 0.07 X10^3/uL; Basophil% 0.4 % (0-1); Eosinophil# 0.03 X10^3/uL; Eosinophils% 0.2 % (0-5); Hematocrit 28.6 % (40-54); Hemoglobin 8.3 g/dL (13.0-16.5); Lymphocyte # 2.19 X10^3/ul (0.83-4.51); Lymphocyte % 12.1 % (19-41); Mean Corpuscular Hgb 30.5 pg (27.0-32.0); Mean Corpuscular Volume 105.1 fL (80-94); Mean Platelet Vol. 9.9 fl (6.2-12.0); Monocyte# 1.19 X10^3/uL; Monocyte% 6.6 % (0-10); NRBC Flagged by Analyzer 0.1 % (0-5); Neutrophil % 79.2 % (47-70); POSITIVE MORPHOLOGY YES; Platelet Count 298 K/mm3 (150-450); RBC Distribution Width SD 69.1 fl (35.1-43.9); Red Blood Count 2.72 M/mm3 (4.6-6.2); White Blood Count 18.2 K/mm3 (4.4-11.0)
[2024-02-08 08:11] LABS: Differential Indicated SCAN CRITERIA MET
[2024-02-08 08:18] LABS: BNP,B-Type NATRIURETIC PEPTIDE 155.8 pg/mL (0-100)
[2024-02-08 08:25] LABS: ALB/GLOB Ratio 0.2 RATIO (0.9-2.4); AST(SGOT) 11 U/L (15-37); Alanine Aminotransfer ALT/SGPT < 6 U/L (16-61); Albumin, Serum 1.6 g/dL (3.2-5.0); Alkaline Phosphatase 77 U/L (45-117); Anion Gap 9 (5-15); BUN 118 mg/dL (7-18); BUN/Creat Ratio 12.1 RATIO (10-20); Calcium,Total 8.5 mg/dL (8.5-10.1); Chloride 107 mmol/L (98-107); Creatinine, Serum 9.78 mg/dL (0.70-1.30); EST Glomerular Filtration Rate 6 mL/min (>60); Est Glom Filt Rate - Afr Amer 7 mL/min (>60); Estimated Creatinine Clearance 9.12 ml/min; Globulin 6.6 g/dL (2.2-4.2); Glucose 152 mg/dL (74-106); Magnesium 1.9 mg/dL (1.6-2.6); Phosphorus 6.4 mg/dL (2.5-4.9); Potassium 5.6 mmol/L (3.5-5.1); Protein, Total 8.2 g/dL (6.4-8.2); Sodium Level 137 mmol/L (136-145)
--- NOTE | 2024-02-08 08:34 | NURSING ---
BP 83/45 DURING DIALYSIS. ULTRAFILTRATION RATE DECREASED TO 0.7, FROM 0.9 LITERS. DIALYSIS ELECTROENCEPHALOGRAM TECHNOLOGIST NOTIFIED OF DECREASED BP. MIDODRINE ORDER GIVEN.
[2024-02-08] MEDS: Midodrine HCl 5 MG Tablet 20 MG PO (08:42)
[2024-02-08 08:45] LABS: Anisocytosis 2+; Differential Comment SCANNED
[2024-02-08] MEDS: Heparin 10,000 UNITS/10 ML Vial IV (10:40)
[2024-02-08] MEDS: 0.9% Saline Lock 10 ML Syringe IV (10:41)
--- NOTE | 2024-02-08 11:13 | CON.PCM.ID_ITS ---
Assessment & Plan Assessment/Plan (1) Acute on chronic respiratory failure: (2) Large pleural effusion: (3) Multifocal pneumonia: (4) ESRD on dialysis: (5) Osteomyelitis of sacrum: PLAN: Rising wbc, worsened hypoxia. Not clear if fluid related vs new infection. Cont vanc/keven. Will follow, thank you HPI Consult Data Date of Consult: 02/08/24 HPI Narrative Reason for Consultation: pneumonia HPI Narrative: RAMANDEEP KEEN, is a 58 M with ESRD and recent admits for sacral osteo and pneumonia. Discharged 02/05 on iv vanc, cefepime dosed with HD and po flagyl. Now back last night with hypoxia and dyspnea. Put on vanc/keven. Feeling ok this AM, denies fever, chills, cough, dysnea, abd pain, diarrhea. Full ROS performed and neg except as noted above. [facility] Medical History AAA (abdominal aortic aneurysm) Above knee amputation of right lower extremity Below-knee amputation of left lower extremity Bipolar affective disorder CAD (coronary artery disease) Cervical stenosis of spine CHF (congestive heart failure) Chronic kidney disease Colostomy in place Depression Diabetes Dialysis patient GERD (gastroesophageal reflux disease) Hyperlipemia Hypertension Myocardial infarction Neuropathy Osteoarthritis Home Medications albuterol sulfate 2.5 mg/0.5 mL solution for nebulization 2.5 mg inhalation Q6H 01/27/24 [History Last Taken Unknown] albuterol sulfate 90 mcg/actuation aerosol inhaler 2 inh inhalation Q6H PRN shortness of breath or wheezing 01/27/24 [History Last Taken Unknown] aspirin 81 mg tablet,delayed release (Adult Low Dose Aspirin) 81 mg PO DAILY 01/27/24 [History Last Taken Unknown] buspirone 5 mg tablet 5 mg PO DAILY 01/27/24 [History Last Taken Unknown] cariprazine 3 mg capsule (Vraylar) 3 mg PO DAILY 01/27/24 [History Last Taken Unknown] cholecalciferol (vitamin D3) 125 mcg (5,000 unit) capsule 5,000 unit PO DAILY 01/27/24 [History Last Taken Unknown] clopidogrel 75 mg tablet (Plavix) 75 mg PO DAILY 01/27/24 [History Last Taken Unknown] cyanocobalamin (vitamin B-12) 500 mcg tablet (Vitamin B-12) 500 mcg PO DAILY 01/27/24 [History Last Taken Unknown] epoetin dee 10,000 unit/mL injection solution (Procrit) 10,000 unit IV DAILY 01/27/24 [History Last Taken Unknown] ferrous sulfate 325 mg (65 mg iron) tablet (iron) 325 mg PO BID 01/27/24 [History Last Taken Unknown] gabapentin 600 mg tablet 600 mg PO BID 01/27/24 [History Last Taken Unknown] insulin glargine 100 unit/mL (3 mL) subcutaneous pen (Basaglar KwikPen U-100 Insulin) 20 unit subcut QPM 01/27/24 [History Last Taken Unknown] insulin lispro 100 unit/mL subcutaneous pen (Humalog KwikPen (U-100) Insulin) 10 unit subcut .COMPLEX 01/27/24 [History Last Taken Unknown] insulin lispro protamine-lispro 100 unit/mL (75-25) subcutaneous pen 12 unit subcut .daily hs 01/27/24 [History Last Taken Unknown] isosorbide mononitrate 60 mg tablet,extended release 24 hr 60 mg PO DAILY 01/27/24 [History Last Taken Unknown] metoprolol succinate 25 mg tablet,extended release 24 hr 25 mg PO DAILY 01/27/24 [History Last Taken Unknown] nitroglycerin 0.4 mg sublingual PRN 01/27/24 [History Last Taken Unknown] omeprazole 20 mg capsule,delayed release 20 mg PO DAILY 01/27/24 [History Last Taken Unknown] ranolazine 500 mg tablet,extended release,12 hr 1,000 mg PO Q12H 01/27/24 [History Last Taken Unknown] rosuvastatin 20 mg tablet (Crestor) 20 mg PO DAILY 01/27/24 [History Last Taken Unknown] sevelamer carbonate 800 mg tablet (Renvela) 1,600 mg PO DAILY 01/27/24 [History Last Taken Unknown] vilazodone 40 mg tablet 40 mg PO DAILY 01/27/24 [History Last Taken Unknown] cefepime 100 gram intravenous solution 1 g IV .see below 50 days 02/02/24 [Rx Last Taken Unknown] metronidazole 500 mg tablet 500 mg PO TID #150 tabs 02/02/24 [Rx Last Taken Unknown] vancomycin 1 gram/200 mL in 0.9 % sod. chloride intravenous piggyback 1 g (200 mL) IV .see below 50 days 02/02/24 [Rx Last Taken Unknown] acetaminophen 325 mg capsule 650 mg PO Q4H pain or fever 02/08/24 [History Last Taken Unknown] acetaminophen 650 mg rectal suppository 650 mg [place] Q4H fever 02/08/24 [History Last Taken Unknown] bisacodyl 10 mg rectal suppository 10 mg [place] DAILY PRN constipation 02/08/24 [History Last Taken Unknown] cariprazine 3 mg capsule (Vraylar) 3 mg PO DAILY 02/08/24 [History Last Taken Unknown] magnesium hydroxide 400 mg/5 mL oral suspension (Milk of Magnesia) 30 ml PO DAILY PRN constipation 02/08/24 [History Last Taken Unknown] Allergy/AdvReac Type Severity Reaction Status Date / Time atorvastatin Allergy Unknown PT UNABLE Verified 02/08/24 02:21 TO RESPOND-NEEDS F/U [id number] Reductase Allergy Unknown PT UNABLE Verified 02/08/24 02:21 Inhibitor TO RESPOND-NEEDS F/U Surgical History Hx of appendectomy Hx of CABG Social History Smoking Status: Former smoker Physical Exam Const alert and no apparent distress General Appearance: cooperative HEENT normocephalic and head/scalp atraumatic Eyes PERRL and EOMs intact bilaterally Neck supple and No nodes Resp Auscultation: diminished lung sounds Cardio regular rate and regular rhythm GI soft to palpation, non-tender and non-distended Extremity General Extremity: edema Skin Skin Narrative: no new rash Neuro CN's II-XII intact bilaterally Lab / Micro Data Attestation: I reviewed the patient's lab results. 02/08/24 07:30 02/08/24 07:30 Labs: Laboratory Results - last 24 hr 02/08/24 02:25: WBC 16.2 H, RBC 2.82 L, Hgb 8.9 L, Hct 29.7 L, MCV 105.3 H, MCH 31.6, MCHC 30.0 L, RDW Std Deviation 69.2 H, RDW Coeff of Reynold 19.1 H, Plt Count 301, MPV 9.8, Immature Gran % (Auto) 1.800 H, Neut % (Auto) 78.7 H, Lymph % (Auto) 12.2 L, [place] % (Auto) 6.5, Eos % (Auto) 0.4, Baso % (Auto) 0.4, Absolute Neuts (auto) 12.7 H, Absolute Lymphs (auto) 1.97, Nucleated RBC % 0, Sodium 137, Potassium 5.5 H, Chloride 106, Carbon Dioxide 21.0, Anion Gap 10, BUN 118 H*, Creatinine 9.44 H*, Estim Creat Clear Calc 9.60, Est GFR (MDRD) Af Amer 7 L, Est GFR (MDRD) Non-Af 6 L, BUN/Creatinine Ratio 12.5, Glucose 158 H, Calcium 8.5, Troponin I High Sens 32 02/08/24 06:53: POC Glucose 140 H 02/08/24 07:30: WBC 18.2 H, RBC 2.72 L, Hgb 8.3 L, Hct 28.6 L, MCV 105.1 H, MCH 30.5, MCHC 29.0 L, RDW Std Deviation 69.1 H, RDW Coeff of Reynold 19.0 H, Plt Count 298, MPV 9.9, Immature Gran % (Auto) 1.500 H, Neut % (Auto) 79.2 H, Lymph % (Auto) 12.1 L, [place] % (Auto) 6.6, Eos % (Auto) 0.2, Baso % (Auto) 0.4, Absolute Neuts (auto) 14.4 H, Absolute Lymphs (auto) 2.19, Nucleated RBC % 0.1, Differential Comment SCANNED, Anisocytosis 2+, Sodium 137, Potassium 5.6 H, Chloride 107, Carbon Dioxide 21.0, Anion Gap 9, BUN 118 H*, Creatinine 9.78 H*, Estim Creat Clear Calc 9.12, Est GFR (MDRD) Af Amer 7 L, Est GFR (MDRD) Non-Af 6 L, BUN/Creatinine Ratio 12.1, Glucose 152 H, Calcium 8.5, Phosphorus 6.4 H, Magnesium 1.9, Total Bilirubin 0.50, AST 11 L, ALT < 6 L, Alkaline Phosphatase 77, B-Natriuretic Peptide 155.8 H, Total Protein 8.2, Albumin 1.6 L, Globulin 6.6 H, Albumin/Globulin Ratio 0.2 L Micro: Microbiology 02/08/24 02:25 Mucosa - Nose SARS-CoV-2, Influenza & RSV (PCR) - Final ABG Data ABG results: ABG 02/08/24 02:38 Specimen Type ART Sample Site R Radial pH 7.27 L Bicarbonate Actual 20.5 L Total CO2 22 Base Excess -6 L O2 Saturation 95 O2 % 12.0 ABG pCO2 44.3 ABG pO2 86 Mik Test Positive O2 Delivery Device NRB Vent Mode Not entered Imaging Radiology Impression Chest X-Ray 02/08/24 02:21 IMPRESSION: Significantly increased opacity on the left likely combination of pleural effusion, atelectasis and or consolidation. Little change in the right pleural effusion and basilar airspace disease. Electronically Signed: Bambi Andrade MD at 3:20 EDT ,
[2024-02-08] MEDS: Meropenem 500 MG in 0.9% Normal Saline (50mL MB+) 50 ML 100 MG IV (11:44)
--- NOTE | 2024-02-08 11:45 | CON.PCM.RE_ITS ---
Assessment & Plan Assessment/Plan (1) ESRD on dialysis: (2) Acute on chronic respiratory failure: (3) Hyperkalemia: PLAN: Plan This is a 58-year-old male with past medical history significant for ESRD on hemodialysis at [facility] Monday, Monday, , Monday schedule, last dialyzed Monday of this week who was brought to the emergency room from [facility] for evaluation of shortness of breath and altered mental status changes. Patient was admitted for acute hypoxic respiratory failure possibly multifactorial from large pleural effusion, infiltrates and fluid overload. Will plan hemodialysis today over 4 hours on 2K bath attempting fluid removal as patient/blood pressure tolerates. At start of hemodialysis blood pressures were low, patient asymptomatic however he did receive 20 mg of midodrine. Will try and remove fluid with dialysis today and plan dialysis again tomorrow with fluid removal. Will give midodrine predialysis and during treatment as needed. Patient is on low-dose metoprolol, will stop that for now. Patient does have a left arm brachiocephalic AV fistula, last hospitalization when attempting to cannulate fistula there were multiple clots, unable to succ essfully cannulate fistula therefore patient was seen by vascular surgery and had fistulogram on 01/30 which did not show any stenosis or thrombosis. Keenan jones came to the hospital last week and marked on AV fistula areas for access to be cannulated. Still having difficult time cannulating therefore patient eventually had tunneled HD catheter placed. We will continue to dialyze via tunneled HD catheter today and again tomorrow. Patient has history of anemia of chronic disease and has been receiving CLAY with dialysis. Will continue to give Epogen with dialysis. Further orders forthcoming as hospitalization evolves, thank you for allowing us to participate in the care of Mr. Keen. HPI Consult Data Date of Consult: 02/08/24 HPI Narrative HPI Narrative: RAMANDEEP KEEN, is a 58 M with past medical history significant for ESRD on hem odialysis at [facility] on a Monday, Monday, , Monday schedule who presented emergency room early this morning for evaluation of shortness of breath. Chest x-ray in the emergency room showed large left pleural effusion, right-sided infiltrate, patient admitted for further evaluation and treatment. Nephrology consulted as patient has history of ESRD and is on hemodialysis. Patient last dialyzed Monday. Patient is currently receiving dialysis through a tunneled right chest hemodialysis catheter. He does have a left arm brachiocephalic AV fistula but due to recent issues with cannulating now has tunneled HD catheter. 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 Bipolar affective disorder CAD (coronary artery disease) Cervical stenosis of spine CHF (congestive heart failure) Chronic kidney disease Colostomy in place Depression Diabetes Dialysis patient GERD (gastroesophageal reflux disease) Hyperlipemia Hypertension Myocardial infarction Neuropathy Osteoarthritis Home Medications albuterol sulfate 2.5 mg/0.5 mL solution for nebulization 2.5 mg inhalation Q6H 01/27/24 [History Last Taken Unknown] albuterol sulfate 90 mcg/actuation aerosol inhaler 2 inh inhalation Q6H PRN shortness of breath or wheezing 01/27/24 [History Last Taken Unknown] aspirin 81 mg tablet,delayed release (Adult Low Dose Aspirin) 81 mg PO DAILY 01/27/24 [History Last Taken Unknown] buspirone 5 mg tablet 5 mg PO DAILY 01/27/24 [History Last Taken Unknown] cariprazine 3 mg capsule (Vraylar) 3 mg PO DAILY 01/27/24 [History Last Taken Unknown] cholecalciferol (vitamin D3) 125 mcg (5,000 unit) capsule 5,000 unit PO DAILY 01/27/24 [History Last Taken Unknown] clopidogrel 75 mg tablet (Plavix) 75 mg PO DAILY 01/27/24 [History Last Taken Unknown] cyanocobalamin (vitamin B-12) 500 mcg tablet (Vitamin B-12) 500 mcg PO DAILY 01/27/24 [History Last Taken Unknown] epoetin dee 10,000 unit/mL injection solution (Procrit) 10,000 unit IV DAILY 01/27/24 [History Last Taken Unknown] ferrous sulfate 325 mg (65 mg iron) tablet (iron) 325 mg PO BID 01/27/24 [History Last Taken Unknown] gabapentin 600 mg tablet 600 mg PO BID 01/27/24 [History Last Taken Unknown] insulin glargine 100 unit/mL (3 mL) subcutaneous pen (Basaglar KwikPen U-100 Insulin) 20 unit subcut QPM 01/27/24 [History Last Taken Unknown] insulin lispro 100 unit/mL subcutaneous pen (Humalog KwikPen (U-100) Insulin) 10 unit subcut .COMPLEX 01/27/24 [History Last Taken Unknown] insulin lispro protamine-lispro 100 unit/mL (75-25) subcutaneous pen 12 unit subcut .daily hs 01/27/24 [History Last Taken Unknown] isosorbide mononitrate 60 mg tablet,extended release 24 hr 60 mg PO DAILY 01/27/24 [History Last Taken Unknown] metoprolol succinate 25 mg tablet,extended release 24 hr 25 mg PO DAILY 01/27/24 [History Last Taken Unknown] nitroglycerin 0.4 mg sublingual PRN 01/27/24 [History Last Taken Unknown] omeprazole 20 mg capsule,delayed release 20 mg PO DAILY 01/27/24 [History Last Taken Unknown] ranolazine 500 mg tablet,extended release,12 hr 1,000 mg PO Q12H 01/27/24 [History Last Taken Unknown] rosuvastatin 20 mg tablet (Crestor) 20 mg PO DAILY 01/27/24 [History Last Taken Unknown] sevelamer carbonate 800 mg tablet (Renvela) 1,600 mg PO DAILY 01/27/24 [History Last Taken Unknown] vilazodone 40 mg tablet 40 mg PO DAILY 01/27/24 [History Last Taken Unknown] cefepime 100 gram intravenous solution 1 g IV .see below 50 days 02/02/24 [Rx Last Taken Unknown] metronidazole 500 mg tablet 500 mg PO TID #150 tabs 02/02/24 [Rx Last Taken Unknown] vancomycin 1 gram/200 mL in 0.9 % sod. chloride intravenous piggyback 1 g (200 mL) IV .see below 50 days 02/02/24 [Rx Last Taken Unknown] acetaminophen 325 mg capsule 650 mg PO Q4H pain or fever 02/08/24 [History Last Taken Unknown] acetaminophen 650 mg rectal suppository 650 mg UT Q4H fever 02/08/24 [History Last Taken Unknown] bisacodyl 10 mg rectal suppository 10 mg UT DAILY PRN constipation 02/08/24 [History Last Taken Unknown] cariprazine 3 mg capsule (Vraylar) 3 mg PO DAILY 02/08/24 [History Last Taken Unknown] magnesium hydroxide 400 mg/5 mL oral suspension (Milk of Magnesia) 30 ml PO D AILY PRN constipation 02/08/24 [History Last Taken Unknown] Allergy/AdvReac Type Severity Reaction Status Date / Time atorvastatin Allergy Unknown PT UNABLE Verified 02/08/24 02:21 TO RESPOND-NEEDS F/U Pgginet-DIZ-YkS Reductase Allergy Unknown PT UNABLE Verified 02/08/24 02:21 Inhibitor TO RESPOND-NEEDS F/U Surgical History Hx of appendectomy Hx of CABG Social History Smoking Status: Former smoker ROS ROS Narrative As in HPI and past medical history Physical Exam Narrative Alert to name, no apparent distress S1, S2, RRR Diminished breath sounds with scattered rhonchi and rales Abdomen soft, nontender Left BKA, right AKA. No edema noted bilateral thighs Tunneled HD catheter accessed for hemodialysis Left mid arm AV fistula with faint thrill and bruit Lab / Micro Data 02/08/24 07:30 02/08/24 07:30 Labs: Laboratory Results - last 24 hr 02/08/24 02:25: WBC 16.2 H, RBC 2.82 L, Hgb 8.9 L, Hct 29.7 L, MCV 105.3 H, MCH 31.6, MCHC 30.0 L, RDW Std Deviation 69.2 H, RDW Coeff of Reynold 19.1 H, Plt Count 301, MPV 9.8, Immature Gran % (Auto) 1.800 H, Neut % (Auto) 78.7 H, Lymph % (Auto) 12.2 L, [place] % (Auto) 6.5, Eos % (Auto) 0.4, Baso % (Auto) 0.4, Absolute Neuts (auto) 12.7 H, Absolute Lymphs (auto) 1.97, Nucleated RBC % 0, Sodium 137, Potassium 5.5 H, Chloride 106, Carbon Dioxide 21.0, Anion Gap 10, BUN 118 H*, Creatinine 9.44 H*, Estim Creat Clear Calc 9.60, Est GFR (MDRD) Af Amer 7 L, Est GFR (MDRD) Non-Af 6 L, BUN/Creatinine Ratio 12.5, Glucose 158 H, Calcium 8.5, Troponin I High Sens 32 02/08/24 06:53: POC Glucose 140 H 02/08/24 07:30: WBC 18.2 H, RBC 2.72 L, Hgb 8.3 L, Hct 28.6 L, MCV 105.1 H, MCH 30.5, MCHC 29.0 L, RDW Std Deviation 69.1 H, RDW Coeff of Reynold 19.0 H, Plt Count 298, MPV 9.9, Immature Gran % (Auto) 1.500 H, Neut % (Auto) 79.2 H, Lymph % (Auto) 12.1 L, [place] % (Auto) 6.6, Eos % (Auto) 0.2, Baso % (Auto) 0.4, Absolute Neuts (auto) 14.4 H, Absolute Lymphs (auto) 2.19, Nucleated RBC % 0.1, Differential Comment SCANNED, Anisocytosis 2+, Sodium 137, Potassium 5.6 H, Chloride 107, Carbon Dioxide 21.0, Anion Gap 9, BUN 118 H*, Creatinine 9.78 H*, Estim Creat Clear Calc 9.12, Est GFR (MDRD) Af Amer 7 L, Est GFR (MDRD) Non-Af 6 L, BUN/Creatinine Ratio 12.1, Glucose 152 H, Calcium 8.5, Phosphorus 6.4 H, Magnesium 1.9, Total Bilirubin 0.50, AST 11 L, ALT < 6 L, Alkaline Phosphatase 77, B-Natriuretic Peptide 155.8 H, Total Protein 8.2, Albumin 1.6 L, Globulin 6.6 H, Albumin/Globulin Ratio 0.2 L Micro: Microbiology 02/08/24 02:25 Mucosa - Nose SARS-CoV-2, Influenza & RSV (PCR) - Final ABG Data ABG results: ABG 02/08/24 02:38 Specimen Type ART Sample Site R Radial pH 7.27 L Bicarbonate Actual 20.5 L Total CO2 22 Base Excess -6 L O2 Saturation 95 O2 % 12.0 ABG pCO2 44.3 ABG pO2 86 Mik Test Positive O2 Delivery Device NRB Vent Mode Not entered Imaging Radiology Impression Chest X-Ray 02/08/24 02:21 IMPRESSION: Significantly increased opacity on the left likely combination of pleural effusion, atelectasis and or consolidation. Little change in the right pleural effusion and basilar airspace disease. Electronically Signed: Bambi Andrade MD at 3:20 EDT ,
[2024-02-08 12:09] LABS: Bedside Glucose 133 mg/dL (74-106)
--- NOTE | 2024-02-08 13:00 | CASEMGMT ---
Patient is from [facility]. Patient was just discharged back to [facility] earlier this week. will follow for return to [facility]. Ilda TELLEZ
--- NOTE | 2024-02-08 13:22 | PN.HOSP_ITS ---
Hospitalist Note Patient admitted early this morning for worsening shortness of breath and altered mental status. See HPI for further details. Patient seen at bedside later this morning, nephrology HR CONSULTANT was also present at the bedside. Patient was having hemodialysis run at that time. He had gotten about 2 L of fluid off to that point but given his significant volume overload noted on chest x-ray on admission as well as increased oxygen requirements, nephrology was planning to try to take an extra 1 to 2 L off with this session. Noted that patient's blood pressures were borderline, and he was given a dose of midodrine with some improvement. Patient was alert and making eye contact with me, but he appeared confused and was not answering questions appropriately for me. Called patient's zachon Juanjose later in the morning to discuss patient's medical condition. Juanjose is the only contact listed in the chart. Juajnose states that the patient is essentially estranged for the rest of his family, and Juanjose is his primary point of contact. Juanjose importantly is not the healthcare power of commonwealth attorney and he is fairly certain that the patient does not have an official power of commonwealth attorney. Juanjose noted that he had not seen the patient in the past few weeks or so and only visits him somewhat occasionally. He does note that whenever the patient is hospitalized, he is called for updates on the patient. Juanjose noted that the patient previously lived in an assisted living facility for many years prior to the past few months. He notes that the patient has had multiple hospitalizations in the past few months, including his most recent hospitalization at [facility] from 01/27 to 02/05. Discussed with Juanjose if patient had ever made any specific request regarding his CODE STATUS and/or end-of-life wishes. Juanjose said that he had never discussed these things with the patient. Juanjose seems somewhat aware that the patient was chronically ill but did not seem to fully grasp with the extent of the patient's debility and poor health status. I attempted to impress to Juanjose how sick the patient is and that he is very likely to continue to come in and out of the hospital going forward. Recommended to him that it would be reasonable to begin to have discussions regarding possible palliative care or hospice measures for the patient. Juanjose said he would think about this. Based on this discussion, will need to keep the patient FULL CODE for now. If patient's encephalopathy improves, would recommend having a CODE STATUS discussi on with the patient. Would also recommend discussing goals of care with the patient if able. Full progress note to follow tomorrow.
--- NOTE | 2024-02-08 13:34 | CASEMGMT ---
Discharge Planning Updates sent via [facility] to [facility]. Brielle Crawley, Discharge Planning Asst.
[2024-02-08] MEDS: Heparin Injection (Vial) 5,000 UNIT/ML VIAL 5000 UNIT SC (14:24)
--- NOTE | 2024-02-08 15:05 | WOUNDNOTE ---
wound photo: sacrum/left ischium
--- NOTE | 2024-02-08 15:06 | WOUNDNOTE ---
wound photo: left stump
[2024-02-08] MEDS: Albuterol 2.5 MG/3 ML VIAL.NEB. INHALATION (15:27)
[2024-02-08 17:21] LABS: Bedside Glucose 125 mg/dL (74-106)
[2024-02-08 21:08] LABS: Amphetamine Urine VISTA NEGATIVE (<1000 ng/mL); Barbiturate Urine VISTA NEGATIVE (< 200 ng/mL); Benzodiazepine Urine VISTA NEGATIVE (< 200 ng/mL); Cocaine Urine VISTA NEGATIVE (< 300 ng/mL); Ecstacy Urine VISTA NEGATIVE (< 500 ng/mL); Methadone Urine VISTA NEGATIVE (< 300 ng/mL); PCP Urine VISTA NEGATIVE (< 25 ng/mL); THC Urine VISTA NEGATIVE (< 50 ng/mL); Vista UDS pH Range 4
[2024-02-08 21:48] LABS: Bedside Glucose 110 mg/dL (74-106)
[2024-02-08] MEDS: Ipratropium/Albuterol Sulfate 3 ML AMPUL.NEB INHALATION (22:10)
[2024-02-09] VITALS (23 sets, daily range): BP systolic 88–227; BP diastolic 40–87; PULSE 92–116; RESP 15–27; TEMP 36.2–36.8; O2SAT 91–100; BMI 27.8; BMI 26.9
[2024-02-09] MEDS: Ipratropium/Albuterol Sulfate 3 ML AMPUL.NEB INHALATION ×4 (01:37→20:00)
[2024-02-09] MEDS: Heparin Injection (Vial) 5,000 UNIT/ML VIAL 5000 UNIT SC ×3 (05:18→21:17)
[2024-02-09 06:46] LABS: Hematocrit 29.8 % (40-54); Hemoglobin 9.1 g/dL (13.0-16.5); Mean Corp Hgb Conc 30.5 g/dL (32-36); Mean Corpuscular Hgb 31.9 pg (27.0-32.0); Mean Corpuscular Volume 104.6 fL (80-94); Mean Platelet Vol. 9.6 fl (6.2-12.0); POSITIVE MORPHOLOGY YES; Platelet Count 265 K/mm3 (150-450); RBC Distribution Width CV 18.7 % (11.6-14.6); RBC Distribution Width SD 68.5 fl (35.1-43.9); Red Blood Count 2.85 M/mm3 (4.6-6.2)
[2024-02-09 06:50] LABS: Scan Indicated on CBC? Y/N YES- FLAGS NOTED
[2024-02-09 06:58] LABS: Bedside Glucose 98 mg/dL (74-106)
[2024-02-09 07:35] LABS: Anion Gap 8 (5-15); BUN 88 mg/dL (7-18); BUN/Creat Ratio 11.1 RATIO (10-20); Calcium,Total 8.8 mg/dL (8.5-10.1); Chloride 106 mmol/L (98-107); EST Glomerular Filtration Rate 8 mL/min (>60); Est Glom Filt Rate - Afr Amer 9 mL/min (>60); Estimated Creatinine Clearance 11.26 ml/min; Glucose 113 mg/dL (74-106); Potassium 4.6 mmol/L (3.5-5.1); Sodium Level 136 mmol/L (136-145)
[2024-02-09] MEDS: PureFlow B 2K Dialysis Soln 1 BAG 6 BAG PF (07:40)
[2024-02-09] MEDS: 0.9% Saline Lock 10 ML Syringe IV (07:41)
[2024-02-09] MEDS: 0.9% Normal Saline 1,000 ML IV.SOLN. 1000 ML OPERA.SITE (07:42)
[2024-02-09] MEDS: Epoetin Alfa epbx 10,000 UNITS/ML 20000 UNIT SC (08:02)
[2024-02-09] MEDS: Midodrine HCl 5 MG Tablet 10 MG PO (08:32)
--- NOTE | 2024-02-09 09:50 | NUR.TO.PHY ---
pt not tolerating fluid removal very well on dialysis. increased o2 requirement. o2 increased to 4L sao2 96% at 4L. pt having episodes of hypotension in which fluid rate needs to be reduced. pt has tachycardia less than 120bpm
--- NOTE | 2024-02-09 10:04 | NUR.TO.PHY ---
discussed dialysis with operating room surgical technologist. pt has increased o2 demand & sinus tach w/ HR at 126. fluid removal stopped with 3L removed as of now.
[2024-02-09] MEDS: Heparin 10,000 UNITS/10 ML Vial IV (10:28)
--- NOTE | 2024-02-09 10:31 | NUR.TO.PHY ---
pt o2 demand & HR increased during dialysis even without fluid removal. Tx discontinued per panel coverer. post dialysis HR 110R, RR 20, sao2 100% on 4L. bp 102/77
[2024-02-09] MEDS: CARIPRAZINE HCL 3 MG CAPSULE PO (10:35)
[2024-02-09] MEDS: Cholecalciferol (Vit D3) 125 MCG CAPSULE (5,000 UNITS) PO (10:35)
[2024-02-09] MEDS: Aspirin E.C. 81 MG Tablet PO (10:35)
[2024-02-09] MEDS: Cyanocobalamin 500 MCG Tablet PO (10:35)
[2024-02-09] MEDS: Clopidogrel Bisulfate 75 MG Tablet PO (10:35)
[2024-02-09] MEDS: Ferrous Sulfate 325 MG Tablet PO (10:36)
[2024-02-09] MEDS: Ranolazine 500 MG Tablet 1000 MG PO ×2 (10:36→21:12)
[2024-02-09] MEDS: Pantoprazole Sodium 20 MG Tablet PO (10:37)
[2024-02-09] MEDS: busPIRone 5 MG Tablet PO (10:37)
[2024-02-09] MEDS: Meropenem 500 MG in 0.9% Normal Saline (50mL MB+) 50 ML 100 MG IV (10:41)
[2024-02-09] MEDS: Gabapentin 600 MG Tablet PO ×2 (10:41→21:11)
[2024-02-09 11:18] LABS: Bedside Glucose 177 mg/dL (74-106)
--- NOTE | 2024-02-09 11:48 | NUR.TO.PHY ---
post bun/creatinine canceled r/t pt requiring to d/c dialysis early r/t poor status
--- NOTE | 2024-02-09 13:13 | PCM.PN.REN ---
Subjective Subjective Seen on dialysis today. Blood pressure is on the lower side. Midodrine to be given with dialysis. Objective Data Objective Data Vital Signs: Vital Signs Temp Pulse Resp BP Pulse Ox O2 Del Method O2 Flow Rate 97.4 F L 109 H 20 H 102/77 100 High Flow 4 02/09/24 07:47 02/09/24 10:30 02/09/24 10:30 02/09/24 10:30 02/09/24 10:30 02/09/24 10:30 02/09/24 10:30 Oxygen Flow Rate (L/min) 4 Oxygen Delivery Method High Flow Weight: 85 kg Body Mass Index (BMI) 26.9 Intake & Output: Intake and Output for Last 24 Hours 02/07/24 02/08/24 02/09/24 23:59 23:59 23:59 Intake Total 360 / 360 300 / 300 Output Total 2730 / 2830 3100 / 3100 Balance -2370 / -2470 -2800 / -2800 Lab / Micro Data 02/09/24 06:00 02/09/24 06:00 Labs: Laboratory Results - last 24 hr 02/08/24 16:42: POC Glucose 125 H 02/08/24 20:12: Urine Opiates Screen NEGATIVE, Urine Methadone Screen NEGATIVE, Ur Barbiturates Screen NEGATIVE, Ur Phencyclidine Scrn NEGATIVE, Ur Amphetamines Screen NEGATIVE, MDMA (Ecstasy) Screen NEGATIVE, U Benzodiazepines Scrn NEGATIVE, Urine Cocaine Screen NEGATIVE, U Cannabinoids Screen NEGATIVE, Ur Drug Screen Comment 02/08/24 21:24: POC Glucose 110 H 02/09/24 06:00: WBC 16.0 H, RBC 2.85 L, Hgb 9.1 L, Hct 29.8 L, MCV 104.6 H, MCH 31.9, MCHC 30.5 L D, RDW Std Deviation 68.5 H, RDW Coeff of Reynold 18.7 H, Plt Count 265, MPV 9.6, Sodium 136, Potassium 4.6, Chloride 106, Carbon Dioxide 22.0, Anion Gap 8, BUN 88 H, Creatinine 7.90 H*, Estim Creat Clear Calc 11.26, Est GFR (MDRD) Af Amer 9 L, Est GFR (MDRD) Non-Af 8 L, BUN/Creatinine Ratio 11.1, Glucose 113 H, Calcium 8.8 02/09/24 06:38: POC Glucose 98 02/09/24 11:00: POC Glucose 177 H Micro: Microbiology 02/08/24 02:25 Mucosa - Nose SARS-CoV-2, Influenza & RSV (PCR) - Final Physical Exam Narrative Alert to name, no apparent distress S1, S2, RRR Diminished breath sounds with scattered rhonchi and rales Abdomen soft, nontender Left BKA, right AKA. No edema noted bilateral thighs Tunneled HD catheter accessed for hemodialysis Left mid arm AV fistula with faint thrill and bruit Assessment & Plan Assessment/Plan (1) ESRD on dialysis: (2) Acute on chronic respiratory failure: (3) Hyperkalemia: PLAN: Plan ESRD. We will maintain dialysis Monday, Monday, Monday. Seen on dialysis today.
--- NOTE | 2024-02-09 15:20 | PCM.PN.ID ---
Physical Exam Narrative Feeling about the same, no fever, some dyspnea Const alert and no apparent distress Resp Auscultation: diminished lung sounds Cardio regular rate and regular rhythm GI soft to palpation, non-tender and non-distended Skin Skin Narrative: no new rash ID ID: Route of nutrition/ use of supplements: [] Nutritional Intake: [] IV Site: [] Franco Catheter: [] Assessment & Plan Assessment/Plan (1) Acute on chronic respiratory failure: (2) Large pleural effusion: (3) Multifocal pneumonia: (4) ESRD on dialysis: (5) Osteomyelitis of sacrum: PLAN: Admitted with rising wbc, worsened hypoxia. Not clear if fluid related vs new infection. Cont vanc/keven. Wbc slightly better. Will follow
[2024-02-09] MEDS: Insulin Lispro 100 UNIT/ML INSULN.PEN 10 UNIT SC (16:46)
[2024-02-09 17:00] LABS: Bedside Glucose 163 mg/dL (74-106)
--- NOTE | 2024-02-09 19:46 | PCM.PN.HOSP ---
Reason for Visit Reason for Visit: Diagnoses Hyperkalemia (02/08/24) Metabolic encephalopathy (02/08/24) Pneumonia, unspecified organism (02/08/24) Pleural effusion, not elsewhere classified (02/08/24) Acute and chronic respiratory failure, unspecified whether with hypoxia or hypercapnia (02/08/24) Pressure ulcer of sacral region, stage 4 (02/08/24) Osteomyelitis of vertebra, sacral and sacrococcygeal region (02/08/24) End stage renal disease (02/08/24) Dependence on renal dialysis (02/08/24) Subjective Subjective Patient was seen and examined today, he does not appear to be in any distress, he is on 3 L of oxygen at the present time, he says a few words to this examiner but does not carry on a conversation. Objective Data Objective Data Vital Signs: Vital Signs Temp Pulse Resp BP Pulse Ox O2 Del Method O2 Flow Rate 97.8 F 100 15 136/70 H 94 Nasal Cannula 3 02/09/24 14:00 02/09/24 14:00 02/09/24 14:00 02/09/24 14:00 02/09/24 14:00 02/09/24 14:00 02/09/24 14:00 Oxygen Flow Rate (L/min) 3 Oxygen Delivery Method Nasal Cannula Weight: 85 kg Body Mass Index (BMI) 26.9 Intake & Output: Intake and Output for Last 24 Hours 02/07/24 02/08/24 02/09/24 23:59 23:59 23:59 Intake Total 360 / 360 500 / 500 Output Total 2730 / 2830 3100 / 3100 Balance -2370 / -2470 -2600 / -2600 Lab / Micro Data 02/09/24 06:00 02/09/24 06:00 Labs: Laboratory Results - last 24 hr 02/08/24 20:12: Urine Opiates Screen NEGATIVE, Urine Methadone Screen NEGATIVE, Ur Barbiturates Screen NEGATIVE, Ur Phencyclidine Scrn NEGATIVE, Ur Amphetamines Screen NEGATIVE, MDMA (Ecstasy) Screen NEGATIVE, U Benzodiazepines Scrn NEGATIVE, Urine Cocaine Screen NEGATIVE, U Cannabinoids Screen NEGATIVE, Ur Drug Screen Comment 02/08/24 21:24: POC Glucose 110 H 02/09/24 06:00: WBC 16.0 H, RBC 2.85 L, Hgb 9.1 L, Hct 29.8 L, MCV 104.6 H, MCH 31.9, MCHC 30.5 L D, RDW Std Deviation 68.5 H, RDW Coeff of Reynold 18.7 H, Plt Count 265, MPV 9.6, Sodium 136, Potassium 4.6, Chloride 106, Carbon Dioxide 22.0, Anion Gap 8, BUN 88 H, Creatinine 7.90 H*, Estim Creat Clear Calc 11.26, Est GFR (MDRD) Af Amer 9 L, Est GFR (MDRD) Non-Af 8 L, BUN/Creatinine Ratio 11.1, Glucose 113 H, Calcium 8.8 02/09/24 06:38: POC Glucose 98 02/09/24 11:00: POC Glucose 177 H 02/09/24 16:42: POC Glucose 163 H Micro: Microbiology 02/08/24 02:25 Mucosa - Nose SARS-CoV-2, Influenza & RSV (PCR) - Final Physical Exam Const alert and no apparent distress Constitutional Narrative: Patient appears older than his stated age General Appearance: cooperative and well developed Orientation / Consciousness: awake, oriented to person and oriented to place HEENT normocephalic, head/scalp atraumatic and moist oral mucous membranes Eyes PERRL, EOMs intact bilaterally and conjunctivae normal Neck supple, no JVD, thyroid normal and no carotid bruits General: trachea midline Resp normal respiratory effort, no retractions, no use of accessory muscles and clear to auscultation bilaterally Auscultation: Negative for rales, rhonchi or wheezes Cardio regular rate, regular rhythm, S1 normal heart sound, S2 normal heart sound, no murmurs, no rub and no gallops GI normal to inspection, nondistended, normoactive bowel sounds, soft to palpation, non-tender and non-distended Extremity Extremity Narrative: Patient has lower extremity 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 Acute on chronic respiratory failure-patient is currently on nasal cannula oxygen at 3 L at this time, pulse ox will be monitored #2 fluid overload-nephrology is seeing the patient, he underwent dialysis today #3 metabolic encephalopathy secondary to multiple medical problems, continue to give supportive care #4 end-stage renal disease on dialysis-nephrology is participating in his care #5 chronic debility-patient is chronically [facility] Total clinical time spent by myself addressing the patient's medical issues, reviewing all of his data, and collaborating with patient's care team: 35 minutes Charges/Coding Visit Charges Inpatient E&M: 26083 Subs Hosp L2
[2024-02-09] MEDS: Rosuvastatin 20 MG Tablet PO (21:11)
[2024-02-09 22:24] LABS: Bedside Glucose 68 mg/dL (74-106)
[2024-02-09 22:33] LABS: Bedside Glucose 131 mg/dL (74-106)
[2024-02-10 01:30] VITALS: PULSE 103; RESP 24
[2024-02-10] MEDS: Ipratropium/Albuterol Sulfate 3 ML AMPUL.NEB INHALATION (01:30)
[2024-02-10 01:58] VITALS: BP 116/51; PULSE 92; RESP 20; TEMP 36.2; O2SAT 96
[2024-02-10 03:54] VITALS: BMI 26.7
[2024-02-10 05:22] VITALS: BP 109/54; PULSE 91; RESP 17; TEMP 36.2; O2SAT 97
[2024-02-10] MEDS: Heparin Injection (Vial) 5,000 UNIT/ML VIAL 5000 UNIT SC ×2 (05:49→13:48)
[2024-02-10 06:00] VITALS: BMI 26.7
[2024-02-10 06:45] VITALS: O2SAT 92
[2024-02-10 07:18] LABS: Bedside Glucose 154 mg/dL (74-106)
[2024-02-10 08:17] LABS: Absolute Lymphocyte Count 2.79 X10^3/uL (0.83-4.51); Basophil# 0.07 X10^3/uL; Basophil% 0.5 % (0-1); Eosinophil# 0.16 X10^3/uL; Eosinophils% 1.1 % (0-5); Hematocrit 29.5 % (40-54); Hemoglobin 8.9 g/dL (13.0-16.5); Lymphocyte # 2.79 X10^3/ul (0.83-4.51); Lymphocyte % 19.1 % (19-41); Mean Corp Hgb Conc 30.2 g/dL (32-36); Mean Corpuscular Hgb 31.8 pg (27.0-32.0); Mean Corpuscular Volume 105.4 fL (80-94); Mean Platelet Vol. 9.9 fl (6.2-12.0); Monocyte# 1.14 X10^3/uL; Monocyte% 7.8 % (0-10); NRBC Flagged by Analyzer 0 % (0-5); Neutrophil # 10.03 X10^3/uL (2.7-7.7); Neutrophil % 68.8 % (47-70); POSITIVE MORPHOLOGY YES; Platelet Count 216 K/mm3 (150-450); RBC Distribution Width CV 18.4 % (11.6-14.6); White Blood Count 14.6 K/mm3 (4.4-11.0)
[2024-02-10 08:18] LABS: Differential Indicated SCAN CRITERIA MET
[2024-02-10 08:33] LABS: Anion Gap 7 (5-15); BUN 75 mg/dL (7-18); BUN/Creat Ratio 11.1 RATIO (10-20); Chloride 104 mmol/L (98-107); Creatinine, Serum 6.75 mg/dL (0.70-1.30); EST Glomerular Filtration Rate 9 mL/min (>60); Est Glom Filt Rate - Afr Amer 11 mL/min (>60); Estimated Creatinine Clearance 12.17 ml/min; Glucose 176 mg/dL (74-106); Potassium 4.3 mmol/L (3.5-5.1); Sodium Level 134 mmol/L (136-145)
[2024-02-10 08:40] VITALS: BP 128/60; PULSE 97; RESP 19; TEMP 36.8; O2SAT 99
[2024-02-10] MEDS: Pantoprazole Sodium 20 MG Tablet PO (08:42)
[2024-02-10] MEDS: Ferrous Sulfate 325 MG Tablet PO (08:42)
[2024-02-10] MEDS: Ranolazine 500 MG Tablet 1000 MG PO (08:43)
[2024-02-10] MEDS: SEVELAMER CARBONATE 800 MG TABLET 1600 MG PO (08:43)
[2024-02-10] MEDS: Cyanocobalamin 500 MCG Tablet PO (08:43)
[2024-02-10] MEDS: Clopidogrel Bisulfate 75 MG Tablet PO (08:44)
[2024-02-10] MEDS: VILAZODONE HYDROCHLORIDE 10 MG TABLET 40 MG PO (08:45)
[2024-02-10] MEDS: Insulin Lispro 100 UNIT/ML INSULN.PEN 10 UNIT SC (08:46)
[2024-02-10] MEDS: Aspirin E.C. 81 MG Tablet PO (08:46)
[2024-02-10] MEDS: Isosorbide Mononitrate 60 MG Tablet PO (08:47)
[2024-02-10] MEDS: busPIRone 5 MG Tablet PO (08:48)
[2024-02-10 08:58] LABS: Anisocytosis 3+; Differential Comment SCANNED
[2024-02-10] MEDS: Meropenem 500 MG in 0.9% Normal Saline (50mL MB+) 50 ML 100 MG IV (09:28)
[2024-02-10] MEDS: Gabapentin 600 MG Tablet PO (09:28)
[2024-02-10] MEDS: CARIPRAZINE HCL 3 MG CAPSULE PO (09:29)
[2024-02-10] MEDS: Cholecalciferol (Vit D3) 125 MCG CAPSULE (5,000 UNITS) PO (09:30)
--- NOTE | 2024-02-10 11:56 | PN.HOSP_ITS ---
Reason for Visit Reason for Visit: Diagnoses Hyperkalemia (02/08/24) Metabolic encephalopathy (02/08/24) Pneumonia, unspecified organism (02/08/24) Pleural effusion, not elsewhere classified (02/08/24) Acute and chronic respiratory failure, unspecified whether with hypoxia or hypercapnia (02/08/24) Pressure ulcer of sacral region, stage 4 (02/08/24) Osteomyelitis of vertebra, sacral and sacrococcygeal region (02/08/24) End stage renal disease (02/08/24) Dependence on renal dialysis (02/08/24) Subjective Subjective Patient was seen and examined today, he is alert and voices no complaints. I talked briefly with the dialysis nurse today and he stated that the patient will frequently have problems with his blood pressure during dialysis and that it was plan to dialyze the patient today. Patient is currently on 2 L of oxygen and appears comfortable at rest. Objective Data Objective Data Vital Signs: Vital Signs Temp Pulse Resp BP Pulse Ox O2 Del Method O2 Flow Rate 98.2 F 97 19 H 128/60 H 99 Nasal Cannula 2 02/10/24 08:40 02/10/24 08:40 02/10/24 08:40 02/10/24 08:40 02/10/24 08:40 02/10/24 08:40 02/10/24 08:40 Oxygen Flow Rate (L/min) 2 Oxygen Delivery Method Nasal Cannula Weight: 84.5 kg Body Mass Index (BMI) 26.7 Intake & Output: Intake and Output for Last 24 Hours 02/08/24 02/09/24 02/10/24 23:59 23:59 23:59 Intake Total 360 / 360 500 / 500 60 / 60 Output Total 2730 / 2830 3100 / 3100 Balance -2370 / -2470 -2600 / -2600 Lab / Micro Data 02/10/24 08:01 02/10/24 08:01 Labs: Laboratory Results - last 24 hr 02/09/24 16:42: POC Glucose 163 H 02/09/24 21:14: POC Glucose 68 L 02/09/24 22:13: POC Glucose 131 H 02/10/24 06:50: POC Glucose 154 H 02/10/24 08:01: WBC 14.6 H, RBC 2.80 L, Hgb 8.9 L, Hct 29.5 L, MCV 105.4 H, MCH 31.8, MCHC 30.2 L, RDW Std Deviation 69.0 H, RDW Coeff of Reynold 18.4 H, Plt Count 216, MPV 9.9, Immature Gran % (Auto) 2.700 H, Neut % (Auto) 68.8, Lymph % (Auto) 19.1, [place] % (Auto) 7.8, Eos % (Auto) 1.1, Baso % (Auto) 0.5, Absolute Neuts (auto) 10.0 H, Absolute Lymphs (auto) 2.79, Nucleated RBC % 0, Differential Comment SCANNED, Anisocytosis 3+, Sodium 134 L, Potassium 4.3, Chloride 104, Carbon Dioxide 23.0, Anion Gap 7, BUN 75 H, Creatinine 6.75 H, Estim Creat Clear Calc 12.17, Est GFR (MDRD) Af Amer 11 L, Est GFR (MDRD) Non-Af 9 L, BUN/Creati nine Ratio 11.1, Glucose 176 H, Calcium 9.0 Micro: Microbiology 02/08/24 02:25 Mucosa - Nose SARS-CoV-2, Influenza & RSV (PCR) - Final Physical Exam Narrative alert and no apparent distress Constitutional Narrative: Patient appears older than his stated age General Appearance: cooperative and well developed Orientation / Consciousness: awake, oriented to person and oriented to place HEENT normocephalic, head/scalp atraumatic and moist oral mucous membranes Eyes PERRL, EOMs intact bilaterally and conjunctivae normal Neck supple, no JVD, thyroid normal and no carotid bruits General: trachea midline Resp normal respiratory effort, no retractions, no use of accessory muscles and clear to auscultation bilaterally Auscultation: Negative for rales, rhonchi or wheezes Cardio regular rate, regular rhythm, S1 normal heart sound, S2 normal heart sound, no murmurs, no rub and no gallops GI normal to inspection, nondistended, normoactive bowel sounds, soft to palpation, non-tender and non-distended Extremity Extremity Narrative: Patient has lower extremity bdilqdukgab-srtvh-ukq-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 Acute on chronic respiratory failure-patient is currently on nasal cannula oxygen at 3 L at this time, pulse ox will be monitored #2 fluid overload-nephrology is seeing the patient, he will not require dialysis today, patient appears to be medically stable for discharge back to his extended care facility #3 metabolic encephalopathy secondary to multiple medical problems, continue to give supportive care #4 end-stage renal disease on dialysis-nephrology is participating in his care #5 chronic debility-patient is chronically in intermediate care at this time at a retirement #6 chronic osteomyelitis of the sacrum-patient was on vancomycin, cefepime, and Flagyl on discharge from the hospital earlier in the week, according to medical records, stop date was March 23, patient will resume these medications when he goes back to his retirement Total clinical time spent by myself addressing the patient's medical issues, reviewing all of his data, and collaborating with patient's care team: 35 minutes
[2024-02-10 12:44] LABS: Bedside Glucose 114 mg/dL (74-106)
--- NOTE | 2024-02-10 13:29 | TREXTCAR_ITS ---
Diet Diet Order/Speech Therapy: 02/08/24 09:29 Diet: Renal - ConsCHO - Kenny Cont Food consistency:: Mechanical (Minced/Moist) Liquid Consistency:: Mallard/Mildly Thick Type of Dietary Supplement:: Christiano Is pt able to select menu?: No Diet Comments: Christiano w/ lunch and dinner How many daily calories?: 2000 calorie Routine Orders/Code Status O2 Liters per Minute: 2 O2 Frequency: Continuous Keep PO Greater than or Equal to (%): 90 Routine Lab Work: CBC (Weekly starting 02/12/2024), BMP (Weekly starting 02/12/2024) and - (Weekly ESR, weekly Vanco trough level beginning 02/12/2024) Code Status: Full Code Wound(s) sacrum: Wound Type: Pressure Injury Dressing Change: AntiMicrobial (Aquacel AG, etc) Left stump: Wound Type: Pressure Injury Dressing Change: foam dressing in place R neck: Wound Type: Puncture right ischium: Wound Type: Pressure Injury Dressing Change: AntiMicrobial (Aquacel AG, etc) left ischium: Wound Type: Pressure Injury Dressing Change: dry well padded dressing L facial cheek: Wound Type: Abrasion Problem/Diagnosis (1) Acute on chronic respiratory failure: Status: Chronic Code(s): J96.20 - Acute and chronic respiratory failure, unspecified whether with hypoxia or hypercapnia Plan 1. Acute on chronic respiratory failure secondary to fluid overload-patient is currently on nasal cannula oxygen at 2 L at this time, pulse ox will be tiffanie tored #2 fluid overload-nephrology is seeing the patient, he will undergo dialysis today #3 metabolic encephalopathy secondary to multiple medical problems, continue to give supportive care #4 end-stage renal disease on dialysis-nephrology is participating in his care #5 chronic debility-patient is chronically in intermediate care at this time at a assisted #6 chronic osteomyelitis of the sacrum-patient was on vancomycin, cefepime, and Flagyl on discharge from the hospital earlier in the week, according to medical records, stop date was March 23, patient is now on meropenem, patient will be placed back on vancomycin which she has not been ordered since he was admitted Total clinical time spent by myself addressing the patient's medical issues, reviewing all of his data, and collaborating with patient's care team: 35 minutes Allergies/Procedures Done in Hospital Allergies atorvastatin Allergy (Unknown, Verified 02/08/24 02:21) PT UNABLE TO RESPOND-NEEDS F/U [id number] Reductase Inhibitor Allergy (Unknown, Verified 02/08/24 02:21) PT UNABLE TO RESPOND-NEEDS F/U Procedures: Dialysis Type of Care/Length of Stay Estimated LOS: More Than 30 Days Type of Care Needed: Skilled Rehab Potential: Fair Prognosis: Fair Additional Orders/Day of Discharge H&P will serve as current which was dated: 02/08/24 Day of Discharge: 02/10/24 Dietary and Speech Recommendations Dietitian Recommendations/Changes: will adjust diet to renal, 2000 calorie cont rolled consistent carbohydrate. Christiano BID for wound healing Discharge Plan Admission Admit Date/Time: 02/08/24 04:42 Primary Reason for Your Visit: Fluid overload, acute on chronic hypoxic respiratory failure Attending Provider: Lizandro Owens Primary Care Provider: Laci Power Consulting Providers: Adalid Isidro; Monae Navarrete; Tawanda Rich; Maurice Pino Instructions Additional Instructions / Restrictions: Fingerstick blood sugars AC nightly, sliding scale Humalog subcu to scale: 200?250: 5 units subcu, 251?300: 8 units subcu, 301?350: 12 units subcu Discharge Orders/Prescriptions Prescriptions: Continued albuterol sulfate 90 mcg/actuation HFA aerosol inhaler 2 inh inhalation Q6H PRN (Reason: shortness of breath or wheezing) albuterol sulfate 2.5 mg/0.5 mL solution for nebulization 2.5 mg inhalation Q6H aspirin [Adult Low Dose Aspirin] 81 mg tablet,delayed release (DR/EC) 81 mg PO DAILY insulin glargine [Basaglar KwikPen U-100 Insulin] 100 unit/mL (3 mL) insulin pen 12 unit subcut QPM buspirone 5 mg tablet 5 mg PO DAILY rosuvastatin [Crestor] 20 mg tablet 20 mg PO DAILY gabapentin 600 mg tablet 600 mg PO BID insulin lispro [Humalog KwikPen Insulin] 100 unit/mL insulin pen 10 unit subcut .COMPLEX Rx Instructions: 10 units subcutaneously am and afternoon; insulin lispro protamin-lispro 100 unit/mL (75-25) insulin pen 12 unit subcut .daily hs Rx Instructions: IN AFTERNOON ferrous sulfate [iron] 325 mg (65 mg iron) tablet 325 mg PO BID isosorbide mononitrate 60 mg tablet extended release 24 hr 60 mg PO DAILY metoprolol succinate 25 mg tablet extended release 24 hr 25 mg PO DAILY nitroglycerin [Nitrolingual] 0.4 mg sublingual PRN omeprazole 20 mg capsule,delayed release(DR/EC) 20 mg PO DAILY clopidogrel [Plavix] 75 mg tablet 75 mg PO DAILY Procrit 10,000 unit/mL solution 10,000 unit IV DAILY ranolazine 500 mg tablet extended release 12 hr 1,000 mg PO Q12H sevelamer carbonate [Renvela] 800 mg tablet 1,600 mg PO DAILY Rx Instructions: must administer with a meal/food vilazodone 40 mg tablet 40 mg PO DAILY Rx Instructions: must administer with a meal/food cyanocobalamin (vitamin B-12) [Vitamin B-12] 500 mcg tablet 500 mcg PO DAILY cholecalciferol (vitamin D3) 125 mcg (5,000 unit) capsule 5,000 unit PO DAILY Vraylar 3 mg capsule 3 mg PO DAILY metronidazole 500 mg tablet 500 mg PO TID Qty: 150 0RF cefepime 100 gram recon soln 1 g IV .see below 50 Days Rx Instructions: dx: sacral osteo. Stop date 03/23/24. IV cefepime dosed with dialysis sessions, 1gm on Mon, 2gm on , 1gm on , 2gm on Fri. weekly bmp, cbc, esr, and vanc trough, fax to [phone]. vancomycin in 0.9 % sodium chl 1 gram/200 mL piggyback 1 g IV .see below 50 Days Rx Instructions: dx: sacral osteo. Stop date 03/23/24. IV vancomycin 500mg dosed with dialysis sessions, MTuThFr. weekly bmp, cbc, esr, and vanc trough, fax to [phone]. acetaminophen 325 mg capsule 650 mg PO Q4H bisacodyl 10 mg suppository 10 mg NE DAILY PRN (Reason: constipation) Rx Instructions: if MOM ineffective acetaminophen 650 mg suppository 650 mg NE Q4H magnesium hydroxide [Milk of Magnesia] 400 mg/5 mL suspension 30 ml PO DAILY PRN Vraylar 3 mg capsule 3 mg PO DAILY Referrals / Follow Up: Laci Power MD [Primary Care Provider] - Disposition Disposition (needs filled in before D/C Order can be placed): Shelter Facility
[2024-02-10 13:31] LABS: Vancomycin, Random Level 15.7 ug/mL (0.0-15.0)
[2024-02-10 13:43] VITALS: BP 122/78; PULSE 105; RESP 18; TEMP 36.6; O2SAT 94
--- NOTE | 2024-02-10 13:51 | PCM.DC.SUM ---
Providers Date of Admission: 02/08/24 Date of Discharge: 02/10/24 Primary Care Physician: Dr. Laci Power MD Consultations 02/08/24 05:49 Consult: Infectious Disease Routine Consulting Provider: Tawanda Rich Reason for Consult: Persistent nosocomial pneumonia and spite of broad-spectrum antibiotics. EMERGENT Consult: No Notified: Yes Date Notified: 02/08/24 Time Notified: 05:05 Method of Notification: Text Consult: Nephrology Routine Consulting Provider: Monae Navarrete Reason for Consult: Hyperkalemia with ESRD on HD (Fizpid-Phrayntsm-Rfpden). EMERGENT Consult: No Notified: Yes Date Notified: 02/08/24 Time Notified: 06:06 Method of Notification: Answering Service Consult: Onc/Wound/hand buffer Routine Comment: Reason for Consult:: Chronic stage IV sacral decubitus ulcer Reason For Visit: ACUTE EXACERBATION OF CHF, LINGERING MULTIFOCAL Diagnosis Discharge Diagnosis (1) Acute on chronic respiratory failure: Status: Chronic Code(s): J96.20 - Acute and chronic respiratory failure, unspecified whether with hypoxia or hypercapnia Plan 1. Acute on chronic respiratory failure secondary to fluid overload-patient is currently on nasal cannula oxygen at 2 L at this time, pulse ox will be monitored #2 fluid overload-nephrology is seeing the patient, he will undergo dialysis today #3 metabolic encephalopathy secondary to multiple medical problems, continue to give supportive care #4 end-stage renal disease on dialysis-nephrology is participating in his care #5 chronic debility-patient is chronically in intermediate care at this time at a senior living #6 chronic osteomyelitis of the sacrum-patient was on vancomycin, cefepime, and Flagyl on discharge from the hospital earlier in the week, according to medical records, stop date was March 23, patient is now on meropenem, patient will be placed back on vancomycin which she has not been ordered since he was admitted Pneumonia was ruled out Total clinical time spent by myself addressing the patient's medical issues, reviewing all of his data, and collaborating with patient's care team: 35 minutes Medications at Discharge Home Medications albuterol sulfate 2.5 mg/0.5 mL solution for nebulization 2.5 mg inhalation Q6H 01/27/24 albuterol sulfate 90 mcg/actuation aerosol inhaler 2 inh inhalation Q6H PRN shortness of breath or wheezing 01/27/24 aspirin 81 mg tablet,delayed release (Adult Low Dose Aspirin) 81 mg PO DAILY 01/27/24 buspirone 5 mg tablet 5 mg PO DAILY 01/27/24 cariprazine 3 mg capsule (Vraylar) 3 mg PO DAILY psychosis 01/27/24 cholecalciferol (vitamin D3) 125 mcg (5,000 unit) capsule 5,000 unit PO DAILY 01/27/24 clopidogrel 75 mg tablet (Plavix) 75 mg PO DAILY 01/27/24 cyanocobalamin (vitamin B-12) 500 mcg tablet (Vitamin B-12) 500 mcg PO DAILY 01/27/24 epoetin dee 10,000 unit/mL injection solution (Procrit) 10,000 unit IV DAILY 01/27/24 ferrous sulfate 325 mg (65 mg iron) tablet (iron) 325 mg PO BID 01/27/24 gabapentin 600 mg tablet 600 mg PO BID 01/27/24 insulin glargine 100 unit/mL (3 mL) subcutaneous pen (Basaglar KwikPen U-100 Insulin) 12 unit subcut QPM BG 01/27/24 insulin lispro 100 unit/mL subcutaneous pen (Humalog KwikPen (U-100) Insulin) 10 unit subcut .COMPLEX 01/27/24 insulin lispro protamine-lispro 100 unit/mL (75-25) subcutaneous pen 12 unit subcut .daily hs 01/27/24 isosorbide mononitrate 60 mg tablet,extended release 24 hr 60 mg PO DAILY 01/27/24 metoprolol succinate 25 mg tablet,extended release 24 hr 25 mg PO DAILY 01/27/24 nitroglycerin 0.4 mg sublingual PRN 01/27/24 omeprazole 20 mg capsule,delayed release 20 mg PO DAILY 01/27/24 ranolazine 500 mg tablet,extended release,12 hr 1,000 mg PO Q12H 01/27/24 rosuvastatin 20 mg tablet (Crestor) 20 mg PO DAILY 01/27/24 sevelamer carbonate 800 mg tablet (Renvela) 1,600 mg PO DAILY 01/27/24 vilazodone 40 mg tablet 40 mg PO DAILY 01/27/24 cefepime 100 gram intravenous solution 1 g IV .see below 50 days 02/02/24 metronidazole 500 mg tablet 500 mg PO TID #150 tabs 02/02/24 vancomycin 1 gram/200 mL in 0.9 % sod. chloride intravenous piggyback 1 g (200 mL) IV .see below 50 days 02/02/24 acetaminophen 325 mg capsule 650 mg PO Q4H pain or fever 02/08/24 acetaminophen 650 mg rectal suppository 650 mg NC Q4H fever 02/08/24 bisacodyl 10 mg rectal suppository 10 mg NC DAILY PRN constipation 02/08/24 cariprazine 3 mg capsule (Vraylar) 3 mg PO DAILY 02/08/24 magnesium hydroxide 400 mg/5 mL oral suspension (Milk of Magnesia) 30 ml PO DAILY PRN constipation 02/08/24 Hospital Course Operations None Procedures Dialysis Summary of Care Provided Minutes Spent on Discharge: 32 Hospital Course: This 58-year-old white male was seen in the emergency room at [facility] after being transported from a local [facility] care facility at which she resides due to increasing shortness of breath and lethargy. Patient was on a nonrebreather mask when admitted to the emergency room, labs were obtained which showed an elevated white blood cell count at 16.2, hemoglobin was 8.9, BUN was elevated at 118 and creatinine was 9.44. Glucose was 158. Chest x-ray shows significant increased opacity on the left likely combination of pleural effusion, atelectasis, and/or consolidation, there was also noted to be a right pleural effusion which was basically unchanged and basilar airspace disease which was unchanged from the last exam. Patient was admitted to PCU for possible pneumonia and fluid overload, he underwent dialysis and his oxygen requirements dropped dramatically. This examiner felt that the patient did not have pneumonia but had fluid overload. Patient remained on IV antibiotics due to his chronic sacral osteomyelitis. On 02/10/2024, patient was seen and examined:alert and no apparent distress Constitutional Narrative: Patient appears older than his stated age General Appearance: cooperative and well developed Orientation / Consciousness: awake, oriented to person and oriented to place HEENT normocephalic, head/scalp atraumatic and moist oral mucous membranes Eyes PERRL, EOMs intact bilaterally and conjunctivae normal Neck supple, no JVD, thyroid normal and no carotid bruits General: trachea midline Resp normal respiratory effort, no retractions, no use of accessory muscles and clear to auscultation bilaterally Auscultation: Negative for rales, rhonchi or wheezes Cardio regular rate, regular rhythm, S1 normal heart sound, S2 normal heart sound, no murmurs, no rub and no gallops GI normal to inspection, nondistended, normoactive bowel sounds, soft to palpation, non-tender and non-distended Extremity Extremity Narrative: Patient has lower extremity cpyaoqtozcx-pxmgo-swc-knee 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 Weight / BMI Weight Weight: 84.5 kg Body Mass Index (BMI) 26.7 ABG / Lab / Microbiology Data 02/10/24 08:01 02/10/24 08:01 Laboratory: Laboratory Results - last 24 hr 02/09/24 16:42: POC Glucose 163 H 02/09/24 21:14: POC Glucose 68 L 02/09/24 22:13: POC Glucose 131 H 02/10/24 06:50: POC Glucose 154 H 02/10/24 08:01: WBC 14.6 H, RBC 2.80 L, Hgb 8.9 L, Hct 29.5 L, MCV 105.4 H, MCH 31.8, MCHC 30.2 L, RDW Std Deviation 69.0 H, RDW Coeff of Reynold 18.4 H, Plt Count 216, MPV 9.9, Immature Gran % (Auto) 2.700 H, Neut % (Auto) 68.8, Lymph % (Auto) 19.1, [place] % (Auto) 7.8, Eos % (Auto) 1.1, Baso % (Auto) 0.5, Absolute Neuts (auto) 10.0 H, Absolute Lymphs (auto) 2.79, Nucleated RBC % 0, Differential Comment SCANNED, Anisocytosis 3+, Sodium 134 L, Potassium 4.3, Chloride 104, Carbon Dioxide 23.0, Anion Gap 7, BUN 75 H, Creatinine 6.75 H, Estim Creat Clear Calc 12.17, Est GFR (MDRD) Af Amer 11 L, Est GFR (MDRD) Non-Af 9 L, BUN/Creatinine Ratio 11.1, Glucose 176 H, Calcium 9.0 02/10/24 12:27: POC Glucose 114 H 02/10/24 12:50: Random Vancomycin 15.7 H Microbiology: Microbiology 02/08/24 02:25 Mucosa - Nose SARS-CoV-2, Influenza & RSV (PCR) - Final Meaningful Use Info Meaningful Use Diagnoses (Choose all that apply): None applicable Discharge Plan Admission Admit Date/Time: 02/08/24 04:42 Primary Reason for Your Visit: Fluid overload, acute on chronic hypoxic respiratory failure Attending Provider: Lizandro Owens Primary Care Provider: Laci Power Consulting Providers: Adalid Isidro; Monae Navarrete; Tawanda Rich; Maurice Pino Instructions Additional Instructions / Restrictions: Fingerstick blood sugars AC nightly, sliding scale Humalog subcu to scale: 200?250: 5 units subcu, 251?300: 8 units subcu, 301?350: 12 units subcu Discharge Orders/Prescriptions Prescriptions: Continued albuterol sulfate 90 mcg/actuation HFA aerosol inhaler 2 inh inhalation Q6H PRN (Reason: shortness of breath or wheezing) albuterol sulfate 2.5 mg/0.5 mL solution for nebulization 2.5 mg inhalation Q6H aspirin [Adult Low Dose Aspirin] 81 mg tablet,delayed release (DR/EC) 81 mg PO DAILY insulin glargine [Basaglar KwikPen U-100 Insulin] 100 unit/mL (3 mL) insulin pen 12 unit subcut QPM buspirone 5 mg tablet 5 mg PO DAILY rosuvastatin [Crestor] 20 mg tablet 20 mg PO DAILY gabapentin 600 mg tablet 600 mg PO BID insulin lispro [Humalog KwikPen Insulin] 100 unit/mL insulin pen 10 unit subcut .COMPLEX Rx Instructions: 10 units subcutaneously am and afternoon; insulin lispro protamin-lispro 100 unit/mL (75-25) insulin pen 12 unit subcut .daily hs Rx Instructions: IN AFTERNOON ferrous sulfate [iron] 325 mg (65 mg iron) tablet 325 mg PO BID isosorbide mononitrate 60 mg tablet extended release 24 hr 60 mg PO DAILY metoprolol succinate 25 mg tablet extended release 24 hr 25 mg PO DAILY nitroglycerin [Nitrolingual] 0.4 mg sublingual PRN omeprazole 20 mg capsule,delayed release(DR/EC) 20 mg PO DAILY clopidogrel [Plavix] 75 mg tablet 75 mg PO DAILY Procrit 10,000 unit/mL solution 10,000 unit IV DAILY ranolazine 500 mg tablet extended release 12 hr 1,000 mg PO Q12H sevelamer carbonate [Renvela] 800 mg tablet 1,600 mg PO DAILY Rx Instructions: must administer with a meal/food vilazodone 40 mg tablet 40 mg PO DAILY Rx Instructions: must administer with a meal/food cyanocobalamin (vitamin B-12) [Vitamin B-12] 500 mcg tablet 500 mcg PO DAILY cholecalciferol (vitamin D3) 125 mcg (5,000 unit) capsule 5,000 unit PO DAILY Vraylar 3 mg capsule 3 mg PO DAILY metronidazole 500 mg tablet 500 mg PO TID Qty: 150 0RF cefepime 100 gram recon soln 1 g IV .see below 50 Days Rx Instructions: dx: sacral osteo. Stop date 03/23/24. IV cefepime dosed with dialysis sessions, 1gm on Mon, 2gm on , 1gm on , 2gm on Fri. weekly bmp, cbc, esr, and vanc trough, fax to [phone]. vancomycin in 0.9 % sodium chl 1 gram/200 mL piggyback 1 g IV .see below 50 Days Rx Instructions: dx: sacral osteo. Stop date 03/23/24. IV vancomycin 500mg dosed with dialysis sessions, MTuThFr. weekly bmp, cbc, esr, and vanc trough, fax to [phone]. acetaminophen 325 mg capsule 650 mg PO Q4H bisacodyl 10 mg suppository 10 mg NC DAILY PRN (Reason: constipation) Rx Instructions: if MOM ineffective acetaminophen 650 mg suppository 650 mg NC Q4H magnesium hydroxide [Milk of Magnesia] 400 mg/5 mL suspension 30 ml PO DAILY PRN Vraylar 3 mg capsule 3 mg PO DAILY Referrals / Follow Up: Laci Power MD [Primary Care Provider] - Disposition Disposition (needs filled in before D/C Order can be placed): Care Home Facility Charges/Coding Visit Charges Inpatient E&M: 45560 Disch Hosp >30min
[2024-02-10] MEDS: Vancomycin IV 500 MG/100 ML BAG 100 MG IV (14:06)
--- NOTE | 2024-02-10 15:16 | NURSING ---
called boby armenta let him know dc to [facility]
--- NOTE | 2024-02-10 15:16 | NURSING ---
called [facility] report given to Yarelis badillo
== END 2024-02-10 15:18 | disposition skilled nursing facility (03) | DRG 640 ==
LOC: ED 03:08 → PCU 05:14
PROVIDERS: Hospitalist; Admitting Provider Internal Medicine; Emergency Provider Emergency Medicine; PCP Family Medicine; Visit Provider Internal Medicine
DX: E87.70 Fluid overload, unspecified (principal); N18.6 End stage renal disease; J96.20 Acute and chronic respiratory failure, unspecified whether with hypoxia or hypercapnia; G93.41 Metabolic encephalopathy; L89.154 Pressure ulcer of sacral region, stage 4; I13.2 Hypertensive heart and chronic kidney disease with heart failure and with stage 5 chronic kidney disease, or end stage renal disease; J90 Pleural effusion, not elsewhere classified; M46.28 Osteomyelitis of vertebra, sacral and sacrococcygeal region; D63.1 Anemia in chronic kidney disease; E11.22 Type 2 diabetes mellitus with diabetic chronic kidney disease; F31.9 Bipolar disorder, unspecified; I50.9 Heart failure, unspecified; E11.40 Type 2 diabetes mellitus with diabetic neuropathy, unspecified; E11.51 Type 2 diabetes mellitus with diabetic peripheral angiopathy without gangrene; Z79.4 Long term (current) use of insulin; E11.65 Type 2 diabetes mellitus with hyperglycemia; E11.69 Type 2 diabetes mellitus with other specified complication; Z89.512 Acquired absence of left leg below knee; Z89.611 Acquired absence of right leg above knee; Z93.3 Colostomy status; Z99.2 Dependence on renal dialysis; E87.5 Hyperkalemia; I25.10 Atherosclerotic heart disease of native coronary artery without angina pectoris; E78.5 Hyperlipidemia, unspecified; I25.2 Old myocardial infarction; Z87.891 Personal history of nicotine dependence; E66.3 Overweight; Z79.02 Long term (current) use of antithrombotics/antiplatelets; Z68.29 Body mass index [BMI] 29.0-29.9, adult
CPT/HCPCS: 36415; 36600; 71045; 80048; 80053; 80202; 80307; 82803; 82962; 83735; 83880; 84100; 84484; 85025; 85027; 87631; 90937; 93005; 94640; 94762; 97802; 99252; 99285; J2185; J7030; A4216; G0257; G0463; Q5106

== ENCOUNTER 2024-02-26 14:07 | Emergency (ER) | payer MEDICARE, MEDICAID, SELFPAY ==
[2024-02-26] VITALS (9 sets, daily range): BP systolic 102–124; BP diastolic 46–61; PULSE 77–100; RESP 16–27; TEMP 35.7–37.1; O2SAT 94–100; BMI 26.9
--- NOTE | 2024-02-26 14:44 | EKG12_ITS ---
Test Reason : WOUND Blood Pressure : / mmHG Vent. Rate : 091 BPM Atrial Rate : 091 BPM P-R Int : 166 ms QRS Dur : 130 ms QT Int : 378 ms P-R-T Axes : 056 020 120 degrees QTc Int : 464 ms Normal sinus rhythm Non-specific intra-ventricular conduction block Nonspecific T wave abnormality Abnormal ECG Confirmed by TRUDI YIN, BLANCA ([id number]), visual effects editor LAURA PERES ([id number]) on 02/27/2024 8:24:29 AM Referred By: Confirmed By:BLANCA BRUSH MD
--- NOTE | 2024-02-26 14:50 | EX.ED.DYSGE1 ---
HPI History of Present Illness Chief Complaint: Wound Check Narrative Narrative: 58-year-old male presenting from his senior living with confusion and bleeding of his sacrum. He states this sacral wound has been here for a long time. He is unable to give me an exact amount of time. He states he is not sure if he is on antibiotics. He is wearing oxygen and states he is always on oxygen. He states his back hurts where his wound is. He does not believe he had any falls. He does appear to be slightly confused. Patient is a poor informant. 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 Bipolar affective disorder CAD (coronary artery disease) Cervical stenosis of spine CHF (congestive heart failure) Chronic kidney disease Colostomy in place Depression Diabetes Dialysis patient GERD (gastroesophageal reflux disease) Hyperlipemia Hypertension Myocardial infarction Neuropathy Osteoarthritis Home Medications albuterol sulfate 2.5 mg/0.5 mL solution for nebulization 2.5 mg inhalation Q6H 01/27/24 [History Last Taken Unknown] albuterol sulfate 90 mcg/actuation aerosol inhaler 2 inh inhalation Q6H PRN shortness of breath or wheezing 01/27/24 [History Last Taken Unknown] aspirin 81 mg tablet,delayed release (Adult Low Dose Aspirin) 81 mg PO DAILY 01/27/24 [History Last Taken Unknown] buspirone 5 mg tablet 5 mg PO DAILY 01/27/24 [History Last Taken Unknown] cholecalciferol (vitamin D3) 125 mcg (5,000 unit) capsule 5,000 unit PO DAILY 01/27/24 [History Last Taken Unknown] clopidogrel 75 mg tablet (Plavix) 75 mg PO DAILY 01/27/24 [History Last Taken Unknown] cyanocobalamin (vitamin B-12) 500 mcg tablet (Vitamin B-12) 500 mcg PO DAILY 01/27/24 [History Last Taken Unknown] ferrous sulfate 325 mg (65 mg iron) tablet (iron) 325 mg PO BID 01/27/24 [History Last Taken Unknown] gabapentin 600 mg tablet 600 mg PO BID 01/27/24 [History Last Taken Unknown] insulin glargine 100 unit/mL (3 mL) subcutaneous pen (Basaglar KwikPen U-100 Insulin) 12 unit subcut QPM BG 01/27/24 [History Last Taken Unknown] insulin lispro 100 unit/mL subcutaneous pen (Humalog KwikPen (U-100) Insulin) 10 unit subcut .COMPLEX 01/27/24 [History Last Taken Unknown] insulin lispro protamine-lispro 100 unit/mL (75-25) subcutaneous pen 12 unit subcut .daily hs 01/27/24 [History Last Taken Unknown] isosorbide mononitrate 60 mg tablet,extended release 24 hr 60 mg PO DAILY 01/27/24 [History Last Taken Unknown] metoprolol succinate 25 mg tablet,extended release 24 hr 25 mg PO DAILY 01/27/24 [History Last Taken Unknown] nitroglycerin 0.4 mg sublingual PRN 01/27/24 [History Last Taken Unknown] omeprazole 20 mg capsule,delayed release 20 mg PO DAILY 01/27/24 [History Last Taken Unknown] ranolazine 500 mg tablet,extended release,12 hr 1,000 mg PO Q12H 01/27/24 [History Last Taken Unknown] rosuvastatin 20 mg tablet (Crestor) 20 mg PO DAILY 01/27/24 [History Last Taken Unknown] sevelamer carbonate 800 mg tablet (Renvela) 1,600 mg PO DAILY 01/27/24 [History Last Taken Unknown] vilazodone 40 mg tablet 40 mg PO DAILY 01/27/24 [History Last Taken Unknown] cefepime 100 gram intravenous solution 1 g IV .see below 50 days 02/02/24 [Rx Last Taken Unknown] metronidazole 500 mg tablet 500 mg PO TID #150 tabs 02/02/24 [Rx Last Taken Unknown] vancomycin 1 gram/200 mL in 0.9 % sod. chloride intravenous piggyback 1 g (200 mL) IV .see below 50 days 02/02/24 [Rx Last Taken Unknown] acetaminophen 325 mg capsule 650 mg PO Q4H pain or fever 02/08/24 [History Last Taken Unknown] acetaminophen 650 mg rectal suppository 650 mg MT Q4H fever 02/08/24 [History Last Taken Unknown] bisacodyl 10 mg rectal suppository 10 mg MT DAILY PRN constipation 02/08/24 [History Last Taken Unknown] cariprazine 3 mg capsule (Vraylar) 3 mg PO DAILY 02/08/24 [History Last Taken Unknown] magnesium hydroxide 400 mg/5 mL oral suspension (Milk of Abiquo) 30 ml PO DAILY PRN constipation 02/08/24 [History Last Taken Unknown] glucagon 1 mg solution for injection (Glucagon Emergency Kit) 1 mg IM X1 PRN hypoglycemia 02/26/24 [History Last Taken Unknown] midodrine 10 mg tablet 10 mg PO Q4H PRN hypotension 02/26/24 [History Last Taken Unknown] therapeutic multivitamin (Thera-Tabs tablet) 1 tab PO DAILY 02/26/24 [History Last Taken Unknown] Allergy/AdvReac Type Severity Reaction Status Date / Time atorvastatin Allergy Unknown PT UNABLE Verified 02/08/24 02:21 TO RESPOND-NEEDS F/U [id number] Reductase Allergy Unknown PT UNABLE Verified 02/08/24 02:21 Inhibitor TO RESPOND-NEEDS F/U Surgical History Hx of appendectomy Hx of CABG Social History Smoking Status: Former smoker ROS ROS ED Review of Systems ROS Unobtainable: due to mental condition and due to mental status EXAM Physical Exam Const Vital Signs: 02/26/24 14:09 02/26/24 14:09 02/26/24 14:49 Temperature 96.2 F L 96.2 F L Temperature Source Oral Temporal Pulse Rate 100 100 Respiratory Rate 18 16 Blood Pressure 115/56 L 115/56 L Blood Pressure Mean 75 75 Pulse Ox 94 94 95 Oxygen Delivery Method Nasal Cannula Nasal Cannula Room Air Oxygen Flow Rate (L/min) 6 6 6 02/26/24 15:14 02/26/24 16:00 02/26/24 16:07 Temperature 98.3 F 98.8 F Temperature Source Oral Temporal Pulse Rate 91 85 86 Respiratory Rate 27 H 16 21 H Blood Pressure 102/54 L 119/59 L 119/59 L Blood Pressure Mean 70 79 79 Pulse Ox 96 100 100 Oxygen Delivery Method Nasal Cannula Nasal Cannula Nasal Cannula Oxygen Flow Rate (L/min) 6 6 02/26/24 16:51 02/26/24 18:00 02/26/24 20:00 Temperature Temperature Source Pulse Rate 84 77 99 Respiratory Rate 22 H 20 H 25 H Blood Pressure 116/53 L 117/46 L 124/61 H Blood Pressure Mean 74 69 82 Pulse Ox 100 97 94 Oxygen Delivery Method Nasal Cannula Nasal Cannula Nasal Cannula Oxygen Flow Rate (L/min) 6 6 Positive unkempt General Appearance ED: unkempt HEENT Reports dry mucous membranes Mouth ED: Yes dry mucous membranes Mouth: dry mucous membranes Eyes PERRL and EOMs intact bilaterally General Eye ED: Negative for pale conjunctiva or scleral icterus Neck no lymphadenopathy Chest Wall Chest Narrative: catheter noted in the right chest wall. Resp normal respiratory effort Cardio regular rate and regular rhythm GI normal to inspection, nondistended, normoactive bowel sounds Back/Spine Back/Spine Narrative: Sacral decubitus ulcer stage IV with bleeding. Difficult to visualize secondary to bleeding. Tender to palpation. Extremity normal to inspection Neuro CN's II-XII intact bilaterally Sensorium / Orientation: alert Motor Exam: general weakness Psych Psych Narrative: Confused Appearance: unkempt Skin Skin Narrative: As described above MDM MDM MDM Narrative Medical decision making narrative: Patient presenting with sickle decubitus ulcer which is bleeding. Review of the medical record shows that he is end-stage renal disease on dialysis. His recent history of multifocal pneumonia. He also has history of sacral cubitus ulcer. Patient says 94% on 6 L of oxygen. Differential includes for sepsis, pneumonia, dehydration, anemia, sacral osteomyelitis, cellulitis, rhabdomyolysis, acute on chronic renal injury, CHF, UTI, ACS. Sepsis workup was pursued. Patient given to 50 cc of IV fluids after running established. CT of the abdomen pelvis will be obtained to evaluate his sacral osteomyelitis. Urinalysis to assess for UTI. Patient pancultured. Chest x-ray will be obtained to rule out pneumonia versus CHF as the patient is more hypoxic than previous. EKG will be obtained to assess for dysrhythmia/ischemia. CPK to assess for rhabdomyolysis. EKG shows a sinus rhythm at 91 bpm without evidence of ischemia. Chest x-ray on my interpretation shows no acute cardiopulmonary process. Radiologist agrees. CBC shows leukocytosis at 18.3. Hemoglobin 7.6 near baseline. Platelets 296. Creatinine 6.0 however patient is end-stage renal disease on dialysis and electrolytes are unremarkable. Lactic acid is normal. LFTs are unremarkable. CPK only 88 at this point. High-sensitivity opponent is 130 of undetermined significance as the patient is not reporting any chest pain although is a little confused and is requiring more oxygen than usual. In addition to this he is end-stage renal disease which may be making his troponin elevated. CT of the abdomen pelvis shows acute osteomyelitis of the sacral spine with soft tissue thickening. Discussed the case with the hospitalist who recommended transfer for plastics evaluation. Discussed the case with [facility] and spoke with Dr. Cuba who is the hospitalist and Dr. Dyer who is the plastic surgeon and they accepted admission. Discussed all lab work, imaging, vital signs. Vancomycin and Zosyn were given after patient was cultured. Wound was cultured. Patient has remained hemodynamically stable. Impression: 1. Altered mental status 2. Hypoxia 3. Sacral osteomyelitis 4. Sacral cellulitis 5. Leukocytosis Lab Data Attestation: I reviewed the patient's lab results. Labs: Laboratory Results - last 24 hr 02/26/24 02/26/24 14:25 14:35 WBC 18.3 H RBC 2.28 L Hgb 7.6 L Hct 24.4 L MCV 107.0 H MCH 33.3 H MCHC 31.1 L RDW Std Deviation 74.2 H RDW Coeff of Reynold 19.1 H Plt Count 296 MPV 9.3 Immature Gran % (Auto) 2.100 H Neut % (Auto) 70.3 H Lymph % (Auto) 17.3 L Monona % (Auto) 9.6 Eos % (Auto) 0.3 Baso % (Auto) 0.4 Absolute Neuts (auto) 12.9 H Absolute Lymphs (auto) 3.17 Nucleated RBC % 0 Differential Comment SEE COMMENT Diff Path Review May foll Platelet Estimate ADEQUATE RBC Morphology N CHROM Polychromasia RARE Hypochromasia 1+ Anisocytosis 1+ Macrocytosis 1+ Ovalocytes RARE PT 20.2 H INR 1.7 APTT 40.0 H Sodium 133 L Potassium 4.3 Chloride 96 L Carbon Dioxide 31.0 Anion Gap 6 BUN 67 H Creatinine 6.00 H Estim Creat Clear Calc 13.69 Est GFR (MDRD) Af Amer 12 L Est GFR (MDRD) Non-Af 10 L BUN/Creatinine Ratio 11.2 Glucose 155 H Lactic Acid 1.5 Calcium 8.7 Total Bilirubin 0.60 AST 14 L ALT < 6 L Alkaline Phosphatase 54 Total Creatine Kinase 88 Troponin I High Sens 130 H* Total Protein 8.3 H Albumin 1.9 L Globulin 6.4 H Albumin/Globulin Ratio 0.3 L Radiography Diagnostic Testing: Clinical Impression(s) from Imaging Studies Abdomen/Pelvis CT 02/26/24 15:24 IMPRESSION: Acute osteomyelitis of the mid sacral spine with associated presacral soft tissue thickening. Electronically Signed: Russell Vargas MD at 16:55 EDT , Chest X-Ray 02/26/24 15:25 IMPRESSION: Cardiomegaly. Prior CABG. Mild atelectasis at the right lung base. Electronically Signed: Maximus Esqueda MD at 15:40 EDT , Discharge Plan Triage Chief Complaint: Wound Check Other Complaint: Wound ED Provider: Joshua Booth Dx/Rx/DC Orders Prescriptions: No Action albuterol sulfate 90 mcg/actuation HFA aerosol inhaler 2 inh inhalation Q6H PRN (Reason: shortness of breath or wheezing) albuterol sulfate 2.5 mg/0.5 mL solution for nebulization 2.5 mg inhalation Q6H aspirin [Adult Low Dose Aspirin] 81 mg tablet,delayed release (DR/EC) 81 mg PO DAILY insulin glargine [Basaglar KwikPen U-100 Insulin] 100 unit/mL (3 mL) insulin pen 12 unit subcut QPM buspirone 5 mg tablet 5 mg PO DAILY rosuvastatin [Crestor] 20 mg tablet 20 mg PO DAILY gabapentin 600 mg tablet 600 mg PO BID insulin lispro [Humalog KwikPen Insulin] 100 unit/mL insulin pen 10 unit subcut .COMPLEX Rx Instructions: 10 units subcutaneously am and afternoon; insulin lispro protamin-lispro 100 unit/mL (75-25) insulin pen 12 unit subcut .daily hs Rx Instructions: IN AFTERNOON ferrous sulfate [iron] 325 mg (65 mg iron) tablet 325 mg PO BID isosorbide mononitrate 60 mg tablet extended release 24 hr 60 mg PO DAILY metoprolol succinate 25 mg tablet extended release 24 hr 25 mg PO DAILY nitroglycerin [Nitrolingual] 0.4 mg sublingual PRN omeprazole 20 mg capsule,delayed release(DR/EC) 20 mg PO DAILY clopidogrel [Plavix] 75 mg tablet 75 mg PO DAILY ranolazine 500 mg tablet extended release 12 hr 1,000 mg PO Q12H sevelamer carbonate [Renvela] 800 mg tablet 1,600 mg PO DAILY Rx Instructions: must administer with a meal/food vilazodone 40 mg tablet 40 mg PO DAILY Rx Instructions: must administer with a meal/food cyanocobalamin (vitamin B-12) [Vitamin B-12] 500 mcg tablet 500 mcg PO DAILY cholecalciferol (vitamin D3) 125 mcg (5,000 unit) capsule 5,000 unit PO DAILY metronidazole 500 mg tablet 500 mg PO TID Qty: 150 0RF cefepime 100 gram recon soln 1 g IV .see below 50 Days Rx Instructions: dx: sacral osteo. Stop date 03/23/24. IV cefepime dosed with dialysis sessions, 1gm on Mon, 2gm on , 1gm on , 2gm on Mon. weekly bmp, cbc, esr, and vanc trough, fax to [phone]. vancomycin in 0.9 % sodium chl 1 gram/200 mL piggyback 1 g IV .see below 50 Days Rx Instructions: dx: sacral osteo. Stop date 03/23/24. IV vancomycin 500mg dosed with dialysis sessions, [id number]. weekly bmp, cbc, esr, and vanc trough, fax to [phone]. acetaminophen 325 mg capsule 650 mg PO Q4H bisacodyl 10 mg suppository 10 mg MT DAILY PRN (Reason: constipation) Rx Instructions: if MOM ineffective acetaminophen 650 mg suppository 650 mg MT Q4H magnesium hydroxide [Milk of Magnesia] 400 mg/5 mL suspension 30 ml PO DAILY PRN Vraylar 3 mg capsule 3 mg PO DAILY midodrine 10 mg tablet 10 mg PO Q4H PRN (Reason: hypotension) Rx Instructions: do not exceed 3 doses per 24 hrs Thera-Tabs Tablet 1 tab PO DAILY Glucagon Emergency Kit (human) 1 mg recon soln 1 mg IM X1 PRN (Reason: hypoglycemia) Primary Care Provider: Laci Power Referrals: Laci Power MD [Primary Care Provider] -
[2024-02-26 15:02] LABS: Absolute Lymphocyte Count 3.17 X10^3/uL (0.83-4.51); Absolute Neutrophil Count 12.9 X10^3/uL (2.0-7.7); Basophil# 0.07 X10^3/uL; Basophil% 0.4 % (0-1); Eosinophil# 0.05 X10^3/uL; Eosinophils% 0.3 % (0-5); Hematocrit 24.4 % (40-54); Hemoglobin 7.6 g/dL (13.0-16.5); Lymphocyte # 3.17 X10^3/ul (0.83-4.51); Lymphocyte % 17.3 % (19-41); Mean Corp Hgb Conc 31.1 g/dL (32-36); Mean Corpuscular Hgb 33.3 pg (27.0-32.0); Mean Platelet Vol. 9.3 fl (6.2-12.0); Monocyte# 1.76 X10^3/uL; Monocyte% 9.6 % (0-10); NRBC Flagged by Analyzer 0 % (0-5); Neutrophil # 12.91 X10^3/uL (2.7-7.7); Neutrophil % 70.3 % (47-70); POSITIVE DIFFERENTIAL YES; POSITIVE MORPHOLOGY YES; Platelet Count 296 K/mm3 (150-450); RBC Distribution Width CV 19.1 % (11.6-14.6); RBC Distribution Width SD 74.2 fl (35.1-43.9); Red Blood Count 2.28 M/mm3 (4.6-6.2); White Blood Count 18.3 K/mm3 (4.4-11.0)
[2024-02-26 15:10] LABS: Differential Indicated SCAN CRITERIA MET
[2024-02-26 15:11] LABS: International Normalized Ratio 1.7; Prothrombin Time (Protime)PT. 20.2 SECONDS (11.7-14.9)
[2024-02-26 15:13] LABS: Lactic Acid 1.5 mmol/L (0.4-1.9)
[2024-02-26 15:21] LABS: ALB/GLOB Ratio 0.3 RATIO (0.9-2.4); AST(SGOT) 14 U/L (15-37); Alanine Aminotransfer ALT/SGPT < 6 U/L (16-61); Albumin, Serum 1.9 g/dL (3.2-5.0); Alkaline Phosphatase 54 U/L (45-117); Anion Gap 6 (5-15); BUN 67 mg/dL (7-18); BUN/Creat Ratio 11.2 RATIO (10-20); CPK Total, Creatine Kinase 88 U/L (39-308); Calcium,Total 8.7 mg/dL (8.5-10.1); Chloride 96 mmol/L (98-107); EST Glomerular Filtration Rate 10 mL/min (>60); Est Glom Filt Rate - Afr Amer 12 mL/min (>60); Estimated Creatinine Clearance 13.69 ml/min; Globulin 6.4 g/dL (2.2-4.2); Glucose 155 mg/dL (74-106); Potassium 4.3 mmol/L (3.5-5.1); Protein, Total 8.3 g/dL (6.4-8.2); Sodium Level 133 mmol/L (136-145); Troponin-I HS 130 pg/mL (3.0-78.0)
--- NOTE | 2024-02-26 15:24 | CT_ITS ---
STUDY: CT ABDOMEN AND PELVIS WITHOUT CONTRAST REASON FOR EXAM: Male, 58 years old. sacral ulcer RADIATION DOSAGE (If Supplied By Facility): CTDIvol = ( 13.29 ) mGy, DLP = ( 1250.92 ) mGycm TECHNIQUE: Transaxial images were obtained from the dome of the diaphragm to the symphysis pubis without oral contrast, and without intravenous contrast. Sagittal and coronal images were reconstructed. Individualized dose optimization techniques were used for this CT. COMPARISON: None. FINDINGS: There are bilateral pleural effusions and compressive atelectasis at both lung bases.. Heart size is normal. There is no definitive evidence for coronary artery calcification Normal liver. Contracted thick-walled gallbladder with heterogeneous appearance to gallbladder content most likely biliary sludge however if concern for gallstones ultrasound recommended. Normal spleen. Normal pancreas. Normal bilateral adrenal glands. Normal right kidney. Normal left kidney. Normal visualized stomach. Normal small intestine. There are diverticular changes of the colon without evidence for acute diverticulitis Colostomy noted within left lower quadrant.. No evidence for acute appendicitis.. Atherosclerotic changes of the aorta post surgical changes status post aortoiliac stenting. Normal inferior vena cava. Normal retroperitoneum. Poorly distended bladder containing air and Franco catheter Normal abdominal wall. Lumbar spine demonstrates degenerative changes.. There is presacral soft tissue thickening and destruction of the mid sacral spine consistent with acute osteomyelitis. CT/Abdomen/Pelvis without Cont IMPRESSION: Acute osteomyelitis of the mid sacral spine with associated presacral soft tissue thickening. Electronically Signed: Rsusell Vargas MD at 16:55 EDT ,
--- NOTE | 2024-02-26 15:25 | RAD_ITS ---
STUDY: X-RAY CHEST REASON FOR EXAM: Male, 58 years old. Weakness TECHNIQUE: Single AP portable view of the chest. COMPARISON: Comparison is made with prior study February 08, 2024. FINDINGS: A right-sided double-lumen catheter is seen with the tip at the junction of the superior vena cava and right atrium. EKG electrodes are seen. Mild degree of residual increased markings at the right lung base suggestive of atelectasis. Stable elevation of right hemidiaphragm. Questionable left basilar atelectasis. Sternal cerclage wires and vascular clips are present from a prior sternotomy and coronary artery bypass graft procedure (CABG). Splenomegaly. Normal mediastinum and conor. Normal visualized pulmonary arteries. Normal visualized aortic arch and descending thoracic aorta. Normal visualized thoracic spine. Normal visualized ribs, clavicles, and shoulders. There is no demonstrated abnormality of the visualized soft tissue structures of the upper abdomen. RAD/Chest 1 View (Portable) IMPRESSION: Cardiomegaly. Prior CABG. Mild atelectasis at the right lung base. Electronically Signed: Maximus Esqueda MD at 15:40 EDT ,
[2024-02-26] MEDS: 0.9% Normal Saline (1000mL) 1,000 ML 200 ML IV (15:30)
[2024-02-26 15:55] LABS: Anisocytosis 1+; Hypochromasia 1+; Macrocytosis 1+; Ovalocyte RARE; Platelet Estimate ADEQUATE (ADEQ); Polychromasia RARE; Red Cell Morphology N CHROM NORMAL (NORM C&C)
[2024-02-26] MEDS: Piperacil/Tazobactam 3.375 GM in 0.9% Normal Saline (50mL MB+) 50 ML IV (15:57)
--- NOTE | 2024-02-26 15:59 | ED.RN ---
per yuko Bragg to start antibiotics before obtaining urine culture d/t pt being on dialysis and producing only scant amounts of urine
[2024-02-26] MEDS: Vancomycin HCl 2,000 MG in 0.9% Normal Saline (500mL Bag) 500 ML 250 MG IV (16:37)
[2024-02-27] VITALS: BP 136/59; PULSE 96; RESP 23; O2SAT 96
[2024-02-27 02:00] VITALS: BP 158/91; PULSE 107; RESP 22; O2SAT 93
[2024-02-27 04:00] VITALS: BP 150/58; PULSE 102; RESP 22; O2SAT 96
[2024-02-27 06:00] VITALS: BP 149/59; PULSE 91; RESP 20; O2SAT 100
--- NOTE | 2024-02-27 07:33 | NURSING ---
[facility] CALLED. TALKED TO WINSTON BEAVER 883 BED 1 NURSE TO NURSE [phone]
[2024-02-27 08:00] VITALS: BP 148/73; PULSE 94; RESP 18; TEMP 37.1; O2SAT 100
--- NOTE | 2024-02-27 08:02 | NURSING ---
0744 CALLED CLAUDE, ETA IS 20 MIN
[2024-02-27 08:38] VITALS: BP 134/78; PULSE 67; RESP 14; TEMP 36.4; O2SAT 99
[2024-02-27 11:29] LABS: Pathologist Review Reviewed
== END 2024-02-27 08:50 | disposition short-term general hospital (02) ==
LOC: ED 16:07
PROVIDERS: Emergency Provider Student in an Organized Health Care Education/Training Program; PCP Family Medicine; Visit Provider Student in an Organized Health Care Education/Training Program
DX: M46.28 Osteomyelitis of vertebra, sacral and sacrococcygeal region (principal); I13.2 Hypertensive heart and chronic kidney disease with heart failure and with stage 5 chronic kidney disease, or end stage renal disease; N18.6 End stage renal disease; Z93.3 Colostomy status; I50.9 Heart failure, unspecified; E11.22 Type 2 diabetes mellitus with diabetic chronic kidney disease; Z79.4 Long term (current) use of insulin; R41.82 Altered mental status, unspecified; L03.312 Cellulitis of back [any part except buttock and flank]; Z87.891 Personal history of nicotine dependence; R09.02 Hypoxemia; Z99.2 Dependence on renal dialysis; D72.829 Elevated white blood cell count, unspecified; I25.10 Atherosclerotic heart disease of native coronary artery without angina pectoris; E78.5 Hyperlipidemia, unspecified; I25.2 Old myocardial infarction; Z79.82 Long term (current) use of aspirin; Z79.899 Other long term (current) drug therapy; F32.A Depression, unspecified; Z79.02 Long term (current) use of antithrombotics/antiplatelets; K21.9 Gastro-esophageal reflux disease without esophagitis; Z99.81 Dependence on supplemental oxygen
CPT/HCPCS: 71045; 74176; 80053; 82550; 83605; 84484; 85025; 85610; 85730; 87040; 87070; 87075; 87077; 87186; 87205; 87631; 93005; 96361; 96365; 96367; 99285; J7030; J7040; A4216

== ENCOUNTER 2024-03-19 11:19 | Emergency (ER) | payer MEDICARE, MEDICAID, SELFPAY ==
[2024-03-19 11:22] VITALS: BP 104/57; PULSE 109; RESP 18; TEMP 36; O2SAT 100; BMI 31.7
--- NOTE | 2024-03-19 12:42 | CT_ITS ---
STUDY: CT ABDOMEN AND PELVIS WITHOUT CONTRAST REASON FOR EXAM: Male, 58 years old. Sacral ulcer. RADIATION DOSAGE (If Supplied By Facility): CTDIvol = ( 14.74 ) mGy, DLP = ( 909.47 ) mGycm TECHNIQUE: Transaxial images were obtained from the dome of the diaphragm to the symphysis pubis without oral contrast, and without intravenous contrast. Sagittal and coronal images were reconstructed. Individualized dose optimization techniques were used for this CT. COMPARISON: Prior study dated: 02/26/2024 FINDINGS: Evaluation of the abdominal viscera is limited in the absence of intravenous contrast. Evaluation is further limited by patient motion and by streak artifact due to the patient''s arms being at his sides. LOWER THORAX: There is a stable moderate loculated left pleural effusion and small right pleural effusion. There is atelectasis at the lung bases. Again noted are coronary artery calcifications. The patient is status post sternotomy. The heart is normal in size. GALLBLADDER / BILE DUCTS: There are no calcified gallstones present. The common bile duct is normal in caliber. There are no calcified ductal stones. LIVER: The liver is low in density, consistent with fatty infiltration. SPLEEN: The spleen is normal in size. PANCREAS: The pancreas demonstrates an unremarkable unenhanced appearance. ADRENAL GLANDS: The adrenal glands are within normal limits. KIDNEYS / BLADDER: There are no renal or ureteral stones. There is no hydronephrosis. There are no focal renal lesions identified on this noncontrast exam. The bladder is thick-walled with adjacent stranding, consistent with cystitis. STOMACH / BOWEL: Normal visualized stomach. There is no bowel obstruction or inflammation. There are stable postsurgical changes from prior bowel resection with a left lower quadrant colostomy in place. The appendix is not visualized, but there are no findings to suggest acute appendicitis. PERITONEUM / RETROPERITONEUM: There is no abdominal or pelvic free air, free fluid or fluid collection. There is no abnormal soft tissue mass identified. There is no abdominal or pelvic lymphadenopathy. VESSELS: There are atherosclerotic calcifications noted in the aorta and its branches. The aorta is normal in caliber. Again noted is an aortobiiliac endograft which is not well evaluated without contrast. The IVC is unremarkable. BONES: There is sclerosis of the right inferior pubic ramus, ischium and erosions in the coccyx. This is consistent with osteomyelitis. SOFT TISSUES: There is a sacral decubitus ulcer again noted. There is no fluid collection. CT/Abdomen/Pelvis without Cont IMPRESSION: Redemonstration of a sacral decubitus ulcer. No fluid collection. Sclerosis of the right inferior pubic ramus, right ischium and erosions of the coccyx. This is consistent with osteomyelitis. Thick-walled urinary bladder with adjacent stranding, consistent with cystitis. No bowel obstruction or inflammation. Stable post surgical changes from prior bowel resection with a left lower quadrant colostomy in place. Stable moderate loculated left pleural effusion and stable small right pleural effusion with overlying atelectasis. Fatty liver. Electronically Signed: Cole Lawrence MD at 13:32 EDT ,
[2024-03-19 12:44] LABS: Erythrocyte Sedimentation Rate 28 mm/hr (0-20)
--- NOTE | 2024-03-19 12:45 | EX.ED.DYSGE1 ---
HPI History of Present Illness Chief Complaint: Wound Check Narrative Narrative: 58-year-old male who is a very poor informant presenting for evaluation of his sacral decubitus ulcer. All he knows is he had some bleeding of it that is why that was sent in. Patient has a history of sacral osteomyelitis. Ostomy is here who was transferred to outside facility for management. Patient does not remember where he went. Patient does not remember his physician. Patient does not see any kind of wound care on outpatient basis. 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 Bipolar affective disorder CAD (coronary artery disease) Cervical stenosis of spine CHF (congestive heart failure) Chronic kidney disease Colostomy in place Depression Diabetes Dialysis patient GERD (gastroesophageal reflux disease) Hyperlipemia Hypertension Myocardial infarction Neuropathy Osteoarthritis Home Medications albuterol sulfate 2.5 mg/0.5 mL solution for nebulization 2.5 mg inhalation Q6H 01/27/24 [History Last Taken Unknown] albuterol sulfate 90 mcg/actuation aerosol inhaler 2 inh inhalation Q6H PRN shortness of breath or wheezing 01/27/24 [History Last Taken Unknown] aspirin 81 mg tablet,delayed release (Adult Low Dose Aspirin) 81 mg PO DAILY 01/27/24 [History Last Taken Unknown] buspirone 5 mg tablet 5 mg PO DAILY 01/27/24 [History Last Taken Unknown] cholecalciferol (vitamin D3) 125 mcg (5,000 unit) capsule 5,000 unit PO DAILY 01/27/24 [History Last Taken Unknown] clopidogrel 75 mg tablet (Plavix) 75 mg PO DAILY 01/27/24 [History Last Taken Unknown] cyanocobalamin (vitamin B-12) 500 mcg tablet (Vitamin B-12) 500 mcg PO DAILY 01/27/24 [History Last Taken Unknown] ferrous sulfate 325 mg (65 mg iron) tablet (iron) 325 mg PO BID 01/27/24 [History Last Taken Unknown] gabapentin 600 mg tablet 600 mg PO BID 01/27/24 [History Last Taken Unknown] insulin glargine 100 unit/mL (3 mL) subcutaneous pen (Basaglar KwikPen U-100 Insulin) 12 unit subcut QPM BG 01/27/24 [History Last Taken Unknown] insulin lispro 100 unit/mL subcutaneous pen (Humalog KwikPen (U-100) Insulin) 10 unit subcut .COMPLEX 01/27/24 [History Last Taken Unknown] insulin lispro protamine-lispro 100 unit/mL (75-25) subcutaneous pen 12 unit subcut .daily hs 01/27/24 [History Last Taken Unknown] isosorbide mononitrate 60 mg tablet,extended release 24 hr 60 mg PO DAILY 01/27/24 [History Last Taken Unknown] metoprolol succinate 25 mg tablet,extended release 24 hr 25 mg PO DAILY 01/27/24 [History Last Taken Unknown] nitroglycerin 0.4 mg sublingual PRN 01/27/24 [History Last Taken Unknown] omeprazole 20 mg capsule,delayed release 20 mg PO DAILY 01/27/24 [History Last Taken Unknown] ranolazine 500 mg tablet,extended release,12 hr 1,000 mg PO Q12H 01/27/24 [History Last Taken Unknown] rosuvastatin 20 mg tablet (Crestor) 20 mg PO DAILY 01/27/24 [History Last Taken Unknown] sevelamer carbonate 800 mg tablet (Renvela) 1,600 mg PO DAILY 01/27/24 [History Last Taken Unknown] vilazodone 40 mg tablet 40 mg PO DAILY 01/27/24 [History Last Taken Unknown] cefepime 100 gram intravenous solution 1 g IV .see below 50 days 02/02/24 [Rx Last Taken Unknown] metronidazole 500 mg tablet 500 mg PO TID #150 tabs 02/02/24 [Rx Last Taken Unknown] vancomycin 1 gram/200 mL in 0.9 % sod. chloride intravenous piggyback 1 g (200 mL) IV .see below 50 days 02/02/24 [Rx Last Taken Unknown] acetaminophen 325 mg capsule 650 mg PO Q4H pain or fever 02/08/24 [History Last Taken Unknown] acetaminophen 650 mg rectal suppository 650 mg WA Q4H fever 02/08/24 [History Last Taken Unknown] bisacodyl 10 mg rectal suppository 10 mg WA DAILY PRN constipation 02/08/24 [History Last Taken Unknown] cariprazine 3 mg capsule (Vraylar) 3 mg PO DAILY 02/08/24 [History Last Taken Unknown] magnesium hydroxide 400 mg/5 mL oral suspension (Milk of Magnesia) 30 ml PO DAILY PRN constipation 02/08/24 [History Last Taken Unknown] glucagon 1 mg solution for injection (Glucagon Emergency Kit) 1 mg IM X1 PRN hypoglycemia 02/26/24 [History Last Taken Unknown] midodrine 10 mg tablet 10 mg PO Q4H PRN hypotension 02/26/24 [History Last Taken Unknown] therapeutic multivitamin (Thera-Tabs tablet) 1 tab PO DAILY 02/26/24 [History Last Taken Unknown] Allergy/AdvReac Type Severity Reaction Status Date / Time atorvastatin Allergy Unknown PT UNABLE Verified 03/19/24 11:24 TO RESPOND-NEEDS F/U [id number] Reductase Allergy Unknown PT UNABLE Verified 03/19/24 11:24 Inhibitor TO RESPOND-NEEDS F/U Surgical History Hx of appendectomy Hx of CABG Social History Smoking Status: Current some day smoker tobacco type: cigarettes ROS ROS ED Constitutional Constitutional ED: Denies chills or fever(s) Eyes Eyes: Denies change in vision ENT ENT ED: Denies rhinorrhea or sore throat Cardiovascular Cardiovascular: Denies chest pain or palpitations Respiratory/Chest Respiratory/Chest: Denies cough or dyspnea Gastrointestinal Gastrointestinal: Denies abdominal pain Genitourinary Genitourinary ED: Denies dysuria or hematuria Musculoskeletal Musculoskeletal: Reports back pain Integumentary Reports other Details: Stage IV sacral decubitus ulcer Neurologic Neurologic: Denies headache(s) Psychiatric Psychiatric: Denies anxiety or depression EXAM Physical Exam Const Vital Signs: 03/19/24 11:22 Temperature 96.8 F L Temperature Source Oral Pulse Rate 109 H Respiratory Rate 18 Blood Pressure 104/57 L Blood Pressure Mean 72 Pulse Ox 100 Oxygen Delivery Method Nasal Cannula Oxygen Flow Rate (L/min) 2 Positive obese and unkempt General Appearance ED: unkempt Nutritional Appearance: obese HEENT Reports dry mucous membranes Mouth ED: Yes dry mucous membranes Mouth: dry mucous membranes Eyes PERRL and EOMs intact bilaterally Chest Wall inspection of chest normal Resp normal respiratory effort Cardio regular rate and regular rhythm GI normal to inspection, nondistended, normoactive bowel sounds Back/Spine Back/Spine Narrative: Sacral decubitus ulcer stage IV with serosanguineous drainage. External dressing was dry however. Extremity normal to inspection Neuro CN's II-XII intact bilaterally Sensorium / Orientation: alert Psych Appearance: unkempt MDM MDM MDM Narrative Medical decision making narrative: Patient presenting for evaluation of sacral cubitus ulcer. He is a very poor informant and is not sure why exactly he was sent here. Hypertensive screening lab work and his CBC shows a white blood cell count of 12.8 which is near his baseline. It has been in this range for last 2 visits. Hemoglobin 8.4 also near baseline. Platelets 271. Creatinine 3.12 is actually improved from 5. CRP 69.3 and his ESR 28. These also have not significantly changed. We did roll the patient and look at his sacral decubitus ulcer there are some serosanguineous fluids but there is not extensive amount of blood which is what patient thought he was sent for. We did send a culture of this. A culture was also sent for urine. Indwelling Franco catheter. He discussed the case with Dr. Power who is the patient's physician and we discussed them at length. Since his inflammatory markers and white count are same and he is on vancomycin his facility he recommended to send a urine culture. And giving him a dose of Rocephin for now. Patient is wound was cleaned and dressed. Discharged home in stable condition. Impression: 1. Chronic sacral osteomyelitis 2. Wound check Lab Data Attestation: I reviewed the patient's lab results. Labs: Laboratory Results - last 24 hr 03/19/24 12:20 WBC 12.8 H RBC 2.64 L Hgb 8.4 L Hct 26.3 L MCV 99.6 H MCH 31.8 MCHC 31.9 L RDW Std Deviation 69.9 H RDW Coeff of Reynold 19.3 H Plt Count 271 MPV 9.5 Immature Gran % (Auto) 0.600 Neut % (Auto) 73.1 H Lymph % (Auto) 18.6 L Ogle % (Auto) 7.2 Eos % (Auto) 0.2 Baso % (Auto) 0.3 Absolute Neuts (auto) 9.4 H Absolute Lymphs (auto) 2.38 Nucleated RBC % 0 Differential Comment SCANNED ESR 28 H Sodium 131 L Potassium 3.7 Chloride 93 L Carbon Dioxide 30.0 Anion Gap 8 BUN 44 H Creatinine 3.12 H Estim Creat Clear Calc 24.91 Est GFR (MDRD) Af Amer 26 L Est GFR (MDRD) Non-Af 22 L BUN/Creatinine Ratio 14.1 Glucose 167 H Calcium 8.6 C-React Prot Ext Range 69.30 H Radiography Diagnostic Testing: Clinical Impression(s) from Imaging Studies Abdomen/Pelvis CT 03/19/24 12:42 IMPRESSION: Redemonstration of a sacral decubitus ulcer. No fluid collection. Sclerosis of the right inferior pubic ramus, right ischium and erosions of the coccyx. This is consistent with osteomyelitis. Thick-walled urinary bladder with adjacent stranding, consistent with cystitis. No bowel obstruction or inflammation. Stable post surgical changes from prior bowel resection with a left lower quadrant colostomy in place. Stable moderate loculated left pleural effusion and stable small right pleural effusion with overlying atelectasis. Fatty liver. Electronically Signed: Cole Lawrence MD at 13:32 EDT Reading Location ID and State: [facility] / [place] Tel , Service support , Discharge Plan Triage Chief Complaint: Wound Check ED Provider: Joshua Booth Dx/Rx/DC Orders Prescriptions: No Action albuterol sulfate 90 mcg/actuation HFA aerosol inhaler 2 inh inhalation Q6H PRN (Reason: shortness of breath or wheezing) albuterol sulfate 2.5 mg/0.5 mL solution for nebulization 2.5 mg inhalation Q6H aspirin [Adult Low Dose Aspirin] 81 mg tablet,delayed release (DR/EC) 81 mg PO DAILY insulin glargine [Basaglar KwikPen U-100 Insulin] 100 unit/mL (3 mL) insulin pen 12 unit subcut QPM buspirone 5 mg tablet 5 mg PO DAILY rosuvastatin [Crestor] 20 mg tablet 20 mg PO DAILY gabapentin 600 mg tablet 600 mg PO BID insulin lispro [Humalog KwikPen Insulin] 100 unit/mL insulin pen 10 unit subcut .COMPLEX Rx Instructions: 10 units subcutaneously am and afternoon; insulin lispro protamin-lispro 100 unit/mL (75-25) insulin pen 12 unit subcut .daily hs Rx Instructions: IN AFTERNOON ferrous sulfate [iron] 325 mg (65 mg iron) tablet 325 mg PO BID isosorbide mononitrate 60 mg tablet extended release 24 hr 60 mg PO DAILY metoprolol succinate 25 mg tablet extended release 24 hr 25 mg PO DAILY nitroglycerin [Nitrolingual] 0.4 mg sublingual PRN omeprazole 20 mg capsule,delayed release(DR/EC) 20 mg PO DAILY clopidogrel [Plavix] 75 mg tablet 75 mg PO DAILY ranolazine 500 mg tablet extended release 12 hr 1,000 mg PO Q12H sevelamer carbonate [Renvela] 800 mg tablet 1,600 mg PO DAILY Rx Instructions: must administer with a meal/food vilazodone 40 mg tablet 40 mg PO DAILY Rx Instructions: must administer with a meal/food cyanocobalamin (vitamin B-12) [Vitamin B-12] 500 mcg tablet 500 mcg PO DAILY cholecalciferol (vitamin D3) 125 mcg (5,000 unit) capsule 5,000 unit PO DAILY metronidazole 500 mg tablet 500 mg PO TID Qty: 150 0RF cefepime 100 gram recon soln 1 g IV .see below 50 Days Rx Instructions: dx: sacral osteo. Stop date 03/23/24. IV cefepime dosed with dialysis sessions, 1gm on Mon, 2gm on , 1gm on , 2gm on Mon. weekly bmp, cbc, esr, and vanc trough, fax to [phone]. vancomycin in 0.9 % sodium chl 1 gram/200 mL piggyback 1 g IV .see below 50 Days Rx Instructions: dx: sacral osteo. Stop date 03/23/24. IV vancomycin 500mg dosed with dialysis sessions, [id number]. weekly bmp, cbc, esr, and vanc trough, fax to [phone]. acetaminophen 325 mg capsule 650 mg PO Q4H bisacodyl 10 mg suppository 10 mg WA DAILY PRN (Reason: constipation) Rx Instructions: if MOM ineffective acetaminophen 650 mg suppository 650 mg WA Q4H magnesium hydroxide [Milk of Magnesia] 400 mg/5 mL suspension 30 ml PO DAILY PRN Vraylar 3 mg capsule 3 mg PO DAILY midodrine 10 mg tablet 10 mg PO Q4H PRN (Reason: hypotension) Rx Instructions: do not exceed 3 doses per 24 hrs Thera-Tabs Tablet 1 tab PO DAILY Glucagon Emergency Kit (human) 1 mg recon soln 1 mg IM X1 PRN (Reason: hypoglycemia) Primary Care Provider: Laci Power Referrals: Laci Power MD [Primary Care Provider] -
[2024-03-19 12:58] LABS: Absolute Lymphocyte Count 2.38 X10^3/uL (0.83-4.51); Absolute Neutrophil Count 9.4 X10^3/uL (2.0-7.7); Anion Gap 8 (5-15); BUN 44 mg/dL (7-18); BUN/Creat Ratio 14.1 RATIO (10-20); Basophil# 0.04 X10^3/uL; Basophil% 0.3 % (0-1); Calcium,Total 8.6 mg/dL (8.5-10.1); Chloride 93 mmol/L (98-107); Creatinine, Serum 3.12 mg/dL (0.70-1.30); EST Glomerular Filtration Rate 22 mL/min (>60); Eosinophil# 0.03 X10^3/uL; Eosinophils% 0.2 % (0-5); Est Glom Filt Rate - Afr Amer 26 mL/min (>60); Estimated Creatinine Clearance 24.91 ml/min; Glucose 167 mg/dL (74-106); Hematocrit 26.3 % (40-54); Hemoglobin 8.4 g/dL (13.0-16.5); Lymphocyte # 2.38 X10^3/ul (0.83-4.51); Lymphocyte % 18.6 % (19-41); Mean Corp Hgb Conc 31.9 g/dL (32-36); Mean Corpuscular Hgb 31.8 pg (27.0-32.0); Mean Corpuscular Volume 99.6 fL (80-94); Mean Platelet Vol. 9.5 fl (6.2-12.0); Monocyte# 0.92 X10^3/uL; Monocyte% 7.2 % (0-10); NRBC Flagged by Analyzer 0 % (0-5); Neutrophil # 9.38 X10^3/uL (2.7-7.7); Neutrophil % 73.1 % (47-70); POSITIVE COUNT YES; POSITIVE MORPHOLOGY YES; Platelet Count 271 K/mm3 (150-450); Potassium 3.7 mmol/L (3.5-5.1); RBC Distribution Width CV 19.3 % (11.6-14.6); RBC Distribution Width SD 69.9 fl (35.1-43.9); Red Blood Count 2.64 M/mm3 (4.6-6.2); Sodium Level 131 mmol/L (136-145); White Blood Count 12.8 K/mm3 (4.4-11.0)
[2024-03-19 13:24] LABS: Differential Indicated SCAN CRITERIA MET
[2024-03-19 13:25] LABS: Differential Comment SCANNED
[2024-03-19] MEDS: Ceftriaxone 1 GM/50 ML BAG IV (14:06)
[2024-03-19] MEDS: 0.9% Normal Saline (500mL Bag) 500 ML 999 ML IV (14:06)
--- NOTE | 2024-03-19 14:53 | NURSING ---
CALLED [facility], ETA IS 2 TO 3 HRS
[2024-03-19 15:20] VITALS: BP 118/56; PULSE 78; RESP 16; O2SAT 99
[2024-03-19 17:00] VITALS: BP 116/78; PULSE 78; RESP 16; TEMP 36.4; O2SAT 99
== END 2024-03-19 17:01 | disposition home or self-care (01) ==
PROVIDERS: Emergency Provider Student in an Organized Health Care Education/Training Program; PCP Family Medicine; Visit Provider Student in an Organized Health Care Education/Training Program
DX: Z48.00 Encounter for change or removal of nonsurgical wound dressing (principal); Z93.3 Colostomy status; M46.28 Osteomyelitis of vertebra, sacral and sacrococcygeal region; I13.0 Hypertensive heart and chronic kidney disease with heart failure and stage 1 through stage 4 chronic kidney disease, or unspecified chronic kidney disease; Z79.4 Long term (current) use of insulin; E11.22 Type 2 diabetes mellitus with diabetic chronic kidney disease; F17.210 Nicotine dependence, cigarettes, uncomplicated; I25.10 Atherosclerotic heart disease of native coronary artery without angina pectoris; N18.9 Chronic kidney disease, unspecified; Z99.2 Dependence on renal dialysis; I25.2 Old myocardial infarction; Z79.82 Long term (current) use of aspirin; Z79.899 Other long term (current) drug therapy; Z79.02 Long term (current) use of antithrombotics/antiplatelets; K21.9 Gastro-esophageal reflux disease without esophagitis; E78.5 Hyperlipidemia, unspecified; F32.A Depression, unspecified; Z90.49 Acquired absence of other specified parts of digestive tract; Z95.1 Presence of aortocoronary bypass graft
CPT/HCPCS: 74176; 80048; 85025; 85652; 86140; 87070; 87075; 87077; 87086; 87088; 87186; 87205; 99282; J7030; A4216

== ENCOUNTER → 2024-04-01 | Outpatient (REF) | payer MEDICARE, MEDICAID, SELFPAY ==
[2024-04-01 09:25] LABS: Erythrocyte Sedimentation Rate 26 mm/hr (0-20)
[2024-04-01 09:28] LABS: Hematocrit 25.1 % (40-54); Hemoglobin 7.8 g/dL (13.0-16.5); Mean Corp Hgb Conc 31.1 g/dL (32-36); Mean Corpuscular Hgb 32.6 pg (27.0-32.0); Mean Platelet Vol. 9.8 fl (6.2-12.0); POSITIVE MORPHOLOGY YES; Platelet Count 250 K/mm3 (150-450); RBC Distribution Width CV 19.1 % (11.6-14.6); RBC Distribution Width SD 72.5 fl (35.1-43.9); Red Blood Count 2.39 M/mm3 (4.6-6.2)
[2024-04-01 09:36] LABS: Scan Indicated on CBC? Y/N YES- FLAGS NOTED
[2024-04-01 11:08] LABS: ALB/GLOB Ratio 0.3 RATIO (0.9-2.4); AST(SGOT) 9 U/L (15-37); Alanine Aminotransfer ALT/SGPT 14 U/L (16-61); Albumin, Serum 1.7 g/dL (3.2-5.0); Alkaline Phosphatase 120 U/L (45-117); Anion Gap 11 (5-15); BUN 116 mg/dL (7-18); BUN/Creat Ratio 18.4 RATIO (10-20); CPK Total, Creatine Kinase 32 U/L (39-308); Calcium,Total 9.2 mg/dL (8.5-10.1); Chloride 94 mmol/L (98-107); Creatinine, Serum 6.31 mg/dL (0.70-1.30); EST Glomerular Filtration Rate 10 mL/min (>60); Est Glom Filt Rate - Afr Amer 12 mL/min (>60); Globulin 5.5 g/dL (2.2-4.2); Glucose 168 mg/dL (74-106); Potassium 3.5 mmol/L (3.5-5.1); Protein, Total 7.2 g/dL (6.4-8.2); Sodium Level 131 mmol/L (136-145)
== END ==
LOC: OLS.SW 04:00
PROVIDERS: PCP Family Medicine; Referring Provider Family Medicine; Visit Provider Family Medicine
DX: I10 Essential (primary) hypertension (principal); D64.9 Anemia, unspecified
CPT/HCPCS: 36415; 80053; 82550; 85027; 85652; 86140

== ENCOUNTER → 2024-04-09 05:00 | Outpatient (REF) | payer MEDICARE, MEDICAID, SELFPAY ==
[2024-04-09 08:33] LABS: Hematocrit 43.3 % (40-54); Hemoglobin 13.2 g/dL (13.0-16.5); Mean Corp Hgb Conc 30.5 g/dL (32-36); Mean Corpuscular Volume 108.3 fL (80-94); Mean Platelet Vol. 9.4 fl (6.2-12.0); POSITIVE MORPHOLOGY YES; Platelet Count 182 K/mm3 (150-450); RBC Distribution Width SD 79.8 fl (35.1-43.9); White Blood Count 8.7 K/mm3 (4.4-11.0)
[2024-04-09 08:36] LABS: ALB/GLOB Ratio 0.3 RATIO (0.9-2.4); AST(SGOT) 10 U/L (15-37); Alanine Aminotransfer ALT/SGPT 13 U/L (16-61); Albumin, Serum 1.6 g/dL (3.2-5.0); Alkaline Phosphatase 128 U/L (45-117); Anion Gap 9 (5-15); BUN 123 mg/dL (7-18); BUN/Creat Ratio 15.2 RATIO (10-20); CPK Total, Creatine Kinase 26 U/L (39-308); Calcium,Total 8.9 mg/dL (8.5-10.1); Chloride 97 mmol/L (98-107); EST Glomerular Filtration Rate 7 mL/min (>60); Est Glom Filt Rate - Afr Amer 9 mL/min (>60); Globulin 5.5 g/dL (2.2-4.2); Glucose 179 mg/dL (74-106); Protein, Total 7.1 g/dL (6.4-8.2); Sodium Level 133 mmol/L (136-145)
[2024-04-09 09:26] LABS: Scan Indicated on CBC? Y/N YES- FLAGS NOTED
[2024-04-09 11:07] LABS: Erythrocyte Sedimentation Rate 27 mm/hr (0-20)
[2024-04-09 11:53] LABS: Differential Comment SCANNED
== END ==
LOC: OLS.SW 05:00
PROVIDERS: PCP Family Medicine; Visit Provider Family Medicine
DX: E11.9 Type 2 diabetes mellitus without complications (principal); R53.83 Other fatigue; M46.28 Osteomyelitis of vertebra, sacral and sacrococcygeal region
CPT/HCPCS: 36415; 80053; 82550; 85027; 85652; 86140